=== PATIENT | female | born 1990 | race Caucasian/White ===

== ENCOUNTER 2021-09-28 08:10 | Outpatient (CLI) | payer BC, SELFPAY ==
[2021-09-28 09:44] LABS: Hematocrit 33.2 % (37.0-47.0); Hemoglobin 11.3 g/dL (12.0-15.0)
[2021-09-28 10:02] LABS: Glucose 1 Hour PP 50gm Dose 126 mg/dL
[2021-09-28 10:41] LABS: HIV 1/2 Ab P24 Ag Result Negative (Negative)
[2021-09-28] MEDS: RHO(D) IMMUNE GLOBULIN 300 MCG/2 ML SYRINGE IM (17:06)
[2021-09-29 09:53] LABS: Rapid Plasma Reagin Non-Reactive (NonReactive)
== END 2021-09-28 08:11 | disposition home or self-care (01) ==
LOC: ANHLAB 08:21
PROVIDERS: Visit Provider Obstetrics & Gynecology
DX: O36.0990 Maternal care for other rhesus isoimmunization, unspecified trimester, not applicable or unspecified (principal); Z3A.00 Weeks of gestation of pregnancy not specified
CPT/HCPCS: 36415; 82947; 85014; 85018; 85461; 86592; 86703; 90384; 96372; G0432; J2790

== ENCOUNTER 2021-10-11 10:14 | Observation (INO) | payer BC, SELFPAY ==
[2021-10-11 10:47] VITALS: BP 128/83; PULSE 100
[2021-10-11 11:00] VITALS: TEMP 36.8
[2021-10-11 11:01] VITALS: BP 106/65; PULSE 87
[2021-10-11] MEDS: LACTATED RINGERS 1,000 ML 999 ML IV CONT (11:34)
--- NOTE | 2021-10-11 17:26 | OBADM ---
This patient, Leanne Harris, admitted to the OB room OB Post 116 for observation. Patient/family oriented to hospital policies and general routines including ID bracelet, bed and alarms, visiting hours, pain management, procedures, bathroom and other care routines, personal items, smoking policy, room service/diet, and visiting hours. Patient/Family are encouraged to report perceived risks to care and to ask questions if they do not understand what they are told or what they should do.
--- NOTE | 2021-10-14 07:17 | PM.OBTRLD ---
OB - Triage/Final Diagnosis Visit Information Comments/Additional reasons for admission: I have assessed the risk for this patient, Leanne Harris, and determined that she would benefit from observation care. Final Diagnosis (1) Nausea: Code(s): R11.0 - Nausea Status: Acute (2) Spotting affecting : Code(s): O26.859 - Spotting complicating , unspecified trimester Status: Acute
== END 2021-10-11 15:00 | disposition home or self-care (01) ==
PROVIDERS: Admitting Provider Obstetrics & Gynecology; Visit Provider Obstetrics & Gynecology
DX: O26.853 Spotting complicating pregnancy, third trimester (principal); O21.0 Mild hyperemesis gravidarum; Z3A.29 29 weeks gestation of pregnancy
CPT/HCPCS: 96360; 96361; G0378; G0379; J7120

== ENCOUNTER 2021-10-22 10:27 | Observation (INO) | payer BC, SELFPAY ==
[2021-10-22 10:54] VITALS: BP 127/77; PULSE 90
--- NOTE | 2021-10-22 12:04 | OBADM ---
This patient, Leanne Harris, admitted to the OB room OB Post 115 for observation. Patient/family oriented to hospital policies and general routines including ID bracelet, bed and alarms, pain management, procedures, bathroom and other care routines, personal items, smoking policy, room service/diet, call light and visiting hours. Patient/Family are encouraged to report perceived risks to care and to ask questions if they do not understand what they are told or what they should do.
--- NOTE | 2021-11-12 10:30 | PM.OBTRLD ---
OB - Triage/Final Diagnosis Visit Information Comments/Additional reasons for admission: I have assessed the risk for this patient, Leanne Harris, and determined that she would benefit from observation care. Final Diagnosis (1) False labor: Code(s): O47.9 - False labor, unspecified Status: Acute
== END 2021-10-22 12:01 | disposition home or self-care (01) ==
PROVIDERS: Admitting Provider Obstetrics & Gynecology; Visit Provider Obstetrics & Gynecology
DX: O47.03 False labor before 37 completed weeks of gestation, third trimester (principal); Z3A.31 31 weeks gestation of pregnancy
CPT/HCPCS: G0378; G0379

== ENCOUNTER 2021-12-10 03:03 | Inpatient (IN) | payer BC, SELFPAY ==
[2021-12-10] VITALS (215 sets, daily range): BP systolic 76–157; BP diastolic 37–119; PULSE 59–240; RESP 18–20; TEMP 36.6–38.6; O2SAT 75–100; BMI 34.7
--- NOTE | 2021-12-10 03:57 | LDADM ---
This patient, Leanne Harris, was admitted to Labor/Delivery/Recovery 105 on 12/10/21 at 03:03. Plans for labor, pain management and were discussed with patient. Patient/family oriented to hospital policies and general routines including ID bracelet, bed and alarms, visiting hours, pain management, procedures, bathroom and other care routines, personal items, smoking policy, room service/diet and guest tray routines, infant security routines, and visiting hours. Patient/Family are encouraged to report perceived risks to care and to ask questions if they do not understand what they are told or what they should do. See OBIX for further documentation.
[2021-12-10 03:59] LABS: Basophils Percent Auto 0.4 % (0.2-1.2); Eosinophils Absolute Auto 0.1 K/mm3 (0-0.3); Eosinophils Percent Auto 0.9 % (0-4.4); Hematocrit 33.3 % (37.0-47.0); Immature Granulocyte Absolute 0.08 K/mm3 (0.00-0.031); Immature Granulocyte Percent A 0.9 % (0-0.5); Immature Platelet Fraction Pct 28.5 % (0.9-11.2); Lymphocytes Absolute Auto 1.89 K/mm3 (0.9-3.2); Lymphocytes Percent Auto 22.1 % (18.3-44.2); Mean Corpuscular Hemoglobin 30.2 pg (26-34); Mean Corpuscular Volume 91.5 fl (80-100); Mean Platelet Volume 13.5 fl (7.4-10.4); Monocytes Absolute Auto 0.7 K/mm3 (0.1-0.6); Monocytes Percent Auto 8.3 % (2.6-8.5); Neutrophils Absolute Auto 5.8 K/mm3 (1.3-6.7); Neutrophils Percent Auto 67.4 % (45.5-73.1); Platelet Count Result 97 k/mm3 (150-375); Red Blood Count 3.64 M/mm3 (4.2-5.4); Red Cell Distribution Width 13.1 % (11.5-14.5); White Blood Count 8.6 K/mm3 (4.5-10.0)
[2021-12-10] MEDS: LACTATED RINGERS 1,000 ML 125 ML IV CONT ×4 (04:07→14:07)
--- NOTE | 2021-12-10 07:01 | PC.NURSE ---
Lab called to request uric acid be added to cmp that was just sent down to be run.
[2021-12-10 07:02] LABS: Hematocrit 32.3 % (37.0-47.0); Hemoglobin 10.7 g/dL (12.0-15.0); Mean Corpuscular HGB Conc 33.1 g/dl (32-36); Mean Corpuscular Hemoglobin 30.3 pg (26-34); Mean Corpuscular Volume 91.5 fl (80-100); Mean Platelet Volume 13.7 fl (7.4-10.4); Platelet Count Result 95 k/mm3 (150-375); Red Blood Count 3.53 M/mm3 (4.2-5.4); Red Cell Distribution Width 13.2 % (11.5-14.5); White Blood Count 9.3 K/mm3 (4.5-10.0)
[2021-12-10 07:12] LABS: Alanine Aminotransferase 20 U/L (4-35); Albumin Level 3.6 g/dL (3.5-5.1); Alkaline Phosphatase 169 U/L (38-126); Anion Gap 6 mmol/L (8-16); Aspartate Amino Transferase 28 U/L (14-36); Bilirubin,Total 0.4 mg/dL (0.2-1.3); Blood Urea Nitrogen 6 mg/dL (7-17); Carbon Dioxide 20 mmol/L (22-30); Chloride 105 mmol/L (98-107); Estimated CRCL calculation 108 ml/min; Estimated Glomerular Filt Rate > 60; Glucose 93 mg/dL (65-110); Potassium 4.1 mmol/L (3.4-5.0); Sodium 131 mmol/L (137-145)
[2021-12-10] MEDS: ONDANSETRON INJ 4 MG/2 ML VIAL IV PUSH (07:12)
[2021-12-10 07:46] LABS: Uric Acid 3.8 mg/dL (2.5-7.5)
--- NOTE | 2021-12-10 08:03 | WPDANESEPPF ---
Anes - Initial Pre Proc Eval Procedure: labor epidural Date/Time: 12/10/21 08:03 Surgeon: Haylie Quintero MD Pre Op Diagnosis: labor pain Pre Op Diagnosis: Rupture of Membranes Patient Data Age: 31 Gender: F Height: 1.52 m Weight: 80.74 kg Last Vital Signs Temp 36.6 C 12/10/21 06:31 Pulse 76 12/10/21 08:00 Resp 20 12/10/21 06:31 BP 110/58 L 12/10/21 08:00 Pulse Ox 97 12/10/21 08:01 Allergies Allergy/AdvReac Type Severity Reaction Status Date / Time milk Allergy Unknown Verified 11/25/18 15:44 Home Medications Medication Instructions Recorded Confirmed Type PNV cmb#95-ferrous fumarate-FA 1 tablet PO DAILY 11/23/21 12/10/21 History [] cetirizine 10 mg PO DAILY 11/23/21 12/10/21 History Laboratory Tests 12/10/21 12/10/21 12/10/21 03:36 03:36 03:36 WBC 8.6 K/mm3 K/mm3 (4.5-10.0) RBC 3.64 M/mm3 L M/mm3 (4.2-5.4) Hgb 11.0 g/dL L g/dL (12.0-15.0) Hct 33.3 % L % (37.0-47.0) MCV 91.5 fl fl (80-100) MCH 30.2 pg pg (26-34) MCHC 33.0 g/dl g/dl (32-36) RDW 13.1 % % (11.5-14.5) Plt Count 97 k/mm3 L k/mm3 (150-375) MPV 13.5 fl H fl (7.4-10.4) Immature Gran % (Auto) 0.9 % H % (0-0.5) Neut % (Auto) 67.4 % % (45.5-73.1) Lymph % (Auto) 22.1 % % (18.3-44.2) [place] % (Auto) 8.3 % % (2.6-8.5) Eos % (Auto) 0.9 % % (0-4.4) Baso % (Auto) 0.4 % % (0.2-1.2) Lymph # (Auto) 1.89 K/mm3 K/mm3 (0.9-3.2) [place] # (Auto) 0.7 K/mm3 H K/mm3 (0.1-0.6) Eos # (Auto) 0.1 K/mm3 K/mm3 (0-0.3) Baso # (Auto) 0.0 K/mm3 K/mm3 (0.0-0.1) Abs Immat Gran (auto) 0.08 K/mm3 H K/mm3 (0.00-0.031) Absolute Neuts (auto) 5.8 K/mm3 K/mm3 (1.3-6.7) Absolute Nucleated RBC 0.0 K/mm3 K/mm3 (0.0-0.012) Nucleated RBC % 0.0 % % (0.0-0.2) % Immature Plt Fraction 28.5 % H % (0.9-11.2) Sodium Potassium Chloride Carbon Dioxide Anion Gap BUN Creatinine Estim Creat Clear Calc Estimated GFR Glucose Uric Acid Calcium Total Bilirubin AST ALT Alkaline Phosphatase Total Protein Albumin RPR Pending Blood Type B Negative Antibody Screen Positive Antibody Identification Passive Due to RH Imm Glob Antigen Identification Cancelled LULY, IgG Interpret Not Performed LULY, Poly Interpret Negative LULY, Complement Interp Not Performed 12/10/21 12/10/21 12/10/21 06:36 06:36 06:36 WBC 9.3 K/mm3 K/mm3 (4.5-10.0) RBC 3.53 M/mm3 L M/mm3 (4.2-5.4) Hgb 10.7 g/dL L g/dL (12.0-15.0) Hct 32.3 % L % (37.0-47.0) MCV 91.5 fl fl (80-100) MCH 30.3 pg pg (26-34) MCHC 33.1 g/dl g/dl (32-36) RDW 13.2 % % (11.5-14.5) Plt Count 95 k/mm3 L k/mm3 (150-375) MPV 13.7 fl H fl (7.4-10.4) Immature Gran % (Auto) Neut % (Auto) Lymph % (Auto) [place] % (Auto) Eos % (Auto) Baso % (Auto) Lymph # (Auto) [place] # (Auto) Eos # (Auto) Baso # (Auto) Abs Immat Gran (auto) Absolute Neuts (auto) Absolute Nucleated RBC Nucleated RBC % % Immature Plt Fraction 29.0 % H % (0.9-11.2) Sodium 131 mmol/L L mmol/L (137-145) Potassium 4.1 mmol/L mmol/L (3.4-5.0) Chloride 105 mmol/L mmol/L (98-107) Carbon Dioxide 20 mmol/L L mmol/L (22-30) Anion Gap 6
[2021-12-10] MEDS: OXYTOCIN 30 UNITS/NS 500 ML 30 UNITS/500 ML BAG IV CONT (09:38)
--- NOTE | 2021-12-10 10:16 | WPDOBADMIT ---
Obstetrics - Admit Note Admission Note: record reviewed. No pertinent additions to the history and/or any subsequent changes in the physical findings that are not consistent with the expected course of the were found. Additions to the history and/or subsequent changes in the physical findings follow. None.
--- NOTE | 2021-12-10 10:20 | WPDOBADMIT ---
Obstetrics - Admit Note Admission Note: 31 y/o G1 here with spontaneous rupture of membranes. VSS Irregular contractions FHR category 1 Comfortable with epidural Anticipate record reviewed. No pertinent additions to the history and/or any subsequent changes in the physical findings that are not consistent with the expected course of the were found. Additions to the history and/or subsequent changes in the physical findings follow. None.
[2021-12-10] MEDS: PHENYLEPHRINE 1,000 MCG/10 ML SYRINGE 100 MCG IV PUSH ×2 (11:03→12:03)
[2021-12-10] MEDS: AMPICILLIN 2 GM/NS 100 ML 2 GM/100 ML BAG IVPB (18:00)
[2021-12-10] MEDS: SODIUM CHLORIDE 0.9% IV 300 ML 600 ML I-UTERINE (19:24)
--- NOTE | 2021-12-10 21:42 | P.PCNOB_ITS ---
OB - Delivery Note Procedure Delivery date: 12/10/21 Procedure: vaginal delivery events: Prolonged Rupture of Membrane Intrapartal events: None Induction method: none Delivery augmentation: pitocin Delivery monitor: external FHT, external uterine and internal uterine Route of delivery: Episiotomy description: None Laceration Description: Perineal - 2nd Degree Delivery repair: vicryl Specimen: Yes Quantitative Blood Loss (ml): 80 Anesthesia type: Epidural Disposition: floor [place] Baby Date of : 12/10/21 Time of : 21:19 Weeks of gestation at delivery: 38 gender: Male Weight (pounds): 6 Weight (ounces): 13 presentation: vertex position: Left Occiput Anterior Placenta delivery description: Spontaneous cord vessel description: 3 Vessels, Clamped/Cut and Delayed Cord Clamping score one minute: 8 score five minutes: 9 Narrative: mother and baby skin to skin in stable condition
[2021-12-10] MEDS: OXYTOCIN 30 UNITS/NS 500 ML 30 UNITS/500 ML BAG 125 UNITS IV CONT (22:03)
[2021-12-10] MEDS: BENZOCAINE 20% AER SPR (*SP) 56 GM CAN 1 SPRAY TOPICAL (23:39)
[2021-12-10] MEDS: WITCH HAZEL 40 PADS 1 PAD TOPICAL (23:39)
[2021-12-11] VITALS: BP 136/79; PULSE 101; RESP 16; TEMP 37.2; O2SAT 99
--- NOTE | 2021-12-11 00:51 | OBPPTRN ---
Patient transferred to post room #288 via wheelchair. Support person present. Oriented to unit, room, information board, rooming in, admission packet and security measures. Patient verbalizes understanding.
[2021-12-11] MEDS: IBUPROFEN 600 MG TABLET PO ×4 (02:19→20:28)
[2021-12-11 04:00] VITALS: BP 127/77; PULSE 79; RESP 16; TEMP 36.6
[2021-12-11 05:49] LABS: Basophils Absolute Auto 0.1 K/mm3 (0.0-0.1); Basophils Percent Auto 0.3 % (0.2-1.2); Eosinophils Absolute Auto 0.1 K/mm3 (0-0.3); Eosinophils Percent Auto 0.3 % (0-4.4); Hematocrit 27.5 % (37.0-47.0); Hemoglobin 8.9 g/dL (12.0-15.0); Immature Granulocyte Absolute 0.13 K/mm3 (0.00-0.031); Immature Granulocyte Percent A 0.9 % (0-0.5); Immature Platelet Fraction Pct 27.7 % (0.9-11.2); Lymphocytes Absolute Auto 1.24 K/mm3 (0.9-3.2); Lymphocytes Percent Auto 8.3 % (18.3-44.2); Mean Corpuscular HGB Conc 32.4 g/dl (32-36); Mean Corpuscular Hemoglobin 29.5 pg (26-34); Mean Corpuscular Volume 91.1 fl (80-100); Monocytes Percent Auto 6.9 % (2.6-8.5); Neutrophils Absolute Auto 12.5 K/mm3 (1.3-6.7); Neutrophils Percent Auto 83.3 % (45.5-73.1); Platelet Count Result 86 k/mm3 (150-375); Red Blood Count 3.02 M/mm3 (4.2-5.4); Red Cell Distribution Width 13.1 % (11.5-14.5)
[2021-12-11 08:00] VITALS: BP 135/80; PULSE 67; RESP 18; TEMP 36.8; O2SAT 98
[2021-12-11] MEDS: DOCUSATE SODIUM 100 MG CAPSULE PO (08:11)
[2021-12-11] MEDS: SIMETHICONE 80 MG TAB.CHEW PO (08:11)
[2021-12-11] MEDS: POLYSACCHARIDE IRON COMPLEX 150 MG CAPSULE PO (08:11)
--- NOTE | 2021-12-11 09:38 | PM.OBPNVD ---
OB - PN: Subj Subjective Date/time seen: 12/11/21 09:38 Patient comments: no complaints baby status: doing well Narrative: Baby doing well but will be getting antibiotics. The nurses have asked us to wait on circumcision. OB - PN: Obj Data Labs CBC & Chem 7: 12/11/21 05:23 12/10/21 06:36 Labs: Laboratory Results - last 24 hr 12/11/21 12/11/21 05:23 05:23 WBC 15.0 H RBC 3.02 L Hgb 8.9 L Hct 27.5 L MCV 91.1 MCH 29.5 MCHC 32.4 RDW 13.1 Plt Count 86 L MPV TNP Immature Gran % (Auto) 0.9 H Neut % (Auto) 83.3 H Lymph % (Auto) 8.3 L [place] % (Auto) 6.9 Eos % (Auto) 0.3 Baso % (Auto) 0.3 Lymph # (Auto) 1.24 [place] # (Auto) 1.0 H Eos # (Auto) 0.1 Baso # (Auto) 0.1 Abs Immat Gran (auto) 0.13 H Absolute Neuts (auto) 12.5 H Absolute Nucleated RBC 0.0 Nucleated RBC % 0.0 % Immature Plt Fraction 27.7 H Blood Type B Negative Antibody Screen TNP Screen Negative Baby's Blood Type O pos Baby's LULY Positive Doses of RhIg Required 1 OB - PN A/P Plan day: 1 Plan: routine care Comments: Low platelets. BP normal. No abnormal bleeding. Pt doing well. Will recheck labs. Time Spent With Patient Time: Total time spent is greater than 50% in coordination of care (as documented) at patient's floor/unit and/or counseling patient: Time with patient: less than 15 minutes Review of Systems Review of Systems: All systems reviewed & are unremarkable except as noted in HPI and below Exam Narrative: Fundus firm and vaginal flow controlled. No lower ext redness, warmth, or edema. Negative homans. Const: General: comfortable Chest: Breast/axilla inspection: normal inspection of the breasts Resp: Effort & Inspection: normal respiratory effort Cardio: Rate: regular rate GI: GI Palp: Yes Soft to palpation Psych: Appearance: grossly normal Affect: normal affect Attitude: cooperative Thought content: Yes Normal thought content present Judgement: Good judgement present (Psych)
[2021-12-11 10:30] LABS: Hematocrit 27.7 % (37.0-47.0); Immature Platelet Fraction Pct 26.3 % (0.9-11.2); Mean Corpuscular HGB Conc 32.5 g/dl (32-36); Mean Corpuscular Hemoglobin 30.2 pg (26-34); Mean Platelet Volume 13.8 fl (7.4-10.4); Platelet Count Result 90 k/mm3 (150-375); Red Blood Count 2.98 M/mm3 (4.2-5.4); Red Cell Distribution Width 13.3 % (11.5-14.5); White Blood Count 12.9 K/mm3 (4.5-10.0)
[2021-12-11 10:37] LABS: Alanine Aminotransferase 17 U/L (4-35); Albumin Level 2.5 g/dL (3.5-5.1); Alkaline Phosphatase 110 U/L (38-126); Anion Gap 4 mmol/L (8-16); Aspartate Amino Transferase 30 U/L (14-36); Bilirubin,Total 0.5 mg/dL (0.2-1.3); Blood Urea Nitrogen 6 mg/dL (7-17); Calcium 8.4 mg/dL (8.4-10.2); Carbon Dioxide 21 mmol/L (22-30); Chloride 108 mmol/L (98-107); Estimated CRCL calculation 83 ml/min; Estimated Glomerular Filt Rate > 60; Glucose 134 mg/dL (65-110); Potassium 3.1 mmol/L (3.4-5.0); Sodium 133 mmol/L (137-145); Uric Acid 4.4 mg/dL (2.5-7.5)
[2021-12-11 12:30] VITALS: BP 94/55; PULSE 92; TEMP 36.7; O2SAT 98
[2021-12-11 13:00] VITALS: BP 107/66; PULSE 88
[2021-12-11] MEDS: RHO(D) IMMUNE GLOBULIN 300 MCG/2 ML SYRINGE IM (14:45)
[2021-12-11] MEDS: POTASSIUM CHLORIDE 20 MEQ TABLET 40 MEQ PO (14:57)
--- NOTE | 2021-12-11 15:16 | PC.NURSE ---
Epidural cath d/c'd with tip intact. No bleeding noted. Bandaid placed over insertion site. Pt tolerated.
--- NOTE | 2021-12-11 16:57 | WPDANLDPN2 ---
Anes-Prog Note L&D Date/Time: 12/11/21 16:57 Comfortable throughout: labor and delivery Neuraxial method: epidural Epidural/Spinal procedure site: clean & non-tender Neuro status: Neuro function grossly intact. Cardiovascular status: normal Respiratory status: normal Airway patency: baseline Mental status: baseline Post-Op hydration status: normal Vital Signs: Last Vital Signs Temp 98.0 F 12/11/21 12:30 Pulse 88 12/11/21 13:00 Resp 18 12/11/21 08:00 BP 107/66 12/11/21 13:00 Pulse Ox 98 12/11/21 12:30 Pain score (VAS): 11/21 I/O: 12/22 Post-procedural complaints: none Patient feedback: Patient satisfied with anesthetic care.
[2021-12-11 20:15] VITALS: BP 100/64; PULSE 83; O2SAT 98
[2021-12-12] MEDS: IBUPROFEN 600 MG TABLET PO ×2 (05:07→17:30)
[2021-12-12 06:08] LABS: Rapid Plasma Reagin Non-Reactive (NonReactive)
[2021-12-12 07:54] LABS: Alanine Aminotransferase 16 U/L (4-35); Albumin Level 2.7 g/dL (3.5-5.1); Alkaline Phosphatase 112 U/L (38-126); Anion Gap 1 mmol/L (8-16); Aspartate Amino Transferase 27 U/L (14-36); Bilirubin,Total 0.2 mg/dL (0.2-1.3); Blood Urea Nitrogen 7 mg/dL (7-17); Calcium 8.4 mg/dL (8.4-10.2); Carbon Dioxide 24 mmol/L (22-30); Chloride 109 mmol/L (98-107); Estimated CRCL calculation 94 ml/min; Estimated Glomerular Filt Rate > 60; Glucose 86 mg/dL (65-110); Potassium 4.1 mmol/L (3.4-5.0); Sodium 134 mmol/L (137-145); Uric Acid 3.5 mg/dL (2.5-7.5)
[2021-12-12 08:20] VITALS: BP 133/86; PULSE 87; RESP 16; TEMP 36.6; O2SAT 100
--- NOTE | 2021-12-12 08:31 | P.PNOB_ITS ---
OB - PN: Subj Subjective Date/time seen: 12/12/21 08:31 Patient comments: no complaints baby status: doing well OB - PN: Obj Data Labs CBC & Chem 7: 12/11/21 10:15 12/12/21 05:00 Labs: Laboratory Results - last 24 hr 12/10/21 12/11/21 12/11/21 03:36 05:23 10:15 WBC 12.9 H RBC 2.98 L Hgb 9.0 L Hct 27.7 L MCV 93.0 MCH 30.2 MCHC 32.5 RDW 13.3 Plt Count 90 L MPV 13.8 H % Immature Plt Fraction 26.3 H Sodium Potassium Chloride Carbon Dioxide Anion Gap BUN Creatinine Estim Creat Clear Calc Estimated GFR Glucose Uric Acid Calcium Total Bilirubin AST ALT Alkaline Phosphatase Total Protein Albumin RPR Non-reactive Blood Type B Negative Antibody Screen TNP Screen Negative Baby's Blood Type O pos Baby's LULY Positive Doses of RhIg Required 1 12/11/21 12/12/21 10:15 05:00 WBC RBC Hgb Hct MCV MCH MCHC RDW Plt Count MPV % Immature Plt Fraction Sodium 133 L 134 L Potassium 3.1 L 4.1 Chloride 108 H 109 H Carbon Dioxide 21 L 24 Anion Gap 4 L 1 L BUN 6 L 7 Creatinine 0.80 0.70 Estim Creat Clear Calc 83 94 Estimated GFR > 60 > 60 Glucose 134 H 86 Uric Acid 4.4 3.5 Calcium 8.4 8.4 Total Bilirubin 0.5 0.2 AST 30 27 ALT 17 16 Alkaline Phosphatase 110 112 Total Protein 5.0 L 5.0 L Albumin 2.5 L 2.7 L RPR Blood Type Antibody Screen Screen Baby's Blood Type Baby's LULY Doses of RhIg Required OB - PN A/P Plan day: 2 Plan: routine care Comments: Would like to keep the recommended stay of 72 hours for 2 elevated bp's (ghtn) and low platelets. Still awaiting most recent results. Time Spent With Patient Time: Total time spent is greater than 50% in coordination of care (as documented) at patient's floor/unit and/or counseling patient: Time with patient: less than 15 minutes Review of Systems Review of Systems: All systems reviewed & are unremarkable except as noted in HPI and below Exam Narrative: Fundus firm and vaginal flow controlled. No lower ext redness, war mth, or edema. Negative homans. Denies h/a, v/d or e/p. Reflexes normal. Const: General: comfortable Chest: Breast/axilla inspection: normal inspection of the breasts Resp: Effort & Inspection: normal respiratory effort Cardio: Rate: regular rate GI: GI Palp: Yes Soft to palpation Psych: Appearance: grossly normal Affect: normal affect Attitude: cooperative Thought content: Yes Normal thought content present Judgement: Good judgement present (Psych)
[2021-12-12] MEDS: DOCUSATE SODIUM 100 MG CAPSULE PO ×2 (09:20→17:31)
[2021-12-12] MEDS: ACETAMINOPHEN 325 MG TABLET 650 MG PO (09:20)
[2021-12-12] MEDS: POLYSACCHARIDE IRON COMPLEX 150 MG CAPSULE PO ×2 (09:21→17:31)
[2021-12-12 11:23] LABS: Hematocrit 27.1 % (37.0-47.0); Hemoglobin 8.7 g/dL (12.0-15.0); Immature Platelet Fraction Pct 26.8 % (0.9-11.2); Mean Corpuscular HGB Conc 32.1 g/dl (32-36); Mean Corpuscular Hemoglobin 30.4 pg (26-34); Mean Corpuscular Volume 94.8 fl (80-100); Mean Platelet Volume 14.5 fl (7.4-10.4); Platelet Count Result 94 k/mm3 (150-375); Red Blood Count 2.86 M/mm3 (4.2-5.4); Red Cell Distribution Width 13.7 % (11.5-14.5); White Blood Count 11.3 K/mm3 (4.5-10.0)
[2021-12-12 19:00] VITALS: BP 127/76; PULSE 108; RESP 18; TEMP 36.8
[2021-12-13] MEDS: ACETAMINOPHEN 325 MG TABLET 650 MG PO (02:25)
[2021-12-13] MEDS: IBUPROFEN 600 MG TABLET PO (02:25)
--- NOTE | 2021-12-13 07:46 | PM.OBPNVD ---
OB - PN: Subj Subjective Date/time seen: 12/13/21 07:46 Patient comments: no complaints baby status: doing well [place] feeding status: exclusively bottle feeding OB - PN: Obj Data Labs CBC & Chem 7: 12/12/21 05:00 12/12/21 05:00 Labs: Laboratory Results - last 24 hr 12/12/21 12/12/21 05:00 05:00 WBC 11.3 H RBC 2.86 L Hgb 8.7 L Hct 27.1 L MCV 94.8 MCH 30.4 MCHC 32.1 RDW 13.7 Plt Count 94 L MPV 14.5 H % Immature Plt Fraction 26.8 H Sodium 134 L Potassium 4.1 Chloride 109 H Carbon Dioxide 24 Anion Gap 1 L BUN 7 Creatinine 0.70 Estim Creat Clear Calc 94 Estimated GFR > 60 Glucose 86 Uric Acid 3.5 Calcium 8.4 Total Bilirubin 0.2 AST 27 ALT 16 Alkaline Phosphatase 112 Total Protein 5.0 L Albumin 2.7 L OB - PN A/P Assessment and Plan (1) , delivered: Code(s): O80 - Encounter for full-term uncomplicated delivery Status: Acute (2) Thrombocytopenia: Code(s): D69.6 - Thrombocytopenia, unspecified Status: Acute Plan day: 2 Plan: routine care and discharge home Comments: platelets improving BPs great DC home today Time Spent With Patient Time: Total time spent is greater than 50% in coordination of care (as documented) at patient's floor/unit and/or counseling patient: Time with patient: less than 15 minutes Exam Narrative: NAD abdomen soft, nontender, fundus firm below the umbilicus Extremities nontender, 1+ edema
--- NOTE | 2021-12-13 07:52 | P.DS_ITS ---
DS: Admitting Diagnosis Discharge Date 12/13/21 Admitting Diagnosis SROM at term DS: Discharge Diagnosis Discharge Diagnosis (1) , delivered: Code(s): O80 - Encounter for full-term uncomplicated delivery Status: Acute (2) Thrombocytopenia: Code(s): D69.6 - Thrombocytopenia, unspecified Status: Acute DS: Summary Hospital Course Hospital Course: Pt had an uncomplicated vaginal delivery and course. Platelets improved, BPs were stable. She was DCed home on post day 3. Status at Discharge Functional status at discharge: independent ambulation Time Spent with Patient Time attestation: Total time spent providing and/or coordinating discharge services: Exam Narrative: NAD abdomen soft, appropriately tender Ext non tender, 1+ edema DS: Data Data Completed and Pending Pending studies at discharge: Pending at discharge 12/10/21 22:14 Surgical [PTH] Routine Labs on day of discharge: Labs from last 24 hours 12/12/21 12/12/21 05:00 05:00 WBC 11.3 H RBC 2.86 L Hgb 8.7 L Hct 27.1 L MCV 94.8 MCH 30.4 MCHC 32.1 RDW 13.7 Plt Count 94 L MPV 14.5 H % Immature Plt Fraction 26.8 H Sodium 134 L Potassium 4.1 Chloride 109 H Carbon Dioxide 24 Anion Gap 1 L BUN 7 Creatinine 0.70 Estim Creat Clear Calc 94 Estimated GFR > 60 Glucose 86 Uric Acid 3.5 Calcium 8.4 Total Bilirubin 0.2 AST 27 ALT 16 Alkaline Phosphatase 112 Total Protein 5.0 L Albumin 2.7 L Discharge Plan Discharge Attending physician on discharge: Haylie Quintero Discharging Clinician: Haylie Quintero Anticipated Discharge Date/Time: 12/13/21 07:49 Patient Disposition: Home, Self-Care Activity: pelvic rest Diet: regular Patient Instructions: Antibiotic Form Stand Alone Forms: General Discharge Information Follow-up/Referrals: Haylie Quintero MD [Physician] - Discharge Medications: Continued PNV cmb#95-ferrous fumarate-FA [] 28 mg iron- 800 mcg Tablet 1 tablet PO DAILY RF: 0 Discontinued cetirizine 10 mg Tablet 10 mg PO DAILY RF: 0 Date of admission: 12/10/21 03:03 Primary Care Provider: PHYSICIAN,SENIOR VICE PRESIDENT Admitting Provider: Haylie Quintero Attending physician on admission: Haylie Quitnero Condition: Stable
[2021-12-13 08:15] VITALS: BP 122/81; PULSE 72; RESP 16; TEMP 37.4; O2SAT 98
[2021-12-13] MEDS: DOCUSATE SODIUM 100 MG CAPSULE PO (09:46)
[2021-12-13] MEDS: POLYSACCHARIDE IRON COMPLEX 150 MG CAPSULE PO (09:46)
[2021-12-14 09:52] VITALS: BP 135/77; PULSE 82; RESP 16; TEMP 37.1; O2SAT 100
== END 2021-12-13 12:45 | disposition home or self-care (01) | DRG 806 ==
LOC: ANHLDR 03:39 → ANHOB2 12-11 00:07
PROVIDERS: Advanced Practice Midwife; Admitting Provider Obstetrics & Gynecology; Visit Provider Obstetrics & Gynecology
DX: O41.1230 Chorioamnionitis, third trimester, not applicable or unspecified (principal); O99.12 Other diseases of the blood and blood-forming organs and certain disorders involving the immune mechanism complicating childbirth; Z37.0 Single live birth; O42.92 Full-term premature rupture of membranes, unspecified as to length of time between rupture and onset of labor; O70.1 Second degree perineal laceration during delivery; O77.0 Labor and delivery complicated by meconium in amniotic fluid; D69.6 Thrombocytopenia, unspecified; O76 Abnormality in fetal heart rate and rhythm complicating labor and delivery; Z3A.38 38 weeks gestation of pregnancy
CPT/HCPCS: 36415; 80053; 84550; 85025; 85027; 85055; 85461; 86592; 86850; 86880; 86900; 86901; 88307; 90384; A9270; J0131; J0290; J2370; J2405; J2590; J2790; J7030; J7120

== ENCOUNTER 2024-03-29 09:06 | Outpatient (CLI) | payer BC, SELFPAY ==
[2024-03-29 11:28] LABS: Hematocrit 33.5 % (37.0-47.0)
[2024-03-29 11:43] LABS: Glucose 1 Hour PP 50gm Dose 157 mg/dL
[2024-03-29 12:06] LABS: HIV 1/2 Ab P24 Ag Result Negative (Negative)
[2024-03-29] MEDS: RHO(D) IMMUNE GLOBULIN 300 MCG/2 ML SYRINGE IM (15:39)
== END 2024-03-29 09:07 | disposition home or self-care (01) ==
LOC: ANHLAB 09:06
PROVIDERS: Visit Provider Advanced Practice Midwife
DX: Z36.89 Encounter for other specified antenatal screening (principal); O36.0130 Maternal care for anti-D [Rh] antibodies, third trimester, not applicable or unspecified; Z3A.00 Weeks of gestation of pregnancy not specified
CPT/HCPCS: 36415; 82947; 85014; 85018; 85461; 86703; 86850; 86900; 86901; 90384; 96372; G0432; J2790

== ENCOUNTER 2024-04-28 18:43 | Emergency (ER) | payer BC, SELFPAY ==
[2024-04-28 18:51] VITALS: BP 134/85; PULSE 111; RESP 16; TEMP 36.8; O2SAT 99
[2024-04-28 19:12] VITALS: BP 141/89; PULSE 112; RESP 18; TEMP 36.8; O2SAT 100
--- NOTE | 2024-04-28 19:40 | ED.EXTPRO ---
HPI - Extremity Problem General Chief complaint: Extremity Problem,Nontraumatic Stated complaint: swollen left foot. r/o DVT Time Seen by Provider: 04/28/24 19:13 Source: patient Mode of arrival: ambulatory Limitations: no limitations History of Present Illness HPI Narrative: This is a 33 year old female that presents to the ER for left foot pain and swelling. Reports her OB wanted her to come in to have a DVT study. She does report travel about a week ago. No recent injuries. Her OB is [facility]. Denies chest pain, shortness of breath or erythema. Related Data Home Medications Medication Instructions Recorded Confirmed vit no.95-ferrous 1 tablet PO DAILY 11/23/21 12/10/21 fumarate 28 mg-folic acid 800 mcg tablet () Allergies Allergy/AdvReac Type Severity Reaction Status Date / Time milk AdvReac Unknown Nausea Verified 12/11/21 07:27 Review of Systems Review of Systems: CONSTITUTIONAL: Denies fever SKIN: Denies rash MUSCULOSKELETAL: Reports joint pain, and myalgia. NEUROLOGIC: Denies numbness All systems reviewed & are unremarkable except as noted in HPI and below PMFSH Past Medical History Medical History (Updated 04/28/24 @ 21:50 by Amelie Ferrer PA-C) No active medical problems Family History Family History Mother Hypertension Father Cerebrovascular accident, Onset Age: 50 Malignant neoplasm of prostate Social History Social History Smoking status: Never smoker Second hand tobacco smoke exposure: No Substance use: never Spiritual care concerns: No Exam Narrative: GENERAL: Well-appearing, well-nourished, and in no acute distress. HEAD: Normocephalic, atraumatic. EYES: EOMI. EXTREMITIES: Normal range of motion. Mild edema about the left foot and lower leg. Normal DP pulse. Normal sensation SKIN: Warm, dry, no rash. NEURO: No focal deficits. Alert and oriented x3. PSYCH: Normal mood and affect Course Course Emergency Course: patient updated on workup and agrees with plan of care Consultations Consultation #1: Spoke with Dr. Arciniega about patient and workup. Agrees with dose of Lovenox in the ED and US in the morning Date: 04/28/24 Vital Signs Vital signs: Vital Signs Temperature 98.2 F 04/28/24 18:51 Pulse Rate 111 H 04/28/24 18:51 Respiratory Rate 16 04/28/24 18:51 Blood Pressure 134/85 04/28/24 18:51 Pulse Oximetry 99 04/28/24 18:51 Oxygen Delivery Room Air 04/28/24 18:51 Temperature 98.3 F 04/28/24 19:12 Pulse Rate 112 H 04/28/24 19:12 Respiratory Rate 18 04/28/24 19:12 Blood Pressure 141/89 H 04/28/24 19:12 Pulse Oximetry 100 04/28/24 19:12 Oxygen Delivery Room Air 04/28/24 18:51 MDM - Extremity (Nontraumatic) MDM Narrative Medical decision making narrative: Patient presents to the emergency department for left lower extremity pain and swelling. Sent by her OB to rule out DVT. Currently 32 weeks . She is seen at [facility]'s [place]. Mild edema is noted about the left lower extremity. Normal peripheral pulses. US is not here at this time. D dimer was elevated. She is scheduled for an US of her leg in the morning. She does not have any chest pain or shortness of breath. Spoke with Dr. Arciniega about patient and workup. Agrees with dose of Lovenox in the ED and US in the morning. Patient was given warnings to return to the ER Differential Diagnosis Differential diagnosis: Likely deep vein thrombosis of lower extremity and other ( venous insufficiency) Lab Data Attestation: I reviewed the patient's lab results. 04/28/24 20:39 04/28/24 20:39 Labs: Lab Results 04/28/24 Range/Units 20:39 WBC 7.0 (4.5-10.0) K/mm3 RBC 3.53 L (4.2-5.4) M/mm3 Hgb 10.8 L (12.0-15.0) g/dL Hct 32.6 L (37.0-47.0) % MCV 92.4 (80-100) fl MCH 30.6 (26-34) pg MCHC 33.1 (32-36) g/d
--- NOTE | 2024-04-28 20:05 | PC.NURSE ---
Call was placed to radiology to ask about ultrasound for leg swelling. radiology stated that they can't call the ultrasound team in for a leg issue.
[2024-04-28 20:46] LABS: Basophils Percent Auto 0.3 % (0.2-1.2); Eosinophils Percent Auto 0.6 % (0-4.4); Hematocrit 32.6 % (37.0-47.0); Hemoglobin 10.8 g/dL (12.0-15.0); Immature Granulocyte Absolute 0.03 K/mm3 (0.00-0.031); Immature Granulocyte Percent A 0.4 % (0-0.5); Immature Platelet Fraction Pct 22.7 % (0.9-11.2); Lymphocytes Absolute Auto 1.34 K/mm3 (0.9-3.2); Lymphocytes Percent Auto 19.3 % (18.3-44.2); Mean Corpuscular HGB Conc 33.1 g/dl (32-36); Mean Corpuscular Hemoglobin 30.6 pg (26-34); Mean Corpuscular Volume 92.4 fl (80-100); Mean Platelet Volume 13.3 fl (7.4-10.4); Monocytes Absolute Auto 0.5 K/mm3 (0.1-0.6); Monocytes Percent Auto 7.6 % (2.6-8.5); Neutrophils Percent Auto 71.8 % (45.5-73.1); Platelet Count Result 101 k/mm3 (150-375); Red Blood Count 3.53 M/mm3 (4.2-5.4); Red Cell Distribution Width 12.9 % (11.5-14.5)
[2024-04-28 20:57] LABS: Anion Gap 6 mmol/L (4-12); Blood Urea Nitrogen 7 mg/dL (7-17); Calcium 9.7 mg/dL (8.4-10.2); Carbon Dioxide 23 mmol/L (22-30); Chloride 107 mmol/L (98-107); Estimated CRCL calculation 102 ml/min; Estimated Glomerular Filt Rate > 60; Glucose 94 mg/dL (65-110); Potassium 3.8 mmol/L (3.4-5.0); Sodium 136 mmol/L (137-145)
[2024-04-28 21:00] LABS: Partial Thromboplastin Time 27.5 Seconds (22.3-36.8); Prothrombin Time 13.2 Seconds (11.1-14.7)
[2024-04-28 21:06] LABS: D Dimer 0.68 ug/mL (<0.48)
[2024-04-28] MEDS: ENOXAPARIN 80 MG/0.8 ML SYRINGE 75 MG SUB-Q (22:02)
[2024-04-28 22:20] VITALS: BP 118/80; PULSE 86; RESP 19; O2SAT 100
== END 2024-04-28 22:51 | disposition home or self-care (01) ==
PROVIDERS: Emergency Provider Physician Assistant
DX: R60.0 Localized edema (principal)
CPT/HCPCS: 36415; 80048; 85025; 85055; 85380; 85610; 85730; 96372; 99283; J1650

== ENCOUNTER 2024-04-29 08:06 | Outpatient (CLI) | payer BC, SELFPAY ==
--- NOTE | ~2024-04-29 | US_ITS ---
LEFT LOWER EXTREMITY VENOUS ULTRASOUND Ordering provider: Tammie Craven CNM History: . PAIN IN LLE . Comparison: None. FINDINGS: --COMMON FEMORAL: Patent and free of thrombus. Normal compressibility, phasic flow and augmentation. --PROXIMAL SUPERFICIAL FEMORAL: Patent and free of thrombus. Normal compressibility, phasic flow and augmentation. --DISTAL SUPERFICIAL FEMORAL: Patent and free of thrombus. Normal compressibility, phasic flow and au gmentation. --POPLITEAL: Patent and free of thrombus. Normal compressibility, phasic flow and augmentation. --POSTERIOR TIBIAL: Patent and free of thrombus. Normal compressibility, phasic flow and augmentation . IMPRESSION: Negative left lower extremity venous US. No deep vein thrombosis. Reviewed, dictated and finalized at location A.
== END 2024-04-29 08:07 | disposition home or self-care (01) ==
LOC: ANHIMG 08:09
PROVIDERS: Visit Provider Advanced Practice Midwife
DX: M79.605 Pain in left leg (principal)
CPT/HCPCS: 93971

== ENCOUNTER 2024-05-20 03:34 | Inpatient (IN) | payer BC, SELFPAY ==
[2024-05-20] VITALS (88 sets, daily range): BP systolic 85–224; BP diastolic 40–181; PULSE 66–170; RESP 18–20; TEMP 36.4–36.9; O2SAT 82–100; BMI 34.0
[2024-05-20] MEDS: LACTATED RINGERS 1,000 ML 125 ML IV CONT ×2 (04:58→09:05)
[2024-05-20] MEDS: AMPICILLIN 2 GM/NS 100 ML 2 GM/100 ML BAG IVPB (04:59)
[2024-05-20 05:04] LABS: Hematocrit 32.8 % (37.0-47.0); Hemoglobin 10.6 g/dL (12.0-15.0); Mean Corpuscular HGB Conc 32.3 g/dl (32-36); Mean Corpuscular Hemoglobin 30.1 pg (26-34); Mean Corpuscular Volume 93.2 fl (80-100); Mean Platelet Volume 14.5 fl (7.4-10.4); Platelet Count Result 71 k/mm3 (150-375); Red Blood Count 3.52 M/mm3 (4.2-5.4); Red Cell Distribution Width 13.7 % (11.5-14.5); White Blood Count 6.6 K/mm3 (4.5-10.0)
[2024-05-20 05:29] LABS: Band Neutrophils Percent 4 % (0-6); Lymphocytes Absolute Manual 1.12 K/mm3 (1.1-4.5); Monocytes Absolute Manual 0.13 K/mm3 (0.1-0.90); Monocytes Percent Manual 2 % (3-9); Neutrophils Absolute Manual 5.34 K/mm3 (1.7-7.2); Neutrophils Percent Manual 77 % (46-73); Total Cells Counted 100
[2024-05-20 05:30] LABS: Anisocytosis 1+; Platelet Estimate Decreased (Adequate); Schistocytes None Seen
[2024-05-20 06:00] LABS: HIV 1/2 Ab P24 Ag Result Negative (Negative)
[2024-05-20] MEDS: OXYTOCIN 30 UNITS/NS 500 ML 30 UNITS/500 ML BAG IV CONT (06:53)
--- NOTE | 2024-05-20 07:50 | P.HPUP_ITS ---
History and Physical Update Update Date/Time: 05/20/24 07:50 33-year-old multiparous female, with history of th rombocytopenia, presents at term for labor and ruptured [place]. [place] [address]. We are going to administer unit of platelets and 125 mg of Solu-Medrol. We will recheck her platelets shortly after. Patient wanted a epidural. Reassuring heart tones. Appears to be in active labor. History and Physical has been reviewed, including an updated exam of the patient. There are NO changes in the patient's condition. Risks, benefits, and alternatives have been discussed and questions answered. Patient agrees to proceed with procedure.
[2024-05-20] MEDS: methylPREDNISolone SOD SUCC 125 MG VIAL IV PUSH (08:10)
[2024-05-20 08:13] LABS: Immature Platelet Fraction Pct 30.7 % (0.9-11.2); Mean Platelet Volume 14.2 fl (7.4-10.4); Platelet Count Result 94 k/mm3 (150-375)
[2024-05-20] MEDS: AMPICILLIN 1 GM/NS 50 ML 1 GM/50 ML BAG IVPB (09:45)
[2024-05-20] MEDS: OXYTOCIN 30 UNITS/NS 500 ML 30 UNITS/500 ML BAG 999 UNITS IV CONT (10:10)
--- NOTE | 2024-05-20 10:15 | PM.OBPRVD ---
OB - Vaginal Delivery Note Procedure Delivery date: 05/20/24 Events: Other (ITP) Induction method: None Delivery augmentation: Pitocin Delivery monitor: External FHT and External Uterine Route of delivery: Episiotomy description: None Laceration Description: None Specimen: No Quantitative Blood Loss (ml): 35 Anesthesia type: Epidural Disposition: Floor Complications: No immediate complications [place] Baby Date of : 05/20/24 Time of : 10:04 Weeks of gestation at delivery: 35 Infant gender: Male presentation: vertex position: Left Occiput Anterior Placenta delivery description: Spontaneous Cord Vessel Description: 3 Vessels, Nuchal Cord and Around Extremity score one minute: 8 score five minutes: 9 Narrative: mother and baby in stable condition
[2024-05-20] MEDS: OXYTOCIN 30 UNITS/NS 500 ML 30 UNITS/500 ML BAG 125 UNITS IV CONT (10:42)
[2024-05-20] MEDS: IBUPROFEN 600 MG TABLET PO ×2 (13:05→22:48)
[2024-05-20] MEDS: WITCH HAZEL 40 PADS 1 PAD TOPICAL (13:06)
--- NOTE | 2024-05-20 13:09 | WPDANESEPPF ---
Anes - Initial Pre Proc Eval Procedure: labor epidural Date/Time: 05/20/24 13:09 Surgeon: Suze Pre Op Diagnosis: labor pain Pre Op Diagnosis: Leaking Patient Data Age: 33 Gender: F Height: 1.52 m Weight: 79 kg Last Vital Signs Temp 36.6 C 05/20/24 09:40 Pulse 92 05/20/24 13:00 Resp 20 05/20/24 07:30 BP 115/78 05/20/24 13:00 Pulse Ox 98 05/20/24 13:04 O2 Del Method Room Air 05/20/24 05:00 Allergies Allergy/AdvReac Type Severity Reaction Status Date / Time milk AdvReac Unknown Nausea Verified 05/20/24 06:54 Home Medications Medication Instructions Recorded Confirmed Type vit no.95-ferrous 1 tablet PO DAILY 11/23/21 12/10/21 History fumarate 28 mg-folic acid 800 mcg tablet () Laboratory Tests 05/20/24 05/20/24 04:17 08:02 WBC 6.6 K/mm3 (4.5-10.0) RBC 3.52 L M/mm3 (4.2-5.4) Hgb 10.6 L g/dL (12.0-15.0) Hct 32.8 L % (37.0-47.0) MCV 93.2 fl (80-100) MCH 30.1 pg (26-34) MCHC 32.3 g/dl (32-36) RDW 13.7 % (11.5-14.5) Plt Count 71 L k/mm3 94 L k/mm3 (150-375) (150-375) MPV 14.5 H fl 14.2 H fl (7.4-10.4) (7.4-10.4) Immature Gran % (Auto) Not Reportable Neut % (Auto) Not Reportable Lymph % (Auto) Not Reportable [place] % (Auto) Not Reportable Eos % (Auto) Not Reportable Baso % (Auto) Not Reportable Lymph # (Auto) Not Reportable [place] # (Auto) Not Reportable Eos # (Auto) Not Reportable Baso # (Auto) Not Reportable Abs Immat Gran (auto) Not Reportable Absolute Neuts (auto) Not Reportable Absolute Nucleated RBC Not Reportable Total Counted 100 Neutrophils % (Manual) 77 H % (46-73) Band Neutrophils % 4 % (0-6) Lymphocytes % (Manual) 17.0 L % (18-44) Monocytes % (Manual) 2 L % (3-9) Nucleated RBC % Not Reportable Abs Neuts (Manual) 5.34 K/mm3 (1.7-7.2) Abs Lymphs (Manual) 1.12 K/mm3 (1.1-4.5) Abs Monocytes (Manual) 0.13 K/mm3 (0.1-0.90) Platelet Estimate Decreased (Adequate) % Immature Plt Fraction 30.7 H % (0.9-11.2) Anisocytosis 1+ Schistocytes None seen RPR Pending HIV 1&2 Ab/P24 Ag 4thGn Negative (Negative) Blood Type B Negative Antibody Screen Positive Antibody Identification Passive Due to RH Imm Glob Antigen Identification Cancelled LULY, IgG Interpret Neg LULY, Poly Interpret Not Performed LULY, Complement Interp Negative Patient hx anesthesia problems: none Family hx anesthesia problems: none Results Review: All pre-operative results and documents have been reviewed as part of the pre-operative evaluation. [facility] Past Medical History Medical History (Updated 04/29/24 @ 00:01 by Babatunde Kiran) No active medical problems Family History Family History Mother Hypertension Father Cerebrovascular accident, Onset Age: 50 Malignant neoplasm of prostate Social History Social History Smoking status: Never smoker Second hand tobacco smoke exposure: No Substance use: never Do You Feel Safe in your Home?: Yes Lack of Transportation: No Lack of Food: Never True Current Housing: I Have Housing Concerned About Future Housing: No Difficulty Paying Gas/Electric Bills: No Difficulty Paying for Meds: No Currently Unemployed: No Education: Master's Degree or Higher Difficulty w/ Childcare or Family Care: No Spiritual care concerns: No Anes - Eval Final PreProcedure Day of Procedure 05/20/24 13:09 Patient weight: obese ASA classification: III Anesthetic plan: proceed Anesthesia type and monitoring: regional epidural and standard monitoring Results Review:
[2024-05-20 14:31] LABS: Rapid Plasma Reagin Non-Reactive (NonReactive)
--- NOTE | 2024-05-20 18:58 | PC.NURSE ---
Patient transferred to post room #292 via [id number]. Support person present. Oriented to unit, room, information board, rooming in, admission packet and security measures. Patient verbalizes understanding.
[2024-05-21 04:20] VITALS: BP 119/80; PULSE 86; RESP 18; TEMP 36.6
[2024-05-21] MEDS: IBUPROFEN 600 MG TABLET PO ×2 (04:20→11:27)
[2024-05-21 07:02] LABS: Basophils Percent Auto 0.3 % (0.2-1.2); Eosinophils Percent Auto 0.3 % (0-4.4); Hematocrit 30.4 % (37.0-47.0); Hemoglobin 9.6 g/dL (12.0-15.0); Immature Granulocyte Absolute 0.13 K/mm3 (0.00-0.031); Immature Granulocyte Percent A 1.3 % (0-0.5); Lymphocytes Absolute Auto 2.36 K/mm3 (0.9-3.2); Mean Corpuscular HGB Conc 31.6 g/dl (32-36); Mean Corpuscular Hemoglobin 30.3 pg (26-34); Mean Corpuscular Volume 95.9 fl (80-100); Monocytes Absolute Auto 0.7 K/mm3 (0.1-0.6); Monocytes Percent Auto 7.1 % (2.6-8.5); Neutrophils Absolute Auto 6.6 K/mm3 (1.3-6.7); Platelet Count Result 82 k/mm3 (150-375); Red Blood Count 3.17 M/mm3 (4.2-5.4); White Blood Count 9.9 K/mm3 (4.5-10.0)
[2024-05-21 07:20] VITALS: BP 122/77; PULSE 75; RESP 16; TEMP 36.6; O2SAT 100
--- NOTE | 2024-05-21 07:41 | PM.OBPNVD ---
OB - PN: Subj Subjective Date/time seen: 05/21/24 07:41 Interval history: pp day 1 doing well PLT 82 no unexpected bleeding baby transferred OB - PN: Obj Data Labs 05/21/24 06:55 Labs: Laboratory Results - last 24 hr 05/20/24 05/20/24 05/21/24 04:17 08:02 04:17 WBC RBC Hgb Hct MCV MCH MCHC RDW Plt Count 94 L MPV 14.2 H Immature Gran % (Auto) Neut % (Auto) Lymph % (Auto) [place] % (Auto) Eos % (Auto) Baso % (Auto) Lymph # (Auto) [place] # (Auto) Eos # (Auto) Baso # (Auto) Abs Immat Gran (auto) Absolute Neuts (auto) Absolute Nucleated RBC Nucleated RBC % % Immature Plt Fraction 30.7 H RPR Non-reactive Blood Type B Negative Antibody Identification Passive Due to RH Imm Glob Antigen Identification Cancelled LULY, Poly Interpret Not Performed LULY, Complement Interp Negative 05/21/24 06:55 WBC 9.9 RBC 3.17 L Hgb 9.6 L Hct 30.4 L MCV 95.9 MCH 30.3 MCHC 31.6 L RDW 14.0 Plt Count 82 L MPV Not Reportable Immature Gran % (Auto) 1.3 H Neut % (Auto) 67.0 Lymph % (Auto) 24.0 [place] % (Auto) 7.1 Eos % (Auto) 0.3 Baso % (Auto) 0.3 Lymph # (Auto) 2.36 [place] # (Auto) 0.7 H Eos # (Auto) 0.0 Baso # (Auto) 0.0 Abs Immat Gran (auto) 0.13 H Absolute Neuts (auto) 6.6 Absolute Nucleated RBC 0.000 Nucleated RBC % 0.0 % Immature Plt Fraction 29.0 H RPR Blood Type Antibody Identification Antigen Identification LULY, Poly Interpret LULY, Complement Interp OB - PN A/P Plan day: 1 Plan: routine care and discharge home Time Spent With Patient Time: Total time spent is greater than 50% in coordination of care (as documented) at patient's floor/unit and/or counseling patient: Review of Systems Review of Systems: All systems reviewed & are unremarkable except as noted in HPI and below Exam Const: General: cooperative Chest: Chest palpation & inspection: normal inspection of the chest Resp: Effort & Inspection: normal respiratory effort Skin: General skin exam: normal color and no rashes or lesions noted Extrem: General: normal to inspection Psych: Appearance: grossly normal
--- NOTE | 2024-05-21 07:43 | PM.OBDSVD ---
DS: Admitting Diagnosis Discharge Date 05/21/24 Admitting Diagnosis PPROM DS: Discharge Diagnosis Discharge Diagnosis (1) , delivered: Code(s): O80 - Encounter for full-term uncomplicated delivery Status: Acute (2) Thrombocytopenia: Code(s): D69.6 - Thrombocytopenia, unspecified Status: Acute OB - DS: Summary OB Procedures : None OB Procedures Intrapartum: Spontaneous Vag Delivery OB Procedures: : None Peripartum Data Laceration Description: None Episiotomy description: None Time Spent with Patient Time attestation: Total time spent providing and/or coordinating discharge services: DS: Data Data Completed and Pending Pending studies at discharge: Pending at discharge 05/20/24 10:05 Surgical [PTH] Routine Labs on day of discharge: Labs from last 24 hours 05/21/24 05/21/24 05/20/24 06:55 04:17 08:02 WBC 9.9 RBC 3.17 L Hgb 9.6 L Hct 30.4 L MCV 95.9 MCH 30.3 MCHC 31.6 L RDW 14.0 Plt Count 82 L 94 L MPV Not Reportable 14.2 H Immature Gran % (Auto) 1.3 H Neut % (Auto) 67.0 Lymph % (Auto) 24.0 [place] % (Auto) 7.1 Eos % (Auto) 0.3 Baso % (Auto) 0.3 Lymph # (Auto) 2.36 [place] # (Auto) 0.7 H Eos # (Auto) 0.0 Baso # (Auto) 0.0 Abs Immat Gran (auto) 0.13 H Absolute Neuts (auto) 6.6 Absolute Nucleated RBC 0.000 Nucleated RBC % 0.0 % Immature Plt Fraction 29.0 H 30.7 H RPR Blood Type B Negative Antibody Screen Pending Antibody Identification Antigen Identification LULY, Poly Interpret LULY, Complement Interp Screen Pending Baby's Blood Type Pending Baby's LULY Pending Doses of RhIg Required Pending 05/20/24 04:17 WBC RBC Hgb Hct MCV MCH MCHC RDW Plt Count MPV Immature Gran % (Auto) Neut % (Auto) Lymph % (Auto) [place] % (Auto) Eos % (Auto) Baso % (Auto) Lymph # (Auto) [place] # (Auto) Eos # (Auto) Baso # (Auto) Abs Immat Gran (auto) Absolute Neuts (auto) Absolute Nucleated RBC Nucleated RBC % % Immature Plt Fraction RPR Non-reactive Blood Type Antibody Screen Antibody Identification Passive Due to RH Imm Glob Antigen Identification Cancelled LULY, Poly Interpret Not Performed LULY, Complement Interp Negative Screen Baby's Blood Type Baby's LULY Doses of RhIg Required Discharge Plan Discharge Attending physician on discharge: Juliocesar Arciniega Discharging Clinician: Tammie Craven Patient Disposition: Home, Self-Care Activity: pelvic rest Diet: regular Patient Instructions: Antibiotic Form Stand Alone Forms: General Discharge Information Follow-up/Referrals: Tammie Craven, CNM [Certified Nurse [employer]] - 1 Week Discharge Medications: New ibuprofen 600 mg Tablet 600 mg PO Q6H PRN (Reason: Cramping) Qty: 30 0RF Continued PNV cmb#95-ferrous fumarate-FA [] 28 mg iron- 800 mcg Tablet 1 tablet PO DAILY Date of admission: 05/20/24 03:34 Primary Care Provider: UNKNOWN,DOCTOR Admitting Provider: Juliocesar Arciniega Attending physician on admission: Tammie Craven Condition: Stable
[2024-05-21] MEDS: RHO(D) IMMUNE GLOBULIN 300 MCG/2 ML SYRINGE IM (09:24)
[2024-05-21] MEDS: POLYSACCHARIDE IRON COMPLEX 150 MG CAPSULE PO (09:25)
[2024-05-21] MEDS: DOCUSATE SODIUM 100 MG CAPSULE PO (09:25)
[2024-05-21] MEDS: ACETAMINOPHEN 325 MG TABLET 650 MG PO (09:25)
[2024-05-21] MEDS: WITCH HAZEL 40 PADS 1 PAD TOPICAL (11:28)
== END 2024-05-21 11:35 | disposition home or self-care (01) | DRG 806 ==
LOC: ANHLDR 07:29 → ANHOB2 05-21 07:43 → ANHLDR 05-22 08:55
PROVIDERS: Advanced Practice Midwife; Admitting Provider Obstetrics & Gynecology; Visit Provider Obstetrics & Gynecology
DX: O62.3 Precipitate labor (principal); O99.12 Other diseases of the blood and blood-forming organs and certain disorders involving the immune mechanism complicating childbirth; Z37.0 Single live birth; Z3A.35 35 weeks gestation of pregnancy; O69.81X0 Labor and delivery complicated by cord around neck, without compression, not applicable or unspecified; D69.6 Thrombocytopenia, unspecified
CPT/HCPCS: 36415; 84112; 85025; 85049; 85055; 85461; 86592; 86703; 86850; 86880; 86900; 86901; 88307; 90384; A9270; G0432; J0290; J2590; J2790; J2795; J2919; J7120

== ENCOUNTER 2025-02-17 16:06 | Outpatient (CLI) | payer BC, SELFPAY ==
[2025-02-17 16:41] LABS: Add Urine Microscopic? YES; Appearance Urine Clear (Clear); Bacteria Urine None Seen /hpf; Bilirubin Urine Negative (Negative); Blood Urine Negative (Negative); Color Urine Yellow (Yellow); Glucose Urine UA Negative (Negative); Ketones Urine 2+ mg/dL (Negative); Leukocyte Esterase Ur Negative LEU/UL (Negative); Nitrate Urine Negative (Negative); Non Pathogenic Casts 0-2; Protein Urine Trace mg/dL (Negative); RBC Urine 0-2 /hpf (0-2); Specific Grav Ur 1.026 (1.001-1.035); Squamous Epithelial Cell Urine Few /hpf (Few); WBC Urine 0-5 /hpf (0-3); pH Urine 6.5 (5.0-9.0)
[2025-02-17 16:49] LABS: OBXCEM ROM Plus Negative (Negative)
--- NOTE | 2025-02-17 16:52 | PC.NURSE ---
Concha Craven notified of ROM plus negative and urine results report. CNM okay with pt going home.
--- OUTSIDE RECORDS SUMMARY | 2025-02-17 17:02 | XMS_ITS | Encounter Summary ---
Author Organization [facility] Address [address] [place] [address] Care Team Providers Care Provisioning Specialist Name Role Phone Unavailable Primary Care Provider Unavailabl e Reason for Visit * Reason Comments Consult * Eval and Treat (2-4 Days) - Closed Specialty Diagnoses / Procedures Referred By Sona angeles Referred To Contact Perinatology Diagnoses History of thrombocytopenia Tammie Craven, REPAIRER ENGINE PRODUCTION [address] [place] [address] Phone: tel: fax: [facility] Maternal and Medicine - [facility] [address] [facility] [address], [place] [address] Phone: tel: fax: Referral ID Status Reason Start Date Expiration Date Visits Requested Visits Authorized [id number] Closed Performing Department to Schedule 01/13/2025 02/13/2026 1 1 Encounter Details Date Type Department Care Team (Latest Contact Info) Description 02/16/2025 2:00 PM CDT Video Visit [facility] Maternal and [facility] [address] [address], [place] [address] Gale Le MD [address] [facility] [address], [place] [address] 18 weeks gestation of (Primary Dx); Benign gestational thrombocytopenia in second trimester; History of delivery, currently in second trimester; Multigravida of advanced maternal age in second trimester Social History Tobacco Use Types Packs/Day Years Used Date Smoking Tobacco: Never Smokeless Tobacco: Never Tobacco Cessation:Counseling Given: Yes Alcohol Use Standard Drinks/Week Comments Not Currently 0 (1 standard drink = 0.6 oz pur e alcohol) Estimated Date of Delivery Comme nts Yes 07/18/2025 Sex and Gender Information Value Date Recorded Sex Assigned at Not on file Legal Sex Female 10:25 AM CDT Gender Identity Not on file Sexual Orientation Not on file documented as of this encounter Last Filed Vital Signs Vital Sign Reading Time Taken Comments Blood Pressure - - Pulse - - Temperature - - Respiratory Rate - - Oxygen Saturation - - Inhaled Oxygen Concentration - - Weight 71.2 kg (157 lb) 02/16/2025 2:24 PM CDT Height 149.9 cm (4' 11 ) 02/16/2025 2:24 PM CDT Body Mass Index 31.71 02/16/2025 2:24 PM CDT documented in this encounter Progress Notes * Gale Le MD - 02/16/2025 2:26 PM CDT [facility] Maternal Medicine Consultation Leanne Harris [id number] 34 y.o. Patient's identity confirmed yes Patient gave verbal consent to have these services billed to their insurance and expressed understanding that co-insurance and deductible may apply: yes Patient was located at home. This encounter was completed via two-way synchronous audio and video communication. Chief Complaint: complicated by: History of gestational thrombocytopenia History of PTD Advanced maternal age Consult requested by: Tammie Craven NP HPI: Leanne Harris is a 34 y.o. at 18w2d seen today in consultation due to the above concerns. Her was on the video visit as well. History of gestational thrombocytopenia -In G1 and G2 -PLT 70 at time of delivery with G2 -Baseline PLT 169 on 12/22/24 -No history of platelet problems in bleeding issues in family -Her babies did not have any bleeding or bruising concerns at History of PTB -Secondary to PPROM at 35 weeks in G2. She was augmented with pitocin. The baby went to the NICU for 19 days. -G1 delivered at 38 weeks. She had SROM at 38 weeks. AMA - 34 yo at time of visit - LR NIPT - BMI less than 30, no family history of preeclampsia, no prior history of preeclampsia : She denies vaginal bleeding, contractions and leakage of fluid. She had no other concerns today. Physical Exam There were no vitals taken for this visit. General: appearance: alert, in no distress Psychiatric: Appropriate mood and affect Exam limited by video visit. Obstetric History OB History Para Term AB Living 3 2 1 1 0 2 SAB IAB Ectopic Multiple Live Births 0 0 0 0 2 # Outcome Date GA Lbr Efe/2nd Weight Sex Type Anes PTL Lv 3 Current 2 05/20/24 35w1d 2381 g (5 lb 4 oz) Vag-Spont BRANDYN Complications: Thrombocytopenia 1 Term 12/10/21 38w3d 3090 g (6 lb 13 oz) Vag-Spont EPI BRANDYN Past Medical History Past Medical History: Diagnosis Date Patient denies relevant medical history Transfusion history at 1 yrs of age Past Surgical History Past Surgical History: Procedure Laterality Date HX HIP SURGERY dysplasia HX TONSIL AND ADENOIDECTOMY HX TYMPANOSTOMY WI HYSTEROSCOPY BX ENDOMETRIUM&/POLYPC W/WO D&C N/A 01/14/2021 HYSTEROSCOPY WITH TISSUE REMOVAL AND ENDOMETRIAL BIOPSY performed by Gonzalo Ennis MD at [facility] OR [facility] WI LAPS FULG/EXC OVARY VISCERA/PERITONEAL SURFACE N/A 01/14/2021 ENDOMETRIOSIS EXCISION LASER LAPAROSCOPIC performed by Gonzalo Ennis MD at [facility] OR [facility] WI TRANSCERV FALLOPIAN TUBE CATH W/WO HYSTOSALPING N/A 01/14/2021 SELECTIVE SALPINGOGRAM performed by Gonzalo Ennis MD at [facility] OR [facility] Family History Denies family history of chromosome problems or defects. No family history of bleeding disorders or history of blood clots Family History Problem Relation Name Age of Onset Cancer Father prostate cancer Hypertension Mother Heart Disease Paternal Grandfather Hypertension Paternal Grandmother Heart Disease Maternal Grandfather Diabetes Maternal Aunt Other Maternal Aunt endometriosis Medications Current Outpatient Medications: 123/iron/folic/omeg3s (ONE-A-DAY WOMEN'S 1 ORAL), One-A-Day Women's 1, Disp: , Rfl: pantoprazole (PROTONIX) 20 mg Tablet, Delayed Release (E.C.), Take 20 mg by mouth daily., Disp: , Rfl: cetirizine (ZyrTEC) 10 mg tablet, Take 10 mg by mouth daily., Disp: , Rfl: calcium carbonate/vitamin D3 (CALCIUM 600 + D,3, ORAL), Take 1 Tablet by mouth daily., Disp: , Rfl: Allergies Allergies Allergen Reactions Sulfa (Sulfonamide Antibiotics) Rash Milk Other (See Comments) Stomachache Social History Social History Socioeconomic History Marital status: Spouse name: Not on file Number of children: Not on file Years of education: Not on file Highest education level: Not on file Occupational History Not on file Tobacco Use Smoking status: Never Smokeless tobacco: Never Vaping Use Vaping status: Never Used Substance and Sexual Activity Alcohol use: Not Currently Drug use: Never Sexual activity: Yes Partners: Male control/protection: None Comment: 11/26/2020 Other Topics Concern Not on file Social History Narrative Not on file Social Drivers of Health Financial Resource Strain: Low Risk (05/14/2024) Received from [facility] Overall Financial Resource Strain (CARDIA) Difficulty of Paying Living Expenses: Not hard at all Food Insecurity: No Food Insecurity (05/14/2024) Received from [facility] Hunger Vital Sign Worried About Running Out of Food in the Last Year: Never true Ran Out of Food in the Last Year: Never true Transportation Needs: No Transportation Needs (05/14/2024) Received from [facility] PRAPARE - Transportation Lack of Transportation (Medical): No Lack of Transportation (Non-Medical): No Social Connections: Not on file Feeling Safe: Not on file Housing Stability: Low Risk (05/14/2024) Received from [facility] Housing Stability Vital Sign Unable to Pay for Housing in the Last Year: No Number of Places Lived in the Last Year: 1 Unstable Housing in the Last Year: No Summary of Counseling: Gestational Thrombocytopenia Gestational thrombocytopenia, or incidental thrombocytopenia of , accounts for approximately 80% of cases of maternal thrombocytopenia at delivery. It affects approximately 5-11% of patients. The etiology is unknown and may be related to hemodilution and enhanced platelet clearance in . In regards to gestational thrombocytopenia, there are 5 guerrero characteristics: 1-onset can occur at any point in although it is most common in the mid 2nd-3rd trimesterin most cases have a platelet count of greater than 75 2-patients are asymptomatic with no history of bleeding 3-no history of thrombocytopenia outside of 4-platelet counts returned to normal within 1 to 2 months 5-the incidence of or thrombocytopenia is low Gestational thrombocytopenia has no pathologic significance for the mother or fetus. No treatment is necessary for gestational thrombocytopenia. Because the fetus is not at risk for hemorrhage, the mode of delivery is determined by obstetric considerations, and invasive blood sampling to determine the platelet count is not indicated. Serial CBC with platelet counts should be performedleading up to term and a peripheral smear to evaluate for the presence of immature or enlarged platelets (more suggestive of immune thrombocytopenia purpura/ITP). While a low platelet count can be occasionally observed with gestational thrombocytopenia, if platelet counts continue to fall to levelsbelow 50,000/mm3, other diagnoses should be entertained such as ITP and mentioned above a peripheral smear ordered and referral to hematology considered. , platelet count should be reassessed 1 to 3 months after delivery to assess for resolution of thrombocytopenia. If thrombocytopenia persists, then referral to a marketing automation analyst is recommended to assess for other etiologies. Regarding epidural anesthesia, it is generally considered to be acceptable in women with gestational thrombocytopenia who have platelet counts above 70,000- 100,000. Because practice patterns among anesthesiologists vary, it would seem reasonable to consult your obstetrical anesthesia provider priorto delivery to determine an acceptable limit for regional anesthesia. Consideration for a brief treatment course of glucocorticoid therapy in order to increase the patient's platelet count into an acceptable range for regional anesthesia is reasonable at approximately 37 weeks gestation. As there is little evidence to support this practice, most practitioners decide this on an individual basis based on platelet count and consultation with anesthesiology. History of We discussed that given her prior (PTB), she is at increased risk for recurrence in subsequent pregnancies. PTB is associated with increased risks of CP, RDS, IVH, NEC and demise, which vary greatly based on the gestational age the baby is born. One of the biggest risk factors for is prior , which confers a 1.5 to 2 fold increased risk with subsequent pregnancies. However, a followed by a term confers a lower risk than the opposite sequence. In general, the following surveillance and preventive strategies have been used for patients with history of prior : 1. Progesterone: We discussed the clinical evidence supporting the role of 17 alpha- hydroxyprogesterone caproate therapy has led to a shift i and management. The FDA no longer recommends injection progesterone (17 alpha- hydroxyprogesterone caproate or [place]) for prevention of . Vaginal progesterone may be considered in some situations but is not a substitute for IM Progesterone. Vaginal progesterone is typically used in when a short cervix is identified. There is uncertainty of the beneficial effect of vaginal progesterone in all patients with a prior history of versus only in some subgroups such as those with a short cervix. 2. Serial cervical length assessments: These should be started at 16 weeks and repeated Q2 wks until 23+6 wks of gestation. TVCL <2.5cmin a woman with a history of PTB is an indication for a (ultrasound-indicated) cerclage. We discussed this in detail today. TVCL serial screening is generally not undertaken after 24 wks as cerclage can no longer be performed at that time. 3. History-indicated cerclage: History-indicated cerclage can be considered in a patient with a history of unexplained second-trimester delivery in the absence of labor or abruptio placentae or history of prior cerclage due to painless cervical dilation in the second trimester. These are typically placed at approximately 13-14 weeks gestation. At this time, we would not recommend cerclage, though may reconsider depending on ultrasound findings. We discussed the procedure at length today, including risks, alternatives, benefits and limitations. We discussed anesthesia-regional versus general, basic technique and after care and restrictions. Other approaches: Conservative, nonsurgical approaches, including activity restriction, bed rest, and pelvic rest have not been proved to be effective for the treatment of cervical insufficiency and their use is discouraged. Another nonsurgical treatment which has been used in patients at risk of cervical insufficiency is the vaginal/cervical pessary. Evidence is limited for potential benefit of pessary placement in select populations of high-risk patients. At this time, the Society for Maternal- Medicine recommends that placement of cervical pessary in to decrease PTB be used only in the context of a clinical trial or research protocol. Such diligence will avoid implementation of an intervention prior to adequate testing that may later be found to be ineffective or even harmful (SM 2017). Advanced maternal age The risks of aneuploidy due to maternal age and the limitations of detecting aneuploidybased on ultrasound examination were reviewed in detail. Aneuploidy screening and diagnostic options were also discussed. Genetic counseling is available to discuss age specific risks of aneuploidy and the various options for aneuploidy screening and or diagnostic testing. General maternal risks associated to at older ages were reviewed. In general, the maternal risks are largely related to the underlying medical complications that coexist at the time of conception, mainly obesity, hypertension, diabetes and cardiac disease. We discussed the increased risk of miscarriage, section, preeclampsia and gestational hypertension, gestational diabetes, late onset uteroplacental insufficiency and stillbirth faced by older gravidas, particularly after the age of 40. In patients with preexisting co-morbidities, the risk of adverse maternal and complications is higher. Between the ages of 20 and 29, the risk of stillbirth is 4 per 1000 live births. Over the age of 40, the risk is increased by 2.5 to 3 times that rate. TOBACCO COUNSELING She is not a tobacco/nicotine user. Assessment and Plan: 34 y.o. at 18w2d with complicated by: Disposition - Continue care and delivery with primary obstetrical practice - Follow up with MFM at 34 to 35 weeks or sooner if needed 1. Concerns -Ultrasounds pending Recommended follow up sonograms: - detailed anatomic survey at 20 weeks -Growth sonograms at 4 week intervals in the 3rd trimester Recommended testing: -Weekly testing starting at 32 weeks Delivery planning - To be determined as progresses 2. History of gestational thrombocytopenia - Discussed risk of recurrence - Recommend repeat CBC with platelet count at 28 weeks. If normal, recommend repeat at 32 to 34 weeks. - Discussed lack of data to recommend prophylactic steroids for gestational thrombocytopenia. 3. History of PTB - Monitor for signs and symptoms of labor - Discussed the option of serial cervical length screening. At this time, the patient desires a cervical length at time of anatomic survey and then a repeat may be considered 2 weeks after that. She did not desire cervical length prior to anatomic survey. - Any urogenital infection should be promptly treated 4. AMA -Low risk NIPT - Not on low-dose aspirin. Patient only has 1 moderate criteria and prefers not to start low-dose aspirin due to history of thrombocytopenia at term. The problem list was reviewed with the patient and her family if present. The indications,risks, options and alternatives for recommended therapies were reviewed at length. The patient and her family, if present, seem to understand the plans and agree with them as stated. All questions were answered. We appreciate the opportunity to evaluate your patient and assist with her care. If you have any questions regarding her evaluation here today, please do not hesitate to call. Thank you for the opportunity to participate in the care of this patient. A copy of this note was sent to the referring physician. Complexity of medical decision making: Moderate due to with the additional complications mentioned above. On the day of the visit, I spent 60 (1 hr) minutes providing care to this patient including Preparing to see the patient, Obtaining and/or reviewing separately obtained history, Performing a medically appropriate examination and/or evaluation, Counseling and educating the patient/family/caregiver, O rdering medications, tests or procedures, Documenting clinical information in the medical record, Referring and communication with other health special needs child caregiver (not separately reported), and Care coordination (not separately reported). aGle Le MD [facility] Maternal Medicine This office note has been dictated using [employer] speech recognition. All attempts were made to be precise and correct. The document has also been reviewed for dictation errors. Minor errors in dishwashing machine operator may be present. Please call with any questions or concerns. documented in this encounter Plan of Treatment Upcoming Encounters Date Type Department Care Team (Late st Contact Info) Description 03/02/2025 1:30 PM CDT Appointment [facility] [address] [place] [address] Tammie Craven, REPAIRER ENGINE PRODUCTION [address] [place] [address] documented as of this encounter Visit Diagnoses Diagnosis 18 weeks gestation of - Primary state, incidental Benign gestational thrombocytopenia in second trimester History of delivery, currently in second trimester Multigravida of advanced maternal age in second trimester documented in this encounter
--- OUTSIDE RECORDS SUMMARY | 2025-02-17 17:02 | XMS_ITS | Clinical Summary ---
Author Organization [facility] Address [address] [place] [address] Care Team Providers Care Business Office Manager Name Role Phone Unknown, Notinfile Primary Care Provider Unavail able Allergies Active Allergy Reactions Criticality Noted Date Comments Lactose Stomach upset Low 08/26/2018 Milk Stomach upset,Other (See comments) Low 11/25/2018 Stomachache Sulfa (Sulfonamide Antibiotics) Rash High 08/16/2020 Medications cetirizine (ZyrTEC) 10 mg tablet Take 1 tablet (10 mg total) by mouth daily Active calcium carbonate-vitam in D3 1,250 mg (500 mg elemental)-125 unit per tablet Calcium 500 mg + D (D3) 3.125 mcg (125 unit) tablet 11/25/2018 Active benzonatate (TESSALON) 100 mg capsuleIndicati ons:Cough Take 1 capsule (100 mg total) by mouth 3 (three) times a day as needed for cough 42 capsule 09/20/2024 Active Active Problems No known active problems Family History Medical History Relation Name Comments Blood Clot Father Heart defect Father Prostate cancer Father Heart disease Maternal Grandfather Hypertension Mother Diabetes Other Endometriosis Other Infertile Other Heart disease Paternal Grandfather Relation Name Status Comments Father Maternal Grandfather Mother Other Paternal Grandfather Social History Tobacco Use Types Packs/Day Years Used Date Smoking Tobacco: Never Tobacco Cessation:Counseling Given: Not Answered Alcohol Use Standard Drinks/Week Comments No 0 (1 standard drink = 0.6 oz pur e alcohol) Comments Unknown Sex and Gender Information Value Date Recorded Sex Assigned at Not on file Legal Sex Female 12:03 PM CDT Gender Identity Not on file Sexual Orientation Not on file Obstetrics History Para Term AB IAB SAB Ectopic Multiple Livin g Live Births 0 0 0 0 0 0 0 0 0 0 0 Last Filed Vital Signs Vital Sign Reading Time Taken Comments Blood Pressure 138/80 09/20/2024 2:41 PM GAME AGENT Pulse 88 09/20/2024 2:41 PM GAME AGENT Temperature 36.7 C (98 F) 09/20/2024 2:41 PM GAME AGENT Respiratory Rate 20 09/20/2024 2:41 PM GAME AGENT Oxygen Saturation 97% 09/20/2024 2:41 PM GAME AGENT Inhaled Oxygen Concentration - - Weight 70.3 kg (155 lb) 09/20/2024 2:41 PM GAME AGENT Height 149.9 cm (4' 11 ) 09/20/2024 2:41 PM GAME AGENT Body Mass Index 31.31 09/20/2024 2:41 PM GAME AGENT Plan of Treatment Health Maintenance Due Date Last Done Comments Cervical Cancer Screening 1989 Depression Screening 1989 Hepatitis C Screening 1989 Varicella Vaccines (1 of 2 - 13+ 2-dose series) 2002 Hepatitis B Screening 2007 Regular Well Visit/Exam 18-64 2007 Covid-19 Vaccine (2023-2 5 season) 2024 03/11/2022, 08/06/2021, 07/16/2021 Influenza Vaccine (#1) 2024 09/08/2021 DTaP/Tdap/Td Vaccine (2 - Td or Tdap) 11/02/2031 11/02/2021 HPV Vaccines Aged Out No longer eligi ble based on patient's age to complete this topic Pneumococcal vaccine <65 Aged Out No longer eligible based on patient's age to complete this topic Insurance [facility] [employer] [place] Care Teams Business Office Manager Relationship Specialty Start Date End Date Unknown, Notinfile PCP - General 01/15/24
--- OUTSIDE RECORDS SUMMARY | 2025-02-17 17:02 | XMS_ITS | Referral Summary ---
Author Organization [facility] Address [address] [place] [address] Care Team Providers Care Gold Leaf Laborer Name Role Phone Unknown, Notinfile Primary Care [...] Active Active Problems No known active problems Social History Tobacco Use Types Packs/Day Years [...] on file Sexual Orientation Not on file Last Filed Vital Signs Vital Sign Reading Time Taken Comments Blood Pressure 138/80 09/20/2024 2:41 PM LUMP MAKER Pulse 88 09/20/2024 2:41 PM LUMP MAKER Temperature 36.7 C (98 F) 09/20/2024 2:41 PM LUMP MAKER Respiratory Rate 20 09/20/2024 2:41 PM LUMP MAKER Oxygen Saturation 97% 09/20/2024 2:41 PM LUMP MAKER Inhaled Oxygen Concentration - - Weight 70.3 kg (155 lb) 09/20/2024 2:41 PM LUMP MAKER Height 149.9 cm (4' 11 ) 09/20/2024 2:41 PM LUMP MAKER Body Mass Index 31.31 09/20/2024 2:41 PM LUMP MAKER Plan of Treatment Not on file Insurance [facility] [employer] [place] [employer] [place] Care Teams Gold Leaf Laborer Relationship Specialty Start Date End Date Unknown, Notinfile PCP - General 01/15/24
--- OUTSIDE RECORDS SUMMARY | 2025-02-17 17:02 | XMS_ITS | Encounter Summary ---
Author Organization [facility] Address [address] [place] [address] Care Team Providers Care Hospice Music Therapist Name Role Phone Unavailable Primary Care Provider Unavailabl e Reason for Visit * Reason Onset Date Comments Follow Up 02/16/2025 Encounter Details Date Type Department Care Team (Late st Contact Info) Description 02/16/[address] [facility] Maternal and Medicine - [facility] [address] [facility] [address] [place] [address] Yaima Meredith Follow Up Social History Tobacco Use Types Packs/Day Years Used Date Smoking Tobacco: Never Smokeless Tobacco: Never Alcohol Use Standard Drinks/Week Comments Not Currently 0 (1 standard drink = 0.6 oz pur e alcohol) Estimated Date of Delivery Comme nts Yes 07/18/2025 Sex and Gender Information Value Date Recorded Sex Assigned at Not on file Legal Sex Female 10:25 AM CDT Gender Identity Not on file Sexual Orientation Not on file documented as of this encounter Miscellaneous Notes * Telephone Encounter - Yaima Meredith - 02/16/2025 3:24 PM CDT 02/16- Patient had a Virtual appointment 02/16 per provider pt to follow up in our clinic around 34-35 wks with a Provider. Called left pt message to call us back documented in this encounter Plan of Treatment Upcoming Encounters Date Type Department Care Team (Late st Contact Info) Description 03/02/2025 1:30 PM CDT Appointment [facility] Maternal and Health [facility] [address] [place] [id number] Tammie Craven NP [address] [place] [address] documented as of this encounter Visit Diagnoses Not on filedocumented in this encounter
--- OUTSIDE RECORDS SUMMARY | 2025-02-17 17:02 | XMS_ITS | Clinical Summary ---
Author Organization [facility] Address [address] [place] [address] Care Team Providers Care Cop Winder Name Role Phone Mumtaz Choi MD Primary Care Provider [phone] Source Comments [facility],non-owned Affiliates and Associated Physician Practices is amultiple site organization consisting of ambulatory clinics and hospital sitesin [place], [place], [place] and [place]. This disclosure is being madepursuant to the Care Everywhere program and may not contain all information available regarding this patient. Last updated 18.[facility] Allergies Active Allergy Reactions Criticality Noted Date Comments [place] GI Discomfort 11/25/2018 Lactose GI Discomfort Low 08/26/2018 Medications * Be aware that medications may not be up to date on this document. Alwaysverify current medications with the patient. Medication Sig Dispensed Refills Start Date End Date Status Vit-Fe Fumarate-FA ( VITAMIN) 27-0.8 MG tablet Take 1 (one) tablet by mouth once daily Active cetirizine (ZYRTEC ALLERGY) 10 MG gel capsule Take 1 (one) capsule by mouth every 24 hours 11/25/2018 Active Calcium Carb-Cholecalcifero l ([facility] SHELL CALCIUM+VIT D) 500-125 MG-UNIT take daily 11/25/2018 Active Multiple Vitamins-Minerals (MULTIVITAMIN WOMEN) TABS take one daily 11/25/2018 Active Nutritional Supplements (VITAMIN D BOOSTER PO) Active nitrofurantoin monohyd macro crystals (Macrobid) 100 MG capsule nitrofurantoin monohydrate/macrocrys tals 100 mg capsule TAKE 1 CAPSULE BY MOUTH TWICE DAILY FOR 7 DAYS Active cephalexin (Keflex) 500 MG capsule TAKE 1 CAPSULE BY MOUTH EVERY 6 HOURS FOR 7 DAYS 11/20/2023 Active ferrous sulfate 325 (65 FE) MG tablet Take 1 (one) tablet by mouth once daily Active Active Problems Problem Noted Date Diagnosed Date 35 weeks gestation of 11/15/2021 complicated by fet al cerebral ventriculomegaly, single gestation 09/05/2021 Rh negative, antepartum 08/19/2021 Supervision of normal first 08/18/2021 Abnormal ultrasound 08/18/2021 Encounter for ultrasound 08/18/2021 Resolved Problems Problem Noted Date Diagnosed Date Resolved Date Depression screen 09/05/2021 12/20/2021 Overview (09/05/2021): 09/05/2021 Leanne Harris was screened for depression using the [place] Depression Scale (EPDS) at her [facility] initial evaluation on 09/05/2021. Her initial score at baseline was 4. Based off of her score of 4, Leanne does not warrant follow up. Patient will continue to be screened throughout , at intervals no closer than two weeks, for continued surveillance and early identification of depression until delivery. Patient denies mental health history. abnormality in pregnan cy - mild R ventriculomegaly 08/24/2021 12/20/2021 Overview (2021): Images from the original note were not included. PRISON PATIENT--PLEASE CALL [phone] (ex 2) IF TRIAGED OR ADMITTED Care Provider: Dr. Quintero [facility] consultants involved: RN- Lucas; MFM- Dr. Thakkar Diagnosis: Mild right ventriculomegaly (slightly increased in diameter at 10.5mm at 09/05/21 PRISON US). Planned surveillance: Initial PRISON 09/05/21. Growth in 2 weeks at [place], and follow up ultrasound for growth and assessment of ventricles between 32-36 weeks. Continue routine care with primary OB. 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 See Images or Cardiac under Chart Review for US/ ECHO/ MRI reports. Family History Medical History Relation Name Comments Cancer - Prostate Father CAD (Coronary Artery Disease) Maternal Grandfather Depression Mother Hypertension Mother CAD (Coronary Artery Disease) Paternal Grandfather Hypertension Paternal Grandfather Relation Name Status Comments Father Maternal Grandfather Mother Paternal Grandfather Social History Tobacco Use Types Packs/Day Years Used Date Smoking Tobacco: Never Smokeless Tobacco: Never Tobacco Cessation:Counseling Given: No Alcohol Use Standard Drinks/Week Comments Never 0 (1 standard drink = 0.6 oz pur e alcohol) AUDIT-C Answer Date Recorded Q1: How often do you have a drink containing alc ohol? Never 05/19/2020 Average Number of Drinks Not on file 020 Frequency of Binge Drinking Not on file 06/2020 Overall Financial Resource Strain (CARDIA) Answe r Date Recorded How hard is it for you to pa y for the very basics like food, housing, medical care, and heating? Not hard at all 05/14/2024 [facility] - Occupational Stress Questionnaire Answer Date Recorded Do you feel stress - tense, restless, nervous, or anxious, or unable to sleep at night because your mind is troubled all the time - these days? Only a little 05/14/2024 Hunger Vital Sign Answer Date Recorded Within the past 12 months, y ou worried that your food would run out before you got the money to buy more. Never true 05/14/20 24 Within the past 12 months, t he food you bought just didn't last and you didn't have money to get more. Never true 05/14/2024 PRAPARE - Transportation Answer Date Re corded In the past 12 months, has l ack of transportation kept you from medical appointments or from getting medications? No 01/2024 In the past 12 months, has l ack of transportation kept you from meetings, work, or from getting things needed for daily living? No 05/14/2024 Housing Stability Vital Sign Answer Stewart e Recorded In the last 12 months, was t here a time when you were not able to pay the mortgage or rent on time? No 05/14/2024 In the last 12 months, how many places have you lived? 1 05/14/2024 In the last 12 months, was t here a time when you did not have a steady place to sleep or slept in a group home (including now)? No 05/14/2024 [place] Depression Scale Answer Date Recorded [place] Depression Scale Total 7 05/14/2024 The thought of harming myself has occurred to me . Never 05/14/2024 Sex and Gender Information Value Date Recorded Sex Assigned at Not on file Gender Identity Not on file Sexual Orientation Not on file Last Filed Vital Signs Vital Sign Reading Time Taken Comments Blood Pressure 126/76 05/14/2024 2:42 PM CDT Pulse 90 05/14/2024 2:42 PM CDT Temperature 36.8 C (98.2 F) 06/02/2021 4:17 PM CDT Respiratory Rate 16 06/02/2021 4:17 PM CDT Oxygen Saturation 99% 06/02/2021 4:17 PM CDT Inhaled Oxygen Concentration - - Weight 78 kg (172 lb) 05/14/2024 2:42 PM CDT Height 157.5 cm (5' 2 ) 05/14/2024 2:42 PM CDT Body Mass Index 31.46 05/14/2024 2:42 PM CDT Plan of Treatment Health Maintenance Due Date Last Done Comments PAP SMEAR 1989 HEPATITIS C SCREENING 09/02/2007 DTAP/TDAP/TD VACCINES (1 - Tdap) 2008 HEPATITIS B VACCINE (1 of 3 - 19+ 3-dose series) 2008 COVID-19 VACCINE (3 - 2023-2 5 season) 2024 08/06/2021, 07/16/2021 DEPRESSION SCREENING 11/12/2024 05/14/2024 INFLUENZA VACCINE (Season Ended) 2025 ZOSTER VACCINE (1 of 2) 2039 HIV SCREENING Completed 06/08/2021 HIB VACCINE Aged Out No longer eligi ble based on patient's age to complete this topic HPV VACCINE Aged Out No longer eligi ble based on patient's age to complete this topic MENINGOCOCCAL (Group B) VACCINE SHARED DECISION-MAKING Aged Out No longer eligible based on patient's age to complete this topic MENINGOCOCCAL GROUPS A/C/Y/W VACCINE Aged Out No longer eligible b ased on patient's age to complete this topic PNEUMOCOCCAL VACCINE Aged Out No long er eligible based on patient's age to complete this topic Care Teams Cop Winder Relationship Specialty Start Date End Date Mumtaz Choi MD [address] [place] [address] PCP - General Family Medicine 04/15/19
--- OUTSIDE RECORDS SUMMARY | 2025-02-17 17:02 | XMS_ITS | Data Portability ---
Author Organization [facility] [place] Address [address] [place] [address] [place] [address] Assessment Encounter Date Assessment Date Assessment LastModified by Organization Details LastModified Time 02/06/2025 02/06/2025 Patient is __16_weeks . Discussed plan. Not available 02/06/2025 09:58:40 Plan of Treatment Reminders Order Date Submit Date Provider Last Modified By Organization Details Last Modified Time Details Appointments OB ROUTINE 2024 11:30A M Tammie Craven CNM Not available Not available Not available Lab drug screen, urine 2024 025 [email or web address] [place], [place], [address], 01/09/2025 16:40:30 culture, urine 2024 025 [facility] (Lab), [address], [place], [address], 01/11/2025 06:09:35 Referral None recorded. Procedures None recorded. Surgeries None recorded. Imaging US, obstetric , nuchal transluce ncy 2024 025 [email or web address] [place], [address], [address], [place], [address], 01/05/2025 21:14:59 US, obstetric , 1st trimester 2024 025 [email or web address] [place], [address], [address], [place], [address], 01/05/2025 21:14:59 Medication Orders None recorded. Patient TargetsNo targets recorded. Patient InstructionsNo instructions recorded. Reason for Referral None Reported. Results Created Date Observation Date Name Description Value Unit Range Abnormal Flag Note LastModifiedBy Organization Detail LastModifiedTime 12/26/19 25 12/26/2024 [UNIT Y] ANEUP LOIDY NIPT fraction 6.2% normal Not Available [facility] [address] [facility], [place], [address], 12/26/2024 17:42:33 12/26/19 25 12/26/2024 [UNIT Y] ANEUP LOIDY NIPT 22Q11.2 microdeletio n LOW RISK <1 in 10,000 normal Not Available [facility] [address] [facility], [place], [address], 12/26/2024 17:42:33 12/26/19 25 12/26/2024 [UNIT Y] ANEUP LOIDY NIPT sex chromosome aneuploidy NOT DETECT ED normal Not Available [facility] [address] [facility], [place], [address], 12/26/2024 17:42:33 12/26/19 25 12/26/2024 [UNIT Y] ANEUP LOIDY NIPT monosomy X LOW RISK <1 in 10,000 normal Not Available [facility] [address] [place], [address], 12/26/2024 17:42:33 12/26/19 25 12/26/2024 [UNIT Y] ANEUP LOIDY NIPT trisomy 13 LOW RISK <1 in 10,000 normal Not Available [facility] [address] [place], [address], 12/26/2024 17:42:33 12/26/19 25 12/26/2024 [UNIT Y] ANEUP LOIDY NIPT trisomy 18 LOW RISK <1 in 10,000 normal Not Available [facility] [address] [place], [address], 12/26/2024 17:42:33 12/26/19 25 12/26/2024 [UNIT Y] ANEUP LOIDY NIPT trisomy 21 LOW RISK <1 in 10,000 normal Not Available [facility] [address] [facility] , [place], [address], 12/26/2024 17:42:33 12/26/19 25 12/26/2024 [UNIT Y] ANEUP LOIDY NIPT sex FEMALE normal Not Available [facility] [address], [place], [address], 12/26/2024 17:42:33 12/26/19 25 12/26/2024 [UNIT Y] ANEUP LOIDY NIPT gestation SINGLE TON normal Not Available [facility] [address] [facility], [place], [address], 12/26/2024 17:42:33 12/26/19 25 12/26/2024 [UNIT Y] ANEUP LOIDY NIPT for detailed report, see pdf See PDF normal Not Available [facility] [address] [facility], [place], [address], 12/26/2024 17:42:33 12/22/19 25 12/22/2024 CBC W/DIF F WBC 6.2 10'3/ uL 3.5-[address] [facility] (Lab) [address] [facility], [place], [address], 12/23/2024 14:31:59 12/22/19 25 12/22/2024 CBC W/DIF F RBC 4.20 10'6/ uL (based on docume nted legal sex) 3.80-[address] [facility] (Lab) [address] [facility], [place], [address], 12/23/2024 14:31:59 12/22/19 25 12/22/2024 CBC W/DIF F HGB 12.6 g/dL (based on docume nted legal sex) 11.6-[address] [facility] (Lab) [address], [place], [address], 12/23/2024 14:31:59 12/22/19 25 12/22/2024 CBC W/DIF F HCT 38.2 % (based on docume nted legal sex) 34.0-[address] [facility] (Lab) [address], [place], [address], 12/23/2024 14:31:59 12/22/19 25 12/22/2024 CBC W/DIF F MCV 91.0 fL 80.0-[address] [facility] (Lab) [address], [place], [address], 12/23/2024 14:31:59 12/22/19 25 12/22/2024 CBC W/DIF F MCH 30.0 pg 27.0-[address] [facility] (Lab) [address], [place], [address], 12/23/2024 14:31:59 12/22/19 25 12/22/2024 CBC W/DIF F MCHC 33.0 g/dL 32.0-[address] [facility] (Lab) [address], [place], [address], 12/23/2024 14:31:59 12/22/19 25 12/22/2024 CBC W/DIF F RDW 13.9 % 11.0-[address] [facility] (Lab) [address], [place], [address], 12/23/2024 14:31:59 12/22/19 25 12/22/2024 CBC W/DIF F plt 169 10'3/ uL 150-[address] [facility] (Lab) [address], [place], [address], 12/23/2024 14:31:59 12/22/19 25 12/22/2024 CBC W/DIF F MPV 12.7 fL 8.8-12 .[address] [facility] (Lab) [address] [facility], [place], [address], 12/23/2024 14:31:59 12/22/19 25 12/22/2024 CBC W/DIF F neutrophils 70.0 % 34.0-[address] [facility] (Lab) [address] [facility], [place], [address], 12/23/2024 14:31:59 12/22/19 25 12/22/2024 CBC W/DIF F lymphocytes 23.0 % 15.0-[address] [facility] (Lab) [address], [place], [address], 12/23/2024 14:31:59 12/22/19 25 12/22/2024 CBC W/DIF F monocytes 5.3 % 1.0-[address] [facility] (Lab) [address] [address] [facility], [place], [address], 12/23/2024 14:31:59 12/22/19 25 12/22/2024 CBC W/DIF F eosinophils 0.8 % 0.0-8. [address] [facility] (Lab) [address] [address] [facility], [place], [address], 12/23/2024 14:31:59 12/22/19 25 12/22/2024 CBC W/DIF F basophils 0.6 % 0.0-2. [address] [facility] (Lab) [address] [facility], [place], [address], 12/23/2024 14:31:59 12/22/19 25 12/22/2024 CBC W/DIF F immature granulocytes 0.3 % no define d refere nce range Immat ure Granu locyt es (IG) repre sents autom ated enume ratio n of Metam yeloc ytes, Myelo cytes and Promy elocy leni when IG is < 5%. Blast s are not inclu ded in IG and repor torrey separ ately if prese nt. Not Available [facility] (Lab) [address], [place], [address], 12/23/2024 14:31:59 12/22/19 25 12/22/2024 CBC W/DIF F absolute neutrophils 4.3 10'3/ uL 1.5-8. [address] [facility] (Lab) [address] [facility], [place], [address], 12/23/2024 14:31:59 12/22/19 25 12/22/2024 CBC W/DIF F absolute lymphocytes 1.4 10'3/ uL 1.0-4. [address] [facility] (Lab) [address] [facility], [place], [address], 12/23/2024 14:31:59 12/22/19 25 12/22/2024 CBC W/DIF F absolute monocytes 0.3 10'3/ uL 0.2-1. [address] [facility] (Lab) [address] [address] [facility], [place], [address], 12/23/2024 14:31:59 12/22/19 25 12/22/2024 CBC W/DIF F absolute eosinophils 0.1 10'3/ uL 0.0-0. [address] [facility] (Lab) [address] [address] [facility], [place], [address], 12/23/2024 14:31:59 12/22/19 25 12/22/2024 CBC W/DIF F absolute basophils 0.0 10'3/ uL 0.0-0. [address] [facility] (Lab) [address], [place], [address], 12/23/2024 14:31:59 12/22/19 25 12/22/2024 CBC W/DIF F absolute immature granulocytes 0.0 10'3/ uL 0.00-0 .10 Refer ence range s for nonbi nary/ inter sex or unspe cifie d gende r patie nts have not been estab lishe d. Sujatha padron refer to the nakulo wing table for range s estab lishe d for cisge nder patie nts and evalu ate in the clini khadra devaughn xt of the indiv idual patie nt: https ://la and book. nm.or g/Gen derX Not Available [facility] (Lab) [address], [place], [address], 12/23/2024 14:31:59 12/22/19 25 12/22/2024 TYPE/ RH/SC REEN ABO/Rh type B NEG Not Available [facility] (Lab) [address], [place], [address], 12/23/2024 14:31:59 12/22/19 25 12/22/2024 TYPE/ RH/SC REEN antibody screen NEG Not Available [facility] (Lab) [address], [place], [address], 12/23/2024 14:31:59 12/22/19 25 12/22/2024 TYPE/ RH/SC REEN exp date 2024 23:[address] [facility] (Lab) [address], [place], [address], 12/23/2024 14:31:59 12/22/19 25 12/22/2024 HEPAT ITIS B SURFA CE ANTIG EN hepatitis B surface antigen Non-re active non-re active This assay was perfo rmed using [employer] ratio n reage nts and test kits. Value s obtai ajit with other assay metho ds or kits canno t be used inter antunez eably . Not Available [facility] (Lab) [address], [place], [address], 12/23/2024 14:32:00 12/22/19 25 12/22/2024 HEPAT ITIS C ANTIB TOMEKA SCREE N, REFLE X TO CONFI RMATI ON hepatitis C antibody Non-re active non-re active Antib odies to HCV Not Detec torrey, does not exclu de the possi bilit y of expos ure to HCV. Not Available [facility] (Lab) [address], [place], [address], 12/23/2024 14:32:00 12/22/19 25 12/22/2024 HIV 1/2 ANTIG EN/AN TIBOD Y, REFLE X CONFI RMATI ON HIV antigen/anti body Nonrea ctive nonrea ctive HIV-1 antig en and HIV-1 /HIV- 2 antib odies were not detec torrey. No labor atory evide nce of HIV infec tion. Not Available [facility] (Lab) [address], [place], [address], 12/23/2024 14:32:01 12/22/19 25 12/22/2024 RUBEL LA IGG ANTIB TOMEKA, QUANT rubella antibodies, IgG Reacti ve reacti ve Not Available [facility] (Lab) [address] [place], [address], 12/23/2024 14:32:02 12/22/19 25 12/22/2024 RUBEL LA IGG ANTIB TOMEKA, QUANT rubella antibodies, IgG quant 38.0 IU/mL >=10 Non-r eacti ve (Non- Immun e) <10 IU/mL React aditya (Immu ne) > or = 10 IU/mL Not Available [facility] (Lab) [address] [place], [address], 12/23/2024 14:32:02 12/22/19 25 12/22/2024 HEMOG LOBIN A1C hemoglobin A1C 5.1 % 4.0-5. 6 The Ameri can Diabe leni Assoc iatio n recom mends that a prima ry goal of thera py cas d be a HBA1C of < 7% and that physi cians shoul d reeva luate the treat ment regim en in patie nts with HBA1C value s consi stent ly > 8%. <5.7% Joanne l 5.7 - 6.4% Incre ased risk for diabe leni >=6.5 % Diagn ostic of diabe leni <7.0% Goal of thera py >8.0% Actio n sugge sted Not Available [facility] (Lab) [address], [place], [address], 12/23/2024 14:32:02 12/22/19 25 12/22/2024 RPR SCREE N, REFLE X TITER /CONF IRMAT ION RPR screen Nonrea ctive nonrea ctive Not Available [facility] (Lab) [address], [place], [address], 12/23/2024 14:32:03 12/22/19 25 12/22/2024 CT/GC AND TRICH OMONA S VAGIN JESSICA (RRNA ), URINE chlamydia trachomatis, PCR Negati ve negati ve Not Available [facility] (Lab) [address], [place], [address], 12/23/2024 15:02:43 12/22/19 25 12/22/2024 CT/GC AND TRICH OMONA S VAGIN JESSICA (RRNA ), URINE neisseria gonorrhoeae, PCR Negati ve negati ve Not Available [facility] (Lab) [address], [place], [address], 12/23/2024 15:02:43 12/22/19 25 12/22/2024 CT/GC AND TRICH OMONA S VAGIN JESSICA (RRNA ), URINE trichomonas vaginalis ribosomal RNA (rrna) Negati ve negati ve Not Available [facility] (Lab) [address], [place], [address], 12/23/2024 15:02:43 01/09/20 25 01/09/2025 CULTU RE: URINE result report SEE RESULT S BELOW Test: Cultu re: Urine Speci men Sourc e: Urine - Clean Catch Speci men Type: Urine Speci men Date: 2024 1542 Resul t Date: 025 0505 Resul t Statu s: Final resul t Abnor mal: No Resul ting Lab: [facility] [address] [facility] [address] Tel: CULTU RE ----- ----- ----- --- No growt h in 1 day (dete ction level of 10,00 0 colon ies / ml.) Not Available [facility] (Lab) [address], [place], [address], 01/11/2025 06:09:35 01/09/2001/09/2025 drug scree n, urine Amphetamines : negati ve Not Available [facility] [address], [place], [address], 01/09/2025 16:39:46 01/09/20 25 01/09/2025 drug scree n, urine Cannabinoids : negati ve Not Available [place] [address], [place], [address], 01/09/2025 16:39:46 01/09/20 25 01/09/2025 drug scree n, urine Cocaine: negati ve Not Available [place] [address], [place], [address], 01/09/2025 16:39:46 01/09/20 25 01/09/2025 drug scree n, urine Opiates: negati ve Not Available [facility] [address], [place], [address], 01/09/2025 16:39:46 01/09/20 25 01/09/2025 drug scree n, urine Phenocyclidi ne: negati ve Not Available [facility] [address], [place], [address], 01/09/2025 16:39:46 01/09/20 25 01/09/2025 drug scree n, urine Barbiturates : negati ve Not Available [facility] [address], [place], [address], 01/09/2025 16:39:46 01/09/20 25 01/09/2025 drug scree n, urine Benzodiazepi clara: negati ve Not Available [facility] [address], [place], [address], 01/09/2025 16:39:46 01/09/20 25 01/09/2025 drug scree n, urine Ethanol: negati ve Not Available [facility] [address], [place], [address], 01/09/2025 16:39:46 01/09/20 25 01/09/2025 drug scree n, urine Hallucinogen s: negati ve Not Available [facility] [address], [place], [address], 01/09/2025 16:39:46 01/09/20 25 01/09/2025 drug scree n, urine Inhalants: negati ve Not Available [facility] [address], [place], [address], 01/09/2025 16:39:46 01/09/20 25 01/09/2025 drug scree n, urine Anabolic Steroids: negati ve Not Available [facility] [address], [place], [address], 01/09/2025 16:39:46 01/09/20 25 01/09/2025 drug scree n, urine Other: negati ve Not Available [facility] [address], [place], [address], 01/09/2025 16:39:46 12/22/19 25 12/22/2024 US, obste tric, 1st trime ster No observ ation record ed. [address] [address], [place], [address], 12/22/2024 15:19:56 01/05/20 25 01/05/2025 US, obste tric, nucha l trans lucen cy No observ ation record ed. [email or web address] [place] [address], [place], [address], 01/05/2025 18:30:06 01/05/20 25 01/05/2025 US, obste tric, 1st trime ster No observ ation record ed. [email or web address] [place] [address], [place], [address], 01/05/2025 18:30:15 01/05/20 25 01/05/2025 US, obste tric, nucha l trans lucen cy No observ ation record ed. [email or web address] [address], [place], [address], 01/05/2025 20:55:08 Result Notes None recorded. Problems Name Problem SNOMED Code Status Onset Date Resolution Date Notes Provider Name and Address Organization Details Recorded Time Educatio n Completed 201805/10/2021 Encounte r for family planning advice;R ecorded Elsewher e: No Locat ion: [facility] S ource: EHR [employer] Worker estella: N John ce ID: [id number] Kvng lable Time: 01:30:00 PM Mago tirado [facility] 11:28:[address] Concept Completed 201805/10/2021 Encntr for general adult medical exam w/o abnormal findings ;Recorde d Elsewher e: No Locat ion: [facility] S ource: [employer] Worker estella: N John ce ID: [id number] Kvng lable Time: 09:45:00 AM Mago tirado [facility] 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 1 11:29:04 Finding of fertilit y Completed 201805/10/2021 Female infertil ity, unspecif ied;Prac amari ID: 0001 Mago tirado, [facility] 1 11:29:00 Pregnanc y [id number] Completed 202012/23/2021 Mago tirado, [facility] 5 16:40:45 ultrasou nd scan abnormal [id number] Completed Enlarged lateral ventricl e - 08/23 Level II U/S - No VSD. RESOLVED !! Final US @ 36 wks w/ MFM 11/24 315PM Pending CMV/parv o b/w Rossy tirado [facility] 2 15:15:00 Antenata l care: history of infertil ity [id number] Completed spon preg, TTC 5 years Rossy tirado [facility] 2 15:15:00 Prophyla ctic immunoth erapy Completed received 03/29/24 Mago tirado [facility] 4 11:57:56 Thromboc ytopenic disorder [id number] Completed low plt - 99 - [facility] mfm 05/14/24 U/S & Consult - Rpt CBC and MFM visit in 1 wk. Delivery recommen dations at that time. Anesth esia consult Mago tirado [facility] 4 11:57:56 Pregnanc y 09915011 Active 2024 Mago tirado, [facility] 5 16:40:45 History of thromboc ytopenia [id number] 9108 Active [facility] consult- referral faxed to [facility] 01/12/2025 Level II US schedule d [facility] 03/02 Bre John celestino, [facility] 5 11:07:35 History of infertil ity - female [id number] Active prior to first delivery TTC x 5 years Tammie Craven, [place] [address], [place], [address], [facility] 5 16:46:21 Past pregnanc y history of prematur e delivery 279928548 Active 2nd pregnanc y, 35 weeks, with NICU stay Tammie Craven CNM [address], [place], [address], [facility] 5 16:46:46 Problem Notes None recorded. Procedures Surgical History Date Name Laterality Status Provider Name and Address Organization Details Recorded Time 06/13/20 23 Date of Last Pap Smear completed Mago Phillips [facility] 11/09/2023 16:36:37 01/15/20 21 Laparoscopy completed Mago Phillips [facility] 05/10/2021 12:32:04 11/12/18 94 operation on hip joint completed Mago Phillips [facility] 05/10/2021 12:34:56 11/12/18 94 procedure on ear completed Mago Phillips [facility] 11/09/2023 16:38:25 11/12/18 93 tonsilectomy/ad enoids completed Mago Phillips [facility] 11/09/2023 16:37:40 11/12/18 93 operation on ossicular chain of middle ear completed Mago Phillips [facility] 05/10/2021 12:34:18 11/12/18 92 procedure on ear completed Mago Phillips [facility] 11/09/2023 16:38:20 11/12/18 90 procedure on ear completed Mago Phillips [facility] 11/09/2023 16:38:15 11/12/18 89 operation on hip joint completed Mago Phillips [facility] 05/10/2021 12:33:26 Imaging Results Imaging Date Name Status LastModified by Organization Details LastModified Time 12/22/2024 US, obstetric, 1st trimester completed [email or web address] [address], [place], [address], 12/22/2024 15:19:56 01/05/2025 US, obstetric, nuchal translucency completed [email or web address] [facility] [address], [place], [address], 01/05/2025 18:30:06 01/05/2025 US, obstetric, 1st trimester completed [email or web address] [place] [address], [place], [address], 01/05/2025 18:30:15 01/05/2025 US, obstetric, nuchal translucency completed [email or web address] [address], [place], [address], 01/05/2025 20:55:08 Procedure Notes None recorded. Medical Equipment None Reported. Allergies Allergen ID Allergen Name Allergen Category Reaction Reaction Severity Criticality Documentation Date Start Date Code Code System Note Provider Name and Address Organization Details Recorded Time 393 lactose food,medi cation Not available Not available Not available 03/09/2020 6211 RxNorm Mago tirado, [facility] 17:28:25 Medications Name Sig Start Date Stop Date Status Note LastModified by Organization Details LastModified Time binaxnow cov kit home leni 06/13 completed Not Available Not Available Not Available antacid/l dania/wal-d ryl susp 111 SWISH AND SWALLOW 15ML BY MOUTH EVERY 4 HOURS NEEDED 11/09 completed Not Available Not Available Not Available fluconazo le 150 mg tablet Take one tablet by oral route once 11/23 completed Not Available Not Available Not Available benzonata te 200 mg capsule TAKE 1 CAPSULE BY MOUTH THREE TIMES DAILY NEEDED FOR COUGH 05/10 completed Not Available Not Available Not Available clomiphen e citrate 50 mg tablet take 2 tablet by oral route every day 05/10 completed Prescrib ed Elsewher e: No Locat ion: Jasbir padron [facility] odify By: alea wagoner DateTime : 07/09/20 03:59:26 PM Not Available Not Available Not Available hydrocodo ne 5 mg-acetam inophen 325 mg tablet TAKE 1 TABLET BY MOUTH EVERY 4 HOURS NEEDED FOR MODERATE PAIN . DO NOT EXCEED 6 PER 24 HOURS 05/10 completed Not Available Not Available Not Available Zyrtec 10 mg tablet take 1 tablet by oral route every day active Prescrib ed Elsewher e: Yes Loca tion: Jasbir padron [facility] odify By: yayo lewis DateTime : 01/22/20 09:45:00 AM Not Available Not Available Not Available pantopraz ole 20 mg tablet,de layed release TAKE 1 TABLET BY MOUTH TWICE DAILY DIRECTED 02/06 completed Not Available Not Available Not Available amoxicill in 875 mg tablet 03/09 completed Not Available Not Available Not Available benzonata te 100 mg capsule 01/09 completed Not Available Not Available Not Available cephalexi n 500 mg capsule TAKE 1 CAPSULE BY MOUTH EVERY 6 HOURS FOR 7 DAYS 12/14 completed Not Available Not Available Not Available oseltamiv ir 75 mg capsule 03/09 completed Not Available Not Available Not Available progester one micronize d 200 mg capsule TAKE 2 CAPSULES BY MOUTH DAILY AT BEDTIME active Not Available Not Available No t Available ibuprofen 600 mg tablet TAKE 1 TABLET BY MOUTH EVERY 6 HOURS NEEDED FOR MILD PAIN 08/29 completed Not Available Not Available Not Available letrozole 2.5 mg tablet TAKE 2 TABLETS BY MOUTH ON DAYS 3-7 OF CYCLE 11/09 completed Not Available Not Available Not Available diazepam 5 mg tablet TAKE ONE TABLET BY MOUTH A ONE TIME DOSE 05/10 completed Not Available Not Available Not Available metoclopr amide 10 mg tablet TAKE 1 TABLET BY MOUTH FOUR TIMES DAILY 12/14 completed Not Available Not Available Not Available amoxicill in 875 mg-potass ium clavulana te 125 mg tablet TAKE 1 TABLET BY MOUTH TWICE DAILY FOR 10 DAYS 12/22 completed Not Available Not Available Not Available nitrofura ntoin monohydra te/macroc rystals 100 mg capsule TAKE 1 CAPSULE BY MOUTH TWICE DAILY FOR 7 DAYS 12/14 completed Not Available Not Available Not Available progester one 400 mg vaginal supposito ry Insert by vaginal route. 02/06 completed Not Available Not Available Not Available Calcium 500 mg + D (D3) 3.125 mcg (125 unit) tablet 11/09 completed Prescrib ed Elsewher e: Yes Loca tion: [facility] odify By: yayo Loomis ter DateTime : 01/22/20 09:45:00 AM Not Available Not Available Not Available Caltrate 600 plus D active Not Available Not Available Not Available Women's One Daily 18 mg iron-400 mcg-500 mg Ca tablet 11/09 completed Prescrib ed Elsewher e: Yes Loca tion: [facility] odify By: yayo Loomis ter DateTime : 01/22/20 09:45:00 AM Not Available Not Available Not Available One-A-Day Women's 1 11/09 completed Not Available Not Available Not Available BinaxNOW COVID-19 Ag Self Test kit TEST DIRECTED TODAY 06/13 completed Not Available Not Available Not Available Vitals Date Recorded Body height Body mass index (BMI) Body weight Systolic blood pressure Diastolic blood pressure Provider Name and Address Organization Details Last Updated DateTime 12/22/2024 152.4 cm 30.9 kg/m2 83880.59 g 126 mm[Hg] 80 mm[Hg] Lisa Potter [facility] 11:38:33 Date Recorded Body height Body mass index (BMI) Body weight Systolic blood pressure Diastolic blood pressure Provider Name and Address Organization Details Last Updated DateTime 01/09/2025 152.4 cm 31.4 kg/m2 85158.37 g 118 mm[Hg] 76 mm[Hg] Mago Phillips [facility] 16:38:04 Date Recorded Body weight Body mass index (BMI) Body height Systolic blood pressure Diastolic blood pressure Provider Name and Address Organization Details Last Updated DateTime 02/06/2025 53468.37 157 g 31.4 kg/m2 152.4 cm 121 mm[Hg] 76 mm[Hg] Mago Phillips [facility] 09:55:53 Social History Question Answer Notes LastModified by Organizat ion Details LastModified Time Tobacco Smoking Status Never Smoker Mago Phillips [facility] 11/09/2023 16:35:52 Do You Have An Advance Directive? No [email or web address] Information not available 05/10/2021 What Is Your Level Of Alcohol Consumption? None [email or web address] Information not available 03/09/2020 If You Are , What Was Your Level Of Alcohol Consumption Prior To ? None [email or web address] Information not available 11/09/2023 Are You Blind Or Do You Have Difficulty Seeing? No [email or web address] Information not available 05/10/2021 What Is Your Level Of Caffeine Consumption? Moderate [email or web address] Information not available 05/10/2021 How Much Tobacco Do You Chew? None [email or web address] Information not available 05/10/2021 In The 14 Days Before Symptom Onset, Have You Had Close Contact With A Laboratory-confir med COVID-19 While That Case Was Ill? No [email or web address] Information not available 05/10/2021 In The 14 Days Before Symptom Onset, Have You Had Close Contact With A Person Who Is Under Investigation For COVID-19 While That Person Was Ill? No [email or web address] Information not available 05/10/2021 Have You Been To An Area Known To Be High Risk For COVID-19? No [email or web address] Information not available 05/10/2021 Are You Deaf Or Do You Have Serious Difficulty Hearing? No [email or web address] Information not available 05/10/2021 What Type Of Diet Are You Following? REGULAR [email or web address] Information not available 05/10/2021 What Is The Highest Grade Or Level Of School You Have Completed Or The Highest Degree You Have Received? 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 No [email or web address] Information not available 05/10/2021 What Was The Date Of Your Most Recent Tobacco Screening? 02/06/2025 [email or web address] Information not available 02/06/2025 Do You Use Protection During Sex? No [email or web address] Information not available 05/10/2021 Do You Use Your Seat Belt Or Car Seat Routinely? Yes [email or web address] Information not available 05/10/2021 Do You Have Smoke And Carbon Monoxide Detectors In Your Home? Yes [email or web address] Information not available 05/10/2021 How Much Tobacco Do You Smoke? No [email or web address] Information not available 05/10/2021 Do You Feel Stressed (tense, Restless, Nervous, Or Anxious, Or Unable To Sleep At Night)? [id number] [email or web address] Information not available 11/09/2023 Do You Use Any Illicit Or Recreational Drugs? No [email or web address] Information not available 05/10/2021 Do You Use Sunscreen Routinely? No [email or web address] Information not available 05/10/2021 Has Tobacco Cessation Counseling Been Provided? No [email or web address] Information not available 11/09/2023 Have You Used IV Drugs? No [email or web address] Information not available 05/10/2021 Do You Or Have You Ever Used Any Other Forms Of Tobacco Or Nicotine? No [email or web address] Information not available 11/09/2023 Sex: Unknown Functional Status Question Answer Note LastModified by Organizat ion Details LastModified Time Do you have difficulty walking or climbing stairs? No [email or web address] Information not available 11/09/2023 Are you able to walk? YESWOREST [email or web address] Information not available 05/10/2021 Are you able to care for yourself? Yes [email or web address] Information not available 11/09/2023 Do you have difficulty dressing or bathing? No [email or web address] Information not available 11/09/2023 What is your exercise level? Occasional [email or web address] Information not available 03/09/2020 Mental Status None recorded. Family History Relationship Description Onset Age of this Age Resolved Age Notes LastModified by Organization Details LastModified Time Mother Hypertensive disorder [email or web address] Not available 03/09 17:30:21 Father Hypertensive disorder [email or web address] Not available 03/09 17:30:29 Father Malignant tumor of prostate [email or web address] Not available 2021 15:59:30 Maternal Grandfather Heart disease [email or web address] Not available 03/09 17:30:54 Paternal Grandfather Heart disease [email or web address] Not available 03/09 17:30:54 Medical History Condition Response Allergies (Food, seasonal, environmental ) Y Other N Breast Cancer N Blood Transfusion N Drug/Latex Allergies/Reactions N Dermatologic Disorders N Lung Disease N Defects or Inherited Disease N Breast Problem N Gestational Diabetes N Hematologic disorders N Anesthesia Complications N History of STI N Deep Vein Thrombosis N Polycystic ovary syndrome N Anxiety Disorder N Autoimmune disease N Arthritis N Polyps N Infertility Y Acid Reflux (GERD) Y History of abnormal pap N Cancer N Varicosities N Stroke N Neurologic/Epilepsy N Endometriosis N High Cholesterol N Fibromyalgia N Headaches N Kidney Disease N Heart Problems N Thyroid Problems N Kidney or Bladder Problems N GI Problems N Eating Disorder N Anemia N Art (IVF or FET) N Psychiatric Illness N Ovarian Cancer N Diabetes N Pulmonary (TB, Asthma) N Hepatitis/Liver Disease N No Past Medical History N Eczema N Urinary Tract Infection N Abuse/Domestic Violence N Asthma N Trauma/Violence N Depression/ depression N Heart Disease N Pre-Eclampsia N Hypertension N Osteoporosis N Thrombophilias N Gynecological History Statement/Question Response Date of Last Mammogram Date of LMP 10/11/2024 On BCP's at Conception? N N Was last menstrual period normal Y STIs/STDs N HPV Vaccine N Duration of Flow (days) 5 Current Control Method Are cycles usually normal Y Frequency of Cycle (Q days) 27 Sexually Active? Y Menses Monthly Y Date of DEXA bone scan Date of Last Pap Smear 06/13/2023 Sexual Problems? N Desired Control Method LMP Definite N Obstetrics History GPAL:G 3 P 1 0 0 1 Type Value Full Term 1 Living 1 Total 3 Past Encounters Encounter ID Performer Location Encounter Start Date Encounter Closed Date Diagnosis/Indication Diagnosis SNOMED-CT Code Diagnosis ICD10 Code Diagnosis Note [id number] Tammie Craven [facility] [address],[place] [address] 03/09/2020 12:37:34 03/09/2020 12:38:16 Female infertility associated with anovulation 467962881 N97.0 History of infertility - female 390197208 Z87.42 [place]ovulatio n [id number] [facility] [address],[place] [address] 05/10/2021 11:50:59 05/10/2021 13:16:01 [id number] Tammie Craven [facility] [address],[place] [address] 05/10/2021 11:52:08 05/10/2021 22:27:09 Amenorrhea 03300772 N91.2 [id number] [facility] [address],[place] [address] 06/08/2021 14:54:20 06/08/2021 15:37:50 screening 431085607 Z36.82 [id number] Juliocesar Arciniega MD [facility] [address],[place] [address] 06/08/2021 14:56:45 06/08/2021 17:39:48 Routine care 934656501 Z34.90 [id number] Haylie Quintero MD [facility] [address],[place] [address] 07/05/2021 17:00:55 07/05/2021 23:34:26 Routine care 431197409 Z34.02 [id number] [facility] [address],[place] [address] 07/05/2021 17:06:58 07/06/2021 09:01:06 [id number] [facility] [address],[place] [address] 08/09/2021 16:32:28 08/09/2021 17:35:43 screening for malformation 666028998 Z36.3 [id number] MD Jermain Watson [address],[place] [address] 08/09/2021 16:33:19 08/10/2021 15:52:45 ultrasound scan abnormal 8159868530 9109 R93.89 Routine an tenatal care 373295699 Z34.02 [id number] MD Jermain Watson [address],[place] [address] 08/30/2021 15:49:12 08/30/2021 16:32:53 ultrasound scan abnormal 5115587291 9109 R93.89 Routine an tenatal care 369747826 Z34.02 [id number] Haylie Quintero MD [facility] [address],[place] [address] 09/28/2021 10:46:06 09/28/2021 11:48:55 ultrasound scan abnormal 9559736761 9109 R93.89 Routine an tenatal care 097973666 Z34.02 [id number] Haylie Quintero MD [facility] [address],[place] [address] 10/03/2021 16:59:59 10/03/2021 17:46:40 Vaginitis 90865963 N76.0 Candidal vulvovaginitis 43201477 B37.3 Increased frequency of urination 906310249 R35.0 [id number] MD Jermain Watson [address],[place] [address] 10/14/2021 16:28:02 10/15/2021 09:51:30 Routine care 947595050 Z34.02 Irregular uterine contractions 24692691 O62.2 [id number] MD Jermain Watson [address],[place] [address] 10/26/2021 16:48:46 10/28/2021 16:45:33 Routine care 503841456 Z34.02 [id number] Haylie Quintero MD [facility] [address],[place] [address] 11/09/2021 16:43:06 11/09/2021 17:30:27 Routine care 399784818 Z34.02 [id number] Haylie Quintero MD [facility] [address],[place] [address] 11/23/2021 16:23:13 11/24/2021 17:09:40 Routine care 095348760 Z34.02 [id number] Estephanie Blas [facility] [address],[place] [address] 11/25/2021 16:37:05 12/22/2021 14:09:22 [id number] Haylie Quintero MD [facility] [address],[place] [address] 11/30/2021 16:35:51 12/02/2021 16:00:50 Routine care 097496729 Z34.02 [id number] [facility] [address],[place] [address] 12/07/2021 15:58:38 12/07/2021 16:30:18 Central nervous system malformation in fetus affecting obstetrical care 2593144 O35.0XX0 Z3A.38 [id number] Haylie Quintero MD [facility] [address],[place] [address] 12/07/2021 15:59:22 12/09/2021 09:45:23 Routine care 483308926 Z34.02 [id number] MD Jermain Watson [address],[place] [address] 12/19/2021 12:35:26 12/19/2021 13:32:49 care 830058779 Z39.0 [id number] Haylie Quintero MD [facility] [address],[place] [address] 01/09/2022 14:43:23 01/09/2022 19:56:46 care 228205000 Z39.0 [id number] Joyce Iraheta [facility] [address],[place] [address] 06/13/2023 18:03:46 06/14/2023 16:21:39 Gynecologic examination 23105919 Z01.419 Take Calcium with Vitamin D 1200mg daily if not receiving in daily diet. It is strongly advised to have an annual flu shot and up can obtain at most pharmacies . If you have not had a TDap shot in the last 10 years you should obtain one as well. Discussed with patient & provided with informatio n regarding Gardisil vaccine to prevent the 4 strains for HPV that cause cervical cancer if under age 26. Encourage safe sexual practices, to use condoms and limit partners if not already in a monogamous relationsh ip. Do monthly self breast exams. Have mammogram yearly or every other year depending on family history. BRCA testing is now available for patients with strong genetic history of female cancer. If interested contact the office. Engage in daily exercise of low impact aerobic exercise 45-60 minutes 4-5 times weekly. Avoid tobacco and illicit drugs as well as using moderation with alcohol intake less than 1-2 8 oz beverages daily. This lifestyle behavior pattern will lead to less health conditions and longer life span. If BMI greater than 25 weight watchers or dietary consult advised. Patient received above instructio ns, and questions have been answered. If you have any questions please call or respond to this email. Patient was made aware of the patient portal and may obtain a paper copy of today's plan if desired. Pap/hpv q3-5yrs per asccp unless otherwise indicatedS TD Screen declinedGe netic Screen discussedC olon Screen naDexa Screen naRoutine Labs PCP Dyspareunia 68716021 N94 .10 Chronic PFDRef PTInformat ion given for additional home review.Vag valium if not trying to for - -can consider https://ww w.[email or web address] in.org/maribell ges/pdf/Stephan tient%20In fo%20Hando uts%20191215 /PELVIC%20 FLOOR%20DY SFUNCTION% 20PFD%2019.pdf [id number] Soni Basiliokarin [facility] [address],[place] [address] 10/26/2023 13:30:57 10/26/2023 14:10:57 Threatened miscarriage 00455366 O20.0 Z3A.01 [id number] [facility] [address],[place] [address] 11/09/2023 15:19:34 11/09/2023 16:17:12 Uterine size for dates discrepancy 935182956 O26.841 Z3A.01 [id number] Tammie Craven [facility] [address],[place] [address] 11/09/2023 15:20:54 11/09/2023 16:50:48 Amenorrhea 38451496 N91.2 reviewed office, precaution svaccine recf/u 12 week new ob and first lookreglan unisom/b6 for nausea Routine an tenatal care 477740009 Z34.91 Nausea and vomiting 1693 1999 R11.2 [id number] Sheri [facility] [address],[place] [address] 11/29/2023 17:27:10 12/11/2023 17:15:39 [id number] [facility] [address] [place] [address] 12/14/2023 11:01:23 12/14/2023 11:40:32 screening 456339677 Z36.82 Z3A.11 [id number] Tammie Craven [facility] [address],[place] [address] 12/14/2023 11:01:43 12/14/2023 12:13:09 Gestation period, 12 weeks 12948578 Z3A.12 [id number] Tammie Craven [facility] [address] [place] [address] 01/11/2024 11:39:59 01/11/2024 12:08:41 Routine care 295399814 Z34.91 [id number] [facility] [address] [place] [address] 01/18/2024 12:03:06 01/18/2024 12:39:12 [id number] [facility] [address],[place] [address] 02/08/2024 11:26:39 02/08/2024 14:06:08 screening for malformation 166005631 Z36.3 [id number] Tammie Craven [facility] [address],[place] [address] 02/08/2024 11:28:26 02/08/2024 14:07:04 Routine care 307399635 Z34.91 [id number] Tammie Craven [facility] [address],[place] [address] 03/07/2024 11:16:27 03/07/2024 11:57:19 Routine care 335857777 Z34.91 [id number] [facility] [address],[place] [address] 04/04/2024 09:03:38 04/04/2024 10:36:01 Routine care 876038960 Z34.91 [id number] [facility] [address],[place] [address] 04/23/2024 10:02:14 04/23/2024 10:52:56 Routine care 059415511 Z34.91 [id number] [facility] [address] [place] [address] 05/09/2024 15:23:03 05/09/2024 16:07:50 Uterine size for dates discrepancy 657483272 O26.843 Z3A.33 [id number] Tammie Craven [facility] [address],[place] [address] 05/09/2024 15:23:28 05/09/2024 16:43:03 Routine care 844005179 Z34.91 [id number] [facility] [address],[place] [address] 05/30/2024 11:43:51 05/30/2024 12:34:22 care 451335895 Z39.2 Benign ges tational thrombocytopenia 681511143 D69.59 rpt cbc and cmp todaysleep when ablemonito r for headaches, visual changes, epigastric painf/u pending labscall if desires control method [id number] Mago Phillips [facility] [address],[place] [address] 08/29/2024 09:34:47 08/29/2024 10:45:03 care 963032405 Z39.2 normal pp exam f/u wwe [id number] [facility] [address],[place] [address] 12/22/2024 10:58:26 12/22/2024 11:40:13 [id number] MUSA GARCIA MD [facility] [address],[place] [address] 12/22/2024 10:59:24 12/22/2024 17:16:53 test positive 034641379 Z32.01 1. Exam today within normal limits.2. Ultrasound today confirms GA and viability. EDC . GC/Clamydi a testing done: will f/u as indicated. 4. ACOG guidelines and plan of care for reviewed with patient. All questions answered.5 . Return to office at 12 weeks for new OB visit6. OB labs ordered today.7. Genetic screening: desires, drawn today. Benign ges tational thrombocytopenia 358166003 O99.119 - hx of gestationa l thrombocyt openia x2- Plt 70 on admission at 35 weeks for PPROM- discussed close monitoring of plt count this - due to slightly increased risk of PTL/PPROM in this , consider MFM consult if thrombocyt openia occurs for discussion of steroid burst around 35 weeks in case of PPROM again [id number] [facility] [address],[place] [address] 01/05/2025 15:57:59 01/05/2025 16:42:25 screening 157510106 Z36.82 Z3A.12 [id number] LICO CarlinM [facility] [address] [address] 01/09/2025 10:48:09 01/12/2025 02:33:48 Gestation period, 12 weeks 87266220 Z3A.12 Routine an tenatal care 818896717 Z34.91 [id number] Tammie Craven, [facility] [address],[facility] [place] [address] 02/06/2025 09:48:00 02/06/2025 10:09:24 Gestation period, 16 weeks 47113036 Z3A.16 Health Concerns Section Related Observation LastModified by Organization Detai ls LastModified Time None Recorded Concern Status LastModified by Organization Details LastModified Time None Recorded Advance Directives Directive N: Payers Encounter Date Sequence Insurance Name Policy Number Policy Calabrese Covered Member ID Calabrese Member ID Guarantor Name 12/22/2024 1 [place] [id number] Leanne N Steven [id number] 28 Leanne Steven 12/22/2024 1 [place] [id number] Leanne N Steven [id number] 28 Leanne Steven 01/05/2025 1 [place] [id number] Leanne N Steven [id number] 28 Leanne Steven 01/09/2025 1 [place] [id number] Leanne N Steven [id number] 28 Leanne Steven 02/06/2025 1 [place] [id number] Leanne N Steven [id number] 28 Leanne Steven Notes Date Note Type Note Provider Name and Address Organization Details Recorded Time 12/22/2024 text/html Presents to the office today to confirm . Patient denies any problems up to this point with her . Patient denies cramping or vaginal bleeding. Does report worsening heartburn, has tried pepcid with minimal improvement. Will start protonix. Currently taking progesterone 400mg nightly prescribed by infertility doctor. Discussed cessation at 14 weeks. G1: , gestational thrombocytopenicG2 : 35 week PPROM, in NICU for 19 days due to RDS; complicated by gestational thrombocytopenia, Plt 70 at time of admission for PPROm Patient is . Lives with partner and two boys. Denies tobacco/EtOH/illic its. MUSA GARCIA MD [address], [place], [address], [place] [facility] 12/22/2024 16:39:32 OBGyn Episode Ob Episode Information Episode Created Date Number of Fetuses Patient Bloodtype Patient rh Status Prepregnancy Weight lbs Domestic Partner Domestic Partner Phone Father Name Regulatory Affairs Associate Status 06/08/20 21 1 B Negative 152 CLOSED Fetus Data First Name Last Name Admitted to NICU Weight (g) Sex Living Outcome Pediatric Complications Fetus ID Race Codes Race Delivery Type Bon 3090.09 55 M true Full Term [id number] Vaginal Delivery Problems Problem Notes declines cf/sma and NIPT - N IPT drawn 08/23/21 due to abnormal Level II U/SDunbar pt!! Problem Name Start Date End Date Resolution Snomed Code Not e ultrasound scan abnormal SELFRESOLVED [id number] Enlarged lat eral ventricle - 08/23 Level II U/S - No VSD. RESOLVED!! Final US @ 36 wks w/ MFM 11/24 315PM Pending CMV/parvo b/w care: history of infertility 784479197 spon preg, TTC 5 years Bo Calculation Initial Bo Date Initial Exam Date Initial Exam Provider Initial Ultrasound Date Last Menstrual Period Date Ultra Sound Weeks Gestation 12/21/2021 06/08/2021 05/10/2021 03/16/2021 8 Eighteen To Twenty Week Bo Update Ultra Sound Date Fundal Height At Umbil Quickening Date Ultra Sound Latest Weeks Gestation Final Bo Confirmed By Final Bo Confirmed Date Final Bo Date Ultra Sound Latest Days Gestation 0 [email or web address] 06/08/2021 12/21/19 22 0 Pre-ashley Flowsheet Flowsheet Date 06/08/2021 Olivo Score Blood Edema Fundus Height Fundus Units Glucose Ketones Leukocytes Nitrite Labor Signs Protein Cervic Dilation Cervic Effacement Cervic Station 12 Type Weight in lbs Pre/Post Dialysis Refused Weight 150.099716500630 BP Diastolic BP Location Tested BP Systolic BP Type 75 R arm 123 sitting Fetus Heart Rate Present A 171 Fetus Movement Comments This patient is a 30-year-ol d 1 at 12 weeks gestation who presents for initial care. She had tried to get for 5 years. This occurred spontaneously. Is not an IVF . We discussed care in detail. She is Rh negative. We will begin routine care. Flowsheet Date 07/05/2021 Olivo Score Blood Edema Fundus Height Fundus Units Glucose Ketones Leukocytes Nitrite Labor Signs Protein Cervic Dilation Cervic Effacement Cervic Station Type Weight in lbs Pre/Post Dialysis Refused BP Diastolic BP Location Tested BP Systolic BP Type Fetus Heart Rate Present Fetus Movement Comments Flowsheet Date 07/05/2021 Olivo Score Blood Edema Fundus Height Fundus Units Glucose Ketones Leukocytes Nitrite Labor Signs Protein Cervic Dilation Cervic Effacement Cervic Station neg none trace Type Weight in lbs Pre/Post Dialysis Refused Weight 153.832526878773 BP Diastolic BP Location Tested BP Systolic BP Type 72 115 Fetus Heart Rate Present A 155 Fetus Movement A No Comments Doing well. No concerns. Goi ng to stop progesterone per Dr. Ennis. Declines NIPT. Discussed and encouraged COVID vaccine. Anatomy US next. Flowsheet Date 08/09/2021 Olivo Score Blood Edema Fundus Height Fundus Units Glucose Ketones Leukocytes Nitrite Labor Signs Protein Cervic Dilation Cervic Effacement Cervic Station Type Weight in lbs Pre/Post Dialysis Refused BP Diastolic BP Location Tested BP Systolic BP Type Fetus Heart Rate Present Fetus Movement Comments Flowsheet Date 08/09/2021 Olivo Score Blood Edema Fundus Height Fundus Units Glucose Ketones Leukocytes Nitrite Labor Signs Protein Cervic Dilation Cervic Effacement Cervic Station neg trace trace Type Weight in lbs Pre/Post Dialysis Refused Weight 159.852838068729 BP Diastolic BP Location Tested BP Systolic BP Type 79 117 Fetus Heart Rate Present A 150 Fetus Movement A No Comments Feeling well. Maybe some flu tters. COVID vaccines done, will do flu shot. US today anatomy complete and wnl except possible apical VSD. Uncertain, discussed with Leanne and Will do MFM US, possible echo discussed. Flowsheet Date 08/30/2021 Olivo Score Blood Edema Fundus Height Fundus Units Glucose Ketones Leukocytes Nitrite Labor Signs Protein Cervic Dilation Cervic Effacement Cervic Station neg trace 24 trace Type Weight in lbs Pre/Post Dialysis Refused Weight 161.665179446188 BP Diastolic BP Location Tested BP Systolic BP Type 86 124 Fetus Heart Rate Present A 150 Fetus Movement A Yes Comments Feeling well. Getting flu sh ot this week. Will discuss Tdap next visit. Saw MFM, no concern for VSD but slightly enlarged lateral ventricle. Did NIPT- low risk. Has appt at [facility] on Wednesday 09/05. Questions answered, support given. Orders given for Rhogam and 28w labs. Flowsheet Date 09/28/2021 Olivo Score Blood Edema Fundus Height Fundus Units Glucose Ketones Leukocytes Nitrite Labor Signs Protein Cervic Dilation Cervic Effacement Cervic Station trace 26 Type Weight in lbs Pre/Post Dialysis Refused Weight 167.604120355243 BP Diastolic BP Location Tested BP Systolic BP Type 75 114 Fetus Heart Rate Present A 145 Fetus Movement A Yes Comments Doing very well, just tired. Last MFM US lat vent now wnl. One FU there at 36w. GCT and Rhogam at today. Flu done, discussed and encouraged Tdap. Flowsheet Date 10/03/2021 Olivo Score Blood Edema Fundus Height Fundus Units Glucose Ketones Leukocytes Nitrite Labor Signs Protein Cervic Dilation Cervic Effacement Cervic Station Type Weight in lbs Pre/Post Dialysis Refused Weight 162.416265663400 BP Diastolic BP Location Tested BP Systolic BP Type 80 126 Fetus Heart Rate Present Fetus Movement Comments Here with c/o greenish disch arge, thick, last night. Denies itching, irritation, odor. Declines std testing. Some urinary frequency, but not sure if that is just . Urine culture. on SSE, chunky white discharge with erythema and edema at introitus, tender. diflucan sent. Vulvar care guidelines discussed. Great FM. Fu as scheduled. Flowsheet Date 10/14/2021 Olivo Score Blood Edema Fundus Height Fundus Units Glucose Ketones Leukocytes Nitrite Labor Signs Protein Cervic Dilation Cervic Effacement Cervic Station neg trace 28 trace Type Weight in lbs Pre/Post Dialysis Refused Weight 172.190217893120 BP Diastolic BP Location Tested BP Systolic BP Type 86 131 Fetus Heart Rate Present A 140 Fetus Movement Comments Had a rough week. Had some s potting, went to triage, had some contractions, diagnosed with UTI. Worried about the contractions, then got diarrhea on macrobid. Both spotting and diarrhea have resolved. Occasional mild cramping. PTL precautions given, but reassured. Yeast resolved. GCT wnl, got Rhogam. Will do Tdap. Not time for COVID booster yet. Needs dental letter. Flowsheet Date 10/26/2021 Olivo Score Blood Edema Fundus Height Fundus Units Glucose Ketones Leukocytes Nitrite Labor Signs Protein Cervic Dilation Cervic Effacement Cervic Station neg none 30 none trace Type Weight in lbs Pre/Post Dialysis Refused Weight 172.289320148696 BP Diastolic BP Location Tested BP Systolic BP Type 85 134 Fetus Heart Rate Present A 130 Fetus Movement A Yes Comments Doing well except for one ep isode of BRB with hard stool last week. Discussed OTCs for constipation. Doing Tdap next week. Precautions given. Flowsheet Date 11/09/2021 Olivo Score Blood Edema Fundus Height Fundus Units Glucose Ketones Leukocytes Nitrite Labor Signs Protein Cervic Dilation Cervic Effacement Cervic Station neg trace 33 none trace Type Weight in lbs Pre/Post Dialysis Refused Weight 175.994371925851 BP Diastolic BP Location Tested BP Systolic BP Type 80 131 Fetus Heart Rate Present A 120 Fetus Movement A Yes Comments Doing well. Still some const ipation, will increase colace, may add miralax. Tdap done. GBS next visit. Back to [facility] once more. Has preadmit scheduled. Discussed pediatricians, hospital bag, carseat installation. Flowsheet Date 11/23/2021 Olivo Score Blood Edema Fundus Height Fundus Units Glucose Ketones Leukocytes Nitrite Labor Signs Protein Cervic Dilation Cervic Effacement Cervic Station neg trace 34 none trace 0cm 20% -2 Type Weight in lbs Pre/Post Dialysis Refused Weight 176.802151549082 BP Diastolic BP Location Tested BP Systolic BP Type 86 136 Fetus Heart Rate Present A 140 Fetus Movement A Yes Comments Doing well. COnstipation imp roved. Diflucan yesterday but has urinary sx also. UA and culture. macrobid. Trouble sleeping. [facility] last week- normal growth but drop in %. Has growth scheduled here in 2 weeks. GBS done and discussed. Labor precautions. Flowsheet Date 11/25/2021 Olivo Score Blood Edema Fundus Height Fundus Units Glucose Ketones Leukocytes Nitrite Labor Signs Protein Cervic Dilation Cervic Effacement Cervic Station Type Weight in lbs Pre/Post Dialysis Refused BP Diastolic BP Location Tested BP Systolic BP Type Fetus Heart Rate Present Fetus Movement Comments Flowsheet Date 11/30/2021 Olivo Score Blood Edema Fundus Height Fundus Units Glucose Ketones Leukocytes Nitrite Labor Signs Protein Cervic Dilation Cervic Effacement Cervic Station neg trace 36 none trace Type Weight in lbs Pre/Post Dialysis Refused Weight 179.643041904895 BP Diastolic BP Location Tested BP Systolic BP Type 89 131 Fetus Heart Rate Present A 140 Fetus Movement A Yes Comments Doing well. GBS neg. Growth US next week for % drop previously. Urinary sx and vulvar sx gone. Good FM. FU weekly. Flowsheet Date 12/07/2021 Olivo Score Blood Edema Fundus Height Fundus Units Glucose Ketones Leukocytes Nitrite Labor Signs Protein Cervic Dilation Cervic Effacement Cervic Station Type Weight in lbs Pre/Post Dialysis Refused BP Diastolic BP Location Tested BP Systolic BP Type Fetus Heart Rate Present Fetus Movement Comments Flowsheet Date 12/07/2021 Olivo Score Blood Edema Fundus Height Fundus Units Glucose Ketones Leukocytes Nitrite Labor Signs Protein Cervic Dilation Cervic Effacement Cervic Station neg trace none trace -2 Type Weight in lbs Pre/Post Dialysis Refused Weight 178.678307133971 BP Diastolic BP Location Tested BP Systolic BP Type 85 141 82 138 Fetus Heart Rate Present A 140 Fetus Movement A Yes Comments Doing ok. Occasional ctx. Gr woth 60%. Does not tolerate cervical exam, but head -2 to -1. Precautions given. Flowsheet Date 12/19/2021 Olivo Score Blood Edema Fundus Height Fundus Units Glucose Ketones Leukocytes Nitrite Labor Signs Protein Cervic Dilation Cervic Effacement Cervic Station Type Weight in lbs Pre/Post Dialysis Refused Weight 166.911731220799 BP Diastolic BP Location Tested BP Systolic BP Type 86 143 80 140 Fetus Heart Rate Present Fetus Movement Comments Menstrual History Last Menstrual Date Menses Monthly On Bcp Conception Prior Menses Frequency Hcg Plus Date Menarche Onset Age 0503/16/2021 Genetic Screening And Infection History Question Response Note Mental Retardation/Autism false Patient's Age Will Be 35 Years Or Older At Estim ated Date of Delivery false Thalassemia (Japanese, Ivorian, Mediterranean, Or Background): MCV < 80 false Neural Tube Defect (Meningomyelocele, Spina Bifi da, Or Anencephaly) false Congenital Heart Defect false Down Syndrome false Scott-Sachs (eg, Yarsanism, Cajun, Brazilian-Glen Jean) f alse Megan Disease false Sickle Cell Disease Or Trait () false Hemophilia Or Other Blood Disorders false Muscular Dystrophy false Cystic Fibrosis false Anson's Chorea false Intellectual Disability/Autism false If Yes, Was Person Tested For Fragile X? false Other Inherited Genetic Or Chromosomal Disorder false Maternal Metabolic Disorder (eg, Type 1 Diabetes , PKU) false Patient Or Baby's Father Had A Child With Defects Not Listed Above false Recurrent Loss, Or A Stillbirth false Medications (including Suppl ements, Vitamins, Herbs, OTC Drugs), Illicit/Recreational Drugs, Alcohol false If Yes, Agent(s) And Strength/Dosage false Any Other Genetic History false Live With Someone With TB Or Exposed To TB false Patient Or Partner Has History Of Genital Herpes false Rash Or Viral Illness Since Last Menstrual Perio d false History Of STD, Gonorrhea, Chlamydia, HPV, Syphi lis false Other Infection History false History of HIV false History of Hepatitis false Prior GBS-infected child false Hemoglobinopathy Or Carrier false Other Structural Defect false Recent Travel History Outside of Country false Delivery Information Delivery Date Delivery Type Labor Anesthesia Weeks Gestation Incision Type Labor Labor Length Hrs Delivered By Post Complications Tubal Sterilization Discharge Date Comments 2 [facility] idural 38.3 false Tammie Craven [facility] Febrile Discharge Information Feeding Method Contraceptive Method Maternal HG B and HCT Levels Ob Episode Information Episode Created Date Number of Fetuses Patient Bloodtype Patient rh Status Prepregnancy Weight lbs Domestic Partner Domestic Partner Phone Father Name Regulatory Affairs Associate Status 01/09/20 25 1 B Negative 158 Alfonso Steven OPEN Fetus Data First Name Last Name Admitted to NICU Weight (g) Sex Living Outcome Pediatric Complications Fetus ID Race Codes Race Delivery Type [id number] Problems Problem Notes Problem Name Start Date End Date Resolution Snomed Code Not e History of infertility - female 899320961 prior to first delivery TTC x 5 years History of thrombocytopenia [id number] [facility] consult-referral faxed to luis enrique goetz 01/12/2025Level II US scheduled Luis Enrique 03/02 Past history of premature delivery [id number] 2nd pr egnancy, 35 weeks, with NICU stay Bo Calculation Initial Bo Date Initial Exam Date Initial Exam Provider Initial Ultrasound Date Last Menstrual Period Date Ultra Sound Weeks Gestation 07/18/2025 12/22/2024 Tammie Craven 12/22/2024 10/11/2024 10 Eighteen To Twenty Week Bo Update Ultra Sound Date Fundal Height At Umbil Quickening Date Ultra Sound Latest Weeks Gestation Final Bo Confirmed By Final Bo Confirmed Date Final Bo Date Ultra Sound Latest Days Gestation 0 07/18/20 25 0 Pre-ashley Flowsheet Flowsheet Date 01/09/2025 Olivo Score Blood Edema Fundus Height Fundus Units Glucose Ketones Leukocytes Nitrite Labor Signs Protein Cervic Dilation Cervic Effacement Cervic Station neg none none trace Type Weight in lbs Pre/Post Dialysis Refused Weight 161.441144722708 BP Diastolic BP Location Tested BP Systolic BP Type 76 118 Fetus Heart Rate Present Fetus Movement A Yes Comments Patient is having discharge, nausea and vomiting. reviewed history, updated, check PLT every month, [employer] consult. hx delivery ar 35 weeks last , begin routine care Flowsheet Date 02/06/2025 Olivo Score Blood Edema Fundus Height Fundus Units Glucose Ketones Leukocytes Nitrite Labor Signs Protein Cervic Dilation Cervic Effacement Cervic Station neg trace Type Weight in lbs Pre/Post Dialysis Refused 161.486561448227 BP Diastolic BP Location Tested BP Systolic BP Type 76 121 Fetus Heart Rate Present Fetus Movement A Yes Comments Patient is having cramping, discharge, and swelling. has appt at [facility] for anatomy, doing well, +FM, precautions and education f/u 4 weeks Menstrual History Last Menstrual Date Menses Monthly On Bcp Conception Prior Menses Frequency Hcg Plus Date Menarche Onset Age 1110/11/2024 Delivery Information Delivery Date Delivery Type Labor Anesthesia Weeks Gestation Incision Type Labor Labor Length Hrs Delivered By Post Complications Tubal Sterilization Discharge Date Comments Discharge Information Feeding Method Contraceptive Method Maternal HG B and HCT Levels Ob Episode Information Episode Created Date Number of Fetuses Patient Bloodtype Patient rh Status Prepregnancy Weight lbs Domestic Partner Domestic Partner Phone Father Name Regulatory Affairs Associate Status 12/14/19 24 1 B Negative 157 Alfonso Harris CLOSED Fetus Data First Name Last Name Admitted to NICU Weight (g) Sex Living Outcome Pediatric Complications Fetus ID Race Codes Race Delivery Type 2381.35 8 M [id number] Vaginal Delivery Problems Problem Notes hx previous infertility x 5 years prior to first pregnancyduplicated left renal arteryNext [facility] Appt: 06/04/24 1pm u/s and ovRecs: 1wk rpt visit for rpt CBC and delivery recommendations. Anesthesia consult. Problem Name Start Date End Date Resolution Snomed Code Not e Prophylactic immunotherapy [id number] received Thrombocytopenic disorder [id number] low plt - 99 - [place]'s mfm 05/14/24 U/S & Consult - Rpt CBC and MFM visit in 1 wk. Delivery recommendations at that time. Anesthesia consult Bo Calculation Initial Bo Date Initial Exam Date Initial Exam Provider Initial Ultrasound Date Last Menstrual Period Date Ultra Sound Weeks Gestation 06/23/2024 11/09/2023 11/09/2023 09/17/2023 6 Eighteen To Twenty Week Bo Update Ultra Sound Date Fundal Height At Umbil Quickening Date Ultra Sound Latest Weeks Gestation Final Bo Confirmed By Final Bo Confirmed Date Final Bo Date Ultra Sound Latest Days Gestation 0 06/23/20 0 Pre-ashley Flowsheet Flowsheet Date 12/14/2023 Olivo Score Blood Edema Fundus Height Fundus Units Glucose Ketones Leukocytes Nitrite Labor Signs Protein Cervic Dilation Cervic Effacement Cervic Station neg none none trace Type Weight in lbs Pre/Post Dialysis Refused Weight 156.300671682335 BP Diastolic BP Location Tested BP Systolic BP Type 83 138 Fetus Heart Rate Present Fetus Movement A No Comments patient states that having s ome pain and nausea. reviewed precautions and education, US reviewed, plan NIPT and labs today, declines CF plan 4 week f/u, anatomy at 20 weeks Flowsheet Date 01/11/2024 Olivo Score Blood Edema Fundus Height Fundus Units Glucose Ketones Leukocytes Nitrite Labor Signs Protein Cervic Dilation Cervic Effacement Cervic Station neg none none trace Type Weight in lbs Pre/Post Dialysis Refused Weight 157.713456100646 BP Diastolic BP Location Tested BP Systolic BP Type 80 125 Fetus Heart Rate Present A 146 Present Fetus Movement A Yes Comments patient states that having s ome clear discharge. reviewed precautions, doing well, ok for tums and pepcid f/u weeks with anatomy Flowsheet Date 01/18/2024 Olivo Score Blood Edema Fundus Height Fundus Units Glucose Ketones Leukocytes Nitrite Labor Signs Protein Cervic Dilation Cervic Effacement Cervic Station Type Weight in lbs Pre/Post Dialysis Refused BP Diastolic BP Location Tested BP Systolic BP Type Fetus Heart Rate Present Fetus Movement Comments Flowsheet Date 02/08/2024 Olivo Score Blood Edema Fundus Height Fundus Units Glucose Ketones Leukocytes Nitrite Labor Signs Protein Cervic Dilation Cervic Effacement Cervic Station Type Weight in lbs Pre/Post Dialysis Refused BP Diastolic BP Location Tested BP Systolic BP Type Fetus Heart Rate Present Fetus Movement Comments Flowsheet Date 02/08/2024 Olivo Score Blood Edema Fundus Height Fundus Units Glucose Ketones Leukocytes Nitrite Labor Signs Protein Cervic Dilation Cervic Effacement Cervic Station neg none none trace Type Weight in lbs Pre/Post Dialysis Refused Weight 158.391294499960 BP Diastolic BP Location Tested BP Systolic BP Type 62 116 Fetus Heart Rate Present Fetus Movement A Yes Comments patient is having some clear discharge. anatomy complete, discussed precautions and education, +FM, follow up 4 weeks Flowsheet Date 03/07/2024 Olivo Score Blood Edema Fundus Height Fundus Units Glucose Ketones Leukocytes Nitrite Labor Signs Protein Cervic Dilation Cervic Effacement Cervic Station neg none none trace Type Weight in lbs Pre/Post Dialysis Refused Weight 162.208328823156 BP Diastolic BP Location Tested BP Systolic BP Type 84 143 72 108 Fetus Heart Rate Present A 141 Present Fetus Movement A Yes Comments Patient states that having s ome back pain, cramping, discharge and swelling. travel precautions reviewed, ok for intercourse, education and precautions order given for gct and rhogam at 28 weeks f/u here in 4 weeks Flowsheet Date 04/04/2024 Olivo Score Blood Edema Fundus Height Fundus Units Glucose Ketones Leukocytes Nitrite Labor Signs Protein Cervic Dilation Cervic Effacement Cervic Station none 27 Type Weight in lbs Pre/Post Dialysis Refused Weight 164.63263685908 BP Diastolic BP Location Tested BP Systolic BP Type 75 112 Fetus Heart Rate Present A 145 Present Fetus Movement A Yes Comments Patient is having some dizzi ness and lightheaded. 3 hour today, +fm, rhogam doneprecautions and education, increase hydration, increase protein snacks f/u 2 weeks Flowsheet Date 04/23/2024 Olivo Score Blood Edema Fundus Height Fundus Units Glucose Ketones Leukocytes Nitrite Labor Signs Protein Cervic Dilation Cervic Effacement Cervic Station none 33 Type Weight in lbs Pre/Post Dialysis Refused Weight 168.164736139416 BP Diastolic BP Location Tested BP Systolic BP Type 85 134 Fetus Heart Rate Present A 144 Present Fetus Movement A Yes Comments Patient states that having s ome headaches, cramping and swelling. plan tylenol/caffeine, if does not resolve call for labs, bp normotensive, swelling better in am, precautions and education f/u 2 weeks with growth Flowsheet Date 05/09/2024 Olivo Score Blood Edema Fundus Height Fundus Units Glucose Ketones Leukocytes Nitrite Labor Signs Protein Cervic Dilation Cervic Effacement Cervic Station Type Weight in lbs Pre/Post Dialysis Refused BP Diastolic BP Location Tested BP Systolic BP Type Fetus Heart Rate Present Fetus Movement Comments Flowsheet Date 05/09/2024 Olivo Score Blood Edema Fundus Height Fundus Units Glucose Ketones Leukocytes Nitrite Labor Signs Protein Cervic Dilation Cervic Effacement Cervic Station trace Type Weight in lbs Pre/Post Dialysis Refused Weight 172.487095864328 BP Diastolic BP Location Tested BP Systolic BP Type 84 132 Fetus Heart Rate Present Fetus Movement A Yes Comments Patient is having swelling. discussed PLT, had lovenox in ED, dopplers negative, today efw 55%, vertex, planning Tdap, covid, booster tomorrow, will await cbc, if plt lower plan MFM, precautions and education Flowsheet Date 05/30/2024 Olivo Score Blood Edema Fundus Height Fundus Units Glucose Ketones Leukocytes Nitrite Labor Signs Protein Cervic Dilation Cervic Effacement Cervic Station Type Weight in lbs Pre/Post Dialysis Refused Weight 162.124494772192 BP Diastolic BP Location Tested BP Systolic BP Type 96 156 Fetus Heart Rate Present Fetus Movement Comments Menstrual History Last Menstrual Date Menses Monthly On Bcp Conception Prior Menses Frequency Hcg Plus Date Menarche Onset Age 1109/17/2023 Genetic Screening And Infection History Question Response Note Mental Retardation/Autism false Patient's Age Will Be 35 Yea rs Or Older At Estimated Date of Delivery false Thalassemia (Japanese, Ivorian, Mediterranean, Or Background): MCV < 80 false Neural Tube Defect (Meningom yelocele, Spina Bifida, Or Anencephaly) false Congenital Heart Defect false Down Syndrome false Scott-Sachs (eg, Yarsanism, Cajun, Brazilian-Glen Jean) f alse Megan Disease false Sickle Cell Disease Or Trait () false Hemophilia Or Other Blood Disorders false Muscular Dystrophy false Cystic Fibrosis false Anson's Chorea false Intellectual Disability/Autism false If Yes, Was Person Tested For Fragile X? false Other Inherited Genetic Or C hromosomal Disorder false Maternal Metabolic Disorder (eg, Type 1 Diabetes, PKU) false Patient Or Baby's Father Had A Child With Defects Not Listed Above false Recurrent Loss, Or A Stillbirth false Medications (including Suppl ements, Vitamins, Herbs, OTC Drugs), Illicit/Recreational Drugs, Alcohol true pnv, progesterone, zyrtec, d 3 If Yes, Agent(s) And Strength/Dosage false Any Other Genetic History false Live With Someone With TB Or Exposed To TB false Patient Or Partner Has Histo ry Of Genital Herpes false Rash Or Viral Illness Since Last Menstrual Period false History Of STD, Gonorrhea, C hlamydia, HPV, Syphilis false Other Infection History false History of HIV false History of Hepatitis false Prior GBS-infected child false Hemoglobinopathy Or Carrier false Other Structural Defect false Recent Travel History Outside of Country false Delivery Information Delivery Date Delivery Type Labor Anesthesia Weeks Gestation Incision Type Labor Labor Length Hrs Delivered By Post Complications Tubal Sterilization Discharge Date Comments 4 35.1 true Tammie Craven CN Discharge Information Feeding Method Contraceptive Method Maternal HG B and HCT Levels
--- OUTSIDE RECORDS SUMMARY | 2025-02-17 17:02 | XMS_ITS | Clinical Summary ---
Author Organization [facility] Address [address] [place] [address] Phone Care Team Providers Care City Planning Teacher Name Role Phone Unavailable Primary Care Provider Unavailabl e Allergies Active Allergy Reactions Criticality Noted Date Comments Milk Other (See Comments) 08/16/2020 Stomachache Sulfa (Sulfonamide Antibiotics) Rash High 08/16/2020 Medications cetirizine (ZyrTEC) 10 mg tablet Take 10 mg by mouth daily. Active calcium carbonate/vitam in D3 (CALCIUM 600 + D,3, ORAL) Take 1 Tablet by mouth daily. Active 123/iron/folic/ omeg3s (ONE-A-DAY WOMEN'S 1 ORAL) One-A-Day Women's 1 Active pantoprazole (PROTONIX) 20 mg Tablet, Delayed Release (E.C.) Take 20 mg by mouth daily. 12/29/2024 Active Active Problems Problem Noted Date Diagnosed Date Multigravida of advanced maternal age in second trimester 02/16/2025 History of delivery, currently in second trimester 02/16/2025 Benign gestational thrombocytopenia in second tr imester 02/16/2025 Severe dysmenorrhea 08/16/2020 Estimated Date of Delivery Comme nts Yes 07/18/2025 Encounters Date Type Department Care Team Description 02/16/2025 2:00 PM CDT Video Visit [facility] Maternal and Medicine - [facility] [address] [place] [address] Gale Le MD 18 weeks gestation of (Primary Dx); Benign gestational thrombocytopenia in second trimester; History of delivery, currently in second trimester; Multigravida of advanced maternal age in second trimester 02/16/2025 Telephone [facility] Maternal and Medicine - [facility] B [address] [place] [address] Yaima Meredith Follow Up 01/13/2025 Abstract [facility] Maternal and Medicine - [facility] B [address], [place] [address] Blank Rodriguez RN 01/13/2025 Abstract [facility] Maternal and Medicine - [facility] B [address] [place] [address] Yaima Meredith 12/10/2024 External Device Data STL ABSTRACTION Provider, Abstract from Last 3 Months Family History Medical History Relation Name Comments Cancer Father prostate cancer Diabetes Maternal Aunt Other Maternal Aunt endometriosis Heart Disease Maternal Grandfather Hypertension Mother Heart Disease Paternal Grandfather Hypertension Paternal Grandmother Relation Name Status Comments Father Maternal Aunt Maternal Grandfather Mother Paternal Grandfather Paternal Grandmother Social History Tobacco Use Types Packs/Day Years [...] Sign Reading Time Taken Comments Blood Pressure 112/71 01/14/2021 3:00 PM TOWN ADMINISTRATOR Pulse 92 01/14/2021 3:00 PM TOWN ADMINISTRATOR Temperature 36.2 C (97.1 F) 01/14/2021 11:30 AM TOWN ADMINISTRATOR Respiratory Rate 15 01/14/2021 3:00 PM TOWN ADMINISTRATOR Oxygen Saturation 95% 01/14/2021 3:00 PM TOWN ADMINISTRATOR Inhaled Oxygen Concentration - - Weight 71.2 kg (157 lb) 02/16/2025 2:24 PM CDT Height 149.9 cm (4' 11 ) 02/16/2025 2:24 PM CDT Body Mass Index 31.71 02/16/2025 2:24 PM CDT Plan of Treatment Upcoming Encounters Date Type Department Care Team (Late st Contact Info) Description 03/02/2025 1:30 PM CDT Appointment [facility] [address] [place] [address] Tammie Craven, KULWINDER [address] [place] [address] Health Maintenance Due Date Last Done Comments DTAP/TDAP/TD VACCINES (1 - Tdap) 2008 HEPATITIS B VACCINES (1 of 3 - 19+ 3-dose series) 2008 HPV/Cotest (21-29) 2010 CERVICAL CANCER SCREENING 2019 HPV/Cotest (30-65) 2019 PAP SMEAR 2019 INFLUENZA VACCINE (#1) 2024 Preventative Visit- Commercial 11/12/2024 06/13/2023 HPV VACCINES Aged Out No longer eligi ble based on patient's age to complete this topic RSV VACCINE (60+ or ) (No Doses Required) Completed Insurance [employer] BLUE ACCESS/TRUE BLUE PPO
== END 2025-02-17 16:58 | disposition home or self-care (01) ==
LOC: ANHOBOP 16:10 → ANHOBPP 16:12
PROVIDERS: Visit Provider Advanced Practice Midwife
DX: O42.90 Premature rupture of membranes, unspecified as to length of time between rupture and onset of labor, unspecified weeks of gestation (principal); Z3A.00 Weeks of gestation of pregnancy not specified
CPT/HCPCS: 81001; 84112; 99199

== ENCOUNTER 2025-04-03 12:07 | Outpatient (CLI) | payer BC, SELFPAY ==
--- OUTSIDE RECORDS SUMMARY | 2025-04-03 12:11 | XMS_ITS | Clinical Summary ---
Author Organization [facility] Address [address] [place] [address] Phone Care Team Providers Care Hall Monitor Name Role Phone Unavailable Primary Care Provider [...] Encounters Date Type Department Care Team Description 03/31/2025 External Device Data STL ABSTRACTION Provider, Abstract 03/02/2025 1:30 PM CDT - 03/02/2025 11:59 PM CDT Hospital Encounter [facility] Maternal and Health [facility] [address] [place] [address] Tammie Craven NP Discharge Disposition: Home or Self Care 02/16/2025 2:00 PM CDT Video Visit [facility] - [facility] [address], [place] [address] Gale Le MD 18 weeks gestation of (Primary Dx); Benign gestational thrombocytopenia in second trimester; History of delivery, currently in second trimester; Multigravida of advanced maternal age in second trimester 02/16/2025 Telephone [facility] Medical [facility] [address], [place] [address] Yaima Meredith Follow Up 01/13/2025 Abstract [facility] [address], [place] [address] Blank Rodriguez RN 01/13/2025 Abstract [facility] [address] [place] [address] Yaima Meredith from Last 3 Months Family History Medical [...] Comments Blood Pressure 112/71 01/14/2021 3:00 PM BILLING CONTROL CLERK Pulse 92 01/14/2021 3:00 PM BILLING CONTROL CLERK Temperature 36.2 C (97.1 F) 01/14/2021 11:30 AM BILLING CONTROL CLERK Respiratory Rate 15 01/14/2021 3:00 PM BILLING CONTROL CLERK Oxygen Saturation 95% 01/14/2021 3:00 PM BILLING CONTROL CLERK Inhaled Oxygen Concentration - - Weight 71.2 kg (157 lb) 02/16/2025 2:24 PM CDT Height 149.9 cm (4' 11 ) 02/16/2025 2:24 PM CDT Body Mass Index 31.71 02/16/2025 2:24 PM CDT Plan of Treatment Health Maintenance Due Date Last Done Comments DTAP/TDAP/TD VACCINES (1 - Tdap) 2008 HEPATITIS B VACCINES (1 of 3 - 19+ 3-dose series) 2008 HPV/Cotest (21-29) 2010 CERVICAL CANCER SCREENING 2019 HPV/Cotest (30-65) 2019 PAP SMEAR 2019 INFLUENZA VACCINE (#1) 2024 HPV VACCINES Aged Out No longer eligi ble based on patient's age to complete this topic RSV VACCINE (60+ or ) (No Doses Required) Completed Procedures Procedure Name Priority Date/Time Associated Diagnosis Comments US OB DETAIL SINGLE GEST Routine 03/02/2025 2:32 PM CDT History of transient thrombocytopenia screening for malformation using ultrasonics from Last 3 Months Results * US OB DETAIL SINGLE GEST (03/02/2025 2:32 PM CDT) Anatomical Region Laterality Modality Pelvis Ultrasound 03/02/2025 1:45 PM CDT Narrative 03/02/2025 2:32 PM CDT STL COMP ----- Pat. Name: AMIRA HARRIS Study Date: 03/02/2025 1:45pm Pat. NO: [id number] Referring MD: TAMMIE CRAVEN CNM [facility] Yvette May[facility] RDMS : 1990 Age: 34 ----- INDICATION ----- Anatomy Survey with History of Labor (PTL) 35 weeks Advanced Maternal Age (AMA), Multigravida CODING ----- Diagnoses Z3A.20: Weeks of gestation O09.522: Supervision of elderly multigravida O09.212: Supervision of with history of pre-term labor Z36.3: Encounter for screening for malformations Procedures [id number]: Ultrasound, uterus, real time with image documentation, and maternal evaluation plus detailed anatomic examination, transabdominal approach MATERNAL ASSESSMENT ----- Physical Exam Weight 71 kg. BMI 30.66 kg/m METHOD ----- Transabdominal ultrasound examination ----- Davidson . Number of fetuses: 1 DATING ----- Method of dating: based on stated TONY GA by prior assessment 20 w + 2 d TONY by prior assessment: 07/18/2025 Ultrasound examination on: 03/02/2025 GA by U/S based upon: AC, BPD, EFW, Femur, HC GA by U/S 20 w + 3 d TONY by U/S: 07/17/2025 Assigned: based on stated TONY, selected on 03/02/2025 Assigned GA 20 w + 2 d Assigned TONY: 07/18/2025 BIOMETRY ----- BPD 46.8 mm 20w 1d 44% Hadlock OFD 64.1 mm 21w 5d 92% Noy HC 178.2 mm 20w 2d 41% Hadlock Cerebellum tr 21.4 mm 21w 0d 70% Fallon Nuchal fold 4.5 mm AC 163.6 mm 21w 3d 80% Hadlock Femur 31.9 mm 19w 6d 29% Hadlock Humerus 30.4 mm 20w 0d 43% Noy HC / AC 1.09 10% Nicolaides Weight Calculation: EFW 370 g 20w 4d 66% Hadlock EFW (lb,oz) 0 lb 13 oz EFW by Hadlock ([id number]) Head / Face / Neck Biometry: Wild Life Photographer 5.1 mm CM 3.6 mm 10% Nicolaides Outer IOD 31.6 mm 20w 2d 26% Noy Extremities / Bony Struc Biometry: FL / BPD 0.68 27% Hadlock FL / HC 0.18 21% Hadlock FL / AC 0.20 3% Hadlock GENERAL EVALUATION ----- Cardiac activity present. FHR 141 bpm. movements: present. Presentation: transverse Placenta: Placental site: posterior Umbilical cord: Cord vessels: 3 vessel cord. Insertion site: placental insertion: normal Amniotic fluid: Amount of AF: normal amount. MVP 6.0 cm ANATOMY ----- The following structures appear normal: Head / Neck Cranium. Lateral ventricles. Choroid plexus. Midline falx. Cavum septi pellucidi. Cerebellum. Cisterna magna. Nuchal fold. Face Lips. Profile. Nose. Palate. Orbits. Heart / Thorax 4-chamber view. RVOT view. LVOT view. 3-vessel view. 8-pwtcmk-talxezr view. Situs. Aortic arch view. Ductal arch view. Superior vena cava. Inferior vena cava. High short axis view. Cardiac rhythm. Diaphragm. Abdomen Abdominal wall. Stomach. Kidneys. Bladder. Spine Cervical spine. Thoracic spine. Lumbar spine. Sacral spine. Extremities / Arms. Right hand. Left hand. Legs. Right foot. Left foot. Skeleton MATERNAL STRUCTURES ----- Cervix Visualized Approach - Transabdominal: Cervical length 36.3 mm Right Ovary Not visualized Left Ovary Not visualized GROWTH OVERVIEW ----- Exam date GA BPD (mm) HC (mm) AC (mm) FL (mm) HL (mm) EFW (g) 03/02/2025 20w 2d 46.8 44% 178.2 41% 163.6 80% 31.9 29% 30.4 43% 370 66% COMMENT ----- Patient's name and date of were verified by the senior naval parachutist before the exam IMPRESSION ----- 1. Single living fetus with a gestational age of 20w 2d based on the reported clinical dates. 2. Current growth parameters are consistent with the stated EDC. The fetus is appropriate for gestational age in size at the 66% (370 g). 3. Detailed anatomic survey is unremarkable. No gross structural abnormalities noted. No sonographic markers for aneuploidy noted. 4. Amniotic fluid volume is normal for gestational age. 5. The cervical length is within normal range for gestational age by abdominal approach. (TVU declined). 6. The right and left ovary are not visualized. 7. Placenta is posterior . No previa/not low-lying. The placenta cord insertion is normal. Recommendations: - Suggest serial TVU-CL at 2 week intervals given history of reported sPTB. Thank you for allowing us to participate in the care of this patient. Procedure Note Jennifer Shahid MD - 03/02/2025 STL COMP ----- Pat. Name:Adolph HARRIS Date:03/02/2025 1:45pm Pat. NO: [id number] MD:LICO STRICKLAND [facility]Yvette Mayes RDMS :1990Age:34 ----- INDICATION ----- Anatomy Survey with History of Labor (PTL) 35 weeks Advanced Maternal Age (AMA), Multigravida CODING ----- Diagnoses Z3A.20: Weeks of gestation O09.522: Supervision of elderly multigravida O09.212: Supervision of with history ofpre-term labor Z36.3: Encounter for screening formalformations Procedures [id number]: Ultrasound, uterus, real time withimage documentation, and maternal evaluation plus detailed anatomic examination,transabdominal approach MATERNAL ASSESSMENT ----- Physical Exam Weight 71 kg. BMI 30.66 kg/m METHOD ----- Transabdominal ultrasound examination ----- Davidson . Number of fetuses: 1 DATING ----- Method of dating:based on stated TONY GA by prior [id number] w + 2 d TONY by prior assessment:07/18/2025 Ultrasound examination on:03/02/2025 GA by U/S based upon:AC, BPD, EFW, Femur, HC GA by U/S20 w + 3 d TONY by U/S:07/17/2025 Assigned:based on stated TONY, selected on 03/02/2025 Assigned GA20 w + 2 d Assigned TONY:07/18/2025 BIOMETRY ----- BPD 46.8 mm 20w 1d44% Hadlock OFD 64.1 mm 21w 5d92% Noy HC 178.2 mm 20w 2d41% Hadlock Cerebellum tr 21.4 mm 21w 0d70% Fallon Nuchal fold 4.5 mm AC 163.6 mm 21w 3d80% Hadlock Femur 31.9 mm 19w 6d29% Hadlock Humerus 30.4 mm 20w 0d43% Noy HC / AC 1.09 10%Nicolaides Weight Calculation: EFW 370 g 20w 4d 66%Hadlock EFW (lb,oz) 0 lb 13 oz EFW by Hadlock ([id number]) Head / Face / Neck Biometry: Wild Life Photographer 5.1 mm CM 3.6 mm 10%Nicolaides Outer IOD 31.6 mm 20w 2d 26%Noy Extremities / Bony Struc Biometry: FL / BPD 0.68 27%Hadlock FL / HC 0.18 21%Hadlock FL / AC 0.20 3%Hadlock GENERAL EVALUATION ----- Cardiac activity present. FHR 141 bpm. movements: present.Presentation: transverse Placenta: Placental site: posterior Umbilical cord: Cord vessels: 3 vessel cord. Insertion site: placentalinsertion: normal Amniotic fluid: Amount of AF: normal amount. MVP 6.0 cm ANATOMY ----- The following structures appear normal: Head / Neck Cranium. Lateral ventricles. Choroid plexus.Midline falx. Cavum septi pellucidi. Cerebellum. Cisterna magna. Nuchal fold. Face Lips. Profile. Nose. Palate. Orbits. Heart / Thorax 4-chamber view. RVOT view. LVOT view. 3-vesselview. 7-crwnhe-girlusl view. Situs. Aortic arch view. Ductal arch view. Superior vena cava. Inferiorvena cava. High short axis view. Cardiac rhythm. Diaphragm. Abdomen Abdominal wall. Stomach. Kidneys. Bladder. Spine Cervical spine. Thoracic spine. Lumbar spine.Sacral spine. Extremities / Arms. Right hand. Left hand. Legs. Right foot.Left foot. Skeleton MATERNAL STRUCTURES ----- Cervix Visualized Approach - Transabdominal: Cervical length 36.3mm Right Ovary Not visualized Left Ovary Not visualized GROWTH OVERVIEW ----- Exam date GA BPD (mm) HC (mm) AC (mm) FL(mm) HL (mm) EFW (g) 03/02/2025 20w 2d 46.8 44% 178.2 41% 163.6 80%31.9 29% 30.4 43% 370 66% COMMENT ----- Patient's name and date of were verified by the senior naval parachutist beforethe exam IMPRESSION ----- 1. Single living fetus with a gestational age of 20w 2d based on thereported clinical dates. 2. Current growth parameters are consistent with the stated EDC. The fetusis appropriate for gestational age in size at the 66% (370 g). 3. Detailed anatomic survey is unremarkable. No gross structuralabnormalities noted. No sonographic markers for aneuploidy noted. 4. Amniotic fluid volume is normal for gestational age. 5. The cervical length is within normal range for gestational age byabdominal approach. (TVU declined). 6. The right and left ovary are not visualized. 7. Placenta is posterior . No previa/not low-lying. The placenta cordinsertion is normal. Recommendations: - Suggest serial TVU-CL at 2 week intervals given history of reportedsPTB. Thank you for allowing us to participate in the care of this patient. us Tammie Craven NP US ORDERABLES Final Result from Last 3 Months Insurance [facility] BLUE ACCESS/TRUE BLUE PPO
--- OUTSIDE RECORDS SUMMARY | 2025-04-03 12:11 | XMS_ITS | Clinical Summary ---
Author Organization [facility] Address [address] [place] [address] Care Team Providers Care Beef Skinner Name Role Phone Unknown, Notinfile Primary Care [...] Comments Blood Pressure 138/80 09/20/2024 2:41 PM NURSE PRACTITIONER PER DIEM Pulse 88 09/20/2024 2:41 PM NURSE PRACTITIONER PER DIEM Temperature 36.7 C (98 F) 09/20/2024 2:41 PM NURSE PRACTITIONER PER DIEM Respiratory Rate 20 09/20/2024 2:41 PM NURSE PRACTITIONER PER DIEM Oxygen Saturation 97% 09/20/2024 2:41 PM NURSE PRACTITIONER PER DIEM Inhaled Oxygen Concentration - - Weight 70.3 kg (155 lb) 09/20/2024 2:41 PM NURSE PRACTITIONER PER DIEM Height 149.9 cm (4' 11 ) 09/20/2024 2:41 PM NURSE PRACTITIONER PER DIEM Body Mass Index 31.31 09/20/2024 2:41 PM NURSE PRACTITIONER PER DIEM Plan of Treatment Health Maintenance Due Date Last Done Comments Cervical Cancer Screening 1989 Depression Screening 1989 Hepatitis C Screening 1989 Varicella Vaccines (1 of 2 - 13+ 2-dose series) 2002 Hepatitis B Screening 2007 Regular Well Visit/Exam 18-64 2007 Covid-19 Vaccine (2023-2 5 season) 2024 03/11/2022, 08/06/2021, 07/16/2021 Influenza Vaccine (Season Ended) 2025 09/08/2021 DTaP/Tdap/Td Vaccine (2 - Td or Tdap) 11/02/2031 11/02/2021 HPV Vaccines Aged Out No longer eligi ble based on patient's age to complete this topic Pneumococcal vaccine <65 Aged Out No longer eligible based on patient's age to complete this topic Insurance [facility] [employer] [place] Care Teams Beef Skinner Relationship Specialty Start Date End Date Unknown, Notinfile PCP - General 01/15/24
--- OUTSIDE RECORDS SUMMARY | 2025-04-03 12:11 | XMS_ITS | Encounter Summary ---
Author Organization [facility] Address [address] [place] [address] Care Team Providers Care Central Office Frame Wirer Name Role Phone Unavailable Primary Care Provider Unavailabl e Encounter Details Date Type Department Care Team (Late st Contact Info) Description 03/31/2025 External Device Data STL ABSTRACTION Provider, Abstract NO ADDRESS ON FILE Social History Tobacco Use Types Packs/Day Years [...] on file documented as of this encounter Plan of Treatment Not on file documented as of this encounter Visit Diagnoses Not on filedocumented in this encounter
--- OUTSIDE RECORDS SUMMARY | 2025-04-03 12:11 | XMS_ITS | Referral Summary ---
Author Organization [facility] Address [address] [place] [address] Care Team Providers Care Instructional Systems Design Consultant Name Role Phone Unknown, Notinfile Primary Care [...] Comments Blood Pressure 138/80 09/20/2024 2:41 PM BIAZZI NITRATOR OPERATOR Pulse 88 09/20/2024 2:41 PM BIAZZI NITRATOR OPERATOR Temperature 36.7 C (98 F) 09/20/2024 2:41 PM BIAZZI NITRATOR OPERATOR Respiratory Rate 20 09/20/2024 2:41 PM BIAZZI NITRATOR OPERATOR Oxygen Saturation 97% 09/20/2024 2:41 PM BIAZZI NITRATOR OPERATOR Inhaled Oxygen Concentration - - Weight 70.3 kg (155 lb) 09/20/2024 2:41 PM BIAZZI NITRATOR OPERATOR Height 149.9 cm (4' 11 ) 09/20/2024 2:41 PM BIAZZI NITRATOR OPERATOR Body Mass Index 31.31 09/20/2024 2:41 PM BIAZZI NITRATOR OPERATOR Plan of Treatment Not on file Insurance [facility] [employer] [place] [employer] [place] Care Teams Instructional Systems Design Consultant Relationship Specialty Start Date End Date Unknown, Notinfile PCP - General 01/15/24
--- OUTSIDE RECORDS SUMMARY | 2025-04-03 12:12 | XMS_ITS | Clinical Summary ---
Author Organization [facility] Address [address] [place] [address] Care Team Providers Care Behavioral Health Director Name Role Phone Mumtaz Choi MD Primary Care Provider [phone] Source Comments [facility] Affiliates and Associated Physician Practices is amultiple site organization consisting of ambulatory clinics and hospital sitesin [place], [place], [place] and [place]. This disclosure is being madepursuant to the Care Everywhere program and may not contain all information available regarding this patient. Last updated 18.[facility] Allergies Active Allergy Reactions Criticality Noted Date Comments Lac Bovis GI Discomfort 11/25/2018 Lactose GI Discomfort Low 08/26/2018 Medications * Be aware that medications may not be up to date on this document. Alwaysverify current medications with the patient. Vit-Fe Fumarate-FA ( VITAMIN) 27-0.8 MG tablet Take 1 (one) tablet by mouth once daily Active cetirizine (ZYRTEC ALLERGY) 10 MG gel capsule Take 1 (one) capsule by mouth every 24 hours 11/25/19 19 Active Calcium Carb-Cholecalci ferol ([facility] SHELL CALCIUM+VIT D) 500-125 MG-UNIT take daily 11/25/19 19 Active Multiple Vitamins-Minera ls (MULTIVITAMIN WOMEN) TABS take one daily 11/25/19 19 Active Nutritional Supplements (VITAMIN D BOOSTER PO) Active nitrofurantoin monohyd macro crystals (Macrobid) 100 MG capsule nitrofurantoin monohydrate/macroc rystals 100 mg capsule TAKE 1 CAPSULE BY MOUTH TWICE DAILY FOR 7 DAYS Active cephalexin (Keflex) 500 MG capsule TAKE 1 CAPSULE BY MOUTH EVERY 6 HOURS FOR 7 DAYS 11/20/19 24 Active ferrous sulfate 325 (65 FE) MG [...] Harris was screened for depression using the [place] Depression Scale (EPDS) at her [facility] initial evaluation on 09/05/2021. Her initial score [...] from the original note were not included. USP PATIENT--PLEASE CALL [phone] (ex 2) IF TRIAGED OR ADMITTED Care Provider: Dr. Quintero [facility] consultants involved: RN- Lucas; MFM- Dr. Thakkar Diagnosis: Mild right ventriculomegaly (slightly increased in diameter at 10.5mm at 09/05/21 USP US). Planned surveillance: Initial USP 09/05/21. Growth in 2 weeks at [place], and follow up ultrasound for growth and assessment of ventricles between 32-36 weeks. Continue routine care with primary OB. Delivery location: with primary OB at hospital of choice ([facility]) Delivery mode: per usual OB indications Desired Delivery GA: No indication for delivery before 39 weeks at this time follow up: head imaging with pediatrican Alcoholic Counselor: Undecided Autopsy indicated: Genetics note: LR NIPT-Male Liquefier Concerns: 09/05/2021- There are no social service [...] and heating? Not hard at all 05/14/2024 [facility] [place] of Occupat ional Health - Occupational Stress [...] place to sleep or slept in a intermediate (including now)? No 05/14/2024 [place] Depression Scale Answer Date Recorded [place] Depression Scale Total 7 05/14/2024 The thought of harming myself has occurred to me . 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
[2025-04-03 13:02] LABS: Basophils Percent Auto 0.4 % (0.2-1.2); Eosinophils Percent Auto 0.4 % (0-4.4); Hematocrit 34.5 % (37.0-47.0); Hemoglobin 10.9 g/dL (12.0-15.0); Immature Granulocyte Absolute 0.06 K/mm3 (0.00-0.031); Immature Granulocyte Percent A 0.8 % (0-0.5); Lymphocytes Absolute Auto 1.48 K/mm3 (0.9-3.2); Lymphocytes Percent Auto 19.1 % (18.3-44.2); Mean Corpuscular HGB Conc 31.6 g/dl (32-36); Mean Corpuscular Hemoglobin 30.2 pg (26-34); Mean Corpuscular Volume 95.6 fl (80-100); Mean Platelet Volume 12.5 fl (7.4-10.4); Monocytes Absolute Auto 0.5 K/mm3 (0.1-0.6); Monocytes Percent Auto 6.1 % (2.6-8.5); Neutrophils Absolute Auto 5.7 K/mm3 (1.3-6.7); Neutrophils Percent Auto 73.2 % (45.5-73.1); Platelet Count Result 128 k/mm3 (150-375); Red Blood Count 3.61 M/mm3 (4.2-5.4); Red Cell Distribution Width 13.5 % (11.5-14.5); White Blood Count 7.8 K/mm3 (4.5-10.0)
== END 2025-04-03 12:08 | disposition home or self-care (01) ==
LOC: ANHLAB 12:09
PROVIDERS: Visit Provider Advanced Practice Midwife
DX: Z34.90 Encounter for supervision of normal pregnancy, unspecified, unspecified trimester (principal)
CPT/HCPCS: 36415; 85025

== ENCOUNTER 2025-04-30 08:49 | Outpatient (RCR) | payer BC, SELFPAY ==
--- OUTSIDE RECORDS SUMMARY | 2025-04-30 09:03 | XMS_ITS | Clinical Summary ---
Author Organization [facility] Address [address] [place] [address] Phone Care Team Providers Care Electrical Controls Technician Name Role Phone Unavailable Primary Care Provider [...] Encounters Date Type Department Care Team Description 04/28/2025 External Device Data STL ABSTRACTION Provider, Abstract 04/07/2025 External Device Data STL ABSTRACTION Provider, Abstract 04/01/2025 External Device Data STL ABSTRACTION Provider, Abstract 03/31/2025 External Device Data STL ABSTRACTION Provider, Abstract 03/02/2025 1:30 PM CDT - 03/02/2025 11:59 PM CDT Hospital Encounter [facility] Maternal and Health [facility] [address] [place] [address] Tammie Craven NP Discharge Disposition: Home or Self Care 02/16/2025 2:00 PM CDT Video Visit [facility] Maternal and Medicine - Medical [facility] [address] [place] [address] Gale Le MD 18 weeks gestation of (Primary Dx); Benign gestational thrombocytopenia in second trimester; History of delivery, currently in second trimester; Multigravida of advanced maternal age in second trimester 02/16/2025 Telephone [facility] Maternal and Medicine - [facility] [address] [place] [address] Yaima Meredith A Follow Up from Last 3 Months Family History Medical [...] Comments Blood Pressure 112/71 01/14/2021 3:00 PM PRESSING DEPARTMENT SUPERVISOR Pulse 92 01/14/2021 3:00 PM PRESSING DEPARTMENT SUPERVISOR Temperature 36.2 C (97.1 F) 01/14/2021 11:30 AM PRESSING DEPARTMENT SUPERVISOR Respiratory Rate 15 01/14/2021 3:00 PM PRESSING DEPARTMENT SUPERVISOR Oxygen Saturation 95% 01/14/2021 3:00 PM PRESSING DEPARTMENT SUPERVISOR Inhaled Oxygen Concentration - - Weight 71.2 kg (157 lb) 02/16/2025 2:24 PM CDT Height 149.9 cm (4' 11) 02/16/2025 2:24 PM CDT Body Mass Index [...] HARRIS Study Date: 03/02/2025 1:45pm Pat. NO: [id number] Referring MD: TAMMIE CRAVEN CNM Site: [place] [employer] Operator: Yvette Mayes RDMS : 1990 Age: 34 ----- INDICATION ----- Anatomy Survey with History of Labor (PTL) 35 weeks Advanced Maternal Age (AMA), Multigravida CODING ----- Diagnoses Z3A.20: Weeks of gestation O09.522: Supervision of elderly multigravida O09.212: Supervision of with history of pre-term labor Z36.3: Encounter for screening for malformations Procedures [id number]: Ultrasound, uterus, real time with image documentation, [...] 0 lb 13 oz EFW by Hadlock ([id number]) Head / Face / Neck Biometry: Physicians Assistant 5.1 mm CM 3.6 mm 10% Nicolaides [...] view. RVOT view. LVOT view. 3-vessel view. 7-lesspc-ghxsmjl view. Situs. Aortic arch view. Ductal arch [...] and date of were verified by the proprietary trader before the exam IMPRESSION ----- 1. Single [...] Pat. Name:Adolph HARRIS Date:03/02/2025 1:45pm Pat. NO: [id number] MD:TAMMIE CRAVEN CNM [facility]Yvette May[facility] RDMS :1990Age:34 ----- INDICATION ----- Anatomy Survey with History of Labor (PTL) 35 weeks Advanced Maternal Age (AMA), Multigravida CODING ----- Diagnoses Z3A.20: Weeks of gestation O09.522: Supervision of elderly multigravida O09.212: Supervision of with history ofpre-term labor Z36.3: Encounter for screening formalformations Procedures [id number]: Ultrasound, uterus, real time withimage documentation, and maternal evaluation plus detailed anatomic examination,transabdominal approach MATERNAL ASSESSMENT ----- Physical Exam Weight 71 kg. BMI 30.66 kg/m METHOD ----- Transabdominal ultrasound examination ----- Davidson . Number of fetuses: 1 DATING ----- Method of dating:based on stated TONY GA by prior [id number] w + 2 d TONY by prior [...] 0 lb 13 oz EFW by Hadlock ([id number]) Head / Face / Neck Biometry: Physicians Assistant 5.1 mm CM 3.6 mm 10%Nicolaides Outer [...] 4-chamber view. RVOT view. LVOT view. 3-vesselview. 4-eyngsq-ouugioo view. Situs. Aortic arch view. Ductal arch [...] and date of were verified by the proprietary trader beforethe exam IMPRESSION ----- 1. Single living [...] Final Result from Last 3 Months Insurance [facility] BLUE ACCESS/TRUE BLUE PPO
--- OUTSIDE RECORDS SUMMARY | 2025-04-30 09:03 | XMS_ITS | Referral Summary ---
Author Organization [facility] Address [address] [place] [address] Care Team Providers Care Painter Sign Maintenance Name Role Phone Unknown, Notinfile Primary Care [...] Comments Blood Pressure 138/80 09/20/2024 2:41 PM EYE CLINIC MANAGER Pulse 88 09/20/2024 2:41 PM EYE CLINIC MANAGER Temperature 36.7 C (98 F) 09/20/2024 2:41 PM EYE CLINIC MANAGER Respiratory Rate 20 09/20/2024 2:41 PM EYE CLINIC MANAGER Oxygen Saturation 97% 09/20/2024 2:41 PM EYE CLINIC MANAGER Inhaled Oxygen Concentration - - Weight 70.3 kg (155 lb) 09/20/2024 2:41 PM EYE CLINIC MANAGER Height 149.9 cm (4' 11) 09/20/2024 2:41 PM EYE CLINIC MANAGER Body Mass Index 31.31 09/20/2024 2:41 PM EYE CLINIC MANAGER Plan of Treatment Not on file Insurance [facility] [employer] [place] [employer] [place] Care Teams Painter Sign Maintenance Relationship Specialty Start Date End Date Unknown, Notinfile PCP - General 01/15/24
--- OUTSIDE RECORDS SUMMARY | 2025-04-30 09:03 | XMS_ITS | Clinical Summary ---
Author Organization [facility] Address [address] [place] [id number] Care Team Providers Care Human Resource Intern Name Role Phone Unknown, Notinfile Primary Care [...] Comments Blood Pressure 138/80 09/20/2024 2:41 PM VICE PRINCIPAL Pulse 88 09/20/2024 2:41 PM VICE PRINCIPAL Temperature 36.7 C (98 F) 09/20/2024 2:41 PM VICE PRINCIPAL Respiratory Rate 20 09/20/2024 2:41 PM VICE PRINCIPAL Oxygen Saturation 97% 09/20/2024 2:41 PM VICE PRINCIPAL Inhaled Oxygen Concentration - - Weight 70.3 kg (155 lb) 09/20/2024 2:41 PM VICE PRINCIPAL Height 149.9 cm (4' 11) 09/20/2024 2:41 PM VICE PRINCIPAL Body Mass Index 31.31 09/20/2024 2:41 PM VICE PRINCIPAL Plan of Treatment Health Maintenance Due Date [...] patient's age to complete this topic Insurance [facility] [place] Care Teams Human Resource Intern Relationship Specialty Start Date End Date Unknown, Notinfile PCP - General 01/15/24
--- OUTSIDE RECORDS SUMMARY | 2025-04-30 09:03 | XMS_ITS | Clinical Summary ---
Author Organization [facility] Address [address] [place] [address] Care Team Providers Care Magazine Grinder Loader Name Role Phone Mumtaz Choi MD Primary Care Provider [phone] Source Comments [facility],non-owned Affiliates and Associated Physician Practices is amultiple site organization consisting of ambulatory clinics and hospital sitesin [place], [place], [place] and [place]. This disclosure is being madepursuant to the Care Everywhere program and may not contain all information available regarding this patient. Last updated 18.[facility] Allergies Active Allergy Reactions Criticality Noted Date [...] Harris was screened for depression using the [place] Depression Scale (EPDS) at her [facility] initial evaluation on 09/05/2021. Her initial score [...] from the original note were not included. LONG-TERM PATIENT--PLEASE CALL [phone] (ex 2) IF TRIAGED OR ADMITTED Care Provider: Dr. Quintero [facility] consultants involved: RN- Lucas; MFM- Dr. Thakkar Diagnosis: Mild right ventriculomegaly (slightly increased in diameter at 10.5mm at 09/05/21 LONG-TERM US). Planned surveillance: Initial LONG-TERM 09/05/21. Growth in 2 weeks at [place], and follow up ultrasound for growth and assessment of ventricles between 32-36 weeks. Continue routine care with primary OB. Delivery location: with primary OB at hospital of choice ([facility]) Delivery mode: per usual OB indications Desired Delivery GA: No indication for delivery before 39 weeks at this time follow up: head imaging with pediatrican Players Club Representative: Undecided Autopsy indicated: Genetics note: LR NIPT-Male Wine Steward/Stewardess Concerns: 09/05/2021- There are no social service [...] and heating? Not hard at all 05/14/2024 [facility] [place] of Occupat ional Health - Occupational Stress [...] place to sleep or slept in a alf (including now)? No 05/14/2024 [place] Depression Scale Answer Date Recorded [place] Depression Scale Total 7 05/14/2024 The thought [...] 2:42 PM CDT Height 157.5 cm (5' 2) 05/14/2024 2:42 PM CDT Body Mass Index 31.46 05/14/2024 2:42 PM CDT Plan of Treatment Health Maintenance Due Date Last Done Comments HEPATITIS C SCREENING 09/02/2007 DTAP/TDAP/TD VACCINES (1 - Tdap) 2008 HEPATITIS B VACCINE (1 of 3 - 19+ 3-dose series) 2008 PAP SMEAR 2010 COVID-19 VACCINE (3 - 2023-2 5 season) [...] complete this topic Insurance ANTHEM Care Teams Magazine Grinder Loader Relationship Specialty Start Date End Date Mumtaz Choi MD [address] [place] [address] PCP - General Family Medicine 04/15/19
--- OUTSIDE RECORDS SUMMARY | 2025-04-30 09:04 | XMS_ITS | Encounter Summary ---
Author Organization [facility] Address [address] [place] [address] Care Team Providers Care Labor Union Business Representative Name Role Phone Unavailable Primary Care Provider Unavailabl e Encounter Details Date Type Department Care Team (Late st Contact Info) Description 04/28/2025 External Device Data [facility] ABSTRACTION [...]
[2025-04-30 10:30] LABS: Hematocrit 33.2 % (37.0-47.0); Hemoglobin 10.7 g/dL (12.0-15.0); Immature Granulocyte Percent A 0.7 % (0-0.5); Lymphocytes Absolute Auto 1.36 K/mm3 (0.9-3.2); Mean Corpuscular HGB Conc 32.2 g/dl (32-36); Mean Corpuscular Hemoglobin 30.0 pg (26-34); Mean Corpuscular Volume 93.0 fl (80-100); Nucleated Red Blood Cells Absolute Auto 0.000 K/mm3 (0.0-0.012); Nucleated Red Blood Cells Perc 0.0 % (0.0-0.2); Platelet Count Result 120 k/mm3 (150-375); Red Blood Count 3.57 M/mm3 (4.2-5.4); White Blood Count 7.4 K/mm3 (4.5-10.0)
[2025-04-30 10:37] LABS: Glucose 1 Hour PP 50gm Dose 149 mg/dL
[2025-04-30 11:38] LABS: HIV 1/2 Ab P24 Ag Result Negative (Negative)
[2025-05-01] MEDS: RHO(D) IMMUNE GLOBULIN 300 MCG/2 ML SYRINGE IM (14:32)
== END 2025-07-29 23:59 | disposition home or self-care (01) ==
LOC: ANHLAB 08:49
PROVIDERS: Visit Provider Advanced Practice Midwife
DX: Z11.3 Encounter for screening for infections with a predominantly sexual mode of transmission (principal); Z11.4 Encounter for screening for human immunodeficiency virus [HIV]; Z29.13 Encounter for prophylactic Rho(D) immune globulin; O36.0130 Maternal care for anti-D [Rh] antibodies, third trimester, not applicable or unspecified; Z3A.00 Weeks of gestation of pregnancy not specified
CPT/HCPCS: 36415; 82947; 85025; 85461; 86703; 86850; 86900; 86901; 90384; 96372; G0432; J2790

== ENCOUNTER 2025-05-08 10:10 | Outpatient (CLI) | payer BC, SELFPAY ==
[2025-05-08 10:37] LABS: Hematocrit 32.4 % (37.0-47.0); Hemoglobin 10.3 g/dL (12.0-15.0); Mean Corpuscular HGB Conc 31.8 g/dl (32-36); Mean Corpuscular Hemoglobin 29.7 pg (26-34); Mean Corpuscular Volume 93.4 fl (80-100); Mean Platelet Volume 11.9 fl (7.4-10.4); Platelet Count Result 116 k/mm3 (150-375); Red Blood Count 3.47 M/mm3 (4.2-5.4); Red Cell Distribution Width 13.2 % (11.5-14.5); White Blood Count 7.7 K/mm3 (4.5-10.0)
== END 2025-05-08 10:11 | disposition home or self-care (01) ==
LOC: ANHLAB 10:11
PROVIDERS: Visit Provider Advanced Practice Midwife
DX: D69.6 Thrombocytopenia, unspecified (principal)
CPT/HCPCS: 36415; 85027

== ENCOUNTER 2025-05-15 23:37 | Observation (INO) | payer BC, SELFPAY ==
--- OUTSIDE RECORDS SUMMARY | 2025-05-15 23:54 | XMS_ITS | Clinical Summary ---
Author Organization [facility] Address [address] [place] [id number] Care Team Providers Care Tellers Supervisor Name Role Phone Unknown, Notinfile Primary Care [...] Comments Blood Pressure 138/80 09/20/2024 2:41 PM CHEMISTRY INTERN Pulse 88 09/20/2024 2:41 PM CHEMISTRY INTERN Temperature 36.7 C (98 F) 09/20/2024 2:41 PM CHEMISTRY INTERN Respiratory Rate 20 09/20/2024 2:41 PM CHEMISTRY INTERN Oxygen Saturation 97% 09/20/2024 2:41 PM CHEMISTRY INTERN Inhaled Oxygen Concentration - - Weight 70.3 kg (155 lb) 09/20/2024 2:41 PM CHEMISTRY INTERN Height 149.9 cm (4' 11) 09/20/2024 2:41 PM CHEMISTRY INTERN Body Mass Index 31.31 09/20/2024 2:41 PM CHEMISTRY INTERN Plan of Treatment Health Maintenance Due Date [...] patient's age to complete this topic Insurance [facility] [employer] [place] [employer] [place] Care Teams Tellers Supervisor Relationship Specialty Start Date End Date Unknown, Notinfile PCP - General 01/15/24
--- OUTSIDE RECORDS SUMMARY | 2025-05-15 23:54 | XMS_ITS | Clinical Summary ---
Author Organization [facility] Address [address] [place] [address] Phone Care Team Providers Care Research Recruiter Name Role Phone Unavailable Primary Care Provider [...] Encounters Date Type Department Care Team Description 05/05/2025 External Device Data ST[facility] ABSTRACTION Provider, Abstract 04/28/2025 External Device Data [facility] ABSTRACTION Provider, Abstract 04/07/2025 External Device Data [facility] ABSTRACTION Provider, Abstract 04/01/2025 External Device Data [facility] ABSTRACTION Provider, Abstract 03/31/2025 External Device Data [facility] ABSTRACTION Provider, Abstract 03/02/2025 1:30 PM CDT - 03/02/2025 11:59 PM CDT Hospital Encounter [facility] Maternal and Health [facility] [address] [place] [address] Tammie Craven NP Discharge Disposition: Home or Self Care 02/16/2025 2:00 PM CDT Video Visit [facility] Maternal and Medicine - [facility] [address] [place] [address] Gale Le MD 18 weeks gestation of (Primary Dx); Benign gestational thrombocytopenia in second trimester; History of delivery, currently in second trimester; Multigravida of advanced maternal age in second trimester 02/16/2025 Telephone [facility] - [facility] [address] [place] [address] Yaima Meredith A Follow Up [...] Comments Blood Pressure 112/71 01/14/2021 3:00 PM SUPERINTENDENT OPERATIONS DIVISION Pulse 92 01/14/2021 3:00 PM [employer] Temperature 36.2 C (97.1 F) 01/14/2021 11:30 AM [employer] Respiratory Rate 15 01/14/2021 3:00 PM [employer] Oxygen Saturation 95% 01/14/2021 3:00 PM [employer] Inhaled Oxygen Concentration - - Weight 71.2 [...] 2019 PAP SMEAR 2019 INFLUENZA VACCINE (#1) 2025 HPV VACCINES Aged Out No longer eligi [...] HARRIS Study Date: 03/02/2025 1:45pm Pat. NO: [id number] Referring MD: TAMMIE CRAVEN CNM Site: [facility] [facility] Person: Yvette Mayes RDMS : 1990 Age: 34 ----- INDICATION ----- Anatomy Survey with History of Labor (PTL) 35 weeks Advanced Maternal Age (AMA), Multigravida CODING ----- Diagnoses Z3A.20: Weeks of gestation O09.522: Supervision of elderly multigravida O09.212: Supervision of with history of pre-term labor Z36.3: Encounter for screening for malformations Procedures [id number]: Ultrasound, uterus, real time with image documentation, [...] 0 lb 13 oz EFW by Hadlock ([id number]) Head / Face / Neck Biometry: Scheduler Conveyor 5.1 mm CM 3.6 mm 10% Nicolaides [...] view. RVOT view. LVOT view. 3-vessel view. 3-prgmrs-kmxtltw view. Situs. Aortic arch view. Ductal arch [...] and date of were verified by the handy worker before the exam IMPRESSION ----- 1. Single [...] Pat. Name:Adolph HARRIS Date:03/02/2025 1:45pm Pat. NO: [id number] MD:LICO STRICKLAND [facility]Yvette Mayes RDMS :1990Age:34 ----- INDICATION ----- Anatomy Survey with History of Labor (PTL) 35 weeks Advanced Maternal Age (AMA), Multigravida CODING ----- Diagnoses Z3A.20: Weeks of gestation O09.522: Supervision of elderly magnogravida O09.212: Supervision of with history ofpre-term labor Z36.3: Encounter for screening formalformations Procedures [id number]: Ultrasound, uterus, real time withimage documentation, and maternal evaluation plus detailed anatomic examination,transabdominal approach MATERNAL ASSESSMENT ----- Physical Exam Weight 71 kg. BMI 30.66 kg/m METHOD ----- Transabdominal ultrasound examination ----- Davidson . Number of fetuses: 1 DATING ----- Method of dating:based on stated TONY GA by prior [id number] w + 2 d TONY by prior [...] 0 lb 13 oz EFW by Hadlock ([id number]) Head / Face / Neck Biometry: Scheduler Conveyor 5.1 mm CM 3.6 mm 10%Nicolaides Outer [...] 4-chamber view. RVOT view. LVOT view. 3-vesselview. 2-yfafsu-qshtogm view. Situs. Aortic arch view. Ductal arch [...] and date of were verified by the handy worker beforethe exam IMPRESSION ----- 1. Single living [...] Final Result from Last 3 Months Insurance [facility] BLUE ACCESS/TRUE BLUE PPO
--- OUTSIDE RECORDS SUMMARY | 2025-05-15 23:54 | XMS_ITS | Clinical Summary ---
Author Organization [facility] Address [address] [place] [address] Care Team Providers Care Projector Booth Operator Name Role Phone Mumtaz Choi MD Primary Care Provider [phone]- [phone] Source Comments [facility],non-owned Affiliates and Associated Physician Practices is amultiple site organization consisting of ambulatory clinics and hospital sitesin [place], [place], [place] and [place]. This disclosure is being madepursuant to the Care Everywhere program and may not contain all information available regarding this patient. Last updated 18.[facility] Allergies Active Allergy Reactions Criticality Noted Date [...] Harris was screened for depression using the [place] Depression Scale (EPDS) at her [facility] initial evaluation on 09/05/2021. Her initial [...] from the original note were not included. [facility] PATIENT--PLEASE CALL [phone] (ex 2) IF TRIAGED OR ADMITTED Care Provider: Dr. Quintero [facility] consultants involved: RN- Lucas; MFM- Dr. Thakkar Diagnosis: Mild right ventriculomegaly (slightly increased in diameter at 10.5mm at 09/05/21 [facility] US). Planned surveillance: Initial [facility] 09/05/21. Growth in 2 weeks at [place], and follow up ultrasound for growth and assessment of ventricles between 32-36 weeks. Continue routine care with primary OB. Delivery location: with primary OB at hospital of choice ([facility]) Delivery mode: per usual OB indications Desired Delivery GA: No indication for delivery before 39 weeks at this time follow up: head imaging with pediatrican Production Manufacturing Worker: Undecided Autopsy indicated: Genetics note: LR NIPT-Male Tank Pumper Panelboard Concerns: 09/05/2021- There are no social service [...] and heating? Not hard at all 05/14/2024 [facility] [place] of Occupat ional Health - Occupational Stress [...] place to sleep or slept in a long-term (including now)? No 05/14/2024 Garfield Depression Scale Answer Date Recorded Garfield Depression Scale Total 7 05/14/2024 The thought [...] 07/16/2021 DEPRESSION SCREENING 11/12/2024 05/14/2024 INFLUENZA VACCINE (#1) 2025 ZOSTER VACCINE (1 of 2) 2039 [...] complete this topic Insurance ANTHEM Care Teams Projector Booth Operator Relationship Specialty Start Date End Date Mumtaz Choi MD [address] [place] [address] PCP - General Family Medicine 04/15/19
--- OUTSIDE RECORDS SUMMARY | 2025-05-15 23:54 | XMS_ITS | Referral Summary ---
Author Organization [facility] Address [address] [place] [address] Care Team Providers Care Tracer Clerk Name Role Phone Unknown, Notinfile Primary Care [...] Comments Blood Pressure 138/80 09/20/2024 2:41 PM FOREST RESOURCES PROFESSOR Pulse 88 09/20/2024 2:41 PM FOREST RESOURCES PROFESSOR Temperature 36.7 C (98 F) 09/20/2024 2:41 PM FOREST RESOURCES PROFESSOR Respiratory Rate 20 09/20/2024 2:41 PM FOREST RESOURCES PROFESSOR Oxygen Saturation 97% 09/20/2024 2:41 PM FOREST RESOURCES PROFESSOR Inhaled Oxygen Concentration - - Weight 70.3 kg (155 lb) 09/20/2024 2:41 PM FOREST RESOURCES PROFESSOR Height 149.9 cm (4' 11) 09/20/2024 2:41 PM FOREST RESOURCES PROFESSOR Body Mass Index 31.31 09/20/2024 2:41 PM FOREST RESOURCES PROFESSOR Plan of Treatment Not on file Insurance [facility] [place] Care Teams Tracer Clerk Relationship Specialty Start Date End Date Unknown, Notinfile PCP - General 01/15/24
--- OUTSIDE RECORDS SUMMARY | 2025-05-15 23:54 | XMS_ITS | Data Portability ---
Author Organization [facility] Address [address] [place] [address] Assessment Encounter Date Assessment Date Assessment LastModified by Organization Details LastModified Time 04/03/2025 04/03/2025 Patient is _24__weeks . Discussed plan. [email or web address] Not available 04/03/2025 14:08:34 04/24/2025 04/24/2025 Patient is __27_weeks . Discussed plan. [email or web address] Not available 04/24/2025 10:48:21 05/08/2025 05/08/2025 Patient is __29_weeks . Discussed plan. [email or web address] Not available 05/08/2025 10:37:28 Plan of Treatment Reminders Order Date Submit Date Provider Last Modified By Organization Details Last Modified Time Details Appointments U/S OB GROWTH 2024 08:30A M ULTRASOUND Not available Not available Not available OB ROUTINE 2024 09:00A M Tammie Craven CNM Not available Not available Not available NST 2024 09:30A M NST SCHEDULE Not available Not available Not available NST 2024 09:00A M NST SCHEDULE Not available Not available Not available OB ROUTINE 2024 09:30A M Tammie Craven CNM Not available Not available Not available NST 2024 08:30A M NST SCHEDULE Not available Not available Not available OB ROUTINE 2024 09:15A M Tammie Craven CNM Not available Not available Not available NST 2024 08:30A M NST SCHEDULE Not available Not available Not available OB ROUTINE 2024 09:00A M Tammie Cravne, CNM Not available Not available Not available NST 2024 08:30A M NST SCHEDULE Not available Not available Not available xANY 2024 09:00A M Tammie Craven, CNM Not available Not available Not available NST 2024 08:30A M NST SCHEDULE Not available Not available Not available OB ROUTINE 2024 09:00A M Tammie Craven, CNM Not available Not available Not available NST 2024 08:30A M NST SCHEDULE Not available Not available Not available OB ROUTINE 2024 09:00A M Tammie Craven, CNM Not available Not available Not available NST 2024 08:30A M NST SCHEDULE Not available Not available Not available OB ROUTINE 2024 09:00A M Tammie Craven, CNM Not available Not available Not available Lab None recorde d. Referral None recorde d. Procedures None recorde d. Surgeries None recorde d. Imaging US, obstetr ic, follow- up 2024 025 [email or web address] [address], [address], [place], [address], 03/30/2025 21:14:53 US, [facility] ic, limited 2024 025 [email or web address] [address], [address], [place], [address], 03/19/2025 22:49:41 Medication Orders None recorde d. Patient TargetsNo targets recorded. Patient InstructionsNo instructions recorded. Reason for Referral None Reported. Results Created Date Observation Date Name Description Value Unit Range Abnormal Flag Note LastModifiedBy Organization Detail LastModifiedTime 05/05/20 25 05/05/2025 GTT - GESTA MIR L, 3 HOUR, ACOG glucose, fasting acog 76 mg/dL 70-94 Not Available [facility] (Lab) [address], [place], [address], 05/06/2025 03:33:15 05/05/20 25 05/05/2025 GTT - GESTA MIR L, 3 HOUR, ACOG glucose, 1 hour acog 164 mg/dL 70-[address] [facility] (Lab) [address] [facility] [address], [place], [address], 05/06/2025 03:33:15 05/05/20 25 05/05/2025 GTT - GESTA MIR L, 3 HOUR, ACOG glucose, 2 hour acog 126 mg/dL 70-[address] [facility] (Lab) [address] [facility] [address], [place], [address], 05/06/2025 03:33:15 05/05/20 25 05/05/2025 GTT - GESTA MIR L, 3 HOUR, ACOG glucose, 3 hour acog 117 mg/dL 70-[address] [facility] (Lab) [address] [facility] [address], [place], [address], 05/06/2025 03:33:15 03/02/20 25 03/02/2025 US, obste tric, follo w-up No observ ation record ed. [email or web address] [facility] [address] , [place], [address], 04/07/2025 22:29:38 03/02/20 25 03/02/2025 US, obste tric, follo w-up No observ ation record ed. [email or web address] [facility] [address], [place], [address], 03/04/2025 22:52:53 03/19/20 25 03/19/2025 US, obste tric, limit ed No observ ation record ed. [email or web address] [address], [place], [address], 03/25/2025 06:22:37 03/19/20 03/19/2025 US, obste tric, limit ed No observ ation record ed. [email or web address] [facility] [address], [place], [address], 03/19/2025 18:12:38 03/30/20 25 03/30/2025 US, obste tric, follo w-up No observ ation record ed. [email or web address] [facility] [address], [place], [address], 03/30/2025 18:15:00 03/30/20 25 03/30/2025 US, obste tric, follo w-up No observ ation record ed. [email or web address] [address], [place], [address], 04/30/2025 15:13:51 Result Notes None recorded. 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 1 11:28:[address] Concept Completed 201805/10/2021 Encntr for general adult medical exam w/o abnormal findings ;Recorde d Elsewher e: No Locat ion: [facility] S ource: EHR Machine Builder estella: N John ce ID: [id number] Kvng lable Time: 09:45:00 AM Mago tirado [facility] 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 1 11:29:04 Finding of fertilit y Completed 201805/10/2021 Female infertil ity, unspecif ied;Prac amari ID: 0001 Mago tirado, [facility] 1 11:29:00 Pregnanc y 38943403 Completed 202012/23/2021 Mago Phillips [facility], [facility] 5 16:40:45 ultrasou nd scan abnormal [id number] Completed Enlarged lateral ventricl e - 08/23 Level II U/S - No VSD. RESOLVED !! Final US @ 36 wks w/ MFM 11/24 315PM Pending CMV/parv o b/w Rossy aleman [facility], [facility] 2 15:15:00 Antenata l care: history of infertil ity 190530238 Completed spon preg, TTC 5 years Rossy aleman [facility] 2 15:15:00 Prophyla ctic immunoth erapy Completed received 03/29/24 Mago Phillips [facility] 4 11:57:56 Thromboc ytopenic disorder 436341691 Completed low plt - 99 - [place] mf 05/14/24 U/S & Consult - Rpt CBC and MFM visit in 1 wk. Delivery recommen dations at that time. Anesth esia consult Mago Phillips [facility] 4 11:57:56 Pregnanc y 05211302 Active 2024 Mago Phillips [facility] 5 16:40:45 History of thromboc ytopenia 4101436518 9108 Active [facility] consult- referral faxed to [facility] 01/12/2025 Level II US schedule d [facility] 03/02 anesthes ia consult serial CBCs recommen ded by [facility] 28, 32 and 34wks antenata l testing weekly to start at 32wks Bre tirado [facility] 5 15:47:05 History of infertil ity - female 346030463 Active prior to first delivery TTC x 5 years Tammie Craven, CNM [address], [place], [address], [place] [facility] 5 16:46:21 Past pregnanc y history of prematur e delivery 946734539 Active 2nd pregnanc y, 35 weeks, with NICU stay cervical us until 24wks Bre Alvaro tirado [facility] 5 15:43:30 Problem Notes None recorded. Procedures Surgical History Date Name Laterality Status Provider Name and Address Organization Details Recorded Time 06/13/20 23 Date of Last Pap Smear completed Mago Phillips [facility] 11/09/2023 16:36:37 01/15/20 21 Laparoscopy completed Mago Phillips [facility] 05/10/2021 12:32:04 11/12/18 94 operation on hip joint completed Mago Phillips [facility] 05/10/2021 12:34:56 11/12/18 94 procedure on ear completed Mago Phillips [facility] 11/09/2023 16:38:25 11/12/18 93 tonsilectomy/ad enoids completed Mago Phillips [facility] 11/09/2023 16:37:40 11/12/18 93 operation on ossicular chain of middle ear completed Mago Phillips [facility] 05/10/2021 12:34:18 11/12/18 92 procedure on ear completed Mago Phillips [facility] 11/09/2023 16:38:20 11/12/18 90 procedure on ear completed Mago Amortz [facility] 11/09/2023 16:38:15 11/12/18 89 operation on hip joint completed Mago Amortz [facility] 05/10/2021 12:33:26 Imaging Results None recorded. Procedure Notes None recorded. Medical Equipment None Reported. Allergies Allergen ID Allergen Name Allergen Category Reaction Reaction Severity Criticality Documentation Date Start Date Code Code System Note Provider Name and Address Organization Details Recorded Time 393 lactose food,medi cation Not available Not available Not available 03/09/2020 6211 RxNorm Mago Phillips [facility] 0 17:28:25 Medications Name Sig Start Date Stop Date Status Note LastModified by Organization Details LastModified Time antacid/l dania/wal-d ryl susp 111 SWISH AND SWALLOW 15ML BY MOUTH EVERY 4 HOURS NEEDED 11/09 completed Not Available Not Available Not Available binaxnow cov kit home leni 06/13 completed [...] Prescrib ed Elsewher e: No Locat ion: [facility] M odify By: alea wagoner DateTime : 07/09/20 19 03:59:26 PM Not Available Not Available Not Available hydrocodo ne 5 mg-acetam inophen 325 mg tablet TAKE 1 TABLET BY MOUTH EVERY 4 HOURS NEEDED FOR MODERATE PAIN . DO NOT EXCEED 6 PER 24 HOURS 05/10 completed Not Available Not Available Not Available Protonix 20 mg tablet,de layed release Take 1 tablet every day by oral route as directed . 04/03 completed Not Available Not Available Not Available Zyrtec 10 mg tablet take 1 tablet by oral route every day active Prescrib ed Elsewher e: Yes Loca tion: Jasbir padron [facility] odify By: Udemymarques z Encoun ter DateTime : 01/22/20 09:45:00 AM Not Available Not Available Not Available amoxicill [...] 2 CAPSULES BY MOUTH DAILY AT BEDTIME 03/06 completed Not Available Not Available Not Available ibuprofen 600 mg tablet TAKE 1 [...] completed Not Available Not Available Not Available iron active Not Available Not Availa ble Not Available active Not Available Not Avai lable Not Available progester one 400 mg vaginal supposito ry Insert by vaginal route. 02/06 completed Not Available Not Available Not Available Calcium 500 mg + D (D3) 3.125 mcg (125 unit) tablet 11/09 completed Prescrib ed Elsewher e: Yes Loca tion: Jasbir [facility] odify By: Udemymarques z Encoun ter DateTime : 01/22/20 09:45:00 AM Not Available Not Available Not Available Caltrate 600 plus D active Not Available Not Available Not Available Women's One Daily 18 mg iron-400 mcg-500 mg Ca tablet 11/09 completed Prescrib dary Boss e: Yes Loca tion: Jasbir [facility] M odify By: [email or web address] z Encoun ter DateTime : 01/22/20 09:45:00 AM Not Available Not Available Not Available One-A-Day Women's 1 11/09 completed Not Available Not Available Not Available BinaxNOW COVID-19 Ag Self Test kit TEST DIRECTED TODAY 06/13 completed Not Available Not Available Not Available Vitals Date Recorded Body weight Body mass index (BMI) Body height Systolic And Diastolic Provider Name and Address Organization Details Last Updated DateTime 04/03/2025 47057.925 79 g 32.6 kg/m2 152.4 cm 117/75 mm[Hg] Mago Phillips [facility] 04/03/2025 12:30:55 Date Recorded Body height Body mass index (BMI) Body weight Systolic And Diastolic Provider Name and Address Organization Details Last Updated DateTime 04/24/2025 152.4 cm 33.2 kg/m2 13628.7 g 116/78 mm[Hg] Mago Phillips [facility] 04/24/2025 10:29:37 Date Recorded Body height Body mass index (BMI) Body weight Systolic And Diastolic Provider Name and Address Organization Details Last Updated DateTime 05/08/2025 152.4 cm 33.8 kg/m2 87851.48 g 126/81 mm[Hg] Akosua Carr [facility] 05/08/2025 10:30:09 Social History Question Answer Notes LastModified by Organizat ion Details LastModified Time Tobacco Smoking Status Never Smoker Mago Phillips [facility] 11/09/2023 16:35:52 Do You Have An Advance Directive? No [email or web address] Information n ot available 05/10/2021 If You Are , What Was Your Level Of Alcohol Consumption Prior To ? None [email or web address] Information not available 11/09/2023 Are You Blind Or Do You Have Difficulty Seeing? No [email or web address] Information n ot available 05/10/2021 What Is Your Level Of Caffeine Consumption? Moderate [email or web address] Information not available 05/10/2021 How Much Tobacco Do You Chew? None [email or web address] Information not available 05/10/2021 In The 14 Days Before Symptom Onset, Have You Had Close Contact With A Laboratory-confirm ed COVID-19 While That Case Was Ill? No [email or web address] Information n ot available 05/10/2021 In The 14 Days Before Symptom Onset, Have You Had Close Contact With A Person Who Is Under Investigation For COVID-19 While That Person Was Ill? No [email or web address] Information not available 05/10/2021 Have You Been To An Area Known To Be High Risk For COVID-19? No [email or web address] Information not available 05/10/2021 Are You Deaf Or Do You Have Serious Difficulty Hearing? No [email or web address] Information not available 05/10/2021 What Type Of Diet Are You Following? REGULAR [email or web address] Information n ot available 05/10/2021 What Is The Highest Grade Or Level Of School You Have Completed Or The Highest Degree You Have Received? LT87989-6 [email or web address] Information not available 05/10/2021 Are There Any Guns Present In Your Home? No [email or web address] Information not available 05/10/2021 What Was The Date Of Your Most Recent Tobacco Screening? 02/06/2025 [email or web address] Information not available 02/06/2025 Do You Use Protection During Sex? No [email or web address] Information not available 05/10/2021 Do You Use Your Seat Belt Or Car Seat Routinely? Yes [email or web address] Information not available 05/10/2021 Do You Have Smoke And Carbon Monoxide Detectors In Your Home? Yes [email or web address] Information not available 05/10/2021 How Much Tobacco Do You Smoke? No [email or web address] Information not available 05/10/2021 Do You Use Sunscreen Routinely? No [email or web address] Information not available 05/10/2021 Has Tobacco Cessation Counseling Been Provided? No [email or web address] Information not available 11/09/2023 Have You Used IV Drugs? No [email or web address] Information not available 05/10/2021 Do You Have Difficulty Walking Or Climbing Stairs? No [email or web address] Information not available 11/09/2023 Sex: Unknown Functional Status Question Answer Note LastModified by Organizat ion Details LastModified Time Do you use any illicit or recreational drugs? No [email or web address] Information not available 05/10/2021 Do you or have you ever used any other forms of tobacco or nicotine? No [email or web address] Information not available 11/09/2023 What is your level of alcohol consumption? None [email or web address] Information not available 03/09/2020 Are you able to walk? YESWOREST [email or web address] Information not available 05/10/2021 Are you able to care for yourself? 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 No [email or web address] Information not available 11/09/2023 What is your exercise level? Occasional [email or web address] Information not available 03/09/2020 Mental Status Question Answer Note LastModified by Organization D etails LastModified Time Do you feel stressed (tense, restless, nervous, or anxious, or unable to sleep at night)? [id number] [email or web address] Information not available 11/09/2023 Family History Relationship Description Onset Age of this Age Resolved Age Notes LastModified by Organization Details LastModified Time Mother Hypertensive disorder [email or web address] Not available 03/09 17:30:21 Father Hypertensive disorder [email or web address] Not available 03/09 17:30:29 Father Malignant neoplasm of prostate [email or web address] Not available 2021 15:59:30 Maternal Grandfather Heart disease [email or web address] Not available 03/09 17:30:54 Paternal Grandfather Heart disease [email or web address] Not available 03/09 17:30:54 Medical History Condition Response Allergies (Food, seasonal, environmental ) Y Other N Blood Transfusion N Breast Cancer N Drug/Latex Allergies/Reactions N Lung Disease N Dermatologic Disorders N Defects or Inherited Disease N Breast [...] ICD10 Code Diagnosis Note [id number] Tammie Craven CNM [address] [place] [address] 03/09/2020 12:37:34 03/09/2020 12:38:16 Female infertility associated with anovulation 877686040 N97.0 History of infertility - female 625101765 Z87.42 suspect anovulatio n [id number] Juliocesar Arciniega MD [address],[facility] [place] [address] 05/10/2021 11:50:59 05/10/2021 13:16:01 [id number] Tammie Craven CNM [address],[facility] [place] [address] 05/10/2021 11:52:08 05/10/2021 22:27:09 Amenorrhea 54131764 N91.2 [id number] Juliocesar Arciniega MD [address] [address] [address] 06/08/2021 14:54:20 06/08/2021 15:37:50 screening 258464859 Z36.82 [id number] Juliocesar Arciniega MD [facility] [address] [address] 06/08/2021 14:56:45 06/08/2021 17:39:48 Routine care 431498927 Z34.90 [id number] Haylie Quintero MD [facility] [address] [address] 07/05/2021 17:00:55 07/05/2021 23:34:26 Routine care 130442259 Z34.02 [id number] Haylie Quintero MD [facility] [address] [address] 07/05/2021 17:06:58 07/06/2021 09:01:06 [id number] Haylie Quintero MD [facility] [address] [address] 08/09/2021 16:32:28 08/09/2021 17:35:43 screening for malformation 848309299 Z36.3 [id number] Haylie Quintero MD [facility] [address] [address] 08/09/2021 16:33:19 08/10/2021 15:52:45 ultrasound scan abnormal 3836366292 9109 R93.89 Routine an tenatal care 478644987 Z34.02 [id number] Haylie Quintero MD [facility] [address] [address] 08/30/2021 15:49:12 08/30/2021 16:32:53 ultrasound scan abnormal 7870994379 9109 R93.89 Routine an tenatal care 215587207 Z34.02 [id number] Hayile Quintero MD [facility] [address] [address] 09/28/2021 10:46:06 09/28/2021 11:48:55 ultrasound scan abnormal 4906812647 9109 R93.89 Routine an tenatal care 610183617 Z34.02 [id number] Haylie Quintero MD [facility] [address] [address] 10/03/2021 16:59:59 10/03/2021 17:46:40 Vaginitis 96279640 N76.0 Candidal vulvovaginitis 93680150 B37.3 Increased frequency of urination 336335496 R35.0 [id number] MD Jermain Watson [address] [address] 10/14/2021 16:28:02 10/15/2021 09:51:30 Routine care 052364514 Z34.02 Irregular uterine contractions 41501739 O62.2 [id number] Haylie Quintero MD [facility] [address] [address] 10/26/2021 16:48:46 10/28/2021 16:45:33 Routine care 475226540 Z34.02 [id number] Haylie Quintero MD [facility] [address] [address] 11/09/2021 16:43:06 11/09/2021 17:30:27 Routine care 899557084 Z34.02 [id number] Haylie Quintero MD [facility] [address] [address] 11/23/2021 16:23:13 11/24/2021 17:09:40 Routine care 509506640 Z34.02 [id number] Juliocesar Arciniega MD [facility] [address] [address] 11/25/2021 16:37:05 12/22/2021 14:09:22 [id number] Haylie Quintero MD [facility] [address] [address] 11/30/2021 16:35:51 12/02/2021 16:00:50 Routine care 245355649 Z34.02 [id number] Haylie Quintero MD [facility] [address] [address] 12/07/2021 15:58:38 12/07/2021 16:30:18 Central nervous system malformation in fetus affecting obstetrical care 6641341 O35.0XX0 Z3A.38 [id number] Haylie Quintero MD [facility] [address] [address] 12/07/2021 15:59:22 12/09/2021 09:45:23 Routine care 939406834 Z34.02 [id number] Haylie Quintero MD [facility] [address] [address] 12/19/2021 12:35:26 12/19/2021 13:32:49 care 788062805 Z39.0 [id number] Haylie Quintero MD [facility] [address] [address] 01/09/2022 14:43:23 01/09/2022 19:56:46 care 611751523 Z39.0 [id number] Joyce Iraheta [facility] [address] [address] 06/13/2023 18:03:46 06/14/2023 16:21:39 Gynecologic examination 42234994 Z01.419 Take Calcium with Vitamin D 1200mg [...] Screen naDexa Screen naRoutine Labs PCP Dyspareunia 68747110 N94 .10 Chronic PFDRef PTInformat ion given for additional home review.Vag valium if not trying to for - -can consider https://ww w.pelvicpa in.org/maribell ges/pdf/Pa tient%20In fo%20Hando uts%080151 /PELVIC%20 FLOOR%20DY SFUNCTION% 20PFD%2019.pdf [id number] Juliocesar Arciniega MD [facility] [address] [address] 10/26/2023 13:30:57 10/26/2023 14:10:57 Threatened miscarriage 25888236 O20.0 Z3A.01 [id number] Juliocesar Arciniega MD [facility] [address] [address] 11/09/2023 15:19:34 11/09/2023 16:17:12 Uterine size for dates discrepancy 034068851 O26.841 Z3A.01 [id number] Tammie Craven, [facility] [address] [address] 11/09/2023 15:20:54 11/09/2023 16:50:48 Amenorrhea 18266333 N91.2 reviewed office, precaution svaccine recf/u 12 week new ob and first lookreglan unisom/b6 for nausea Routine an tenatal care 577949350 Z34.91 Nausea and vomiting 1693 2000 R11.2 [id number] Juliocesar Arciniega MD [facility] [address] [address] 11/29/2023 17:27:10 12/11/2023 17:15:39 [id number] Juliocesar Arciniega MD [facility] [address] [address] 12/14/2023 11:01:23 12/14/2023 11:40:32 screening 517987361 Z36.82 Z3A.11 [id number] Tammie Craven [facility] [address] [address] 12/14/2023 11:01:43 12/14/2023 12:13:09 Gestation period, 12 weeks 44679970 Z3A.12 [id number] [facility] [address] [address] 01/11/2024 11:39:59 01/11/2024 12:08:41 Routine care 169913409 Z34.91 [id number] Juliocesar Arciniega MD [facility] [address] [address] 01/18/2024 12:03:06 01/18/2024 12:39:12 [id number] Juliocesar Arciniega MD [facility] [address] [address] 02/08/2024 11:26:39 02/08/2024 14:06:08 screening for malformation 687364774 Z36.3 [id number] [facility] [address] [address] 02/08/2024 11:28:26 02/08/2024 14:07:04 Routine care 605620156 Z34.91 [id number] Tammie Craven CNM [facility] [address] [address] 03/07/2024 11:16:27 03/07/2024 11:57:19 Routine care 453012457 Z34.91 [id number] [facility] [address] [address] 04/04/2024 09:03:38 04/04/2024 10:36:01 Routine care 486340111 Z34.91 [id number] Tammie Craven [facility] [address] [address] 04/23/2024 10:02:14 04/23/2024 10:52:56 Routine care 869218736 Z34.91 1989 Juliocesar Arciniega MD [facility] [address] [address] 05/09/2024 15:23:03 05/09/2024 16:07:50 Uterine size for dates discrepancy 760808696 O26.843 Z3A.33 1989 Tammie Craven [facility] [address] [address] 05/09/2024 15:23:28 05/09/2024 16:43:03 Routine care 715870270 Z34.91 [id number] Tammie Craven [facility] [address] [address] 05/30/2024 11:43:51 05/30/2024 12:34:22 care 514590491 Z39.2 Benign ges tational thrombocytopenia [id number] D69.59 rpt cbc and cmp todaysleep when ablemonito r for headaches, visual changes, epigastric painf/u pending labscall if desires control method [id number] [facility] [address],[place] [address] 08/29/2024 09:34:47 08/29/2024 10:45:03 care [id number] Z39.2 normal pp exam f/u wwe [id number] MD Jermain SWANN [address],[place] [address] 12/22/2024 10:58:26 12/22/2024 11:40:13 [id number] MD Jermain SWANN [address],[place] [address] 12/22/2024 10:59:24 12/22/2024 17:16:53 test positive [id number] Z32.01 1. Exam today within normal limits.2. Ultrasound today confirms GA and viability. EDC . GC/Clamydi a testing done: will f/u as indicated. 4. ACOG guidelines and plan of care for reviewed with patient. All questions answered.5 . Return to office at 12 weeks for new OB visit6. OB labs ordered today.7. Genetic screening: desires, drawn today. Benign ges tational thrombocytopenia [id number] O99.119 - hx of gestationa l thrombocyt openia x2- Plt 70 on admission at 35 weeks for PPROM- discussed close monitoring of plt count this - due to slightly increased risk of PTL/PPROM in this , consider MFM consult if thrombocyt openia occurs for discussion of steroid burst around 35 weeks in case of PPROM again [id number] Juliocesar Arciniega MD [facility] [address],[place] [address] 01/05/2025 15:57:59 01/05/2025 16:42:25 screening 590687025 Z36.82 Z3A.12 [id number] [facility] [address],[place] [address] 01/09/2025 10:48:09 01/12/2025 02:33:48 Gestation period, 12 weeks 61541260 Z3A.12 Routine an tenatal care 665577793 Z34.91 [id number] [facility] [address],[place] [address] 02/06/2025 09:48:00 02/06/2025 10:09:24 Gestation period, 16 weeks 89728645 Z3A.16 [id number] [facility] [address],[place] [address] 03/06/2025 12:33:58 03/08/2025 23:10:20 Platelet count below reference range [id number] D69.6 Gestation period, 21 weeks 62656506 Z3A.21 [id number] Juliocesar Arciniega MD [facility] [address],[place] [address] 03/19/2025 17:29:55 03/19/2025 18:00:28 Suspected clinical finding 994868458 Z03.75 Z87.51 Z3A.22 [id number] Juliocesar Arciniega MD [facility] [address],[place] [address] 03/30/2025 09:35:22 03/30/2025 10:42:02 care: obstetric risk 190764549 O09.292 Z3A.24 [id number] [facility]ie [facility] [address],[place] [address] 04/03/2025 12:20:07 04/03/2025 14:20:37 Gestation period, 24 weeks 356378430 Z3A.24 [id number] T[facility]ie [facility] [address],[place] [address] 04/24/2025 10:23:17 04/24/2025 10:59:43 Gestation period, 27 weeks 73394367 Z3A.27 [id number] T[facility]ie [facility] [address],[place] [address] 05/08/2025 10:16:47 05/08/2025 11:18:17 Gestation period, 29 weeks 51576772 Z3A.29 Health Concerns Section Related Observation LastModified by Organization Detai ls LastModified Time None Recorded Concern Status LastModified by Organization Details LastModified Time None Recorded Advance Directives Directive N: Payers Insurance Date Sequence Insurance Name Policy Number Policy Calabrese Covered Member ID Calabrese Member ID Guarantor Name 05/08/2025 1 [place] [id number] Leanne Harris [id number] Leanne Harris OBGyn Episode Ob Episode Information Episode Created Date Number of Fetuses Patient Bloodtype Patient rh Status Prepregnancy Weight lbs Domestic Partner Domestic Partner Phone Father Name Sludge Filtration Attendant Status 06/08/20 21 1 B Negative 152 CLOSED Fetus Data First Name Last Name Admitted to NICU Weight (g) Sex Living Outcome Pediatric Complications Fetus ID Race Codes Race Delivery Type Bon 3090.09 55 M true Full Term [id number] Vaginal Delivery Problems Problem Notes declines cf/sma and NIPT - N IPT drawn 08/23/21 due to abnormal Level II U/SDunbar pt!! Problem Name Start Date End Date Resolution Snomed Code Not e ultrasound scan abnormal SELFRESOLVED [id number] Enlarged lat eral ventricle - 08/23 Level II U/S - No VSD. RESOLVED!! Final US @ 36 wks w/ MFM 11/24 315PM Pending CMV/parvo b/w care: history of infertility [id number] spon preg, TTC 5 years Bo Calculation Initial Bo Date Initial Exam Date Initial Exam Provider Initial Ultrasound Date Last Menstrual Period Date Ultra Sound Weeks Gestation 12/21/2021 06/08/2021 05/10/2021 03/16/2021 8 Eighteen To Twenty Week Ob Update Ultra Sound Date Fundal Height At [...] Weight in lbs Pre/Post Dialysis Refused Weight 150.356497343363 BP Diastolic BP Location Tested BP Systolic [...] Weight in lbs Pre/Post Dialysis Refused Weight 153.425334221016 BP Diastolic BP Location Tested BP Systolic [...] Weight in lbs Pre/Post Dialysis Refused Weight 159.438646038699 BP Diastolic BP Location Tested BP Systolic [...] Weight in lbs Pre/Post Dialysis Refused Weight 161.469136549567 BP Diastolic BP Location Tested BP Systolic BP Type 86 124 Fetus Heart Rate Present A 150 Fetus Movement A Yes Comments Feeling well. Getting flu sh ot this week. Will discuss Tdap next visit. Saw MFM, no concern for VSD but slightly enlarged lateral ventricle. Did NIPT- low risk. Has appt at [facility] on Wednesday 09/05. Questions answered, support given. Orders given for Rhogam and 28w labs. Flowsheet Date 09/28/2021 Olivo Score Blood Edema Fundus Height Fundus Units Glucose Ketones Leukocytes Nitrite Labor Signs Protein Cervic Dilation Cervic Effacement Cervic Station trace 26 Type Weight in lbs Pre/Post Dialysis Refused Weight 167.568156536651 BP Diastolic BP Location Tested BP Systolic [...] Weight in lbs Pre/Post Dialysis Refused Weight 162.742162743656 BP Diastolic BP Location Tested BP Systolic [...] Weight in lbs Pre/Post Dialysis Refused Weight 172.519855202211 BP Diastolic BP Location Tested BP Systolic [...] Weight in lbs Pre/Post Dialysis Refused Weight 172.896757690361 BP Diastolic BP Location Tested BP Systolic [...] Weight in lbs Pre/Post Dialysis Refused Weight 175.501676051597 BP Diastolic BP Location Tested BP Systolic BP Type 80 131 Fetus Heart Rate Present A 120 Fetus Movement A Yes Comments Doing well. Still some const ipation, will increase colace, may add miralax. Tdap done. GBS next visit. Back to [facility] once more. Has preadmit scheduled. Discussed pediatricians, hospital bag, carseat installation. Flowsheet Date 11/23/2021 Olivo Score Blood Edema Fundus Height Fundus Units Glucose Ketones Leukocytes Nitrite Labor Signs Protein Cervic Dilation Cervic Effacement Cervic Station neg trace 34 none trace 0cm 20% -2 Type Weight in lbs Pre/Post Dialysis Refused Weight 176.430187675839 BP Diastolic BP Location Tested BP Systolic BP Type 86 136 Fetus Heart Rate Present A 140 Fetus Movement A Yes Comments Doing well. COnstipation imp roved. Diflucan yesterday but has urinary sx also. UA and culture. macrobid. Trouble sleeping. [facility] last week- normal growth but drop in [...] Weight in lbs Pre/Post Dialysis Refused Weight 179.377141143653 BP Diastolic BP Location Tested BP Systolic [...] Weight in lbs Pre/Post Dialysis Refused Weight 178.090690943099 BP Diastolic BP Location Tested BP Systolic [...] Weight in lbs Pre/Post Dialysis Refused Weight 166.552164403847 BP Diastolic BP Location Tested BP Systolic [...] Estim ated Date of Delivery false Thalassemia (Chinese, Malian, Mediterranean, Or Background): MCV < 80 false Neural Tube Defect (Meningomyelocele, Spina Bifi da, Or Anencephaly) false Congenital Heart Defect false Down Syndrome false Scott-Sachs (eg, Jainism, Cajun, Thai-Hernando) f alse Megan Disease false Sickle Cell Disease Or Trait () false Hemophilia Or Other Blood Disorders false Muscular Dystrophy false Cystic Fibrosis false [place]'s Chorea false Intellectual Disability/Autism false If Yes, [...] Complications Tubal Sterilization Discharge Date Comments 2 [facility] idural 38.3 false Merissa Tammie CN Febrile Discharge Information Feeding Method Contraceptive Method Maternal HG B and HCT Levels Ob Episode Information Episode Created Date Number of Fetuses Patient Bloodtype Patient rh Status Prepregnancy Weight lbs Domestic Partner Domestic Partner Phone Father Name Sludge Filtration Attendant Status 01/09/20 25 1 B Negative 158 Alfonsobonita Arenason OPEN Fetus Data First Name Last Name Admitted to NICU Weight (g) Sex Living Outcome Pediatric Complications Fetus ID Race Codes Race Delivery Type [id number] Problems Problem Notes RPT PLT 05/13/25 Problem Name Start Date End Date Resolution Snomed Code Not e History of infertility - female [id number] prior to first delivery TTC x 5 years History of thrombocytopenia [id number] [facility] consult-referral faxed to [facility] 01/12/2025Level II US scheduled [facility] 03/02anesthesia consult serial CBCs recommended by [facility] 28, 32 and 34wksantenatal testing weekly to start at 32wks Past history of premature delivery [id number] 2nd pr egnancy, 35 weeks, with NICU staycervical us until 24wks Bo Calculation Initial Bo Date Initial Exam Date Initial Exam Provider Initial Ultrasound Date Last Menstrual Period Date Ultra Sound Weeks Gestation 07/18/2025 12/22/2024 Tammie Merissa 12/22/2024 10/11/2024 10 Eighteen To Twenty Week Bo Update Ultra Sound Date Fundal Height At Umbil Quickening Date Ultra Sound Latest Weeks Gestation Final Bo Confirmed By Final Bo Confirmed Date Final Bo Date Ultra Sound Latest Days Gestation 0 07/18/20 25 0 Pre- Flowsheet Flowsheet Date 01/09/2025 Olivo Score Blood Edema Fundus Height Fundus Units Glucose Ketones Leukocytes Nitrite Labor Signs Protein Cervic Dilation Cervic Effacement Cervic Station neg none none trace Type Weight in lbs Pre/Post Dialysis Refused Weight 161.497196395940 BP Diastolic BP Location Tested BP Systolic BP Type 76 118 Fetus Heart Rate Present Fetus Movement A Yes Comments Patient is having discharge, nausea and vomiting. reviewed history, updated, check PLT every month, mfm consult. hx delivery ar 35 weeks last , begin routine care Flowsheet Date 02/06/2025 Olivo Score Blood Edema Fundus Height Fundus Units Glucose Ketones Leukocytes Nitrite Labor Signs Protein Cervic Dilation Cervic Effacement Cervic Station neg trace Type Weight in lbs Pre/Post Dialysis Refused 161.348263911275 BP Diastolic BP Location Tested BP Systolic BP Type 76 121 Fetus Heart Rate Present Fetus Movement A Yes Comments Patient is having cramping, discharge, and swelling. has appt at [facility] for anatomy, doing well, +FM, precautions and education f/u 4 weeks Flowsheet Date 03/06/2025 Olivo Score Blood Edema Fundus Height Fundus Units Glucose Ketones Leukocytes Nitrite Labor Signs Protein Cervic Dilation Cervic Effacement Cervic Station neg trace Type Weight in lbs Pre/Post Dialysis Refused Weight 165.713795590226 BP Diastolic BP Location Tested BP Systolic BP Type 77 122 Fetus Heart Rate Present A 127 Present Fetus Movement A Yes Comments Patient is having some swell ing . [facility] rec TV us for CL, pt unsure about TV US, will plan US here abd, will discuss with US techs, plan plt at next visit, education and precautions Flowsheet Date 03/19/2025 Olivo Score Blood Edema Fundus Height Fundus Units Glucose Ketones Leukocytes Nitrite Labor Signs Protein Cervic Dilation Cervic Effacement Cervic Station Type Weight in lbs Pre/Post Dialysis Refused BP Diastolic BP Location Tested BP Systolic BP Type Fetus Heart Rate Present Fetus Movement Comments Flowsheet Date 03/30/2025 Olivo Score Blood Edema Fundus Height Fundus Units Glucose Ketones Leukocytes Nitrite Labor Signs Protein Cervic Dilation Cervic Effacement Cervic Station Type Weight in lbs Pre/Post Dialysis Refused BP Diastolic BP Location Tested BP Systolic BP Type Fetus Heart Rate Present Fetus Movement Comments Flowsheet Date 04/03/2025 Olivo Score Blood Edema Fundus Height Fundus Units Glucose Ketones Leukocytes Nitrite Labor Signs Protein Cervic Dilation Cervic Effacement Cervic Station neg trace Type Weight in lbs Pre/Post Dialysis Refused 167.283701867699 BP Diastolic BP Location Tested BP Systolic BP Type 75 117 Fetus Heart Rate Present A 139 Present Fetus Movement A Yes Comments Patient is having some swell ing. check PLT today. f/u 3 weeks will give order for rhogam and GCT to do at [facility] precautions and education reviewed Flowsheet Date 04/24/2025 Olivo Score Blood Edema Fundus Height Fundus Units Glucose Ketones Leukocytes Nitrite Labor Signs Protein Cervic Dilation Cervic Effacement Cervic Station neg trace Type Weight in lbs Pre/Post Dialysis Refused Weight 170.669783271177 BP Diastolic BP Location Tested BP Systolic BP Type 78 116 Fetus Heart Rate Present Fetus Movement A Yes Comments Patient states that is havin g some swelling. order for cbc gct and rhogam given. doing well +FM, start 2 week visits hx premature delivery plan growth at 32 weeks education and precautions Flowsheet Date 05/08/2025 Olivo Score Blood Edema Fundus Height Fundus Units Glucose Ketones Leukocytes Nitrite Labor Signs Protein Cervic Dilation Cervic Effacement Cervic Station Type Weight in lbs Pre/Post Dialysis Refused Weight 173.618131990029 BP Diastolic BP Location Tested BP Systolic BP Type 81 L arm 126 sitting Fetus Heart Rate Present A 141 Present Fetus Movement A Yes Comments +FM some increased pressure, PTL precautions, NST at 32 weeks for hx ptl, check PLT education and precautions Menstrual History Last Menstrual Date Menses Monthly [...] Domestic Partner Domestic Partner Phone Father Name Sludge Filtration Attendant Status 12/14/19 24 1 B Negative 157 Alfonso Steven CLOSED Fetus Data First Name Last Name Admitted to NICU Weight (g) Sex Living Outcome Pediatric Complications Fetus ID Race Codes Race Delivery Type 2381.35 8 M [id number] Vaginal Delivery Problems Problem Notes hx previous infertility x 5 years prior to first pregnancyduplicated left renal arteryNext MFM Appt: 06/04/24 1pm u/s and ovRecs: 1wk rpt visit for rpt CBC and delivery recommendations. Anesthesia consult. Problem Name Start Date End Date Resolution Snomed Code Not e Prophylactic immunotherapy [id number] received Thrombocytopenic disorder [id number] low plt - 99 - [facility] mfm 05/14/24 U/S & Consult - Rpt [...] Ultra Sound Latest Days Gestation 0 06/23/20 24 0 Pre- Flowsheet Flowsheet Date 12/14/2023 Olivo Score Blood Edema Fundus Height Fundus Units Glucose Ketones Leukocytes Nitrite Labor Signs Protein Cervic Dilation Cervic Effacement Cervic Station neg none none trace Type Weight in lbs Pre/Post Dialysis Refused Weight 156.429880087716 BP Diastolic BP Location Tested BP Systolic [...] Weight in lbs Pre/Post Dialysis Refused Weight 157.630087834949 BP Diastolic BP Location Tested BP Systolic [...] Weight in lbs Pre/Post Dialysis Refused Weight 158.824770296665 BP Diastolic BP Location Tested BP Systolic [...] Weight in lbs Pre/Post Dialysis Refused Weight 162.911237470882 BP Diastolic BP Location Tested BP Systolic [...] Weight in lbs Pre/Post Dialysis Refused Weight 164.62297731123 BP Diastolic BP Location Tested BP Systolic [...] Weight in lbs Pre/Post Dialysis Refused Weight 168.003787112841 BP Diastolic BP Location Tested BP Systolic [...] Weight in lbs Pre/Post Dialysis Refused Weight 172.951788363362 BP Diastolic BP Location Tested BP Systolic [...] Weight in lbs Pre/Post Dialysis Refused Weight 162.133932418221 BP Diastolic BP Location Tested BP Systolic [...] At Estimated Date of Delivery false Thalassemia (Chinese, Malian, Mediterranean, Or Background): MCV < 80 false Neural Tube Defect (Meningom yelocele, Spina Bifida, Or Anencephaly) false Congenital Heart Defect false Down Syndrome false Scott-Sachs (eg, Jainism, Cajun, Thai-Hernando) f alse Megan Disease false Sickle Cell Disease Or Trait () false Hemophilia Or Other Blood Disorders false Muscular Dystrophy false Cystic Fibrosis false [place]'s Chorea false Intellectual Disability/Autism false If Yes, [...]
[2025-05-15 23:58] VITALS: PULSE 109; O2SAT 98
[2025-05-16] VITALS (36 sets, daily range): BP systolic 98–137; BP diastolic 56–79; PULSE 87–154; TEMP 36.2–36.4; O2SAT 86–100; BMI 34.7
[2025-05-16] MEDS: TERBUTALINE SULFATE 1 MG/ML VIAL 0.25 MG SUB-Q (00:08)
[2025-05-16] MEDS: LACTATED RINGERS 1,000 ML 999 ML IV CONT (00:10)
[2025-05-16 00:13] LABS: Add Urine Microscopic? YES; Appearance Urine Clear (Clear); Glucose Urine UA Negative (Negative); Leukocyte Esterase Ur Trace LEU/UL (Negative); Nitrate Urine Negative (Negative); Non Pathogenic Casts 0-2; Specific Grav Ur 1.002 (1.001-1.035)
--- NOTE | 2025-05-16 00:28 | LDADM ---
This patient, Leanne Harris, was admitted to OB Post [facility] on 05/15/25 at 23:37. Plans for labor, pain management and were discussed with patient. Patient/family oriented to hospital policies and general routines including ID bracelet, bed and alarms, visiting hours, pain management, procedures, bathroom and other care routines, personal items, smoking policy, room service/diet and guest tray routines, security routines, and visiting hours. Patient/Family are encouraged to report perceived risks to care and to ask questions if they do not understand what they are told or what they should do. See OBIX for further documentation.
--- NOTE | 2025-05-16 00:40 | PC.NURSE ---
2337- Patient arrives to OB unit with complaints of abdominal tightening and vaginal pressure. Patient denies any leaking of fluid or vaginal bleeding. Patient has positive movement. Patient denies any complications this . Patient is a with an EDC of 07/18/25. Patient states the abdominal tightening and vaginal pressure started a few hours ago and that the tightening comes and goes frequently and does not last for very long. Patient states the vaginal pressure is constant, but is worse when she is using the restroom. 0000- RN phoned Dr. Sheldon regarding patient arrival and patient complaints. RN notified MD of FHT tracing with moderate variability as well as accelertions. RN also notified MD of the frequency of contractions that patient states are not painful, but just tightening as well as the vaginal pressure. RN also notified MD of cervical exam. MD gave orders for a 1L fluid bolus, one dose of terb, and to repeat cervical exam in one hour. MD gave orders to d/c patient to home if the cervical exam has not changed and the contractions stopped.
[2025-05-16] MEDS: LACTATED RINGERS 1,000 ML 125 ML IV CONT (03:19)
--- NOTE | 2025-05-18 17:37 | PM.OBTRLD ---
OB - Triage/Final Diagnosis Visit Information Comments/Additional reasons for admission: I have assessed the risk for this patient, Leanne Harris, and determined that she would benefit from observation care. Evaluation Laboratory results: Laboratory Tests 05/15/25 23:56 Urine Color Yellow Urine Appearance Clear Urine pH 7.0 Ur Specific [place] 1.002 Urine Protein Negative Urine Glucose (UA) Negative Urine Ketones Negative Ur Blood (Man) Negative Urine Nitrate Negative Urine Bilirubin Negative Urine Urobilinogen 0.2 Leukocyte Esterase Rfl Trace H Urine RBC 0-2 Urine WBC 0-5 Ur Squamous Epith Cells Few Urine Bacteria None seen Urine Casts 0-2 Final Diagnosis (1) Irregular contractions: Code(s): O47.9 - False labor, unspecified Status: Acute
== END 2025-05-16 08:22 | disposition home or self-care (01) ==
PROVIDERS: Admitting Provider Obstetrics & Gynecology; Visit Provider Obstetrics & Gynecology
DX: O47.03 False labor before 37 completed weeks of gestation, third trimester (principal); Z3A.31 31 weeks gestation of pregnancy
CPT/HCPCS: 81001; 96360; 96361; 96372; G0378; G0379; J3105; J7120

== ENCOUNTER 2025-05-18 01:50 | Observation (INO) | payer BC, SELFPAY ==
[2025-05-18] VITALS (11 sets, daily range): BP systolic 117–137; BP diastolic 55–77; PULSE 89–119; TEMP 36.7–37.1; BMI 34.2; BMI 34.4
--- OUTSIDE RECORDS SUMMARY | 2025-05-18 01:56 | XMS_ITS | Data Portability ---
Author Organization [facility] Address [address] [place] [address] Assessment Encounter Date Assessment Date Assessment LastModified by Organization Details LastModified Time 04/03/2025 04/03/2025 Patient is _24__weeks . Discussed plan. [email or web address] Not available 04/03/2025 14:08:34 04/24/2025 04/24/2025 Patient is __27_weeks . Discussed plan. [email or web address] Not available 04/24/2025 10:48:21 05/08/2025 05/08/2025 Patient is __29_weeks . Discussed plan. [email or web address] Not available 05/08/2025 10:37:28 Plan of Treatment [...] obstetr ic, follow- up 2024 [id number] [email or web address] [address], [place], [address], 03/30/2025 21:14:53 [place], [facility] 2024 [id number] [email or web address] [address], [address], [place], [address], 03/19/2025 22:49:41 Medication Orders None recorde d. Patient TargetsNo targets recorded. Patient InstructionsNo instructions recorded. Reason for Referral None Reported. Results Created Date Observation Date Name Description Value Unit Range Abnormal Flag Note LastModifiedBy Organization Detail LastModifiedTime 05/05/20 25 05/05/2025 GTT - GESTA MIR L, 3 HOUR, ACOG glucose, fasting acog 76 mg/dL 70-94 Not Available [facility] (Lab) [address], [place], [address], 05/06/2025 03:33:15 05/05/20 25 05/05/2025 GTT - GESTA MIR L, 3 HOUR, ACOG glucose, 1 hour acog 164 mg/dL 70-179 Not Available [facility] (Lab) [address] [facility], [place], [address], 05/06/2025 03:33:15 05/05/20 25 05/05/2025 GTT - GESTA MIR L, 3 HOUR, ACOG glucose, 2 hour acog 126 mg/dL 70-154 Not Available [facility] (Lab) [address] [facility], [place], [address], 05/06/2025 03:33:15 05/05/20 25 05/05/2025 GTT - GESTA MIR L, 3 HOUR, ACOG glucose, 3 hour acog 117 mg/dL 70-139 Not Available [facility] (Lab) [address] [facility], [place], [address], 05/06/2025 03:33:15 03/02/20 25 03/02/2025 US, obste tric, follo w-up No observ ation record ed. [email or web address] [facility] [address] , [place], [address], 04/07/2025 22:29:38 03/02/20 25 03/02/2025 US, obste tric, follo w-up No observ ation record ed. [email or web address] [facility] [address], [place], [address], 03/04/2025 22:52:53 03/19/20 25 03/19/2025 US, obste tric, limit ed No observ ation record ed. [email or web address] [address], [place], [address], 03/25/2025 06:22:37 03/19/20 03/19/2025 US, obste tric, limit ed No observ ation record ed. [email or web address] [address], [place], [address], 03/19/2025 18:12:38 03/30/20 25 03/30/2025 US, obste tric, follo w-up No observ ation record ed. [email or web address] [address], [place], [address], 03/30/2025 18:15:00 03/30/20 25 03/30/2025 US, obste tric, follo w-up No observ ation record ed. [email or web address] [address], [place], [address], 04/30/2025 15:13:51 Result Notes None recorded. Problems Name Problem SNOMED Code Status Onset Date Resolution Date Notes Provider Name and Address Organization Details Recorded Time Educatio n Completed 201805/10/2021 Encounte r for family planning advice;R ecorded Elsewher e: No Locat ion: [facility] S ource: EHR Nephrology Social Worker estella: N John ce ID: [id number] Kvng lable Time: 01:30:00 PM Mago tirado [facility] 1 11:28:[address] Concept Completed 201805/10/2021 Encntr for general adult medical exam w/o abnormal findings ;Recorde d Elsewher e: No Locat ion: [facility] S ource: EHR Nephrology Social Worker estella: N John ce ID: [id number] Kvng lable Time: 09:45:00 AM Mago tirado [facility] 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 1 11:29:04 Finding of fertilit y Completed 201805/10/2021 Female infertil ity, unspecif ied;Prac amari ID: 0001 Mago tirado, [facility] 1 11:29:00 Pregnanc y 68089564 Completed 202012/23/2021 Mago Phillips [facility], [facility] 5 16:40:45 ultrasou nd scan abnormal 4276286251 9109 Completed Enlarged lateral ventricl e - 08/23 Level II U/S - No VSD. RESOLVED !! Final US @ 36 wks w/ MFM 11/24 315PM Pending CMV/parv o b/w Rossy aleman [facility], [facility] 2 15:15:00 Antenata l care: history of infertil ity 751896200 Completed spon preg, TTC 5 years Rossy aleman [facility] 2 15:15:00 Prophyla ctic immunoth erapy Completed received 03/29/24 Mago Phillips [facility] 4 11:57:56 Thromboc ytopenic disorder 954235503 Completed low plt - 99 - [facility] 05/14/24 U/S & Consult - Rpt CBC and MFM visit in 1 wk. Delivery recommen dations at that time. Anesth esia consult Mago Phillips [facility] 4 11:57:56 Pregnanc y 22926535 Active 2024 Mago Phillips [facility] 5 16:40:45 History of thromboc ytopenia 1801825776 9108 Active [facility] consult- referral faxed to [facility] 01/12/2025 Level II US schedule d [facility] 03/02 anesthes ia consult serial CBCs recommen ded by [facility] 28, 32 and 34wks antenata l testing weekly to start at 32wks Bre tirado [facility] 5 15:47:05 History of infertil ity - female 703934474 Active prior to first delivery TTC x 5 years Tammie Craven, CNM [address], [place], [address], [place] [facility] 5 16:46:21 Past pregnanc y history of prematur e delivery 211393458 Active 2nd pregnanc y, 35 weeks, with NICU stay cervical us until 24wks Bre Alvaro tirado [facility] 5 15:43:30 Problem Notes None recorded. Procedures Surgical History Date Name Laterality Status Provider Name and Address Organization Details Recorded Time 06/13/20 23 Date of Last Pap Smear completed Mago Phillips [facility] 11/09/2023 16:36:37 01/15/20 21 Laparoscopy completed Mago Phillips [facility] 05/10/2021 12:32:04 11/12/18 94 operation on hip joint completed Mago Phillips [facility] 05/10/2021 12:34:56 11/12/18 94 procedure on ear completed Mago Phillips [facility] 11/09/2023 16:38:25 11/12/18 93 tonsilectomy/ad enoids completed Mago Phillips [facility] 11/09/2023 16:37:40 11/12/18 93 operation on ossicular chain of middle ear completed Mago Phillips [facility] 05/10/2021 12:34:18 11/12/18 92 procedure on ear completed Mago Phillips [facility] 11/09/2023 16:38:20 11/12/18 90 procedure on ear completed Mago Amortz [facility] 11/09/2023 16:38:15 11/12/18 89 operation on hip joint completed Mago Amortz [facility] 05/10/2021 12:33:26 Imaging Results None recorded. Procedure Notes None recorded. Medical Equipment None Reported. Allergies Allergen ID Allergen Name Allergen Category Reaction Reaction Severity Criticality Documentation Date Start Date Code Code System Note Provider Name and Address Organization Details Recorded Time 393 lactose food,medi cation Not available Not available Not available 03/09/2020 6211 RxNorm Mago Phillips [facility] 0 17:28:25 Medications Name Sig Start [...] Prescrib ed Elsewher e: No Locat ion: [facility] M odify By: alea wagoner DateTime : [...] Elsewher e: Yes Loca tion: Jasbir padron [facility] odify By: [place] z Encoun ter DateTime : 01/22/20 09:45:00 [...] ed Elsewher e: Yes Loca tion: Jasbir [facility] odify By: [place] z Encoun ter DateTime : 01/22/20 09:45:00 AM Not Available Not Available Not Available Caltrate 600 plus D active Not Available Not Available Not Available Women's One Daily 18 mg iron-400 mcg-500 mg Ca tablet 11/09 completed Prescrib dary Boss e: Yes Loca tion: Jasbir [facility] M odify By: [email or web address] z [...] Address Organization Details Last Updated DateTime 04/03/2025 36441.925 79 g 32.6 kg/m2 152.4 cm 117/75 mm[Hg] Mago Phillips [facility] 04/03/2025 12:30:55 Date Recorded Body height Body mass index (BMI) Body weight Systolic And Diastolic Provider Name and Address Organization Details Last Updated DateTime 04/24/2025 152.4 cm 33.2 kg/m2 64410.7 g 116/78 mm[Hg] Mago Phillips [facility] 04/24/2025 10:29:37 Date Recorded Body height Body mass index (BMI) Body weight Systolic And Diastolic Provider Name and Address Organization Details Last Updated DateTime 05/08/2025 152.4 cm 33.8 kg/m2 84448.48 g 126/81 mm[Hg] Akosua Carr [facility] 05/08/2025 10:30:09 Social History Question Answer Notes LastModified by Organizat ion Details LastModified Time Tobacco Smoking Status Never Smoker Mago Phillips [facility] 11/09/2023 16:35:52 Do You Have An Advance Directive? No [email or web address] Information n ot available 05/10/2021 If You Are , What Was Your Level Of Alcohol Consumption Prior To ? None [email or web address] Information not available 11/09/2023 Are You Blind Or Do You Have Difficulty Seeing? No [email or web address] Information n ot available 05/10/2021 What Is Your Level Of Caffeine Consumption? Moderate [email or web address] Information not available 05/10/2021 How Much Tobacco Do You Chew? None [email or web address] Information not available 05/10/2021 In The 14 Days Before Symptom Onset, Have You Had Close Contact With A Laboratory-confirm ed COVID-19 While That Case Was Ill? No [email or web address] Information n ot available 05/10/2021 In The 14 Days Before Symptom Onset, Have You Had Close Contact With A Person Who Is Under Investigation For COVID-19 While That Person Was Ill? No [email or web address] Information not available 05/10/2021 Have You Been To An Area Known To Be High Risk For COVID-19? No [email or web address] Information not available 05/10/2021 Are You Deaf Or Do You Have Serious Difficulty Hearing? No [email or web address] Information not available 05/10/2021 What Type Of Diet Are You Following? REGULAR [email or web address] Information n ot available 05/10/2021 What Is The Highest Grade Or Level Of School You Have Completed Or The Highest Degree You Have Received? MO12499-3 [email or web address] Information not available 05/10/2021 Are There Any Guns Present In Your Home? No Information not available 05/10/2021 What Was The Date Of Your Most Recent Tobacco Screening? 02/06/2025 [email or web address] Information not available 02/06/2025 Do You Use Protection During Sex? No Information not available 05/10/2021 Do You Use Your Seat Belt Or Car Seat Routinely? Yes [email or web address] Information not available 05/10/2021 Do You Have Smoke And Carbon Monoxide Detectors In Your Home? Yes [email or web address] Information not available 05/10/2021 How Much Tobacco Do You Smoke? No [email or web address] Information not available 05/10/2021 Do You Use Sunscreen Routinely? No [email or web address] Information not available 05/10/2021 Has Tobacco Cessation Counseling Been Provided? No [email or web address] Information not available 11/09/2023 Have You Used IV Drugs? No [email or web address] Information not available 05/10/2021 Do You Have Difficulty Walking Or Climbing Stairs? No [email or web address] Information not available 11/09/2023 Sex: Unknown Functional Status Question Answer Note LastModified by Organizat ion Details LastModified Time Do you use any illicit or recreational drugs? No Information not available 05/10/2021 Do you or have you ever used any other forms of tobacco or nicotine? No [email or web address] Information not available 11/09/2023 What is your level of alcohol consumption? None [email or web address] Information not available 03/09/2020 Are you able to walk? YESWOREST [email or web address] Information not available 05/10/2021 Are you able to care for yourself? 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 No [email or web address] Information not available 11/09/2023 What is your exercise level? Occasional [email or web address] Information not available 03/09/2020 Mental Status Question Answer Note LastModified by Organization D etails LastModified Time Do you feel stressed (tense, restless, nervous, or anxious, or unable to sleep at night)? [id number] [email or web address] Information not available 11/09/2023 Family History Relationship Description Onset Age of this Age Resolved Age Notes LastModified by Organization Details LastModified Time Mother Hypertensive disorder [email or web address] Not available 03/09 17:30:21 Father Hypertensive disorder Not available 03/09 17:30:29 Father Malignant neoplasm of prostate [email or web address] Not available 2021 15:59:30 Maternal Grandfather Heart disease [email or web address] Not available 03/09 17:30:54 Paternal Grandfather Heart disease [email or web address] Not available 03/09 17:30:54 Medical History Condition Response Other N Blood Transfusion N Dermatologic Disorders N Gestational Diabetes N Anxiety Disorder N Autoimmune disease N Arthritis N Polyps N Infertility Y Acid Reflux (GERD) Y Cancer N Varicosities N Stroke N Neurologic/Epilepsy N Fibromyalgia N Headaches N Kidney Disease N Heart Problems N Kidney or Bladder Problems N Eating Disorder N Art (IVF or FET) N Hepatitis/Liver Disease N No Past Medical History N Urinary Tract Infection N Asthma N Trauma/Violence N Thrombophilias N Allergies (Food, seasonal, environmental ) Y Breast Cancer N Drug/Latex Allergies/Reactions N Lung Disease N Defects or Inherited Disease N Breast Problem N Hematologic disorders N Anesthesia Complications N History of STI N Deep Vein Thrombosis N Polycystic ovary syndrome N History of abnormal pap N Endometriosis N High Cholesterol N Thyroid Problems N GI Problems N Anemia N Psychiatric Illness N Ovarian Cancer N Diabetes N Pulmonary (TB, Asthma) N Eczema N Abuse/Domestic Violence N Depression/ depression N Heart Disease N Pre-Eclampsia N Hypertension N Osteoporosis N Gynecological History Statement/Question Response Date of [...] Definite N Obstetrics History GPAL:G 3 P 2 0 0 2 Type Value Full Term 2 Living 2 Total 3 Past Encounters Encounter ID Performer Location Encounter Start Date Encounter Closed Date Diagnosis/Indication Diagnosis SNOMED-CT Code Diagnosis ICD10 Code Diagnosis Note [id number] Tammie Craven CNM [address] [place] [address] 03/09/2020 12:37:34 03/09/2020 12:38:16 Female infertility associated with anovulation 588447053 N97.0 History of infertility - female 023518807 Z87.42 suspect anovulatio n [id number] Juliocesar Arciniega MD [facility] [address],[place] [address] 05/10/2021 11:50:59 05/10/2021 13:16:01 [id number] Tammie Craven CNM [facility] [address],[place] [address] 05/10/2021 11:52:08 05/10/2021 22:27:09 Amenorrhea 30882505 N91.2 [id number] Juliocesar Arciniega MD [facility] [address],[place] [address] 06/08/2021 14:54:20 06/08/2021 15:37:50 screening 458758893 Z36.82 [id number] Juliocesar Arciniega MD [facility] [address],[place] [address] 06/08/2021 14:56:45 06/08/2021 17:39:48 Routine care 140205802 Z34.90 [id number] Haylie Quintero MD [facility] [address],[place] [address] 07/05/2021 17:00:55 07/05/2021 23:34:26 Routine care 605488426 Z34.02 [id number] Haylie Quintero MD [facility] [address],[place] [address] 07/05/2021 17:06:58 07/06/2021 09:01:06 [id number] Haylie Quintero MD [facility] [address],[place] [address] 08/09/2021 16:32:28 08/09/2021 17:35:43 screening for malformation 594654334 Z36.3 [id number] Haylie Quintero MD [facility] [address],[place] [address] 08/09/2021 16:33:19 08/10/2021 15:52:45 ultrasound scan abnormal 2158654556 9109 R93.89 Routine an tenatal care 079647944 Z34.02 [id number] Haylie Quintero MD [facility] [address],[place] [address] 08/30/2021 15:49:12 08/30/2021 16:32:53 ultrasound scan abnormal 8910943110 9109 R93.89 Routine an tenatal care 243809122 Z34.02 [id number] Haylie Quintero MD [facility] [address] [address] 09/28/2021 10:46:06 09/28/2021 11:48:55 ultrasound scan abnormal 6709420030 9109 R93.89 Routine an tenatal care 369591770 Z34.02 [id number] Haylie Quintero MD [facility] [address] [address] 10/03/2021 16:59:59 10/03/2021 17:46:40 Vaginitis 66428508 N76.0 Candidal vulvovaginitis 04254022 B37.3 Increased frequency of urination 612344601 R35.0 [id number] MD Jermain Watson [address],[place] [address] 10/14/2021 16:28:02 10/15/2021 09:51:30 Routine care 879411535 Z34.02 Irregular uterine contractions 64414182 O62.2 [id number] Haylie Quintero MD [facility] [address] [address] 10/26/2021 16:48:46 10/28/2021 16:45:33 Routine care 284355482 Z34.02 [id number] Haylie Quintero MD [facility] [address] [address] 11/09/2021 16:43:06 11/09/2021 17:30:27 Routine care 708066616 Z34.02 [id number] Haylie Quintero MD [facility] [address],[place] [address] 11/23/2021 16:23:13 11/24/2021 17:09:40 Routine care 484062946 Z34.02 [id number] Juliocesar Arciniega MD [facility] [address] [address] 11/25/2021 16:37:05 12/22/2021 14:09:22 [id number] Haylie Quintero MD [facility] [address],[place] [address] 11/30/2021 16:35:51 12/02/2021 16:00:50 Routine care 838733542 Z34.02 [id number] Haylie Quintero MD [facility] [address],[place] [address] 12/07/2021 15:58:38 12/07/2021 16:30:18 Central nervous system malformation in fetus affecting obstetrical care 4490074 O35.0XX0 Z3A.38 [id number] Haylie Quintero MD [facility] [address],[place] [address] 12/07/2021 15:59:22 12/09/2021 09:45:23 Routine care 407900921 Z34.02 [id number] Haylie Quintero MD [facility] [address],[place] [address] 12/19/2021 12:35:26 12/19/2021 13:32:49 care 934764879 Z39.0 [id number] Haylie Quintero MD [facility] [address],[place] [address] 01/09/2022 14:43:23 01/09/2022 19:56:46 care 900224308 Z39.0 [id number] Joyce Iraheta [facility] [address],[place] [address] 06/13/2023 18:03:46 06/14/2023 16:21:39 Gynecologic examination 52721773 Z01.419 Take Calcium with Vitamin D 1200mg [...] Screen naDexa Screen naRoutine Labs PCP Dyspareunia 15577398 N94 .10 Chronic PFDRef PTInformat ion given for additional home review.Vag valium if not trying to for - -can consider https://ww w.pelvicpa in.org/maribell ges/pdf/Pa tient%20In fo%20Hando uts%732800 /PELVIC%20 FLOOR%20DY SFUNCTION% 20PFD%2019.pdf [id number] Juliocesar Arciniega MD [facility] [address],[place] [address] 10/26/2023 13:30:57 10/26/2023 14:10:57 Threatened miscarriage 68752392 O20.0 Z3A.01 [id number] Juliocesar Arciniega MD [facility] [address] [address] 11/09/2023 15:19:34 11/09/2023 16:17:12 Uterine size for dates discrepancy 443823362 O26.841 Z3A.01 [id number] Tammie Craven, [facility] [address],[place] [address] 11/09/2023 15:20:54 11/09/2023 16:50:48 Amenorrhea 89861374 N91.2 reviewed office, precaution svaccine recf/u 12 week new ob and first lookreglan unisom/b6 for nausea Routine an tenatal care 719646780 Z34.91 Nausea and vomiting 1693 2000 R11.2 [id number] Juliocesar Aricniega MD [facility] [address],[place] [address] 11/29/2023 17:27:10 12/11/2023 17:15:39 [id number] Juliocesar Arciniega MD [facility] [address],[place] [address] 12/14/2023 11:01:23 12/14/2023 11:40:32 screening 524230522 Z36.82 Z3A.11 [id number] Tammie Craven [facility] [address],[place] [address] 12/14/2023 11:01:43 12/14/2023 12:13:09 Gestation period, 12 weeks 42389086 Z3A.12 [id number] [facility] [address],[place] [address] 01/11/2024 11:39:59 01/11/2024 12:08:41 Routine care 845490299 Z34.91 [id number] Juliocesar Arciniega MD [facility] [address] [address] 01/18/2024 12:03:06 01/18/2024 12:39:12 [id number] Juliocesar Arciniega MD [facility] [address] [address] 02/08/2024 11:26:39 02/08/2024 14:06:08 screening for malformation 889267923 Z36.3 [id number] [facility] [address],[place] [address] 02/08/2024 11:28:26 02/08/2024 14:07:04 Routine care 335722307 Z34.91 [id number] Tammie Craven CNM [facility] [address],[place] [address] 03/07/2024 11:16:27 03/07/2024 11:57:19 Routine care 169922764 Z34.91 [id number] [facility] [address],[place] [address] 04/04/2024 09:03:38 04/04/2024 10:36:01 Routine care 050357210 Z34.91 [id number] Tammie Craven [facility] [address],[place] [address] 04/23/2024 10:02:14 04/23/2024 10:52:56 Routine care 877423989 Z34.91 [id number] Juliocesar Arciniega MD [facility] [address] [address] 05/09/2024 15:23:03 05/09/2024 16:07:50 Uterine size for dates discrepancy 611386697 O26.843 Z3A.33 1989 Tammie Craven [facility] [address],[place] [address] 05/09/2024 15:23:28 05/09/2024 16:43:03 Routine care 307244631 Z34.91 [id number] Tammie Craven [facility] [address],[place] [address] 05/30/2024 11:43:51 05/30/2024 12:34:22 care 235371910 Z39.2 Benign ges tational thrombocytopenia 174011531 D69.59 rpt cbc and cmp todaysleep when ablemonito r for headaches, visual changes, epigastric painf/u pending labscall if desires control method [id number] Tammie Craven [facility] [address],[place] [address] 08/29/2024 09:34:47 08/29/2024 10:45:03 care 465284778 Z39.2 normal pp exam f/u wwe [id number] MD Jermain SWANN [address],[place] [address] 12/22/2024 10:58:26 12/22/2024 11:40:13 [id number] MD Jermain SWANN [address] [address] 12/22/2024 10:59:24 12/22/2024 17:16:53 test positive 234892097 Z32.01 1. Exam today within normal limits.2. Ultrasound today confirms GA and viability. EDC . GC/Clamydi a testing done: will f/u as indicated. 4. ACOG guidelines and plan of care for reviewed with patient. All questions answered.5 . Return to office at 12 weeks for new OB visit6. OB labs ordered today.7. Genetic screening: desires, drawn today. Benign ges tational thrombocytopenia 920142019 O99.119 - hx of gestationa l thrombocyt openia x2- Plt 70 on admission at 35 weeks for PPROM- discussed close monitoring of plt count this - due to slightly increased risk of PTL/PPROM in this , consider MFM consult if thrombocyt openia occurs for discussion of steroid burst around 35 weeks in case of PPROM again [id number] Juliocesar Arciniega MD [facility] [address] [address] 01/05/2025 15:57:59 01/05/2025 16:42:25 screening 027138343 Z36.82 Z3A.12 [id number] Tammie Craven [facility] [address] [address] 01/09/2025 10:48:09 01/12/2025 02:33:48 Gestation period, 12 weeks 89074870 Z3A.12 Routine an tenatal care [id number] Z34.91 [id number] [facility] [address],[place] [address] 02/06/2025 09:48:00 02/06/2025 10:09:24 Gestation period, 16 weeks [id number] Z3A.16 [id number] [facility] [place] [address],[place] [address] 03/06/2025 12:33:58 03/08/2025 23:10:20 Platelet count below reference range [id number] D69.6 Gestation period, 21 weeks [id number] Z3A.21 [id number] Juliocesar Arciniega MD [facility] [address],[place] [address] 03/19/2025 17:29:55 03/19/2025 18:00:28 Suspected clinical finding [id number] Z03.75 Z87.51 Z3A.22 [id number] Juliocesar Arciniega MD [facility] [address],[place] [address] 03/30/2025 09:35:22 03/30/2025 10:42:02 care: obstetric risk [id number] O09.292 Z3A.24 [id number] Tammie Craven [facility] [address],[place] [address] 04/03/2025 12:20:07 04/03/2025 14:20:37 Gestation period, 24 weeks [id number] Z3A.24 [id number] Tammie Craven [facility] [address],[place] [address] 04/24/2025 10:23:17 04/24/2025 10:59:43 Gestation period, 27 weeks [id number] Z3A.27 [id number] Tammie Craven [facility] [address],[place] [address] 05/08/2025 10:16:47 05/08/2025 11:18:17 Gestation period, 29 weeks [id number] Z3A.29 Health Concerns Section Related Observation LastModified by Organization Detai ls LastModified Time None Recorded Concern Status LastModified by Organization Details LastModified Time None Recorded Advance Directives Directive N: Payers Insurance Date Sequence Insurance Name Policy Number Policy Calabrese Covered Member ID Calabrese Member ID Guarantor Name 05/08/2025 1 [place] [id number] Leanne Harris [id number] Leanne Harris OBGyn Episode Ob Episode Information Episode Created Date Number of Fetuses Patient Bloodtype Patient rh Status Prepregnancy Weight lbs Domestic Partner Domestic Partner Phone Father Name Drier Feeder Status 06/08/20 21 1 B Negative 152 CLOSED Fetus Data First Name Last Name Admitted to NICU Weight (g) Sex Living Outcome Pediatric Complications Fetus ID Race Codes Race Delivery Type Bon 3090.09 55 M true Full Term 10777 Vaginal Delivery Problems Problem Notes declines cf/sma and NIPT - N IPT drawn 08/23/21 due to abnormal Level II U/SDunbar pt!! Problem Name Start Date End Date Resolution Snomed Code Not e ultrasound scan abnormal SELFRESOLVED [id number] Enlarged lat eral ventricle - 08/23 Level II U/S - No VSD. RESOLVED!! Final US @ 36 wks w/ MFM 11/24 315PM Pending CMV/parvo b/w care: history of infertility [id number] spon preg, TTC 5 years Bo Calculation [...] Weight in lbs Pre/Post Dialysis Refused Weight 150.452405447293 BP Diastolic BP Location Tested BP Systolic [...] Weight in lbs Pre/Post Dialysis Refused Weight 153.318453760584 BP Diastolic BP Location Tested BP Systolic [...] Weight in lbs Pre/Post Dialysis Refused Weight 159.903128506422 BP Diastolic BP Location Tested BP Systolic [...] Weight in lbs Pre/Post Dialysis Refused Weight 161.664614089452 BP Diastolic BP Location Tested BP Systolic BP Type 86 124 Fetus Heart Rate Present A 150 Fetus Movement A Yes Comments Feeling well. Getting flu sh ot this week. Will discuss Tdap next visit. Saw MFM, no concern for VSD but slightly enlarged lateral ventricle. Did NIPT- low risk. Has appt at [facility] on Wednesday 09/05. Questions answered, support given. Orders given for Rhogam and 28w labs. Flowsheet Date 09/28/2021 Olivo Score Blood Edema Fundus Height Fundus Units Glucose Ketones Leukocytes Nitrite Labor Signs Protein Cervic Dilation Cervic Effacement Cervic Station trace 26 Type Weight in lbs Pre/Post Dialysis Refused Weight 167.265515259901 BP Diastolic BP Location Tested BP Systolic [...] Weight in lbs Pre/Post Dialysis Refused Weight 162.867022889162 BP Diastolic BP Location Tested BP Systolic [...] Weight in lbs Pre/Post Dialysis Refused Weight 172.577160704705 BP Diastolic BP Location Tested BP Systolic [...] yet. Needs dental letter. Flowsheet Date 10/26/2021 Oliov Score Blood Edema Fundus Height Fundus Units Glucose Ketones Leukocytes Nitrite Labor Signs Protein Cervic Dilation Cervic Effacement Cervic Station neg none 30 none trace Type Weight in lbs Pre/Post Dialysis Refused Weight 172.597194238366 BP Diastolic BP Location Tested BP Systolic [...] Weight in lbs Pre/Post Dialysis Refused Weight 175.266666773486 BP Diastolic BP Location Tested BP Systolic BP Type 80 131 Fetus Heart Rate Present A 120 Fetus Movement A Yes Comments Doing well. Still some const ipation, will increase colace, may add miralax. Tdap done. GBS next visit. Back to [facility] once more. Has preadmit scheduled. Discussed pediatricians, hospital bag, carseat installation. Flowsheet Date 11/23/2021 Olivo Score Blood Edema Fundus Height Fundus Units Glucose Ketones Leukocytes Nitrite Labor Signs Protein Cervic Dilation Cervic Effacement Cervic Station neg trace 34 none trace 0cm 20% -2 Type Weight in lbs Pre/Post Dialysis Refused Weight 176.940535629278 BP Diastolic BP Location Tested BP Systolic BP Type 86 136 Fetus Heart Rate Present A 140 Fetus Movement A Yes Comments Doing well. COnstipation imp roved. Diflucan yesterday but has urinary sx also. UA and culture. macrobid. Trouble sleeping. [facility] last week- normal growth but drop [...] Weight in lbs Pre/Post Dialysis Refused Weight 179.182500297844 BP Diastolic BP Location Tested BP Systolic [...] Weight in lbs Pre/Post Dialysis Refused Weight 178.169694671909 BP Diastolic BP Location Tested BP Systolic [...] Weight in lbs Pre/Post Dialysis Refused Weight 166.297681235843 BP Diastolic BP Location Tested BP Systolic [...] Estim ated Date of Delivery false Thalassemia (Slovenian, New Zealander, Mediterranean, Or Background): MCV < 80 false Neural Tube Defect (Meningomyelocele, Spina Bifi da, Or Anencephaly) false Congenital Heart Defect false Down Syndrome false Scott-Sachs (eg, Methodist, Cajun, Georgian-Page) f alse Megan Disease false Sickle Cell Disease Or Trait () false Hemophilia Or Other Blood Disorders false Muscular Dystrophy false Cystic Fibrosis false Lowber's Chorea false Intellectual Disability/Autism false If Yes, [...] Complications Tubal Sterilization Discharge Date Comments [facility] idural 38.3 false Merissa Tammie CN Febrile Discharge Information Feeding Method Contraceptive Method Maternal HG B and HCT Levels Ob Episode Information Episode Created Date Number of Fetuses Patient Bloodtype Patient rh Status Prepregnancy Weight lbs Domestic Partner Domestic Partner Phone Father Name Drier Feeder Status 01/09/20 25 1 B Negative 158 Alfonsobonita Arenason OPEN Fetus Data First Name Last Name Admitted to NICU Weight (g) Sex Living Outcome Pediatric Complications Fetus ID Race Codes Race Delivery Type [id number] Problems Problem Notes RPT PLT 05/13/25 Problem Name Start Date End Date Resolution Snomed Code Not e History of infertility - female [id number] prior to first delivery TTC x 5 years History of thrombocytopenia [id number] [facility] consult-referral [facility] 01/12/2025Level II US scheduled [facility] 03/02anesthesia consult serial CBCs recommended by [facility] 28, 32 and 34wksantenatal testing weekly to start at 32wks Past history of premature delivery 515513355 2nd pr egnancy, 35 weeks, with NICU [...] Weight in lbs Pre/Post Dialysis Refused Weight 161.789106692602 BP Diastolic BP Location Tested BP Systolic [...] Type Weight in lbs Pre/Post Dialysis Refused 161.880421135251 BP Diastolic BP Location Tested BP Systolic BP Type 76 121 Fetus Heart Rate Present Fetus Movement A Yes Comments Patient is having cramping, discharge, and swelling. has appt at [facility] for anatomy, doing well, +FM, precautions and education f/u 4 weeks Flowsheet Date 03/06/2025 Olivo Score Blood Edema Fundus Height Fundus Units Glucose Ketones Leukocytes Nitrite Labor Signs Protein Cervic Dilation Cervic Effacement Cervic Station neg trace Type Weight in lbs Pre/Post Dialysis Refused Weight 165.002334078455 BP Diastolic BP Location Tested BP Systolic BP Type 77 122 Fetus Heart Rate Present A 127 Present Fetus Movement A Yes Comments Patient is having some swell ing . [facility] rec TV us for CL, pt unsure [...] Type Weight in lbs Pre/Post Dialysis Refused 167.270580886065 BP Diastolic BP Location Tested BP Systolic BP Type 75 117 Fetus Heart Rate Present A 139 Present Fetus Movement A Yes Comments Patient is having some swell ing. check PLT today. f/u 3 weeks will give order for rhogam and GCT to do at [facility] precautions and education reviewed Flowsheet Date 04/24/2025 Olivo Score Blood Edema Fundus Height Fundus Units Glucose Ketones Leukocytes Nitrite Labor Signs Protein Cervic Dilation Cervic Effacement Cervic Station neg trace Type Weight in lbs Pre/Post Dialysis Refused Weight 170.103802780566 BP Diastolic BP Location Tested BP Systolic [...] Weight in lbs Pre/Post Dialysis Refused Weight 173.959914559811 BP Diastolic BP Location Tested BP Systolic [...] Domestic Partner Domestic Partner Phone Father Name Drier Feeder Status 12/14/19 24 1 B Negative 157 Alfonso Steven CLOSED Fetus Data First Name Last Name Admitted to NICU Weight (g) Sex Living Outcome Pediatric Complications Fetus ID Race Codes Race Delivery Type 2381.35 8 M [id number] Vaginal Delivery Problems Problem Notes hx previous infertility x 5 years prior to first pregnancyduplicated left renal arteryNext MFM Appt: 06/04/24 1pm u/s and ovRecs: 1wk rpt visit for rpt CBC and delivery recommendations. Anesthesia consult. Problem Name Start Date End Date Resolution Snomed Code Not e Prophylactic immunotherapy [id number] received Thrombocytopenic disorder [id number] low plt - 99 - [facility] [...] Weight in lbs Pre/Post Dialysis Refused Weight 156.451558319306 BP Diastolic BP Location Tested BP Systolic [...] Weight in lbs Pre/Post Dialysis Refused Weight 157.199722550613 BP Diastolic BP Location Tested BP Systolic [...] Weight in lbs Pre/Post Dialysis Refused Weight 158.558905151933 BP Diastolic BP Location Tested BP Systolic [...] Weight in lbs Pre/Post Dialysis Refused Weight 162.951237880864 BP Diastolic BP Location Tested BP Systolic [...] Weight in lbs Pre/Post Dialysis Refused Weight 164.80823526722 BP Diastolic BP Location Tested BP Systolic [...] Weight in lbs Pre/Post Dialysis Refused Weight 168.976429443544 BP Diastolic BP Location Tested BP Systolic [...] Weight in lbs Pre/Post Dialysis Refused Weight 172.264262604057 BP Diastolic BP Location Tested BP Systolic BP Type 84 132 Fetus Heart Rate Present Fetus Movement A Yes Comments Patient is having swelling. discussed PLT, had lovenox in ED, dopplers negative, today efw 55%, vertex, planning Tdap, covid, booster tomorrow, will await cbc, if plt lower plan MFM, precautions and education Flowsheet Date 05/30/2024 Oilvo Score Blood Edema Fundus Height Fundus Units Glucose Ketones Leukocytes Nitrite Labor Signs Protein Cervic Dilation Cervic Effacement Cervic Station Type Weight in lbs Pre/Post Dialysis Refused Weight 162.516498156414 BP Diastolic BP Location Tested BP Systolic [...] At Estimated Date of Delivery false Thalassemia (Slovenian, New Zealander, Mediterranean, Or Background): MCV < 80 false Neural Tube Defect (Meningom yelocele, Spina Bifida, Or Anencephaly) false Congenital Heart Defect false Down Syndrome false Scott-Sachs (eg, Methodist, Cajun, Georgian-Page) f alse Megan Disease false Sickle Cell Disease Or Trait () false Hemophilia Or Other Blood Disorders false Muscular Dystrophy false Cystic Fibrosis false Lowber's Chorea false Intellectual Disability/Autism false If Yes, [...]
--- OUTSIDE RECORDS SUMMARY | 2025-05-18 01:57 | XMS_ITS | Clinical Summary ---
Author Organization [facility] [place] Address [address] [place] [address] Care Team Providers Care Movie Producer Name Role Phone Mumtaz Choi MD Primary Care Provider [phone] Source Comments [facility],non-owned Affiliates and Associated Physician Practices is amultiple site organization consisting of ambulatory clinics and hospital sitesin [place], [place], [place] and [place]. This disclosure is being madepursuant to the Care Everywhere program and may not contain all information available regarding this patient. Last updated 18.[facility]: [place] Allergies Active Allergy Reactions Criticality Noted Date [...] Harris was screened for depression using the [place] Depression Scale (EPDS) at her [facility] initial evaluation on 09/05/2021. Her initial [...] from the original note were not included. ASSISTED PATIENT--PLEASE CALL [phone] (ex 2) IF TRIAGED OR ADMITTED Care Provider: Dr. Quintero [facility] consultants involved: RN- Lucas; MFM- Dr. Thakkar Diagnosis: Mild right ventriculomegaly (slightly increased in diameter at 10.5mm at 09/05/21 ASSISTED US). Planned surveillance: Initial ASSISTED 09/05/21. Growth in 2 weeks at [place], and follow up ultrasound for growth and assessment of ventricles between 32-36 weeks. Continue routine care with primary OB. Delivery location: with primary OB at hospital of choice ([facility]) Delivery mode: per usual OB indications Desired Delivery GA: No indication for delivery before 39 weeks at this time follow up: head imaging with pediatrican Editing Intern: Undecided Autopsy indicated: Genetics note: LR NIPT-Male Insecticide Maker Concerns: 09/05/2021- There are no social service [...] and heating? Not hard at all 05/14/2024 [facility] of Occupat ional Health - Occupational Stress [...] place to sleep or slept in a snf (including now)? No 05/14/2024 [place] Depression Scale Answer Date Recorded [place] Depression Scale Total 7 05/14/2024 The thought [...] age to complete this topic Insurance [facility] Address: [facility] [id number] [place] [address] Care Teams Movie Producer Relationship Specialty Start Date End Date Mumtaz Choi MD [address] [place] [address] PCP - General Family Medicine 04/15/19
--- OUTSIDE RECORDS SUMMARY | 2025-05-18 01:57 | XMS_ITS | Clinical Summary ---
Author Organization [facility] Address [address] [place] [address] Care Team Providers Care Design Draftsman Name Role Phone Unknown, Notinfile Primary Care [...] Comments Blood Pressure 138/80 09/20/2024 2:41 PM SUPPLY CHAIN DIRECTOR Pulse 88 09/20/2024 2:41 PM SUPPLY CHAIN DIRECTOR Temperature 36.7 C (98 F) 09/20/2024 2:41 PM SUPPLY CHAIN DIRECTOR Respiratory Rate 20 09/20/2024 2:41 PM SUPPLY CHAIN DIRECTOR Oxygen Saturation 97% 09/20/2024 2:41 PM SUPPLY CHAIN DIRECTOR Inhaled Oxygen Concentration - - Weight 70.3 kg (155 lb) 09/20/2024 2:41 PM SUPPLY CHAIN DIRECTOR Height 149.9 cm (4' 11) 09/20/2024 2:41 PM SUPPLY CHAIN DIRECTOR Body Mass Index 31.31 09/20/2024 2:41 PM SUPPLY CHAIN DIRECTOR Plan of Treatment Health Maintenance Due Date [...] patient's age to complete this topic Insurance [facility] [employer] [place] [employer] [place] Care Teams Design Draftsman Relationship Specialty Start Date End Date Unknown, Notinfile PCP - General 01/15/24
--- OUTSIDE RECORDS SUMMARY | 2025-05-18 01:57 | XMS_ITS | Clinical Summary ---
Author Organization [facility] Address [address] [place] [address] Phone Care Team Providers Care Pulp Making Plant Operator Name Role Phone Unavailable Primary Care Provider [...] - 03/02/2025 11:59 PM CDT Hospital Encounter [facility] [address] [place] [address] Tammie Craven NP Discharge Disposition: Home or Self Care 02/16/2025 2:00 PM CDT Video Visit [facility] - [facility] [address] [place] [address] Gale Le MD 18 weeks gestation of (Primary Dx); Benign gestational thrombocytopenia in second trimester; History of delivery, currently in second trimester; Multigravida of advanced maternal age in second trimester 02/16/2025 Telephone [facility] [address] [address] Yaima Meredith A Follow Up [...] Comments Blood Pressure 112/71 01/14/2021 3:00 PM TIME BUYER Pulse 92 01/14/2021 3:00 PM TIME BUYER Temperature 36.2 C (97.1 F) 01/14/2021 11:30 AM TIME BUYER Respiratory Rate 15 01/14/2021 3:00 PM TIME BUYER Oxygen Saturation 95% 01/14/2021 3:00 PM TIME BUYER Inhaled Oxygen Concentration - - Weight 71.2 [...] HARRIS Study Date: 03/02/2025 1:45pm Pat. NO: [id number] Referring MD: TAMMIE CRAVEN CNM Site: [place] [employer]: Yvette Mayes RDMS : 1990 Age: 34 ----- INDICATION ----- Anatomy Survey with History of Labor (PTL) 35 weeks Advanced Maternal Age (AMA), Multigravida CODING ----- Diagnoses Z3A.20: Weeks of gestation O09.522: Supervision of elderly multigravida O09.212: Supervision of with history of pre-term labor Z36.3: Encounter for screening for malformations Procedures 12045: Ultrasound, uterus, real time with image documentation, [...] 0 lb 13 oz EFW by Hadlock ([id number]) Head / Face / Neck Biometry: Superintendent Pier 5.1 mm CM 3.6 mm 10% Nicolaides [...] view. RVOT view. LVOT view. 3-vessel view. 6-iqmkyd-ygdcuwk view. Situs. Aortic arch view. Ductal arch [...] and date of were verified by the computer security coordinator before the exam IMPRESSION ----- 1. Single [...] Pat. Name:Adolph HARRIS Date:03/02/2025 1:45pm Pat. NO: [id number] MD:LICO STRICKLAND [facility]Yvette Mayes RDMS :1990Age:34 ----- INDICATION ----- Anatomy Survey with History of Labor (PTL) 35 weeks Advanced Maternal Age (AMA), Multigravida CODING ----- Diagnoses Z3A.20: Weeks of gestation O09.522: Supervision of elderly magnogravida O09.212: Supervision of with history ofpre-term labor Z36.3: Encounter for screening formalformations Procedures 37558: Ultrasound, uterus, real time withimage documentation, and maternal evaluation plus detailed anatomic examination,transabdominal approach MATERNAL ASSESSMENT ----- Physical Exam Weight 71 kg. BMI 30.66 kg/m METHOD ----- Transabdominal ultrasound examination ----- Davidson . Number of fetuses: 1 DATING ----- Method of dating:based on stated TONY GA by prior [id number] w + 2 d TONY by prior [...] 0 lb 13 oz EFW by Hadlock ([id number]) Head / Face / Neck Biometry: Superintendent Pier 5.1 mm CM 3.6 mm 10%Nicolaides Outer [...] 4-chamber view. RVOT view. LVOT view. 3-vesselview. 7-bwmhzq-efzrjyi view. Situs. Aortic arch view. Ductal arch [...] and date of were verified by the computer security coordinator beforethe exam IMPRESSION ----- 1. Single living [...] Final Result from Last 3 Months Insurance [facility] BLUE ACCESS/TRUE BLUE PPO
--- OUTSIDE RECORDS SUMMARY | 2025-05-18 01:57 | XMS_ITS | Referral Summary ---
Author Organization [facility] Address [address] [place] [address] Care Team Providers Care Chairman & Ceo Name Role Phone Unknown, Notinfile Primary Care [...] Comments Blood Pressure 138/80 09/20/2024 2:41 PM SHAKE SAWYER Pulse 88 09/20/2024 2:41 PM SHAKE SAWYER Temperature 36.7 C (98 F) 09/20/2024 2:41 PM SHAKE SAWYER Respiratory Rate 20 09/20/2024 2:41 PM SHAKE SAWYER Oxygen Saturation 97% 09/20/2024 2:41 PM SHAKE SAWYER Inhaled Oxygen Concentration - - Weight 70.3 kg (155 lb) 09/20/2024 2:41 PM SHAKE SAWYER Height 149.9 cm (4' 11) 09/20/2024 2:41 PM SHAKE SAWYER Body Mass Index 31.31 09/20/2024 2:41 PM SHAKE SAWYER Plan of Treatment Not on file Insurance [facility] [place] Care Teams Chairman & Ceo Relationship Specialty Start Date End Date Unknown, Notinfile PCP - General 01/15/24
[2025-05-18] MEDS: BETAMETHASONE SOD PHOS/ACETATE 30 MG/5 ML VIAL 12 MG IM (02:39)
--- NOTE | 2025-05-18 02:51 | OBADM ---
This patient, Leanne Harris, admitted to the OB room Labor/Delivery/Recovery 105 for observation. Patient/family oriented to hospital policies and general routines including ID bracelet, bed and alarms, visiting hours, pain management, procedures, bathroom and other care routines, personal items, smoking policy, room service/diet, and visiting hours. Patient/Family are encouraged to report perceived risks to care and to ask questions if they do not understand what they are told or what they should do.
[2025-05-18] MEDS: TERBUTALINE SULFATE 1 MG/ML VIAL 0.25 MG SUB-Q (03:01)
--- NOTE | 2025-05-18 06:09 | PC.NURSE ---
Pt discharged home undelivered in stable condition per order from Dr. Sheldon. Discharge instructions explained and given to pt, pt stated understanding. Pt to come back for second betamethasone shot 05/19/25 between 6-9 AM. All questions and concerns answered. Pt ambulated out of department with all belongings.
--- NOTE | 2025-05-19 09:40 | PM.OBTRLD ---
OB - Triage/Final Diagnosis Visit Information Comments/Additional reasons for admission: I have assessed the risk for this patient, Leanne Harris, and determined that she would benefit from observation care. Final Diagnosis (1) Irregular contractions: Code(s): O47.9 - False labor, unspecified Status: Acute
== END 2025-05-18 06:12 | disposition home or self-care (01) ==
PROVIDERS: Admitting Provider Obstetrics & Gynecology; Visit Provider Obstetrics & Gynecology
DX: O47.03 False labor before 37 completed weeks of gestation, third trimester (principal); Z3A.31 31 weeks gestation of pregnancy
CPT/HCPCS: 96372; A9270; G0378; G0379; J0702; J3105

== ENCOUNTER 2025-05-19 08:07 | Outpatient (CLI) | payer BC, SELFPAY ==
--- OUTSIDE RECORDS SUMMARY | 2025-05-19 08:15 | XMS_ITS | Clinical Summary ---
Author Organization [facility] Address [address] [place] [address] Care Team Providers Care Reading Tutor Name Role Phone Unknown, Notinfile Primary Care [...] Comments Blood Pressure 138/80 09/20/2024 2:41 PM CULINARY MANAGER Pulse 88 09/20/2024 2:41 PM CULINARY MANAGER Temperature 36.7 C (98 F) 09/20/2024 2:41 PM CULINARY MANAGER Respiratory Rate 20 09/20/2024 2:41 PM CULINARY MANAGER Oxygen Saturation 97% 09/20/2024 2:41 PM CULINARY MANAGER Inhaled Oxygen Concentration - - Weight 70.3 kg (155 lb) 09/20/2024 2:41 PM CULINARY MANAGER Height 149.9 cm (4' 11) 09/20/2024 2:41 PM CULINARY MANAGER Body Mass Index 31.31 09/20/2024 2:41 PM CULINARY MANAGER Plan of Treatment Health Maintenance Due Date [...] patient's age to complete this topic Insurance [facility] [employer] [place] [place] Care Teams Reading Tutor Relationship Specialty Start Date End Date Unknown, Notinfile PCP - General 01/15/24
--- OUTSIDE RECORDS SUMMARY | 2025-05-19 08:15 | XMS_ITS | Clinical Summary ---
Author Organization [facility] Address [address] [place] [address] Phone Care Team Providers Care Editor Farm Journal Name Role Phone Unavailable Primary Care Provider [...] - 03/02/2025 11:59 PM CDT Hospital Encounter [facility] [address] [place] [address] Tammie Craven NP Discharge Disposition: Home or Self Care from Last 3 Months Family History Medical [...] Comments Blood Pressure 112/71 01/14/2021 3:00 PM IT BUSINESS PROCESS ARCHITECT Pulse 92 01/14/2021 3:00 PM IT BUSINESS PROCESS ARCHITECT Temperature 36.2 C (97.1 F) 01/14/2021 11:30 AM IT BUSINESS PROCESS ARCHITECT Respiratory Rate 15 01/14/2021 3:00 PM IT BUSINESS PROCESS ARCHITECT Oxygen Saturation 95% 01/14/2021 3:00 PM IT BUSINESS PROCESS ARCHITECT Inhaled Oxygen Concentration - - Weight 71.2 [...] HPV VACCINES Aged Out No longer eligi mohan based on patient's age to complete this [...] HARRIS Study Date: 03/02/2025 1:45pm Pat. NO: [id number] Referring MD: TAMMIE CRAVEN CNM Site: [facility] Dosimetrist: Yvette Mayes RDMS : 1990 Age: 34 ----- INDICATION ----- Anatomy Survey with History of Labor (PTL) 35 weeks Advanced Maternal Age (AMA), Multigravida CODING ----- Diagnoses Z3A.20: Weeks of gestation O09.522: Supervision of elderly multigravida O09.212: Supervision of with history of pre-term labor Z36.3: Encounter for screening for malformations Procedures 31901: Ultrasound, uterus, real time with image documentation, [...] 0 lb 13 oz EFW by Hadlock ([id number]) Head / Face / Neck Biometry: Business Reporting Developer 5.1 mm CM 3.6 mm 10% Nicolaides [...] view. RVOT view. LVOT view. 3-vessel view. 9-irtvxd-esjwmfm view. Situs. Aortic arch view. Ductal arch [...] and date of were verified by the manager imaging before the exam IMPRESSION ----- 1. Single [...] Pat. Name:Adolph HARRIS Date:03/02/2025 1:45pm Pat. NO: [id number] MD:TAMMIE CRAVEN CNM [facility]Yvette Mayes RDMS :1990Age:34 ----- INDICATION ----- Anatomy Survey with History of Labor (PTL) 35 weeks Advanced Maternal Age (AMA), Multigravida CODING ----- Diagnoses Z3A.20: Weeks of gestation O09.522: Supervision of elderly multigravida O09.212: Supervision of with history ofpre-term labor Z36.3: Encounter for screening formalformations Procedures [id number]: Ultrasound, uterus, real time withimage documentation, and maternal evaluation plus detailed anatomic examination,transabdominal approach MATERNAL ASSESSMENT ----- Physical Exam Weight 71 kg. BMI 30.66 kg/m METHOD ----- Transabdominal ultrasound examination ----- Davidson . Number of fetuses: 1 DATING ----- Method of dating:based on stated TONY GA by prior [id number] w + 2 d TONY by prior [...] 0 lb 13 oz EFW by Hadlock ([id number]) Head / Face / Neck Biometry: Business Reporting Developer 5.1 mm CM 3.6 mm 10%Nicolaides Outer [...] 4-chamber view. RVOT view. LVOT view. 3-vesselview. 7-ndiedw-sjixzjo view. Situs. Aortic arch view. Ductal arch [...] and date of were verified by the manager imaging beforethe exam IMPRESSION ----- 1. Single living [...] of this patient. us Tammie Craven NP ORDERABLES Final Result from Last 3 Months Insurance [facility] BLUE ACCESS/TRUE BLUE PPO
--- OUTSIDE RECORDS SUMMARY | 2025-05-19 08:15 | XMS_ITS | Referral Summary ---
Author Organization [facility] Address [address] [place] [address] Care Team Providers Care Aquatic Habitat Biologist Name Role Phone Unknown, Notinfile Primary Care [...] Comments Blood Pressure 138/80 09/20/2024 2:41 PM ORDER EXPEDITER Pulse 88 09/20/2024 2:41 PM ORDER EXPEDITER Temperature 36.7 C (98 F) 09/20/2024 2:41 PM ORDER EXPEDITER Respiratory Rate 20 09/20/2024 2:41 PM ORDER EXPEDITER Oxygen Saturation 97% 09/20/2024 2:41 PM ORDER EXPEDITER Inhaled Oxygen Concentration - - Weight 70.3 kg (155 lb) 09/20/2024 2:41 PM ORDER EXPEDITER Height 149.9 cm (4' 11) 09/20/2024 2:41 PM ORDER EXPEDITER Body Mass Index 31.31 09/20/2024 2:41 PM ORDER EXPEDITER Plan of Treatment Not on file Insurance [facility] [place] Care Teams Aquatic Habitat Biologist Relationship Specialty Start Date End Date Unknown, Notinfile PCP - General 01/15/24
--- OUTSIDE RECORDS SUMMARY | 2025-05-19 08:15 | XMS_ITS | Data Portability ---
Author Organization [facility] Address [address] [place] [address] Assessment Encounter Date Assessment Date Assessment LastModified by Organization Details LastModified Time 04/03/2025 04/03/2025 Patient is _24__weeks . Discussed plan. Not available 04/03/2025 14:08:34 04/24/2025 04/24/2025 Patient is __27_weeks . Discussed plan. Not available 04/24/2025 10:48:21 05/08/2025 05/08/2025 Patient is __29_weeks . Discussed plan. [email or web address] Not available 05/08/2025 10:37:28 Plan of Treatment [...] obstetr ic, follow- up 2024 025 [email or web address] [address], [place], [address], 03/30/2025 21:14:53 [place] ic, limited 2024 025 [email or web address] [address], [address], [place], [address], 03/19/2025 22:49:41 Medication Orders None recorde d. Patient TargetsNo targets recorded. Patient InstructionsNo instructions recorded. Reason for Referral None Reported. Results Created Date Observation Date Name Description Value Unit Range Abnormal Flag Note LastModifiedBy Organization Detail LastModifiedTime 05/05/20 25 05/05/2025 GTT - GESTA MIR L, 3 HOUR, ACOG glucose, fasting acog 76 mg/dL 70-94 Not Available [facility] (Lab) [address], [place], [address], 05/06/2025 03:33:15 05/05/20 25 05/05/2025 GTT - GESTA MIR L, 3 HOUR, ACOG glucose, 1 hour acog 164 mg/dL 70-179 Not Available [facility] (Lab) [address], [place], [address], 05/06/2025 03:33:15 05/05/20 25 05/05/2025 GTT - GESTA MIR L, 3 HOUR, ACOG glucose, 2 hour acog 126 mg/dL 70-154 Not Available [facility] (Lab) [address], [place], [address], 05/06/2025 03:33:15 05/05/20 25 05/05/2025 GTT - GESTA MIR L, 3 HOUR, ACOG glucose, 3 hour acog 117 mg/dL 70-139 Not Available [facility] (Lab) [address], [place], [address], 05/06/2025 03:33:15 03/02/20 25 03/02/2025 US, obste tric, follo w-up No observ ation record ed. [email or web address] [facility] [address] , [place], [address], 04/07/2025 22:29:38 03/02/20 25 03/02/2025 US, obste tric, follo w-up No observ ation record ed. [email or web address] [facility] [address], [place], [address], 03/04/2025 22:52:53 03/19/20 25 03/19/2025 US, obste tric, limit ed No observ ation record ed. [email or web address] [address], [place], [address], 03/25/2025 06:22:37 03/19/20 03/19/2025 US, obste tric, limit ed No observ ation record ed. [email or web address] [facility] [address], [place], [address], 03/19/2025 18:12:38 03/30/20 25 03/30/2025 US, obste tric, follo w-up No observ ation record ed. [email or web address] [facility] [address], [place], [address], 03/30/2025 18:15:00 03/30/20 25 03/30/2025 US, obste tric, follo w-up No observ ation record ed. [email or web address] [address], [place], [id number], 04/30/2025 15:13:51 Result Notes None recorded. Problems Name Problem SNOMED Code Status Onset Date Resolution Date Notes Provider Name and Address Organization Details Recorded Time Educatio n Completed 201805/10/2021 Encounte r for family planning advice;R ecorded Elsewher e: No Locat ion: [facility] S ource: EHR Reservoir Engineer estella: N John ce ID: [id number] Kvng lable Time: 01:30:00 PM Mago tirado [facility] 1 11:28:[address] Concept Completed 201805/10/2021 Encntr for general adult medical exam w/o abnormal findings ;Recorde d Elsewher e: No Locat ion: [facility] S ource: EHR Reservoir Engineer estella: N John ce ID: [id number] Kvng lable Time: 09:45:00 AM Mago tirado [facility] 1 11:29:[address] Concept Completed 201805/10/2021 Encntr for busgirl exam (general ) (routine ) w/o abn findings ;Recorde d Elsewher e: No Locat ion: [facility] S ource: EHR Reservoir Engineer estella: N Practi ce ID: [id number] Kvng lable Time: 09:45:00 AM Mago tirado, [facility] 1 11:29:04 Finding of fertilit y Completed 201805/10/2021 Female infertil ity, unspecif ied;Prac amari ID: [id number] Mago tirado, [facility] 1 11:29:00 Pregnanc y 53670683 Completed 202012/23/2021 Mago Phillips [facility], [facility] 5 16:40:45 ultrasou nd scan abnormal [id number] 9109 Completed Enlarged lateral ventricl e - 08/23 Level II U/S - No VSD. RESOLVED !! Final US @ 36 wks w/ MFM 11/24 315PM Pending CMV/parv o b/w Rossy aleman [facility], [facility] 2 15:15:00 Antenata l care: history of infertil ity [id number] Completed spon preg, TTC 5 years Rossy aleman [facility] 2 15:15:00 Prophyla ctic immunoth erapy Completed received 03/29/24 Mago Phillips [facility] 4 11:57:56 Thromboc ytopenic disorder 247312356 Completed low plt - 99 - [place] mf 05/14/24 U/S & Consult - Rpt CBC and MFM visit in 1 wk. Delivery recommen dations at that time. Anesth esia consult Mago Phillips [facility] 4 11:57:56 Pregnanc y 42792458 Active 2024 Mago Phillips [facility] 5 16:40:45 History of thromboc ytopenia 6999054465 9108 Active [facility] consult- referral faxed to [facility] 01/12/2025 Level II US schedule d [facility] 03/02 anesthes ia consult serial CBCs recommen ded by [facility] 28, 32 and 34wks antenata l testing weekly to start at 32wks Bre tirado [facility] 5 15:47:05 History of infertil ity - female 231199561 Active prior to first delivery TTC x 5 years Tammie Craven, CNM [address], [place], [address], [place] [facility] 5 16:46:21 Past pregnanc y history of prematur e delivery 825583061 Active 2nd pregnanc y, 35 weeks, with NICU stay cervical us until 24wks Bre Alvaro tirado [facility] 5 15:43:30 Problem Notes None recorded. Procedures Surgical History Date Name Laterality Status Provider Name and Address Organization Details Recorded Time 06/13/20 23 Date of Last Pap Smear completed Mago Phillips [facility] 11/09/2023 16:36:37 01/15/20 21 Laparoscopy completed Mago Phillips [facility] 05/10/2021 12:32:04 11/12/18 94 operation on hip joint completed Mago Phillips [facility] 05/10/2021 12:34:56 11/12/18 94 procedure on ear completed Mago Phillips [facility] 11/09/2023 16:38:25 11/12/18 93 tonsilectomy/ad enoids completed Mago Phillips [facility] 11/09/2023 16:37:40 11/12/18 93 operation on ossicular chain of middle ear completed Mago Phillips [facility] 05/10/2021 12:34:18 11/12/18 92 procedure on ear completed Mago Phillips [facility] 11/09/2023 16:38:20 11/12/18 90 procedure on ear completed Mago Amortz [facility] 11/09/2023 16:38:15 11/12/18 89 operation on hip joint completed Mago Amortz [facility] 05/10/2021 12:33:26 Imaging Results None recorded. Procedure Notes None recorded. Medical Equipment None Reported. Allergies Allergen ID Allergen Name Allergen Category Reaction Reaction Severity Criticality Documentation Date Start Date Code Code System Note Provider Name and Address Organization Details Recorded Time 393 lactose food,medi cation Not available Not available Not available 03/09/2020 6211 RxNorm Mago Phillips [facility] 0 17:28:25 Medications Name Sig [...] Prescrib ed Elsewher e: No Locat ion: [facility] M odify By: alea wagoner DateTime : [...] Elsewher e: Yes Loca tion: Jasbir padron [facility] odify By: Skysheetmarques z Encoun ter DateTime : 01/22/20 09:45:00 [...] ed Elsewher e: Yes Loca tion: Jasbir [facility] odify By: Skysheetmarques z Encoun ter DateTime : 01/22/20 09:45:00 AM Not Available Not Available Not Available Caltrate 600 plus D active Not Available Not Available Not Available Women's One Daily 18 mg iron-400 mcg-500 mg Ca tablet 11/09 completed Prescrib dary Boss e: Yes Loca tion: Jasbir [facility] M odify By: [email or web address] z Encoun ter [...] Address Organization Details Last Updated DateTime 04/03/2025 45198.925 79 g 32.6 kg/m2 152.4 cm 117/75 mm[Hg] Mago Phillips [facility] 04/03/2025 12:30:55 Date Recorded Body height Body mass index (BMI) Body weight Systolic And Diastolic Provider Name and Address Organization Details Last Updated DateTime 04/24/2025 152.4 cm 33.2 kg/m2 79354.7 g 116/78 mm[Hg] Mago Phillips [facility] 04/24/2025 10:29:37 Date Recorded Body height Body mass index (BMI) Body weight Systolic And Diastolic Provider Name and Address Organization Details Last Updated DateTime 05/08/2025 152.4 cm 33.8 kg/m2 04278.48 g 126/81 mm[Hg] Akosua Carr [facility] 05/08/2025 10:30:09 Social History Question Answer Notes LastModified by Organizat ion Details LastModified Time Tobacco Smoking Status Never Smoker Mago Phillips [facility] 11/09/2023 16:35:52 Do You Have An Advance Directive? No [email or web address] Information n ot available 05/10/2021 If You Are , What Was Your Level Of Alcohol Consumption Prior To ? None [email or web address] Information not available 11/09/2023 Are You Blind Or Do You Have Difficulty Seeing? No [email or web address] Information n ot available 05/10/2021 What Is Your Level Of Caffeine Consumption? Moderate [email or web address] Information not available 05/10/2021 How Much Tobacco Do You Chew? None [email or web address] Information not available 05/10/2021 In The 14 Days Before Symptom Onset, Have You Had Close Contact With A Laboratory-confirm ed COVID-19 While That Case Was Ill? No [email or web address] Information n ot available 05/10/2021 In The 14 Days Before Symptom Onset, Have You Had Close Contact With A Person Who Is Under Investigation For COVID-19 While That Person Was Ill? No [email or web address] Information not available 05/10/2021 Have You Been To An Area Known To Be High Risk For COVID-19? No [email or web address] Information not available 05/10/2021 Are You Deaf Or Do You Have Serious Difficulty Hearing? No [email or web address] Information not available 05/10/2021 What Type Of Diet Are You Following? REGULAR [email or web address] Information n ot available 05/10/2021 What Is The Highest Grade Or Level Of School You Have Completed Or The Highest Degree You Have Received? [id number] [email or web address] Information not available 05/10/2021 Are There Any Guns Present In Your Home? No [email or web address] Information not available 05/10/2021 What Was The Date Of Your Most Recent Tobacco Screening? 02/06/2025 Information not available 02/06/2025 Do You Use Protection During Sex? No [email or web address] Information not available 05/10/2021 Do You Use Your Seat Belt Or Car Seat Routinely? Yes [email or web address] Information not available 05/10/2021 Do You Have Smoke And Carbon Monoxide Detectors In Your Home? Yes [email or web address] Information not available 05/10/2021 How Much Tobacco Do You Smoke? No [email or web address] Information not available 05/10/2021 Do You Use Sunscreen Routinely? No [email or web address] Information not available 05/10/2021 Has Tobacco Cessation Counseling Been Provided? No [email or web address] Information not available 11/09/2023 Have You Used IV Drugs? No [email or web address] Information not available 05/10/2021 Do You Have Difficulty Walking Or Climbing Stairs? No [email or web address] Information not available 11/09/2023 Sex: Unknown Functional Status Question Answer Note LastModified by Organizat ion Details LastModified Time Do you use any illicit or recreational drugs? No [email or web address] Information not available 05/10/2021 Do you or have you ever used any other forms of tobacco or nicotine? No Information not available 11/09/2023 What is your level of alcohol consumption? None Information not available 03/09/2020 Are you able to walk? YESWOREST [email or web address] Information not available 05/10/2021 Are you able to care for yourself? 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 No [email or web address] Information not available 11/09/2023 What is your exercise level? Occasional Information not available 03/09/2020 Mental Status Question Answer Note LastModified by Organization D etails LastModified Time Do you feel stressed (tense, restless, nervous, or anxious, or unable to sleep at night)? [id number] [email or web address] Information not available 11/09/2023 Family History Relationship Description Onset Age of this Age Resolved Age Notes LastModified by Organization Details LastModified Time Mother Hypertensive disorder [email or web address] Not available 03/09 17:30:21 Father Hypertensive disorder [email or web address] Not available 03/09 17:30:29 Father Malignant neoplasm of prostate [email or web address] Not available 2021 15:59:30 Maternal Grandfather Heart disease [email or web address] Not available 03/09 17:30:54 Paternal Grandfather Heart disease [email or web address] Not available 03/09 17:30:54 Medical History Condition Response Allergies (Food, seasonal, environmental ) Y Other N Breast Cancer N Drug/Latex Allergies/Reactions N Blood Transfusion N Dermatologic Disorders N Lung Disease N Defects or Inherited Disease N Breast Problem N Gestational Diabetes N Hematologic disorders N Anesthesia Complications N History of STI N Deep Vein Thrombosis N Polycystic ovary syndrome N Anxiety Disorder N Autoimmune disease N Arthritis N Infertility Y Polyps N Acid Reflux (GERD) Y History of abnormal pap N Cancer N Stroke N Varicosities N Neurologic/Epilepsy N Endometriosis N High Cholesterol N Headaches N Fibromyalgia N Kidney Disease N Heart Problems N Kidney or Bladder Problems N Thyroid Problems N GI Problems N Eating Disorder [...] Code Diagnosis Note [id number] Tammie Craven CNM [facility] [address] [place] [address] 03/09/2020 12:37:34 03/09/2020 12:38:16 Female infertility associated with anovulation 979228628 N97.0 History of infertility - female 813357536 Z87.42 suspect anovulatio n [id number] Juliocesar Arciniega MD [facility] [address],[facility] [address] 05/10/2021 11:50:59 05/10/2021 13:16:01 [id number] Tammie Craven CNM [facility] [address],[facility] [place] [address] 05/10/2021 11:52:08 05/10/2021 22:27:09 Amenorrhea 49646670 N91.2 [id number] Juliocesar Arciniega MD [facility] [address],[place] [address] 06/08/2021 14:54:20 06/08/2021 15:37:50 screening 350666030 Z36.82 [id number] Juliocesar Arciniega MD [facility] [address],[place] [address] 06/08/2021 14:56:45 06/08/2021 17:39:48 Routine care 156181734 Z34.90 [id number] Haylie Quintero MD [facility] [address],[place] [address] 07/05/2021 17:00:55 07/05/2021 23:34:26 Routine care 671215910 Z34.02 [id number] Haylie Quintero MD [facility] [address],[place] [address] 07/05/2021 17:06:58 07/06/2021 09:01:06 [id number] Haylie Quintero MD [facility] [address],[place] [address] 08/09/2021 16:32:28 08/09/2021 17:35:43 screening for malformation 202398022 Z36.3 [id number] Haylie Quintero MD [facility] [address],[place] [address] 08/09/2021 16:33:19 08/10/2021 15:52:45 ultrasound scan abnormal 1531116890 9109 R93.89 Routine an tenatal care 436317741 Z34.02 [id number] Haylie Quintero MD [facility] [address],[place] [address] 08/30/2021 15:49:12 08/30/2021 16:32:53 ultrasound scan abnormal 7022950854 9109 R93.89 Routine an tenatal care 113566388 Z34.02 [id number] Haylie Quintero MD [facility] [address],[place] [address] 09/28/2021 10:46:06 09/28/2021 11:48:55 ultrasound scan abnormal 1390596461 9109 R93.89 Routine an tenatal care 951977387 Z34.02 [id number] Haylie Quintero MD [facility] [address],[place] [address] 10/03/2021 16:59:59 10/03/2021 17:46:40 Vaginitis 27400434 N76.0 Candidal vulvovaginitis 80632870 B37.3 Increased frequency of urination 412692948 R35.0 [id number] MD Jermain Watson [address],[place] [address] 10/14/2021 16:28:02 10/15/2021 09:51:30 Routine care 770719013 Z34.02 Irregular uterine contractions 43134793 O62.2 [id number] Haylie Quintero MD [facility] [address],[place] [address] 10/26/2021 16:48:46 10/28/2021 16:45:33 Routine care 695343971 Z34.02 [id number] Haylie Quintero MD [facility] [address],[place] [address] 11/09/2021 16:43:06 11/09/2021 17:30:27 Routine care 585547615 Z34.02 [id number] Haylie Quintero MD [facility] [address],[place] [address] 11/23/2021 16:23:13 11/24/2021 17:09:40 Routine care 121993385 Z34.02 [id number] Juliocesar Arciniega MD [facility] [address],[place] [address] 11/25/2021 16:37:05 12/22/2021 14:09:22 [id number] Haylie Quintero MD [facility] [address],[place] [address] 11/30/2021 16:35:51 12/02/2021 16:00:50 Routine care 356058343 Z34.02 [id number] Haylie Quintero MD [facility] [address],[place] [address] 12/07/2021 15:58:38 12/07/2021 16:30:18 Central nervous system malformation in fetus affecting obstetrical care 1109979 O35.0XX0 Z3A.38 [id number] Haylie Quintero MD [facility] [address],[place] [address] 12/07/2021 15:59:22 12/09/2021 09:45:23 Routine care 728857542 Z34.02 [id number] Haylie Quintero MD [facility] [address],[place] [address] 12/19/2021 12:35:26 12/19/2021 13:32:49 care 981991558 Z39.0 [id number] Haylie Quintero MD [facility] [address],[place] [address] 01/09/2022 14:43:23 01/09/2022 19:56:46 care 709554572 Z39.0 [id number] Joyce Iraheta [facility] [address],[place] [address] 06/13/2023 18:03:46 06/14/2023 16:21:39 Gynecologic examination 81058408 Z01.419 Take Calcium with Vitamin D 1200mg [...] Screen naDexa Screen naRoutine Labs PCP Dyspareunia 57180685 N94 .10 Chronic PFDRef PTInformat ion given for additional home review.Vag valium if not trying to for - -can consider https://ww w.pelvicpa in.org/maribell ges/pdf/Pa tient%20In fo%20Hando uts%161727 /PELVIC%20 FLOOR%20DY SFUNCTION% 20PFD%2019.pdf [id number] Juliocesar Arciniega MD [facility] [address],[place] [address] 10/26/2023 13:30:57 10/26/2023 14:10:57 Threatened miscarriage 15345943 O20.0 Z3A.01 [id number] Juliocesar Arciniega MD [facility] [address] [address] 11/09/2023 15:19:34 11/09/2023 16:17:12 Uterine size for dates discrepancy 810344349 O26.841 Z3A.01 [id number] Tammie Craven, [facility] [address],[place] [address] 11/09/2023 15:20:54 11/09/2023 16:50:48 Amenorrhea 69665320 N91.2 reviewed office, precaution svaccine recf/u 12 week new ob and first lookreglan unisom/b6 for nausea Routine an tenatal care 160722158 Z34.91 Nausea and vomiting 1693 2000 R11.2 [id number] Juliocesar Arciniega MD [facility] [address],[place] [address] 11/29/2023 17:27:10 12/11/2023 17:15:39 [id number] Juliocesar Arciniega MD [facility] [address],[place] [address] 12/14/2023 11:01:23 12/14/2023 11:40:32 screening 741420275 Z36.82 Z3A.[id number] [facility] [address],[place] [address] 12/14/2023 11:01:43 12/14/2023 12:13:09 Gestation period, 12 weeks 84602445 Z3A.12 [id number] [facility] [address],[place] [address] 01/11/2024 11:39:59 01/11/2024 12:08:41 Routine care 621077024 Z34.91 [id number] Juliocesar Arciniega MD [facility] [address],[place] [address] 01/18/2024 12:03:06 01/18/2024 12:39:12 [id number] Juliocesar Arciniega MD [facility] [address],[place] [address] 02/08/2024 11:26:39 02/08/2024 14:06:08 screening for malformation 354637079 Z36.3 [id number] [facility] [address],[place] [address] 02/08/2024 11:28:26 02/08/2024 14:07:04 Routine care 665463049 Z34.91 [id number] Tammie Craven CNM [facility] [address],[place] [address] 03/07/2024 11:16:27 03/07/2024 11:57:19 Routine care 958277592 Z34.91 [id number] [facility] [address],[place] [address] 04/04/2024 09:03:38 04/04/2024 10:36:01 Routine care 506207696 Z34.[id number] [facility] [address],[place] [address] 04/23/2024 10:02:14 04/23/2024 10:52:56 Routine care 444311930 Z34.91 1989 Juliocesar Arciniega MD [facility] [address],[place] [address] 05/09/2024 15:23:03 05/09/2024 16:07:50 Uterine size for dates discrepancy 156839058 O26.843 Z3A.[address] [facility] [address],[place] [address] 05/09/2024 15:23:28 05/09/2024 16:43:03 Routine care 942594694 Z34.[id number] [facility] [address],[place] [address] 05/30/2024 11:43:51 05/30/2024 12:34:22 care 929549118 Z39.2 Benign ges tational thrombocytopenia 565713654 D69.59 rpt cbc and cmp todaysleep when ablemonito r for headaches, visual changes, epigastric painf/u pending labscall if desires control method [id number] Tammie Craven [facility] [address],[place] [address] 08/29/2024 09:34:47 08/29/2024 10:45:03 care 922724328 Z39.2 normal pp exam f/u wwe [id number] MD Jermain SWANN [address],[place] [address] 12/22/2024 10:58:26 12/22/2024 11:40:13 [id number] MD Jermain SWANN [address],[place] [address] 12/22/2024 10:59:24 12/22/2024 17:16:53 test positive 463161786 Z32.01 1. Exam today within normal limits.2. Ultrasound today confirms GA and viability. EDC . GC/Clamydi a testing done: will f/u as indicated. 4. ACOG guidelines and plan of care for reviewed with patient. All questions answered.5 . Return to office at 12 weeks for new OB visit6. OB labs ordered today.7. Genetic screening: desires, drawn today. Benign ges tational thrombocytopenia 151217148 O99.119 - hx of gestationa l thrombocyt openia x2- Plt 70 on admission at 35 weeks for PPROM- discussed close monitoring of plt count this - due to slightly increased risk of PTL/PPROM in this , consider MFM consult if thrombocyt openia occurs for discussion of steroid burst around 35 weeks in case of PPROM again [id number] Juliocesar Arciniega MD [facility] [address] [address] 01/05/2025 15:57:59 01/05/2025 16:42:25 screening 421607689 Z36.82 Z3A.[id number] [facility] [address],[place] [address] 01/09/2025 10:48:09 01/12/2025 02:33:48 Gestation period, 12 weeks 55189690 Z3A.12 Routine an tenatal care 025809637 Z34.91 [id number] [facility] [address],[place] [address] 02/06/2025 09:48:00 02/06/2025 10:09:24 Gestation period, 16 weeks 25064233 Z3A.16 [id number] [facility] [address],[place] [address] 03/06/2025 12:33:58 03/08/2025 23:10:20 Platelet count below reference range 132977959 D69.6 Gestation period, 21 weeks 75097711 Z3A.21 [id number] Juliocesar Arciniega MD [facility] [address],[place] [address] 03/19/2025 17:29:55 03/19/2025 18:00:28 Suspected clinical finding 354424068 Z03.75 Z87.51 Z3A.22 [id number] Juliocesar Arciniega MD [facility] [address],[place] [address] 03/30/2025 09:35:22 03/30/2025 10:42:02 care: obstetric risk 079924886 O09.292 Z3A.[id number] [facility] [address],[place] [address] 04/03/2025 12:20:07 04/03/2025 14:20:37 Gestation period, 24 weeks 734332236 Z3A.[id number] [facility] [address],[place] [address] 04/24/2025 10:23:17 04/24/2025 10:59:43 Gestation period, 27 weeks 55040197 [id number].[id number] [facility] [address],[place] [address] 05/08/2025 10:16:47 05/08/2025 11:18:17 Gestation period, 29 weeks [id number] Z3A.29 Health Concerns Section Related Observation LastModified by Organization Detai ls LastModified Time None Recorded Concern Status LastModified by Organization Details LastModified Time None Recorded Advance Directives Directive N: Payers Insurance Date Sequence Insurance Name Policy Number Policy Calabrese Covered Member ID Calabrese Member ID Guarantor Name 05/08/2025 1 [place] [id number] Leanne Harris [id number] Leanne Harris OBGyn Episode Ob Episode Information Episode Created Date Number of Fetuses Patient Bloodtype Patient rh Status Prepregnancy Weight lbs Domestic Partner Domestic Partner Phone Father Name Combined Rail Operator Status 06/08/20 21 1 B Negative 152 CLOSED Fetus Data First Name Last Name Admitted to NICU Weight (g) Sex Living Outcome Pediatric Complications Fetus ID Race Codes Race Delivery Type Bon 3090.09 55 M true Full Term [id number] Vaginal Delivery Problems Problem Notes declines cf/sma and NIPT - N IPT drawn 08/23/21 due to abnormal Level II U/SDunbar pt!! Problem Name Start Date End Date Resolution Snomed Code Not e ultrasound scan abnormal SELFRESOLVED [id number] Enlarged lat eral ventricle - 08/23 Level II U/S - No VSD. RESOLVED!! Final US @ 36 wks w/ MFM 11/24 315PM Pending CMV/parvo b/w care: history of infertility [id number] spon preg, TTC 5 years Bo Calculation [...] Weight in lbs Pre/Post Dialysis Refused Weight 150.801208458344 BP Diastolic BP Location Tested BP Systolic [...] Weight in lbs Pre/Post Dialysis Refused Weight 153.735774248815 BP Diastolic BP Location Tested BP Systolic [...] Weight in lbs Pre/Post Dialysis Refused Weight 159.385434776387 BP Diastolic BP Location Tested BP Systolic [...] Weight in lbs Pre/Post Dialysis Refused Weight 161.485348067541 BP Diastolic BP Location Tested BP Systolic BP Type 86 124 Fetus Heart Rate Present A 150 Fetus Movement A Yes Comments Feeling well. Getting flu sh ot this week. Will discuss Tdap next visit. Saw MFM, no concern for VSD but slightly enlarged lateral ventricle. Did NIPT- low risk. Has appt at [facility] on Wednesday 09/05. Questions answered, support given. Orders given for Rhogam and 28w labs. Flowsheet Date 09/28/2021 Olivo Score Blood Edema Fundus Height Fundus Units Glucose Ketones Leukocytes Nitrite Labor Signs Protein Cervic Dilation Cervic Effacement Cervic Station trace 26 Type Weight in lbs Pre/Post Dialysis Refused Weight 167.313870262213 BP Diastolic BP Location Tested BP Systolic [...] Weight in lbs Pre/Post Dialysis Refused Weight 162.392871253676 BP Diastolic BP Location Tested BP Systolic [...] Weight in lbs Pre/Post Dialysis Refused Weight 172.381454931019 BP Diastolic BP Location Tested BP Systolic [...] Weight in lbs Pre/Post Dialysis Refused Weight 172.368848132972 BP Diastolic BP Location Tested BP Systolic [...] Weight in lbs Pre/Post Dialysis Refused Weight 175.732942733971 BP Diastolic BP Location Tested BP Systolic BP Type 80 131 Fetus Heart Rate Present A 120 Fetus Movement A Yes Comments Doing well. Still some const ipation, will increase colace, may add miralax. Tdap done. GBS next visit. Back to [facility] once more. Has preadmit scheduled. Discussed pediatricians, hospital bag, carseat installation. Flowsheet Date 11/23/2021 Olivo Score Blood Edema Fundus Height Fundus Units Glucose Ketones Leukocytes Nitrite Labor Signs Protein Cervic Dilation Cervic Effacement Cervic Station neg trace 34 none trace 0cm 20% -2 Type Weight in lbs Pre/Post Dialysis Refused Weight 176.683981132388 BP Diastolic BP Location Tested BP Systolic BP Type 86 136 Fetus Heart Rate Present A 140 Fetus Movement A Yes Comments Doing well. COnstipation imp roved. Diflucan yesterday but has urinary sx also. UA and culture. macrobid. Trouble sleeping. [facility] last week- normal growth but drop [...] Weight in lbs Pre/Post Dialysis Refused Weight 179.195119160155 BP Diastolic BP Location Tested BP Systolic [...] Weight in lbs Pre/Post Dialysis Refused Weight 178.143992914523 BP Diastolic BP Location Tested BP Systolic [...] Weight in lbs Pre/Post Dialysis Refused Weight 166.186329813461 BP Diastolic BP Location Tested BP Systolic [...] Estim ated Date of Delivery false Thalassemia (Kinyarwanda, Bermudian, Mediterranean, Or Background): MCV < 80 false Neural Tube Defect (Meningomyelocele, Spina Bifi da, Or Anencephaly) false Congenital Heart Defect false Down Syndrome false Scott-Sachs (eg, Gnosticism, Cajun, New Zealander-Shoshone) f alse Megan Disease false Sickle Cell Disease Or Trait () false Hemophilia Or Other Blood Disorders false Muscular Dystrophy false Cystic Fibrosis false [place]'s Chorea false Intellectual Disability/Autism false If Yes, [...] Complications Tubal Sterilization Discharge Date Comments 2 [facility] idural 38.3 false Merissa Tammie CN Febrile Discharge Information Feeding Method Contraceptive Method Maternal HG B and HCT Levels Ob Episode Information Episode Created Date Number of Fetuses Patient Bloodtype Patient rh Status Prepregnancy Weight lbs Domestic Partner Domestic Partner Phone Father Name Combined Rail Operator Status 01/09/20 25 1 B Negative 158 Alfonsobonita Arenason OPEN Fetus Data First Name Last Name Admitted to NICU Weight (g) Sex Living Outcome Pediatric Complications Fetus ID Race Codes Race Delivery Type [id number] Problems Problem Notes RPT PLT 05/13/25 Problem Name Start Date End Date Resolution Snomed Code Not e History of infertility - female [id number] prior to first delivery TTC x 5 years History of thrombocytopenia [id number] [facility] consult-referral [facility] 01/12/2025Level II US scheduled [facility] 03/02anesthesia consult serial CBCs recommended by [facility] 28, 32 and 34wksantenatal testing weekly to start at 32wks Past history of premature delivery [id number] 2nd pr egnancy, 35 weeks, with NICU [...] Weight in lbs Pre/Post Dialysis Refused Weight 161.574070294375 BP Diastolic BP Location Tested BP Systolic [...] Type Weight in lbs Pre/Post Dialysis Refused 161.414175519433 BP Diastolic BP Location Tested BP Systolic BP Type 76 121 Fetus Heart Rate Present Fetus Movement A Yes Comments Patient is having cramping, discharge, and swelling. has appt at [facility] for anatomy, doing well, +FM, precautions and education f/u 4 weeks Flowsheet Date 03/06/2025 Olivo Score Blood Edema Fundus Height Fundus Units Glucose Ketones Leukocytes Nitrite Labor Signs Protein Cervic Dilation Cervic Effacement Cervic Station neg trace Type Weight in lbs Pre/Post Dialysis Refused Weight 165.603370865599 BP Diastolic BP Location Tested BP Systolic BP Type 77 122 Fetus Heart Rate Present A 127 Present Fetus Movement A Yes Comments Patient is having some swell ing . [facility] [place] rec TV us for CL, pt unsure [...] Type Weight in lbs Pre/Post Dialysis Refused 167.383917012134 BP Diastolic BP Location Tested BP Systolic BP Type 75 117 Fetus Heart Rate Present A 139 Present Fetus Movement A Yes Comments Patient is having some swell ing. check PLT today. f/u 3 weeks will give order for rhogam and GCT to do at [facility] precautions and education reviewed Flowsheet Date 04/24/2025 Olivo Score Blood Edema Fundus Height Fundus Units Glucose Ketones Leukocytes Nitrite Labor Signs Protein Cervic Dilation Cervic Effacement Cervic Station neg trace Type Weight in lbs Pre/Post Dialysis Refused Weight 170.996896656140 BP Diastolic BP Location Tested BP Systolic [...] Weight in lbs Pre/Post Dialysis Refused Weight 173.621579631698 BP Diastolic BP Location Tested BP Systolic [...] Domestic Partner Domestic Partner Phone Father Name Combined Rail Operator Status 12/14/19 24 1 B Negative 157 Alfonso Steven CLOSED Fetus Data First Name Last Name Admitted to NICU Weight (g) Sex Living Outcome Pediatric Complications Fetus ID Race Codes Race Delivery Type 2381.35 8 M [id number] Vaginal Delivery Problems Problem Notes hx previous infertility x 5 years prior to first pregnancyduplicated left renal arteryNext MFM Appt: 06/04/24 1pm u/s and ovRecs: 1wk rpt visit for rpt CBC and delivery recommendations. Anesthesia consult. Problem Name Start Date End Date Resolution Snomed Code Not e Prophylactic immunotherapy [id number] received Thrombocytopenic disorder [id number] low plt - 99 - [facility] [...] Weight in lbs Pre/Post Dialysis Refused Weight 156.983182149591 BP Diastolic BP Location Tested BP Systolic [...] Weight in lbs Pre/Post Dialysis Refused Weight 157.990464048800 BP Diastolic BP Location Tested BP Systolic [...] Weight in lbs Pre/Post Dialysis Refused Weight 158.951002350448 BP Diastolic BP Location Tested BP Systolic [...] Weight in lbs Pre/Post Dialysis Refused Weight 162.470065294061 BP Diastolic BP Location Tested BP Systolic [...] Weight in lbs Pre/Post Dialysis Refused Weight 164.61512677448 BP Diastolic BP Location Tested BP Systolic [...] Weight in lbs Pre/Post Dialysis Refused Weight 168.258092255647 BP Diastolic BP Location Tested BP Systolic [...] Weight in lbs Pre/Post Dialysis Refused Weight 172.653712044009 BP Diastolic BP Location Tested BP Systolic [...] Weight in lbs Pre/Post Dialysis Refused Weight 162.873669099826 BP Diastolic BP Location Tested BP Systolic [...] At Estimated Date of Delivery false Thalassemia (Kinyarwanda, Bermudian, Mediterranean, Or Background): MCV < 80 false Neural Tube Defect (Meningom yelocele, Spina Bifida, Or Anencephaly) false Congenital Heart Defect false Down Syndrome false Scott-Sachs (eg, Gnosticism, Cajun, New Zealander-Shoshone) f alse Megan Disease false Sickle Cell Disease Or Trait () false Hemophilia Or Other Blood Disorders false Muscular Dystrophy false Cystic Fibrosis false [place]'s Chorea false Intellectual Disability/Autism false If Yes, [...]
--- OUTSIDE RECORDS SUMMARY | 2025-05-19 08:15 | XMS_ITS | Clinical Summary ---
Author Organization [facility] [employer] Address [address] [address] Care Team Providers Care Director Financial Services Name Role Phone Mumtaz Choi MD Primary Care Provider [phone] Source Comments [facility],non-owned Affiliates and Associated Physician Practices is amultiple site organization consisting of ambulatory clinics and hospital sitesin [place], [place], [place] and [place]. This disclosure is being madepursuant to the Care Everywhere program and may not contain all information available regarding this patient. Last updated 18.[facility] [employer] Allergies Active Allergy Reactions Criticality Noted Date [...] Harris was screened for depression using the [place] Depression Scale (EPDS) at her [facility] initial evaluation on 09/05/2021. Her initial score [...] from the original note were not included. SENIOR LIVING PATIENT--PLEASE CALL [phone] (ex 2) IF TRIAGED OR ADMITTED Care Provider: Dr. Quintero [facility] consultants involved: RN- Lucas; MFM- Dr. Thakkar Diagnosis: Mild right ventriculomegaly (slightly increased in diameter at 10.5mm at 09/05/21 S[facility]ING US). Planned surveillance: Initial SENIOR LIVING 09/05/21. Growth in 2 weeks at [place], and follow up ultrasound for growth and assessment of ventricles between 32-36 weeks. Continue routine care with primary OB. Delivery location: with primary OB at hospital of choice ([facility]) Delivery mode: per usual OB indications Desired Delivery GA: No indication for delivery before 39 weeks at this time follow up: head imaging with pediatrican Auger Machine Offbearer: Undecided Autopsy indicated: Genetics note: LR NIPT-Male Grocery Manager Concerns: 09/05/2021- There are no social service [...] and heating? Not hard at all 05/14/2024 [facility] [place] of Occupat ional Health - Occupational Stress [...] place to sleep or slept in a senior living (including now)? No 05/14/2024 [place] Depression Scale Answer Date Recorded [place] Depression Scale Total 7 05/14/2024 The thought [...] complete this topic Insurance ANTHEM Care Teams Director Financial Services Relationship Specialty Start Date End Date Mumtaz Choi MD [address] [place] [address] PCP - General Family Medicine 04/15/19
[2025-05-19] MEDS: BETAMETHASONE SOD PHOS/ACETATE 30 MG/5 ML VIAL 12 MG IM (08:32)
[2025-05-19 08:44] LABS: Hematocrit 32.4 % (37.0-47.0); Hemoglobin 10.2 g/dL (12.0-15.0); Mean Corpuscular HGB Conc 31.5 g/dl (32-36); Mean Corpuscular Hemoglobin 30.0 pg (26-34); Mean Corpuscular Volume 95.3 fl (80-100); Platelet Count Result 114 k/mm3 (150-375); Red Blood Count 3.40 M/mm3 (4.2-5.4); White Blood Count 8.8 K/mm3 (4.5-10.0)
== END 2025-05-19 08:08 | disposition home or self-care (01) ==
LOC: ANHOBOP 08:12
PROVIDERS: Visit Provider Advanced Practice Midwife
DX: O47.03 False labor before 37 completed weeks of gestation, third trimester (principal); Z3A.00 Weeks of gestation of pregnancy not specified
CPT/HCPCS: 36415; 85027; 96372; J0702

== ENCOUNTER 2025-05-20 13:01 | Observation (INO) | payer BC, SELFPAY ==
--- NOTE | 2025-05-20 10:51 | PC.NURSE ---
1032- Pt here at 31 4/7 wks for monitoring after FHR deceleration on NST at office. monitor test completed. U/S and toco transducers applied. 1051- Possible uterine activity noted with slight inversion on monitor tracing. Possible late deceleration with this contraction. Pt tilted to right side. [place] repositioned. FHT's 140 with minimal variability and 15 beat acceleration noted.
--- NOTE | 2025-05-20 12:50 | OBADM ---
This patient, Leanne Harris, admitted to the OB room 118 for observation for extended monitoring. Patient/family oriented to hospital policies and general routines including ID bracelet, bed and alarms, visiting hours, pain management, procedures, bathroom and other care routines, personal items, smoking policy, room service/diet, and visiting hours. Patient/Family are encouraged to report perceived risks to care and to ask questions if they do not understand what they are told or what they should do.
--- OUTSIDE RECORDS SUMMARY | 2025-05-20 13:43 | XMS_ITS | Continuity of Care Document ---
Author Organization [facility] Address [address] [place] [address] Assessment Encounter Date Assessment Date Assessment LastModified by Organization Details LastModified Time 05/20/2025 05/20/2025 Patient is __31_weeks . Discussed plan. Not available 05/20/2025 10:33:50 Plan of Treatment Reminders Order Date Submit [...] Not available xANY 2024 09:00A M Tammie Craven CNM Not [...] recorde d. Surgeries None recorde d. Imaging None recorde d. Medication Orders None recorde d. Patient TargetsNo targets recorded. Patient InstructionsNo instructions recorded. Reason for Referral None Reported. Results Created Date Observation Date Name Description Value Unit Range Abnormal Flag Note LastModifiedBy Organization Detail LastModifiedTime 03/02/20 25 03/02/2025 US, obste tric, follo w-up No observ ation record ed. [email or web address] [facility] [address], [place], [address], 04/07/2025 22:29:38 03/02/20 25 03/02/2025 US, obste tric, follo w-up No observ ation record ed. [facility] [address], [place], [address], 03/04/2025 22:52:53 03/19/20 25 03/19/2025 US, obste tric, limit ed No observ ation record ed. [email or web address] [address], [place], [address], 03/25/2025 06:22:37 03/19/20 25 03/19/2025 US, obste tric, limit ed No observ ation record ed. [email or web address] [facility] [address], [place], [address], 03/19/2025 18:12:38 03/30/20 25 03/30/2025 US, obste tric, follo w-up No observ ation record ed. [email or web address] [facility] [address], [place], [address], 03/30/2025 18:15:00 03/30/20 25 03/30/2025 US, obste tric, follo w-up No observ ation record ed. [email or web address] [address], [place], [address], 04/30/2025 15:13:51 05/20/20 25 05/20/2025 US, obste tric, follo w-up No observ ation record ed. [email or web address] [facility] [address], [place], [address], 05/20/2025 13:20:23 05/20/20 25 05/20/2025 US, obste tric, follo w-up No observ ation record ed. [email or web address] [address], [place], [address], 05/20/2025 10:05:47 05/20/20 25 05/20/2025 non-s tress test No observ ation record ed. [email or web address] [facility] [address], [place], [address], 05/20/2025 14:42:31 Result Notes None recorded. 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 [address] 11:28:[address] Concept Completed 201805/10/2021 Encntr for general adult medical exam w/o abnormal findings ;Recorde brittney Boss e: No [facility] our[facility]: EHR Boat Dispatcher estella: N Practi ce ID: [id number] Kvng lable Time: 09:45:00 AM Mago tirado, [facility] 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 1 11:29:04 Finding of fertilit y Completed 201805/10/2021 Female infertil ity, unspecif ied;Prac amari ID: 0001 Mago tirado, [facility] 1 11:29:00 Pregnanc y 42999203 Completed 202012/23/2021 Mago tirado, [facility] 5 16:40:45 ultrasou nd scan abnormal [id number] 9109 Completed Enlarged lateral ventricl e - 08/23 Level II U/S - No VSD. RESOLVED !! Final US @ 36 wks w/ MFM 11/24 315PM Pending CMV/parv o b/w Rossy tirado, [facility] 2 15:15:00 Antenata l care: history of infertil ity [id number] Completed spon preg, TTC 5 years Rossy tirado, [facility] 2 15:15:00 Prophyla ctic immunoth erapy Completed received 03/29/[address] [facility] 4 11:57:56 Thromboc ytopenic disorder 630748749 Completed low plt - 99 - [facility] 05/14/24 U/S & Consult - Rpt CBC and MFM visit in 1 wk. Delivery recommen dations at that time. Anesth esia consult Mago tirado [facility] 4 11:57:56 Pregnanc y 55894029 Active [address] [facility] 5 16:40:45 History of thromboc ytopenia 2729981045 9108 Active [facility] consult- referral faxed to [facility] 01/12/2025 Level II US schedule d [facility] 03/02 anesthes ia consult serial CBCs recommen ded by [facility] 28, 32 and 34wks antenata l testing weekly to start at 32wks Bre John [facility], [facility] 5 15:47:05 History of infertil ity - female 718326957 Active prior to first delivery TTC x 5 years Tammie Craven, CNM [address], [place], [address], [place] [facility] 5 16:46:21 Past pregnanc y history of prematur e delivery 940464299 Active 2nd pregnanc y, 35 weeks, with NICU stay cervical us until 24wks Bre John [facility] 5 15:43:30 Problem Notes None recorded. Procedures Surgical History Date Name Laterality Status Provider Name and Address Organization Details Recorded Time 06/13/20 23 Date of Last Pap Smear completed Mago Phillips [facility] 11/09/2023 16:36:37 01/15/20 21 Laparoscopy completed Mago Phillips [facility] 05/10/2021 12:32:04 11/12/18 94 [facility] 05/10/2021 12:34:56 11/12/18 94 procedure on ear completed [facility] 11/09/2023 16:38:25 11/12/18 93 tonsilectomy/ad enoids completed [facility] 11/09/2023 16:37:40 11/12/18 93 operation on ossicular chain of middle ear completed [facility] 05/10/2021 12:34:18 11/12/18 92 procedure on ear completed [facility] 11/09/2023 16:38:20 11/12/18 90 procedure on ear completed [facility] 11/09/2023 16:38:15 11/12/18 89 operation on hip joint completed [facility] 05/10/2021 12:33:26 Imaging Results None recorded. Procedure Notes None recorded. Medical Equipment None Reported. Allergies Allergen ID Allergen Name Allergen Category Reaction Reaction Severity Criticality Documentation Date Start Date Code Code System Note Provider Name and Address Organization Details Recorded Time 393 lactose food,medi cation Not available Not available Not available 03/09/2020 6211 RxNorm Magoyahaira Phillips [facility] 0 17:28:25 Medications Name Sig Start [...] Prescrib ed Elsewher e: No Locat ion: [facility] odify By: alea wagoner DateTime : [...] Prescrib ed Elsewher e: Yes Loca tion: [facility]ify By: yayo z Encoun debbie DateTime : 01/22/20 09:45:00 AM Not Available [...] Prescrib ed Elsewher e: Yes Loca tion: [facility] odify By: yayo salazar Encoun ter DateTime : 01/22/20 09:45:00 AM Not Available Not Available Not Available Caltrate 600 plus D active Not Available Not Available Not Available Women's One Daily 18 mg iron-400 mcg-500 mg Ca tablet 11/09 completed Prescrib ed Elsewher e: Yes Loca tion: [facility] odify By: yayo z Encoun ter DateTime : 01/22/20 09:45:00 [...] and Address Organization Details Last Updated DateTime 05/20/2025 152.4 cm 33.8 kg/m2 20215.48 g 106/68 mm[Hg] Akosua Carr [facility] 05/20/2025 10:17:36 Social History Question Answer Notes LastModified by Organizat ion Details LastModified Time Tobacco Smoking Status Never Smoker Mago Phillips [facility] 11/09/2023 16:35:52 Do You Have An Advance Directive? No [email or web address] Information n ot available 05/10/2021 If You Are , What Was Your Level Of Alcohol Consumption Prior To ? None [email or web address] Information not available 11/09/2023 Are You Blind Or Do You Have Difficulty Seeing? No [email or web address] Information n ot available 05/10/2021 What Is Your Level Of Caffeine Consumption? Moderate [email or web address] Information not available 05/10/2021 How Much Tobacco Do You Chew? None [email or web address] Information not available 05/10/2021 In The 14 Days Before Symptom Onset, Have You Had Close Contact With A Laboratory-confirm ed COVID-19 While That Case Was Ill? No [email or web address] Information n ot available 05/10/2021 In The 14 Days Before Symptom Onset, Have You Had Close Contact With A Person Who Is Under Investigation For COVID-19 While That Person Was Ill? No [email or web address] Information not available 05/10/2021 Have You Been To An Area Known To Be High Risk For COVID-19? No [email or web address] Information not available 05/10/2021 Are You Deaf Or Do You Have Serious Difficulty Hearing? No [email or web address] Information not available 05/10/2021 What Type Of Diet Are You Following? REGULAR [email or web address] Information n ot available 05/10/2021 What Is The Highest Grade Or Level Of School You Have Completed Or The Highest Degree You Have Received? HN10934-7 [email or web address] Information not available 05/10/2021 Are There Any Guns Present In Your Home? No [email or web address] Information not available 05/10/2021 What Was The Date Of Your Most Recent Tobacco Screening? 02/06/2025 [email or web address] Information not available 02/06/2025 Do You Use Protection During Sex? No [email or web address] Information not available 05/10/2021 Do You Use Your Seat Belt Or Car Seat Routinely? Yes [email or web address] Information not available 05/10/2021 Do You Have Smoke And Carbon Monoxide Detectors In Your Home? Yes Information not available 05/10/2021 How Much Tobacco Do You Smoke? No [email or web address] Information not available 05/10/2021 Do You Use Sunscreen Routinely? No [email or web address] Information not available 05/10/2021 Has Tobacco Cessation Counseling Been Provided? No Information not available 11/09/2023 Have You Used IV Drugs? No [email or web address] Information not available 05/10/2021 Do You Have Difficulty Walking Or Climbing Stairs? No [email or web address] Information not available 11/09/2023 Sex: Unknown Functional Status Question Answer Note LastModified by Organizat ion Details LastModified Time Do you use any illicit or recreational drugs? No [email or web address] Information not available 05/10/2021 Do you or have you ever used any other forms of tobacco or nicotine? No [email or web address] Information not available 11/09/2023 What is your level of alcohol consumption? None [email or web address] Information not available 03/09/2020 Are you able to walk? YESWOREST [email or web address] Information not available 05/10/2021 Are you able to care for yourself? 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 No Information not available 11/09/2023 What is your exercise level? Occasional Information not available 03/09/2020 Mental Status Question Answer Note LastModified by Organization D etails LastModified Time Do you feel stressed (tense, restless, nervous, or anxious, or unable to sleep at night)? GP14113-0 [email or web address] Information not available 11/09/2023 Family History Relationship Description Onset Age of this Age Resolved Age Notes LastModified by Organization Details LastModified Time Mother Hypertensive disorder [email or web address] Not available 03/09 17:30:21 Father Hypertensive disorder [email or web address] Not available 03/09 17:30:29 Father Malignant neoplasm of prostate [email or web address] Not available 2021 15:59:30 Maternal Grandfather Heart disease [email or web address] Not available 03/09 17:30:54 Paternal Grandfather Heart disease [email or web address] Not available 03/09 17:30:54 Medical History Condition [...] SNOMED-CT Code Diagnosis ICD10 Code Diagnosis Note [id number] Tammie Craven CNM [facility] [address] [address] 04/24/2025 10:23:17 04/24/2025 10:59:43 Gestation period, 27 weeks 83981329 Z3A.27 [id number] Tammie Craven CNM [facility] [address] [address] 05/08/2025 10:16:47 05/08/2025 11:18:17 Gestation period, 29 weeks 42908540 Z3A.29 [id number] Juliocesar Arciniega MD [facility] [address] [address] 05/20/2025 09:30:11 05/20/2025 10:06:27 High risk 74721147 O09.213 O09.293 Z3A.31 [id number] [facility] [address] [address] 05/20/2025 09:30:26 05/20/2025 10:37:06 Gestation period, 31 weeks 46433638 Z3A.31 [id number] [facility] [address] [address] 05/20/2025 09:30:37 05/20/2025 14:43:18 History of [id number] Z87.59 Health Concerns Section Related Observation LastModified by Organization Detai ls LastModified Time None Recorded Concern Status LastModified by Organization Details LastModified Time None Recorded Payers Encounter Date Sequence Insurance Name Policy Number Policy Calabrese Covered Member ID Calabrese Member ID Guarantor Name 05/20/2025 1 [employer] [id number] Leanne Harris [id number] Leanne Harris OBGyn Episode Ob Episode Information Episode Created Date Number of Fetuses Patient Bloodtype Patient rh Status Prepregnancy Weight lbs Domestic Partner Domestic Partner Phone Father Name [employer]al Sergeant Status 01/09/20 25 1 B Negative 158 Alfonso Steven OPEN Fetus Data First Name Last Name Admitted to NICU Weight (g) Sex Living Outcome Pediatric Complications Fetus ID Race Codes Race Delivery Type [id number] Problems Problem Notes RPT PLT 05/13/25 Problem Name Start Date End Date Resolution Snomed Code Not e History of infertility - female 043364591 prior to first delivery TTC x 5 years History of thrombocytopenia [id number] [facility] consult-referral faxed to [facility] 01/12/2025Level II US scheduled [facility] 03/02anesthesia consult serial CBCs recommended by [facility] 28, 32 and 34wksantenatal testing weekly to start at 32wks Past history of premature delivery 623384607 2nd pr egnancy, 35 weeks, with NICU [...] Weight in lbs Pre/Post Dialysis Refused Weight 161.488181584160 BP Diastolic BP Location Tested BP Systolic [...] Type Weight in lbs Pre/Post Dialysis Refused 161.212364909126 BP Diastolic BP Location Tested BP Systolic BP Type 76 121 Fetus Heart Rate Present Fetus Movement A Yes Comments Patient is having cramping, discharge, and swelling. has appt at [facility] for anatomy, doing well, +FM, precautions and education f/u 4 weeks Flowsheet Date 03/06/2025 Olivo Score Blood Edema Fundus Height Fundus Units Glucose Ketones Leukocytes Nitrite Labor Signs Protein Cervic Dilation Cervic Effacement Cervic Station neg trace Type Weight in lbs Pre/Post Dialysis Refused Weight 165.817608442802 BP Diastolic BP Location Tested BP Systolic BP Type 77 122 Fetus Heart Rate Present A 127 Present Fetus Movement A Yes Comments Patient is having some swell ing . [facility] rec TV us for CL, pt unsure [...] Type Weight in lbs Pre/Post Dialysis Refused 167.071549899647 BP Diastolic BP Location Tested BP Systolic BP Type 75 117 Fetus Heart Rate Present A 139 Present Fetus Movement A Yes Comments Patient is having some swell ing. check PLT today. f/u 3 weeks will give order for rhogam and GCT to do at [facility] precautions and education reviewed Flowsheet Date 04/24/2025 Olivo Score Blood Edema Fundus Height Fundus Units Glucose Ketones Leukocytes Nitrite Labor Signs Protein Cervic Dilation Cervic Effacement Cervic Station neg trace Type Weight in lbs Pre/Post Dialysis Refused Weight 170.429551339184 BP Diastolic BP Location Tested BP Systolic [...] Weight in lbs Pre/Post Dialysis Refused Weight 173.888274436561 BP Diastolic BP Location Tested BP Systolic BP Type 81 L arm 126 sitting Fetus Heart Rate Present A 141 Present Fetus Movement A Yes Comments +FM some increased pressure, PTL precautions, NST at 32 weeks for hx ptl, check PLT education and precautions Flowsheet Date 05/20/2025 Olivo Score Blood Edema Fundus Height Fundus Units Glucose Ketones Leukocytes Nitrite Labor Signs Protein Cervic Dilation Cervic Effacement Cervic Station Type Weight in lbs Pre/Post Dialysis Refused BP Diastolic BP Location Tested BP Systolic BP Type Fetus Heart Rate Present Fetus Movement Comments Flowsheet Date 05/20/2025 Olivo Score Blood Edema Fundus Height Fundus Units Glucose Ketones Leukocytes Nitrite Labor Signs Protein Cervic Dilation Cervic Effacement Cervic Station Type Weight in lbs Pre/Post Dialysis Refused Weight 173.328839167706 BP Diastolic BP Location Tested BP Systolic BP Type 68 L arm 106 sitting Fetus Heart Rate Present Fetus Movement A Yes Comments reviewed care with dr. krysta rodriguez rpt plt next week, has decreased activity which has helped decrease contractions. EFW 47%, education and precautions bpp to follow Flowsheet Date 05/20/2025 Olivo Score Blood Edema Fundus Height Fundus [...]
--- OUTSIDE RECORDS SUMMARY | 2025-05-20 13:44 | XMS_ITS | Continuity of Care Document ---
Author Organization [facility] Address [address] [place] [address] Assessment No assessment recorded. Plan of Treatment Reminders Order Date Submit [...] US, obstetr ic, follow- up 2024 025 [email or web address] [place], [facility] [address], [place], [address], 05/20/2025 13:21:54 Medication Orders None recorde d. Patient TargetsNo targets recorded. Patient InstructionsNo instructions recorded. Reason for Referral None Reported. Results Created Date Observation Date Name Description Value Unit Range Abnormal Flag Note LastModifiedBy Organization Detail LastModifiedTime 03/02/20 25 03/02/2025 US, obste tric, follo w-up No observ ation record ed. [email or web address] [facility] [place] [address] , [place], [address], 04/07/2025 22:29:38 03/02/20 25 03/02/2025 US, obste tric, follo w-up No observ ation record ed. [facility] [place] [address], [place], [address], 03/04/2025 22:52:53 03/19/20 25 03/19/2025 US, obste tric, limit ed No observ ation record ed. [address], [place], [address], 03/25/2025 06:22:37 03/19/20 25 03/19/2025 US, obste tric, limit ed No observ ation record ed. [email or web address] [place] [address], [place], [address], 03/19/2025 18:12:38 03/30/20 25 03/30/2025 US, obste tric, follo w-up No observ ation record ed. [email or web address] [place] [address], [place], [address], 03/30/2025 18:15:00 03/30/20 25 03/30/2025 US, obste tric, follo w-up No observ ation record ed. [email or web address] [address], [place], [address], 04/30/2025 15:13:51 05/20/20 25 05/20/2025 US, obste tric, follo w-up No observ ation record ed. [email or web address] [place] [address], [place], [address], 05/20/2025 13:20:23 05/20/20 25 05/20/2025 US, obste tric, follo w-up No observ ation record ed. [email or web address], [place], [address], 05/20/2025 10:05:47 05/20/20 25 05/20/2025 non-s tress test No observ ation record ed. [email or web address] [place] [address], [place], [address], 05/20/2025 14:42:31 Result Notes None recorded. Problems Name Problem SNOMED Code Status Onset Date Resolution Date Notes Provider Name and Address Organization Details Recorded Time Educatio n Completed 201805/10/2021 Encounte r for family planning advice;R ecorded Elsewher e: No Locat ion: [facility] S ource: EHR Stained Glass Window Designer estella: N Practi ce ID: [id number] Kvng lable Time: 01:30:00 PM Mago Phillips [facility], [facility] 1 11:28:[address] Concept Completed 201805/10/2021 Encntr for general adult medical exam w/o abnormal findings ;Recorde d Elsewher e: No Locat ion: [facility] S ource: EHR Stained Glass Window Designer estella: N Practi ce ID: [id number] Kvng lable Time: 09:45:00 AM Mago Phillips null, [facility] 1 11:29:[address] Concept Completed 201805/10/2021 Encntr for precision agronomist exam (general ) (routine ) w/o abn findings ;Recorde d Elsewher e: No Locat ion: [facility] S ource: EHR Stained Glass Window Designer estella: N Practi ce ID: [id number] Kvng lable Time: 09:45:00 AM Mago tirado, [facility] 1 11:29:04 Finding of fertilit y Completed 201805/10/2021 Female infertil ity, unspecif ied;Prac amari ID: 0001 Mago tirado, [facility] 1 11:29:00 Pregnanc y [id number] Completed 202012/23/2021 Mago tirado, [facility] 5 16:40:45 ultrasou nd scan abnormal [id number] 9109 Completed Enlarged lateral ventricl e - 08/23 Level II U/S - No VSD. RESOLVED !! Final US @ 36 wks w/ MFM 11/24 315PM Pending CMV/parv o b/w Rossy tirado, [facility] 2 15:15:00 Antenata l care: history of infertil ity 177460862 Completed spon preg, TTC 5 years Rossy tirado [facility] 2 15:15:00 Prophyla ctic immunoth erapy Completed received 03/29/24 Mago tirado [facility] 4 11:57:56 Thromboc ytopenic disorder 278788911 Completed low plt - 99 - [facility] 05/14/24 U/S & Consult - Rpt CBC and MFM visit in 1 wk. Delivery recommen dations at that time. Anesth esia consult Mago tirado [facility] 4 11:57:56 Pregnanc y 76072279 Active 2024 Mago tirado [facility] 5 16:40:45 History of thromboc ytopenia 1344841318 9108 Active MF consult- [facility] 01/12/2025 Level II US schedule d [facility] 03/02 anesthes ia consult serial CBCs recommen ded by [facility] 28, 32 and 34wks antenata l testing weekly to start at 32wks Bre tirado [facility] 5 15:47:05 History of infertil ity - female 792938245 Active prior to first delivery TTC x 5 years Tammie Craven, CNM [address], [place], [address], [facility] 5 16:46:21 Past pregnanc y history of prematur e delivery 849572854 Active 2nd pregnanc y, 35 weeks, with NICU stay cervical us until 24wks Bre tirado [facility] 5 15:43:30 Problem Notes None recorded. Procedures Surgical History Date Name Laterality Status Provider Name and Address Organization Details Recorded Time 06/13/20 23 Date of Last Pap Smear completed Mago Phillips [facility] 11/09/2023 16:36:37 01/15/20 21 Laparoscopy completed Mago Phillips [facility] 05/10/2021 12:32:04 11/12/18 94 operation on hip joint completed Mago Phillips [facility] 05/10/2021 12:34:56 11/12/18 94 procedure on ear completed Mago Phillips [facility] 11/09/2023 16:38:25 11/12/18 93 tonsilectomy/ad enoids completed Magoyahaira Phillips [facility] 11/09/2023 16:37:40 11/12/18 93 operation on ossicular chain of middle ear completed Magoyahaira Phillips [facility] 05/10/2021 12:34:18 11/12/18 92 procedure on ear completed Magoyahaira Phillips [facility] 11/09/2023 16:38:20 11/12/18 90 procedure on ear completed Magoyahaira Phillips [facility] 11/09/2023 16:38:15 11/12/18 89 operation on hip joint completed Magoyahaira Phillips [facility] 05/10/2021 12:33:26 Imaging Results None recorded. Procedure Notes None recorded. Medical Equipment None Reported. Allergies Allergen ID Allergen Name Allergen Category Reaction Reaction Severity Criticality Documentation Date Start Date Code Code System Note Provider Name and Address Organization Details Recorded Time 393 lactose food,medi cation Not available Not available Not available 03/09/2020 6211 RxNorm Mago Phillips [facility], [facility] 0 17:28:25 Medications Name Sig Start [...] Prescrib ed Elsewher e: No Locat ion: [facility] odify By: alea wagoner DateTime : [...] Prescrib ed Elsewher e: Yes Loca tion: [facility] odify By: yayo z Vladislav lewis DateTime : 01/22/20 09:45:00 AM Not [...] Prescrib ed Elsewher e: Yes Loca tion: [facility] odify By: yayo salazar Encoun ter DateTime : 01/22/20 09:45:00 AM Not Available Not Available Not Available Caltrate 600 plus D active Not Available Not Available Not Available Women's One Daily 18 mg iron-400 mcg-500 mg Ca tablet 11/09 completed Prescrib ed Elsewher e: Yes Loca tion: [facility] odify By: yayo salazar Encoun ter [...] Updated DateTime 05/20/2025 152.4 cm 33.8 kg/m2 13986.48 g 106/68 mm[Hg] Akosua Carr [facility] 05/20/2025 10:17:36 Social History Question Answer Notes LastModified by Organizat ion Details LastModified Time Tobacco Smoking Status Never Smoker Mago tirado, [facility] 11/09/2023 16:35:52 Do You Have An Advance Directive? No [email or web address] Information n ot available 05/10/2021 If You Are , What Was Your Level Of Alcohol Consumption Prior To ? None [email or web address] Information not available 11/09/2023 Are You Blind Or Do You Have Difficulty Seeing? No [email or web address] Information n ot available 05/10/2021 What Is Your Level Of Caffeine Consumption? Moderate [email or web address] Information not available 05/10/2021 How Much Tobacco Do You Chew? None [email or web address] Information not available 05/10/2021 In The 14 Days Before Symptom Onset, Have You Had Close Contact With A Laboratory-confirm ed COVID-19 While That Case Was Ill? No [email or web address] Information n ot available 05/10/2021 In The 14 Days Before Symptom Onset, Have You Had Close Contact With A Person Who Is Under Investigation For COVID-19 While That Person Was Ill? No [email or web address] Information not available 05/10/2021 Have You Been To An Area Known To Be High Risk For COVID-19? No [email or web address] Information not available 05/10/2021 Are You Deaf Or Do You Have Serious Difficulty Hearing? No [email or web address] Information not available 05/10/2021 What Type Of Diet Are You Following? REGULAR [email or web address] Information n ot available 05/10/2021 What Is The Highest Grade Or Level Of School You Have Completed Or The Highest Degree You Have Received? [id number] Information not available 05/10/2021 Are There Any Guns Present In Your Home? No [email or web address] Information not available 05/10/2021 What Was The Date Of Your Most Recent Tobacco Screening? 02/06/2025 [email or web address] Information not available 02/06/2025 Do You Use Protection During Sex? No [email or web address] Information not available 05/10/2021 Do You Use Your Seat Belt Or Car Seat Routinely? Yes [email or web address] Information not available 05/10/2021 Do You Have Smoke And Carbon Monoxide Detectors In Your Home? Yes [email or web address] Information not available 05/10/2021 How Much Tobacco Do You Smoke? No [email or web address] Information not available 05/10/2021 Do You Use Sunscreen Routinely? No [email or web address] Information not available 05/10/2021 Has Tobacco Cessation Counseling Been Provided? No [email or web address] Information not available 11/09/2023 Have You Used IV Drugs? No [email or web address] Information not available 05/10/2021 Do You Have Difficulty Walking Or Climbing Stairs? No [email or web address] Information not available 11/09/2023 Sex: Unknown Functional Status Question Answer Note LastModified by Organizat ion Details LastModified Time Do you use any illicit or recreational drugs? No [email or web address] Information not available 05/10/2021 Do you or have you ever used any other forms of tobacco or nicotine? No [email or web address] Information not available 11/09/2023 What is your level of alcohol consumption? None [email or web address] Information not available 03/09/2020 Are you able to walk? YESWOREST [email or web address] Information not available 05/10/2021 Are you able to care for yourself? 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 No [email or web address] Information not available 11/09/2023 What is your exercise level? Occasional [email or web address] Information not available 03/09/2020 Mental Status Question Answer Note LastModified by Organization D etails LastModified Time Do you feel stressed (tense, restless, nervous, or anxious, or unable to sleep at night)? [id number] [email or web address] Information not available 11/09/2023 Family History Relationship Description Onset Age of this Age Resolved Age Notes LastModified by Organization Details LastModified Time Mother Hypertensive disorder Not available 03/09 17:30:21 Father Hypertensive disorder [email or web address] Not available 03/09 17:30:29 Father Malignant neoplasm of prostate Not available 2021 15:59:30 Maternal Grandfather Heart disease [email or web address] Not available 03/09 17:30:54 Paternal Grandfather Heart disease [email or web address] Not available 03/09 17:30:54 Medical History Condition Response Allergies (Food, seasonal, environmental ) Y Other N Breast Cancer N Drug/Latex Allergies/Reactions N Blood Transfusion N Lung Disease N Dermatologic Disorders N [...] SNOMED-CT Code Diagnosis ICD10 Code Diagnosis Note [id number] Tammie Craven CNM [place] [address] [address] 04/24/2025 10:23:17 04/24/2025 10:59:43 Gestation period, 27 weeks 55615569 Z3A.27 [id number] Tammie Craven CNM [place] [address] [address] 05/08/2025 10:16:47 05/08/2025 11:18:17 Gestation period, 29 weeks 21757816 Z3A.29 [id number] Juliocesar Arciniega MD [place] [address] [address] 05/20/2025 09:30:11 05/20/2025 10:06:27 High risk 44699397 O09.213 O09.293 Z3A.31 [id number] [facility] [address] [address] 05/20/2025 09:30:26 05/20/2025 10:37:06 Gestation period, 31 weeks 04446596 Z3A.31 332362 [facility] [address] [address] 05/20/2025 09:30:37 05/20/2025 14:43:20 History of 042457673 Z87.59 Health Concerns Section Related Observation LastModified by Organization Detai ls LastModified Time None Recorded Concern Status LastModified by Organization Details LastModified Time None Recorded Payers Encounter Date Sequence Insurance Name Policy Number Policy Calabrese Covered Member ID Calabrese Member ID Guarantor Name 05/20/2025 1 [place] [id number] Leanne Harris [id number] Leanne Harris OBGyn Episode Ob Episode Information Episode Created Date Number of Fetuses Patient Bloodtype Patient rh Status Prepregnancy Weight lbs Domestic Partner Domestic Partner Phone Father Name Babcock Tester Status 01/09/20 25 1 B Negative 158 Alfonso Steven OPEN Fetus Data First Name Last Name Admitted to NICU Weight (g) Sex Living Outcome Pediatric Complications Fetus ID Race Codes Race Delivery Type [id number] Problems Problem Notes RPT PLT 05/13/25 Problem Name Start Date End Date Resolution Snomed Code Not e History of infertility - female 781975266 prior to first delivery TTC x 5 years History of thrombocytopenia [id number] [facility] consult-referral [facility] 01/12/2025Level II US scheduled [facility] 03/02anesthesia consult serial CBCs recommended by [facility] 28, 32 and 34wksantenatal testing weekly to start at 32wks Past history of premature delivery 091612765 2nd pr egnancy, 35 weeks, with NICU [...] Weight in lbs Pre/Post Dialysis Refused Weight 161.053174932591 BP Diastolic BP Location Tested BP Systolic BP Type 76 118 Fetus Heart Rate Present Fetus Movement A Yes Comments Patient is having discharge, nausea and vomiting. reviewed history, updated, check PLT every month, [facility] consult. hx delivery ar 35 weeks last , begin routine care Flowsheet Date 02/06/2025 Olivo Score Blood Edema Fundus Height Fundus Units Glucose Ketones Leukocytes Nitrite Labor Signs Protein Cervic Dilation Cervic Effacement Cervic Station neg trace Type Weight in lbs Pre/Post Dialysis Refused 161.687934396539 BP Diastolic BP Location Tested BP Systolic BP Type 76 121 Fetus Heart Rate Present Fetus Movement A Yes Comments Patient is having cramping, discharge, and swelling. has appt at [facility] for anatomy, doing well, +FM, precautions and education f/u 4 weeks Flowsheet Date 03/06/2025 Olivo Score Blood Edema Fundus Height Fundus Units Glucose Ketones Leukocytes Nitrite Labor Signs Protein Cervic Dilation Cervic Effacement Cervic Station neg trace Type Weight in lbs Pre/Post Dialysis Refused Weight 165.355559698715 BP Diastolic BP Location Tested BP Systolic BP Type 77 122 Fetus Heart Rate Present A 127 Present Fetus Movement A Yes Comments Patient is having some swell ing . [facility] rec TV us for CL, pt unsure [...] Type Weight in lbs Pre/Post Dialysis Refused 167.830277786643 BP Diastolic BP Location Tested BP Systolic BP Type 75 117 Fetus Heart Rate Present A 139 Present Fetus Movement A Yes Comments Patient is having some swell ing. check PLT today. f/u 3 weeks will give order for rhogam and GCT to do at [facility] precautions and education reviewed Flowsheet Date 04/24/2025 Olivo Score Blood Edema Fundus Height Fundus Units Glucose Ketones Leukocytes Nitrite Labor Signs Protein Cervic Dilation Cervic Effacement Cervic Station neg trace Type Weight in lbs Pre/Post Dialysis Refused Weight 170.723316945589 BP Diastolic BP Location Tested BP Systolic [...] Weight in lbs Pre/Post Dialysis Refused Weight 173.608346427375 BP Diastolic BP Location Tested BP Systolic [...] Weight in lbs Pre/Post Dialysis Refused Weight 173.140829211657 BP Diastolic BP Location Tested BP Systolic [...]
--- OUTSIDE RECORDS SUMMARY | 2025-05-20 13:44 | XMS_ITS | Referral Summary ---
Author Organization [facility] Address [address] [place] [address] Care Team Providers Care Heel Slugger Name Role Phone Unknown, Notinfile Primary Care [...] Comments Blood Pressure 138/80 09/20/2024 2:41 PM CHIMNEY SUPERVISOR BRICK Pulse 88 09/20/2024 2:41 PM CHIMNEY SUPERVISOR BRICK Temperature 36.7 C (98 F) 09/20/2024 2:41 PM CHIMNEY SUPERVISOR BRICK Respiratory Rate 20 09/20/2024 2:41 PM CHIMNEY SUPERVISOR BRICK Oxygen Saturation 97% 09/20/2024 2:41 PM CHIMNEY SUPERVISOR BRICK Inhaled Oxygen Concentration - - Weight 70.3 kg (155 lb) 09/20/2024 2:41 PM CHIMNEY SUPERVISOR BRICK Height 149.9 cm (4' 11) 09/20/2024 2:41 PM CHIMNEY SUPERVISOR BRICK Body Mass Index 31.31 09/20/2024 2:41 PM CHIMNEY SUPERVISOR BRICK Plan of Treatment Not on file Insurance [facility] Future Domain [place] Future Domain [place] Care Teams Heel Slugger Relationship Specialty Start Date End Date Unknown, Notinfile PCP - General 01/15/24
--- OUTSIDE RECORDS SUMMARY | 2025-05-20 13:44 | XMS_ITS | Clinical Summary ---
Author Organization [facility] Address [address] [place] [address] Care Team Providers Care Crook Operator Name Role Phone Unknown, Notinfile Primary Care [...] Comments Blood Pressure 138/80 09/20/2024 2:41 PM SENIOR CONTROLS ANALYST Pulse 88 09/20/2024 2:41 PM SENIOR CONTROLS ANALYST Temperature 36.7 C (98 F) 09/20/2024 2:41 PM SENIOR CONTROLS ANALYST Respiratory Rate 20 09/20/2024 2:41 PM SENIOR CONTROLS ANALYST Oxygen Saturation 97% 09/20/2024 2:41 PM SENIOR CONTROLS ANALYST Inhaled Oxygen Concentration - - Weight 70.3 kg (155 lb) 09/20/2024 2:41 PM SENIOR CONTROLS ANALYST Height 149.9 cm (4' 11) 09/20/2024 2:41 PM SENIOR CONTROLS ANALYST Body Mass Index 31.31 09/20/2024 2:41 PM SENIOR CONTROLS ANALYST Plan of Treatment Health Maintenance Due Date [...] patient's age to complete this topic Insurance [facility] [place] Care Teams Crook Operator Relationship Specialty Start Date End Date Unknown, Notinfile PCP - General 01/15/24
--- OUTSIDE RECORDS SUMMARY | 2025-05-20 13:44 | XMS_ITS | Clinical Summary ---
Author Organization [facility] Address [address] [place] [address] Phone Care Team Providers Care Car Seat Upholsterer Name Role Phone Unavailable Primary Care Provider [...] - 03/02/2025 11:59 PM CDT Hospital Encounter [facility] [place] [address] [place] [address] Tammie Craven NP Discharge Disposition: [...] Comments Blood Pressure 112/71 01/14/2021 3:00 PM CLOCK REPAIRER Pulse 92 01/14/2021 3:00 PM CLOCK REPAIRER Temperature 36.2 C (97.1 F) 01/14/2021 11:30 AM CLOCK REPAIRER Respiratory Rate 15 01/14/2021 3:00 PM CLOCK REPAIRER Oxygen Saturation 95% 01/14/2021 3:00 PM CLOCK REPAIRER Inhaled Oxygen Concentration - - Weight 71.2 [...] HARRIS Study Date: 03/02/2025 1:45pm Pat. NO: [id number] Referring MD: TAMMIE CRAVEN CNM Site: [place] Catering Operations Manager: Yvette aMyes RDMS : 1990 Age: 34 ----- INDICATION ----- Anatomy Survey with History of Labor (PTL) 35 weeks Advanced Maternal Age (AMA), Multigravida CODING ----- Diagnoses Z3A.20: Weeks of gestation O09.522: Supervision of elderly multigravida O09.212: Supervision of with history of pre-term labor Z36.3: Encounter for screening for malformations Procedures 48038: Ultrasound, uterus, real time with image documentation, [...] 0 lb 13 oz EFW by Hadlock ([id number]) Head / Face / Neck Biometry: Pretzel Twisting Machine Operator 5.1 mm CM 3.6 mm 10% Nicolaides [...] view. RVOT view. LVOT view. 3-vessel view. 4-kprsxw-chzavhs view. Situs. Aortic arch view. Ductal arch [...] and date of were verified by the back facer before the exam IMPRESSION ----- 1. Single [...] Pat. Name:Adolph HARRIS Date:03/02/2025 1:45pm Pat. NO: [id number] MD:TAMMIE CRAVEN CNM [facility]:Yvette Mayes RDMS :1990Age:34 ----- INDICATION ----- Anatomy Survey with History of Labor (PTL) 35 weeks Advanced Maternal Age (AMA), Multigravida CODING ----- Diagnoses Z3A.20: Weeks of gestation O09.522: Supervision of elderly multigravida O09.212: Supervision of with history ofpre-term labor Z36.3: Encounter for screening formalformations Procedures 90630: Ultrasound, uterus, real time withimage documentation, and maternal evaluation plus detailed anatomic examination,transabdominal approach MATERNAL ASSESSMENT ----- Physical Exam Weight 71 kg. BMI 30.66 kg/m METHOD ----- Transabdominal ultrasound examination ----- Davidson . Number of fetuses: 1 DATING ----- Method of dating:based on stated TONY GA by prior [email or web address] w + 2 d TONY by prior [...] 0 lb 13 oz EFW by Hadlock ([id number]) Head / Face / Neck Biometry: Pretzel Twisting Machine Operator 5.1 mm CM 3.6 mm 10%Nicolaides Outer [...] 4-chamber view. RVOT view. LVOT view. 3-vesselview. 9-davjga-asymqcz view. Situs. Aortic arch view. Ductal arch [...] and date of were verified by the back facer beforethe exam IMPRESSION ----- 1. Single living [...] Final Result from Last 3 Months Insurance [facility] BLUE ACCESS/TRUE BLUE PPO
--- OUTSIDE RECORDS SUMMARY | 2025-05-20 13:44 | XMS_ITS | Data Portability ---
Author Organization [facility] Address [address] [place] [address] Assessment Encounter Date Assessment Date Assessment LastModified by Organization Details LastModified Time 04/24/2025 04/24/2025 Patient is __27_weeks . Discussed plan. [email or web address] Not available 04/24/2025 10:48:21 05/08/2025 05/08/2025 Patient is __29_weeks . Discussed plan. [email or web address] Not available 05/08/2025 10:37:28 05/20/2025 05/20/2025 Patient is __31_weeks . Discussed [...] recorde d. Surgeries None recorde d. Imaging non-str ess test 2024 025 [email or web address] [place], [address], [place], [address], 05/20/2025 14:43:15 , obstetr ic, follow- up 2024 025 [email or web address] [place], [address], [place], [address], 05/20/2025 13:21:54 Medication Orders None recorde d. Patient TargetsNo targets recorded. Patient InstructionsNo instructions recorded. Reason for Referral None Reported. Results Created Date Observation Date Name Description Value Unit Range Abnormal Flag Note LastModifiedBy Organization Detail LastModifiedTime 05/05/20 25 05/05/2025 GTT - GESTA MIR L, 3 HOUR, ACOG glucose, fasting acog 76 mg/dL 70-94 Not Available [facility] (Lab) [address], [place], [address], 05/06/2025 03:33:15 05/05/20 25 05/05/2025 GTT - GESTA MIR L, 3 HOUR, ACOG glucose, 1 hour acog 164 mg/dL 70-179 Not Available [facility] (Lab) [address] [place], [address], 05/06/2025 03:33:15 05/05/20 25 05/05/2025 GTT - GESTA MIR L, 3 HOUR, ACOG glucose, 2 hour acog 126 mg/dL 70-154 Not Available [facility] (Lab) [address] [place], [address], 05/06/2025 03:33:15 05/05/20 25 05/05/2025 GTT - GESTA MIR L, 3 HOUR, ACOG glucose, 3 hour acog 117 mg/dL 70-139 Not Available [facility] (Lab) [address] [place], [address], 05/06/2025 03:33:15 03/30/20 25 03/30/2025 US, obste tric, follo w-up No observ ation record ed. [email or web address] [place] [address], [place], [address], 03/30/2025 18:15:00 03/30/20 25 03/30/2025 US, obste tric, follo w-up No observ ation record ed. [address], [place], [address], 04/30/2025 15:13:51 05/20/20 25 05/20/2025 US, obste tric, follo w-up No observ ation record ed. [email or web address] [place] [address], [place], [address], 05/20/2025 13:20:23 05/20/20 25 05/20/2025 US, obste tric, follo w-up No observ ation record ed. [email or web address], [place], [address], 05/20/2025 10:05:47 05/20/20 25 05/20/2025 non-s tress test No observ ation record ed. [place] [address], [place], [address], 05/20/2025 14:42:31 Result Notes None recorded. Problems Name Problem SNOMED Code Status Onset Date Resolution Date Notes Provider Name and Address Organization Details Recorded Time Educatio n Completed 201805/10/2021 Encounte r for family planning advice;R ecorded Elsewher e: No Locat ion: [facility] S ource: EHR Handy Man estella: N Practi ce ID: [id number] Kvng lable Time: 01:30:00 PM Mago tirado [facility] 11:28:[address] Concept Completed 201805/10/2021 Encntr for general adult medical exam w/o abnormal findings ;Recorde d Elsewher e: No Locat ion: [facility] S ource: EHR Handy Man estella: N Dianati ce ID: [id number] Kvng lable Time: 09:45:00 AM Mago tirado [facility] 11:29:[address] Concept Completed 201805/10/2021 Encntr for lawyers exam (general ) (routine ) w/o abn findings ;Recorde d Elsewher e: No Locat ion: [facility] S ource: EHR Handy Man estella: N Practi ce ID: [id number] Kvng lable Time: 09:45:00 AM Mago tirado [facility] 1 11:29:04 Finding of fertilit y Completed 201805/10/2021 Female infertil ity, unspecif ied;Prac amari ID: [id number] Mago Phillips null, [facility] 1 11:29:00 Pregnanc y 79232160 Completed 202012/23/2021 Mago Alan tirado, [facility] 5 16:40:45 ultrasou nd scan abnormal 5386144018 9109 Completed Enlarged lateral ventricl e - 08/23 Level II U/S - No VSD. RESOLVED !! Final US @ 36 wks w/ MFM 11/24 315PM Pending CMV/parv o b/w Rossy aleman [facility], [facility] 2 15:15:00 Antenata l care: history of infertil ity [id number] Completed spon preg, TTC 5 years Rossy Jimena aleman [facility], [facility] 2 15:15:00 Prophyla ctic immunoth erapy Completed received 03/29/24 Mago Phillips [facility] 4 11:57:56 Thromboc ytopenic disorder 889601458 Completed low plt - 99 - [facility] 05/14/24 U/S & Consult - Rpt CBC and MFM visit in 1 wk. Delivery recommen dations at that time. Anesth esia consult Mago tirado [facility] 4 11:57:56 Pregnanc y 60264061 Active 2024 Mago Phillips [facility] 5 16:40:45 History of thromboc ytopenia 8247487933 9108 Active [facility] consult- referral faxed to [facility] 01/12/2025 Level II US schedule d [facility] 03/02 anesthes ia consult serial CBCs recommen ded by [facility] 28, 32 and 34wks antenata l testing weekly to start at 32wks Bre tirado, [facility] 5 15:47:05 History of infertil ity - female 547819928 Active prior to first delivery TTC x 5 years Tammie Craven, [place] [address], [place], [address], [place] [facility] 5 16:46:21 Past pregnanc y history of prematur e delivery 523310697 Active 2nd pregnanc y, 35 weeks, with NICU stay cervical us until 24wks Bre tirado, [facility] 5 15:43:30 Problem Notes None recorded. Procedures Surgical History Date Name Laterality Status Provider Name and Address Organization Details Recorded Time 06/13/20 23 Date of Last Pap Smear completed Mago Phillips [facility] 11/09/2023 16:36:37 01/15/20 21 Laparoscopy completed Mago Phillips [facility] 05/10/2021 12:32:04 11/12/18 94 operation on hip joint completed Magoyahaira Phillips [facility] 05/10/2021 12:34:56 11/12/18 94 procedure on ear completed Magoyahaira Phillips [facility] 11/09/2023 16:38:25 11/12/18 93 tonsilectomy/ad enoids completed Magoyahaira Phillips [facility] 11/09/2023 16:37:40 11/12/18 93 operation on ossicular chain of middle ear completed Mago Phillips [facility] 05/10/2021 12:34:18 11/12/18 92 procedure on ear completed Magoyahaira Phillips [facility] 11/09/2023 16:38:20 11/12/18 90 procedure on ear completed Magoyahaira Phillips [facility] 11/09/2023 16:38:15 11/12/18 89 operation on hip joint completed Maog Amortz [facility] 05/10/2021 12:33:26 Imaging Results None recorded. Procedure Notes None recorded. Medical Equipment None Reported. Allergies Allergen ID Allergen Name Allergen Category Reaction Reaction Severity Criticality Documentation Date Start Date Code Code System Note Provider Name and Address Organization Details Recorded Time 393 lactose food,medi cation Not available Not available Not available 03/09/2020 6211 RxNorm Mago Phillips null, [facility] 0 17:28:25 Medications Name Sig [...] Prescrib ed Elsewher e: No Locat ion: [facility] odify By: alea wagoner DateTime : [...] Prescrib ed Elsewher e: Yes Loca tion: [facility] M odify By: [email or web address] z Encoun [...] Prescrib ed Elsewher e: Yes [facility] odify By: yayo lewis DateTime : 01/22/20 19 09:45:00 AM Not Available Not Available Not Available Caltrate 600 plus D active Not Available Not Available Not Available Women's One Daily 18 mg iron-400 mcg-500 mg Ca tablet 11/09 completed Prescrib ed Elsewher e: Yes Loca tion: Jasbir padron [facility] odify By: yayo lewis DateTime : [...] Updated DateTime 04/24/2025 152.4 cm 33.2 kg/m2 61387.7 g 116/78 mm[Hg] Mago Phillips [facility] 04/24/2025 10:29:37 Date Recorded Body height Body mass index (BMI) Body weight Systolic And Diastolic Provider Name and Address Organization Details Last Updated DateTime 05/08/2025 152.4 cm 33.8 kg/m2 88574.48 g 126/81 mm[Hg] Akosua Carr [facility] 05/08/2025 10:30:09 Date Recorded Body height Body mass index (BMI) Body weight Systolic And Diastolic Provider Name and Address Organization Details Last Updated DateTime 05/20/2025 152.4 cm 33.8 kg/m2 21887.48 g 106/68 mm[Hg] Aoksua Carr [facility] 05/20/2025 10:17:36 Social History Question Answer Notes LastModified by Organizat ion Details LastModified Time Tobacco Smoking Status Never Smoker Mago Phillips [facility], [facility] 11/09/2023 16:35:52 Do You Have An Advance Directive? No [email or web address] Information n ot available 05/10/2021 If You Are , What Was Your Level Of Alcohol Consumption Prior To ? None [email or web address] Information not available 11/09/2023 Are You Blind Or Do You Have Difficulty Seeing? No [email or web address] Information n ot available 05/10/2021 What Is Your Level Of Caffeine Consumption? Moderate [email or web address] Information not available 05/10/2021 How Much Tobacco Do You Chew? None Information not available 05/10/2021 In The 14 Days Before Symptom Onset, Have You Had Close Contact With A Laboratory-confirm ed COVID-19 While That Case Was Ill? No Information n ot available 05/10/2021 In The 14 Days Before Symptom Onset, Have You Had Close Contact With A Person Who Is Under Investigation For COVID-19 While That Person Was Ill? No [email or web address] Information not available 05/10/2021 Have You Been To An Area Known To Be High Risk For COVID-19? No [email or web address] Information not available 05/10/2021 Are You Deaf Or Do You Have Serious Difficulty Hearing? No [email or web address] Information not available 05/10/2021 What Type Of Diet Are You Following? REGULAR [email or web address] Information n ot available 05/10/2021 What Is The Highest Grade Or Level Of School You Have Completed Or The Highest Degree You Have Received? IA50586-5 Information not available 05/10/2021 Are There Any Guns Present In Your Home? No Information not available 05/10/2021 What Was The Date Of Your Most Recent Tobacco Screening? 02/06/2025 [email or web address] Information not available 02/06/2025 Do You Use Protection During Sex? No [email or web address] Information not available 05/10/2021 Do You Use Your Seat Belt Or Car Seat Routinely? Yes [email or web address] Information not available 05/10/2021 Do You Have Smoke And Carbon Monoxide Detectors In Your Home? Yes [email or web address] Information not available 05/10/2021 How Much Tobacco Do You Smoke? No Information not available 05/10/2021 Do You Use Sunscreen Routinely? No [email or web address] Information not available 05/10/2021 Has Tobacco Cessation Counseling Been Provided? No [email or web address] Information not available 11/09/2023 Have You Used IV Drugs? No [email or web address] Information not available 05/10/2021 Do You Have Difficulty Walking Or Climbing Stairs? No Information not available 11/09/2023 Sex: Unknown Functional Status Question Answer Note LastModified by Organizat ion Details LastModified Time Do you use any illicit or recreational drugs? No [email or web address] Information not available 05/10/2021 Do you or have you ever used any other forms of tobacco or nicotine? No [email or web address] Information not available 11/09/2023 What is your level of alcohol consumption? None [email or web address] Information not available 03/09/2020 Are you able to walk? YESWOREST [email or web address] Information not available 05/10/2021 Are you able to care for yourself? 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 No [email or web address] Information not available 11/09/2023 What is your exercise level? Occasional [email or web address] Information not available 03/09/2020 Mental Status Question Answer Note LastModified by Organization D etails LastModified Time Do you feel stressed (tense, restless, nervous, or anxious, or unable to sleep at night)? [id number] [email or web address] Information not available 11/09/2023 Family History Relationship Description Onset Age of this Age Resolved Age Notes LastModified by Organization Details LastModified Time Mother Hypertensive disorder [email or web address] Not available 03/09 17:30:21 Father Hypertensive disorder [email or web address] Not available 03/09 17:30:29 Father Malignant neoplasm of prostate [email or web address] Not available 2021 15:59:30 Maternal Grandfather Heart disease [email or web address] Not available 03/09 17:30:54 Paternal Grandfather Heart disease [email or web address] Not available 03/09 17:30:54 Medical History Condition [...] Diagnosis Note [id number] Tammie Craven [facility] [address] [address] 03/09/2020 12:37:34 03/09/2020 12:38:16 Female infertility associated with anovulation 980370822 N97.0 History of infertility - female 499720577 Z87.42 suspect anovulatio n [id number] Juliocesar Arciniega MD [place] [address] [place] [address] 05/10/2021 11:50:59 05/10/2021 13:16:01 [id number] Tammie Craven [facility] [address] [place] [address] 05/10/2021 11:52:08 05/10/2021 22:27:09 Amenorrhea 09587865 N91.2 [id number] Juliocesar Arciniega MD [place] [address] [place] [address] 06/08/2021 14:54:20 06/08/2021 15:37:50 screening 539648630 Z36.82 [id number] Juliocesar Arciniega MD [place] [address],[place] [address] 06/08/2021 14:56:45 06/08/2021 17:39:48 Routine care 746318939 Z34.90 [id number] MD Jermain Watson [address],[place] [address] 07/05/2021 17:00:55 07/05/2021 23:34:26 Routine care 217597172 Z34.02 [id number] MD Jermain Watson [address],[place] [address] 07/05/2021 17:06:58 07/06/2021 09:01:06 [id number] MD Jermain Watson [address],[place] [address] 08/09/2021 16:32:28 08/09/2021 17:35:43 screening for malformation 240328017 Z36.3 [id number] MD Jermain Watson [address],[place] [address] 08/09/2021 16:33:19 08/10/2021 15:52:45 ultrasound scan abnormal 5413052060 9109 R93.89 Routine an tenatal care 330553384 Z34.02 [id number] MD Jermain Watson [address],[place] [address] 08/30/2021 15:49:12 08/30/2021 16:32:53 ultrasound scan abnormal 2699362580 9109 R93.89 Routine an tenatal care 522994009 Z34.02 [id number] MD Jermain Watson [address],[place] [address] 09/28/2021 10:46:06 09/28/2021 11:48:55 ultrasound scan abnormal 0164233468 9109 R93.89 Routine an tenatal care 096445457 Z34.02 [id number] MD Jermain Watson [address],[place] [address] 10/03/2021 16:59:59 10/03/2021 17:46:40 Vaginitis 49635181 N76.0 Candidal vulvovaginitis 91473947 B37.3 Increased frequency of urination 698545680 R35.0 [id number] MD Jermain Watson [address],[place] [address] 10/14/2021 16:28:02 10/15/2021 09:51:30 Routine care 002622443 Z34.02 Irregular uterine contractions 79177522 O62.2 [id number] MD Jermain Watson [address],[place] [address] 10/26/2021 16:48:46 10/28/2021 16:45:33 Routine care 332304868 Z34.02 [id number] Haylie Quintero MD [place] [address],[place] [address] 11/09/2021 16:43:06 11/09/2021 17:30:27 Routine care 584091608 Z34.02 [id number] Haylie Quintero MD [place] [address],[place] [address] 11/23/2021 16:23:13 11/24/2021 17:09:40 Routine care 546436116 Z34.02 [id number] Juliocesar Arciniega MD [place] [address],[place] [address] 11/25/2021 16:37:05 12/22/2021 14:09:22 [id number] Haylie Quintero MD [place] [address],[place] [address] 11/30/2021 16:35:51 12/02/2021 16:00:50 Routine care 991341987 Z34.02 [id number] MD Jermain Watson [address],[place] [address] 12/07/2021 15:58:38 12/07/2021 16:30:18 Central nervous system malformation in fetus affecting obstetrical care 7674240 O35.0XX0 Z3A.38 [id number] MD Jermain Watson [address],[place] [address] 12/07/2021 15:59:22 12/09/2021 09:45:23 Routine care 201023153 Z34.02 [id number] Haylie Quintero MD [place] [address],[place] [address] 12/19/2021 12:35:26 12/19/2021 13:32:49 care 105277263 Z39.0 [id number] Haylie Quintero MD [place] [address],[place] [address] 01/09/2022 14:43:23 01/09/2022 19:56:46 care 135887079 Z39.0 [id number] Joyce Iraheta [facility] [address],[place] [address] 06/13/2023 18:03:46 06/14/2023 16:21:39 Gynecologic examination 91078217 Z01.419 Take Calcium with Vitamin D 1200mg [...] Screen naDexa Screen naRoutine Labs PCP Dyspareunia 25774189 N94 .10 Chronic PFDRef PTInformat ion given for additional home review.Vag valium if not trying to for - -can consider https://ww w.pelvicpa in.org/mairbell ges/pdf/Pa tient%20In fo%20Hando uts%20191215 /PELVIC%20 FLOOR%20DY SFUNCTION% 20PFD%2019.pdf [id number] Juliocesar Arciniega MD [place] [address],[place] [address] 10/26/2023 13:30:57 10/26/2023 14:10:57 Threatened miscarriage 68586344 O20.0 Z3A.01 [id number] Juliocesar Arciniega MD [place] [address],[place] [address] 11/09/2023 15:19:34 11/09/2023 16:17:12 Uterine size for dates discrepancy 475464981 O26.841 Z3A.01 [id number] Tammie Craven [facility] [address],[place] [address] 11/09/2023 15:20:54 11/09/2023 16:50:48 Amenorrhea 79711006 N91.2 reviewed office, precaution svaccine recf/u 12 week new ob and first lookreglan unisom/b6 for nausea Routine an tenatal care 968864137 Z34.91 Nausea and vomiting 1693 1999 R11.2 [id number] Juliocesar Arciniega MD [place] [address],[place] [address] 11/29/2023 17:27:10 12/11/2023 17:15:39 [id number] Juliocesar Arciniega MD [place] [address],[place] [address] 12/14/2023 11:01:23 12/14/2023 11:40:32 screening 384515527 Z36.82 Z3A.11 [id number] Tammie Craven [facility] [address],[place] [address] 12/14/2023 11:01:43 12/14/2023 12:13:09 Gestation period, 12 weeks 45421370 Z3A.12 [id number] Tammie Craven [facility] [address],[place] [address] 01/11/2024 11:39:59 01/11/2024 12:08:41 Routine care 971743887 Z34.91 [id number] Juliocesar Arciniega MD [place] [address],[place] [address] 01/18/2024 12:03:06 01/18/2024 12:39:12 [id number] Juliocesar Arciniega MD [place] [address],[place] [address] 02/08/2024 11:26:39 02/08/2024 14:06:08 screening for malformation 605265419 Z36.3 [id number] Tammie Craven [facility] [address] [place] [address] 02/08/2024 11:28:26 02/08/2024 14:07:04 Routine care 376304105 Z34.91 [id number] Tammie Craven [facility] [address],[place] [address] 03/07/2024 11:16:27 03/07/2024 11:57:19 Routine care 165396947 Z34.91 [id number] Tammie Craven [facility] [address] [place] [address] 04/04/2024 09:03:38 04/04/2024 10:36:01 Routine care 763791617 Z34.91 [id number] Tammie Craven [facility] [address] [place] [address] 04/23/2024 10:02:14 04/23/2024 10:52:56 Routine care 439124812 Z34.91 [id number] Juliocesar Arciniega MD [place] [address],[place] [address] 05/09/2024 15:23:03 05/09/2024 16:07:50 Uterine size for dates discrepancy 526608645 O26.843 Z3A.33 1989 Tammie Craven [facility] [address],[place] [address] 05/09/2024 15:23:28 05/09/2024 16:43:03 Routine care 418896226 Z34.91 [id number] Tammie Craven [facility] [address],[place] [address] 05/30/2024 11:43:51 05/30/2024 12:34:22 care 756084385 Z39.2 Benign ges tational thrombocytopenia 883908810 D69.59 rpt cbc and cmp todaysleep when ablemonito r for headaches, visual changes, epigastric painf/u pending labscall if desires control method [id number] Tammie Craven [facility] [address],[place] [address] 08/29/2024 09:34:47 08/29/2024 10:45:03 care 385242886 Z39.2 normal pp exam f/u wwe [id number] MUSA GARCIA MD [place] [address],[place] [address] 12/22/2024 10:58:26 12/22/2024 11:40:13 [id number] MUSA GARCIA MD [place] [address],[place] [address] 12/22/2024 10:59:24 12/22/2024 17:16:53 test positive 626539721 Z32.01 1. Exam today within normal limits.2. Ultrasound today confirms GA and viability. EDC 9/6/253. GC/Clamydi a testing done: will f/u as indicated. 4. ACOG guidelines and plan of care for reviewed with patient. All questions answered.5 . Return to office at 12 weeks for new OB visit6. OB labs ordered today.7. Genetic screening: desires, drawn today. Benign ges tational thrombocytopenia 579843621 O99.119 - hx of gestationa l thrombocyt openia x2- Plt 70 on admission at 35 weeks for PPROM- discussed close monitoring of plt count this - due to slightly increased risk of PTL/PPROM in this , consider MFM consult if thrombocyt openia occurs for discussion of steroid burst around 35 weeks in case of PPROM again [id number] Juliocesar Arciniega MD [place] [address],[place] [address] 01/05/2025 15:57:59 01/05/2025 16:42:25 screening 712484862 Z36.82 Z3A.12 [id number] Tammie Craven [facility] [address],[place] [address] 01/09/2025 10:48:09 01/12/2025 02:33:48 Gestation period, 12 weeks 27471303 Z3A.12 Routine an tenatal care 691526017 Z34.91 [id number] Tammie Craven [place] [address] [address] 02/06/2025 09:48:00 02/06/2025 10:09:24 Gestation period, 16 weeks 38451467 Z3A.16 [id number] Tammie Craven [facility] [address],[place] [address] 03/06/2025 12:33:58 03/08/2025 23:10:20 Platelet count below reference range 431477391 D69.6 Gestation period, 21 weeks 02031809 Z3A.21 [id number] Juliocesar Arciniega MD [place] [address],[place] [address] 03/19/2025 17:29:55 03/19/2025 18:00:28 Suspected clinical finding 878058076 Z03.75 Z87.51 Z3A.22 [id number] Juliocesar Arciniega MD [place] [address],[place] [address] 03/30/2025 09:35:22 03/30/2025 10:42:02 care: obstetric risk 475250547 O09.292 Z3A.24 [id number] [facility] [address] [address] 04/03/2025 12:20:07 04/03/2025 14:20:37 Gestation period, 24 weeks 356718623 Z3A.24 [id number] [facility] [address],[place] [address] 04/24/2025 10:23:17 04/24/2025 10:59:43 Gestation period, 27 weeks 39114475 Z3A.27 [id number] [facility] [address],[place] [address] 05/08/2025 10:16:47 05/08/2025 11:18:17 Gestation period, 29 weeks 58231049 Z3A.29 [id number] Juliocesar Arciniega MD [place] [address],[place] [address] 05/20/2025 09:30:11 05/20/2025 10:06:27 High risk 40148214 O09.213 O09.293 Z3A.31 [id number] [facility] [address],[place] [address] 05/20/2025 09:30:26 05/20/2025 10:37:06 Gestation period, 31 weeks [id number] Z3A.31 [id number] [facility] [address],[place] [address] 05/20/2025 09:30:37 05/20/2025 14:43:20 History of [id number] Z87.59 Health Concerns Section Related Observation LastModified by Organization Detai ls LastModified Time None Recorded Concern Status LastModified by Organization Details LastModified Time None Recorded Advance Directives Directive N: Payers Insurance Date Sequence Insurance Name Policy Number Policy Calabrese Covered Member ID Calabrese Member ID Guarantor Name 05/19/2025 1 [place] [id number] Leanne Harris [id number] Leanne Harris OBGyn Episode Ob Episode Information Episode Created Date Number of Fetuses Patient Bloodtype Patient rh Status Prepregnancy Weight lbs Domestic Partner Domestic Partner Phone Father Name 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 Problem Name Start Date End Date Resolution Snomed Code Not e ultrasound scan abnormal SELFRESOLVED [id number] Enlarged lat eral ventricle - 08/23 Level II U/S - No VSD. RESOLVED!! Final US @ 36 wks w/ MFM 11/24 315PM Pending CMV/parvo b/w care: history of infertility [id number] spon preg, TTC 5 years Bo Calculation [...] Gestation 0 [email or web address] 06/08/2021 12/21/19 22 0 Pre- Flowsheet Flowsheet Date 06/08/2021 Olivo Score Blood Edema Fundus Height Fundus Units Glucose Ketones Leukocytes Nitrite Labor Signs Protein Cervic Dilation Cervic Effacement Cervic Station 12 Type Weight in lbs Pre/Post Dialysis Refused Weight 150.747551059315 BP Diastolic BP Location Tested BP Systolic [...] Weight in lbs Pre/Post Dialysis Refused Weight 153.037033651947 BP Diastolic BP Location Tested BP Systolic [...] Weight in lbs Pre/Post Dialysis Refused Weight 159.297178308699 BP Diastolic BP Location Tested BP Systolic [...] Weight in lbs Pre/Post Dialysis Refused Weight 161.610116667869 BP Diastolic BP Location Tested BP Systolic BP Type 86 124 Fetus Heart Rate Present A 150 Fetus Movement A Yes Comments Feeling well. Getting flu sh ot this week. Will discuss Tdap next visit. Saw MFM, no concern for VSD but slightly enlarged lateral ventricle. Did NIPT- low risk. Has appt at [facility] on Wednesday 09/05. Questions answered, support given. Orders given for Rhogam and 28w labs. Flowsheet Date 09/28/2021 Olivo Score Blood Edema Fundus Height Fundus Units Glucose Ketones Leukocytes Nitrite Labor Signs Protein Cervic Dilation Cervic Effacement Cervic Station trace 26 Type Weight in lbs Pre/Post Dialysis Refused Weight 167.080082616027 BP Diastolic BP Location Tested BP Systolic [...] Weight in lbs Pre/Post Dialysis Refused Weight 162.969596943089 BP Diastolic BP Location Tested BP Systolic [...] Weight in lbs Pre/Post Dialysis Refused Weight 172.196298363605 BP Diastolic BP Location Tested BP Systolic [...] Weight in lbs Pre/Post Dialysis Refused Weight 172.370566916969 BP Diastolic BP Location Tested BP Systolic [...] Weight in lbs Pre/Post Dialysis Refused Weight 175.130186953700 BP Diastolic BP Location Tested BP Systolic BP Type 80 131 Fetus Heart Rate Present A 120 Fetus Movement A Yes Comments Doing well. Still some const ipation, will increase colace, may add miralax. Tdap done. GBS next visit. Back to [facility] once more. Has preadmit scheduled. Discussed pediatricians, hospital bag, carseat installation. Flowsheet Date 11/23/2021 Olivo Score Blood Edema Fundus Height Fundus Units Glucose Ketones Leukocytes Nitrite Labor Signs Protein Cervic Dilation Cervic Effacement Cervic Station neg trace 34 none trace 0cm 20% -2 Type Weight in lbs Pre/Post Dialysis Refused Weight 176.104602560786 BP Diastolic BP Location Tested BP Systolic BP Type 86 136 Fetus Heart Rate Present A 140 Fetus Movement A Yes Comments Doing well. COnstipation imp roved. Diflucan yesterday but has urinary sx also. UA and culture. macrobid. Trouble sleeping. [facility] last week- normal growth but drop [...] Weight in lbs Pre/Post Dialysis Refused Weight 179.451383266088 BP Diastolic BP Location Tested BP Systolic [...] Weight in lbs Pre/Post Dialysis Refused Weight 178.225282247613 BP Diastolic BP Location Tested BP Systolic [...] Weight in lbs Pre/Post Dialysis Refused Weight 166.632119096459 BP Diastolic BP Location Tested BP Systolic [...] Estim ated Date of Delivery false Thalassemia (Lithuanian, Uzbek, Mediterranean, Or Background): MCV < 80 false Neural Tube Defect (Meningomyelocele, Spina Bifi da, Or Anencephaly) false Congenital Heart Defect false Down Syndrome false Scott-Sachs (eg, Pentecostal, Cajun, Welsh-Guatemalan) f alse Megan Disease false Sickle Cell Disease Or Trait () false Hemophilia Or Other Blood Disorders false Muscular Dystrophy false Cystic Fibrosis false [place]'s Chorea false Intellectual Disability/Autism false If Yes, [...] Complications Tubal Sterilization Discharge Date Comments 2 [facility] idural 38.3 false Tammie Craven CN Febrile Discharge Information Feeding Method Contraceptive Method Maternal HG B and HCT Levels Ob Episode Information Episode Created Date Number of Fetuses Patient Bloodtype Patient rh Status Prepregnancy Weight lbs Domestic Partner Domestic Partner Phone Father Name Logistics System Engineer Status 01/09/20 25 1 B Negative 158 Alfonso Steven OPEN Fetus Data First Name Last Name Admitted to NICU Weight (g) Sex Living Outcome Pediatric Complications Fetus ID Race Codes Race Delivery Type [id number] Problems Problem Notes RPT PLT 05/13/25 Problem Name Start Date End Date Resolution Snomed Code Not e History of infertility - female [id number] prior to first delivery TTC x 5 years History of thrombocytopenia [id number] [facility] consult-referral faxed to luis enrique goetz 01/12/2025Level II US scheduled [facility] 03/02anesthesia consult serial CBCs recommended by [facility] 28, 32 and 34wksantenatal testing weekly to start at 32wks Past history of premature delivery [id number] 2nd pr egnancy, 35 weeks, with NICU [...] Weight in lbs Pre/Post Dialysis Refused Weight 161.656968973317 BP Diastolic BP Location Tested BP Systolic [...] Type Weight in lbs Pre/Post Dialysis Refused 161.634473299732 BP Diastolic BP Location Tested BP Systolic BP Type 76 121 Fetus Heart Rate Present Fetus Movement A Yes Comments Patient is having cramping, discharge, and swelling. has appt at [facility] for anatomy, doing well, +FM, precautions and education f/u 4 weeks Flowsheet Date 03/06/2025 Olivo Score Blood Edema Fundus Height Fundus Units Glucose Ketones Leukocytes Nitrite Labor Signs Protein Cervic Dilation Cervic Effacement Cervic Station neg trace Type Weight in lbs Pre/Post Dialysis Refused Weight 165.817941112248 BP Diastolic BP Location Tested BP Systolic BP Type 77 122 Fetus Heart Rate Present A 127 Present Fetus Movement A Yes Comments Patient is having some swell ing . [facility] rec TV us for CL, pt unsure [...] Type Weight in lbs Pre/Post Dialysis Refused 167.832239064687 BP Diastolic BP Location Tested BP Systolic BP Type 75 117 Fetus Heart Rate Present A 139 Present Fetus Movement A Yes Comments Patient is having some swell ing. check PLT today. f/u 3 weeks will give order for rhogam and GCT to do at [facility] precautions and education reviewed Flowsheet Date 04/24/2025 Olivo Score Blood Edema Fundus Height Fundus Units Glucose Ketones Leukocytes Nitrite Labor Signs Protein Cervic Dilation Cervic Effacement Cervic Station neg trace Type Weight in lbs Pre/Post Dialysis Refused Weight 170.099078832647 BP Diastolic BP Location Tested BP Systolic [...] Weight in lbs Pre/Post Dialysis Refused Weight 173.024371146597 BP Diastolic BP Location Tested BP Systolic [...] Weight in lbs Pre/Post Dialysis Refused Weight 173.526258129169 BP Diastolic BP Location Tested BP Systolic [...] Domestic Partner Domestic Partner Phone Father Name Logistics System Engineer Status 12/14/19 24 1 B Negative 157 Alfonso Steven CLOSED Fetus Data First Name Last Name Admitted to NICU Weight (g) Sex Living Outcome Pediatric Complications Fetus ID Race Codes Race Delivery Type 2381.35 8 M [id number] Vaginal Delivery Problems Problem Notes hx previous infertility x 5 years prior to first pregnancyduplicated left renal arteryNext MFM Appt: 06/04/24 1pm u/s and ovRecs: 1wk rpt visit for rpt CBC and delivery recommendations. Anesthesia consult. Problem Name Start Date End Date Resolution Snomed Code Not e Prophylactic immunotherapy [id number] received Thrombocytopenic disorder [id number] low plt - 99 - [facility] 05/14/24 U/S & Consult - Rpt [...] Weight in lbs Pre/Post Dialysis Refused Weight 156.829065147538 BP Diastolic BP Location Tested BP Systolic [...] Weight in lbs Pre/Post Dialysis Refused Weight 157.209659188401 BP Diastolic BP Location Tested BP Systolic [...] Weight in lbs Pre/Post Dialysis Refused Weight 158.291174409199 BP Diastolic BP Location Tested BP Systolic [...] Weight in lbs Pre/Post Dialysis Refused Weight 162.755465282451 BP Diastolic BP Location Tested BP Systolic [...] Weight in lbs Pre/Post Dialysis Refused Weight 164.74210272739 BP Diastolic BP Location Tested BP Systolic [...] Weight in lbs Pre/Post Dialysis Refused Weight 168.087674585955 BP Diastolic BP Location Tested BP Systolic [...] Weight in lbs Pre/Post Dialysis Refused Weight 172.680698087081 BP Diastolic BP Location Tested BP Systolic [...] Weight in lbs Pre/Post Dialysis Refused Weight 162.872248614158 BP Diastolic BP Location Tested BP Systolic [...] At Estimated Date of Delivery false Thalassemia (Lithuanian, Uzbek, Mediterranean, Or Background): MCV < 80 false Neural Tube Defect (Meningom yelocele, Spina Bifida, Or Anencephaly) false Congenital Heart Defect false Down Syndrome false Scott-Sachs (eg, Pentecostal, Cajun, Welsh-Guatemalan) f alse Megan Disease false Sickle Cell Disease Or Trait () false Hemophilia Or Other Blood Disorders false Muscular Dystrophy false Cystic Fibrosis false [place]'s Chorea false Intellectual Disability/Autism false If Yes, [...] By Post Complications Tubal Sterilization Discharge Date 4 35.1 true Tammie Craven CNM Discharge Information Feeding Method Contraceptive Method Maternal HG B and HCT Levels
--- OUTSIDE RECORDS SUMMARY | 2025-05-20 13:44 | XMS_ITS | Clinical Summary ---
Author Organization [facility] Address [address] [place] [address] Care Team Providers Care Equal Opportunity Representative Name Role Phone Mumtaz Choi MD Primary Care Provider [phone] Source Comments [facility],non-owned Affiliates and Associated Physician Practices is amultiple site organization consisting of ambulatory clinics and hospital sitesin [place], [place], [place] and [place]. This disclosure is being madepursuant to the Care Everywhere program and may not contain all information available regarding this patient. Last updated 18.[facility] Allergies Active Allergy Reactions Criticality Noted Date [...] Harris was screened for depression using the [place] Depression Scale (EPDS) at her [facility] initial evaluation on 09/05/2021. Her [...] from the original note were not included. SKILLED NURSING PATIENT--PLEASE CALL [phone] (ex 2) IF TRIAGED OR ADMITTED Care Provider: Dr. Quintero [facility] consultants involved: RN- Lucas; MFM- Dr. Thakkar Diagnosis: Mild right ventriculomegaly (slightly increased in diameter at 10.5mm at 09/05/21 SKILLED NURSING US). Planned surveillance: Initial SKILLED NURSING 09/05/21. Growth in 2 weeks at [place], and follow up ultrasound for growth and assessment of ventricles between 32-36 weeks. Continue routine care with primary OB. Delivery location: with primary OB at hospital of choice ([facility]) Delivery mode: per usual OB indications Desired Delivery GA: No indication for delivery before 39 weeks at this time follow up: head imaging with pediatrican Jig Fitter: Undecided Autopsy indicated: Genetics note: LR NIPT-Male Composition Mixer Concerns: 09/05/2021- There are no social service [...] and heating? Not hard at all 05/14/2024 [facility] [place] [facility] Occupat ional [facility] - Occupational Stress [...] place to sleep or slept in a fdc (including now)? No 05/14/2024 Germf[place] Depression Scale Answer Date Recorded [place] Depression Scale Total 7 05/14/2024 The thought [...] to complete this topic Insurance [facility] Address: [facility] [address] [place] [address] Care Teams Equal Opportunity Representative Relationship Specialty Start Date End Date Mumtaz Choi MD [address] [place] [address] PCP - General Family Medicine 04/15/19
--- OUTSIDE RECORDS SUMMARY | 2025-05-21 07:38 | XMS_ITS | Clinical Summary ---
Author Organization [facility] Address [address] [place] [address] Phone Care Team Providers Care Endoscopy Registered Nurse Name Role Phone Unavailable Primary Care Provider [...] - 03/02/2025 11:59 PM CDT Hospital Encounter [facility] [address] [place] [address] Tammie Craven NP Discharge Disposition: [...] Comments Blood Pressure 112/71 01/14/2021 3:00 PM CLEANER FURNITURE Pulse 92 01/14/2021 3:00 PM CLEANER FURNITURE Temperature 36.2 C (97.1 F) 01/14/2021 11:30 AM CLEANER FURNITURE Respiratory Rate 15 01/14/2021 3:00 PM CLEANER FURNITURE Oxygen Saturation 95% 01/14/2021 3:00 PM CLEANER FURNITURE Inhaled Oxygen Concentration - - Weight 71.2 [...] HARRIS Study Date: 03/02/2025 1:45pm Pat. NO: [id number] Referring MD: TAMMIE CRAVEN CNM Site: [facility] Representative: Yvette Mayes RDMS : 1990 Age: 34 ----- INDICATION ----- Anatomy Survey with History of Labor (PTL) 35 weeks Advanced Maternal Age (AMA), Multigravida CODING ----- Diagnoses Z3A.20: Weeks of gestation O09.522: Supervision of elderly multigravida O09.212: Supervision of with history of pre-term labor Z36.3: Encounter for screening for malformations Procedures 13025: Ultrasound, uterus, real time with image documentation, [...] 0 lb 13 oz EFW by Hadlock ([id number]) Head / Face / Neck Biometry: Bus Washer 5.1 mm CM 3.6 mm 10% Nicolaides [...] view. RVOT view. LVOT view. 3-vessel view. 8-dvbqbt-mxjaire view. Situs. Aortic arch view. Ductal arch [...] and date of were verified by the facility manager before the exam IMPRESSION ----- 1. Single [...] Pat. Name:Adolph HARRIS Date:03/02/2025 1:45pm Pat. NO: [id number] MD:TAMMIE CRAVEN CNM [facility]Yvette Mayes RDMS :1990Age:34 ----- INDICATION ----- Anatomy Survey with History of Labor (PTL) 35 weeks Advanced Maternal Age (AMA), Multigravida CODING ----- Diagnoses Z3A.20: Weeks of gestation O09.522: Supervision of elderly multigravida O09.212: Supervision of with history ofpre-term labor Z36.3: Encounter for screening formalformations Procedures 03285: Ultrasound, uterus, real time withimage documentation, and maternal evaluation plus detailed anatomic examination,transabdominal approach MATERNAL ASSESSMENT ----- Physical Exam Weight 71 kg. BMI 30.66 kg/m METHOD ----- Transabdominal ultrasound examination ----- Davidson . Number of fetuses: 1 DATING ----- Method of dating:based on stated TONY GA by prior w + 2 d TONY by prior [...] 0 lb 13 oz EFW by Hadlock ([id number]) Head / Face / Neck Biometry: Bus Washer 5.1 mm CM 3.6 mm 10%Nicolaides Outer [...] 4-chamber view. RVOT view. LVOT view. 3-vesselview. 2-hvnrzl-hqvmopw view. Situs. Aortic arch view. Ductal arch [...] and date of were verified by the facility manager beforethe exam IMPRESSION ----- 1. Single living [...] Final Result from Last 3 Months Insurance [facility] BLUE ACCESS/TRUE BLUE PPO
--- OUTSIDE RECORDS SUMMARY | 2025-05-21 07:38 | XMS_ITS | Clinical Summary ---
Author Organization [facility] Address [address] [place] [address] Care Team Providers Care Logistics Clerk Name Role Phone Unknown, Notinfile Primary [...] Comments Blood Pressure 138/80 09/20/2024 2:41 PM DIGITAL IMAGER Pulse 88 09/20/2024 2:41 PM DIGITAL IMAGER Temperature 36.7 C (98 F) 09/20/2024 2:41 PM DIGITAL IMAGER Respiratory Rate 20 09/20/2024 2:41 PM DIGITAL IMAGER Oxygen Saturation 97% 09/20/2024 2:41 PM DIGITAL IMAGER Inhaled Oxygen Concentration - - Weight 70.3 kg (155 lb) 09/20/2024 2:41 PM DIGITAL IMAGER Height 149.9 cm (4' 11) 09/20/2024 2:41 PM DIGITAL IMAGER Body Mass Index 31.31 09/20/2024 2:41 PM DIGITAL IMAGER Plan of Treatment Health Maintenance Due Date [...] age to complete this topic Insurance [facility] [employer] [place] [employer] [place] Care Teams Logistics Clerk Relationship Specialty Start Date End Date Unknown, Notinfile PCP - General 01/15/24
--- OUTSIDE RECORDS SUMMARY | 2025-05-21 07:38 | XMS_ITS | Referral Summary ---
Author Organization [facility] Address [address] [place] [address] Care Team Providers Care Circus Hand Name Role Phone Unknown, Notinfile Primary Care [...] Comments Blood Pressure 138/80 09/20/2024 2:41 PM PRODUCTION SUPERINTENDENT HYDRO Pulse 88 09/20/2024 2:41 PM PRODUCTION SUPERINTENDENT HYDRO Temperature 36.7 C (98 F) 09/20/2024 2:41 PM PRODUCTION SUPERINTENDENT HYDRO Respiratory Rate 20 09/20/2024 2:41 PM PRODUCTION SUPERINTENDENT HYDRO Oxygen Saturation 97% 09/20/2024 2:41 PM PRODUCTION SUPERINTENDENT HYDRO Inhaled Oxygen Concentration - - Weight 70.3 kg (155 lb) 09/20/2024 2:41 PM PRODUCTION SUPERINTENDENT HYDRO Height 149.9 cm (4' 11) 09/20/2024 2:41 PM PRODUCTION SUPERINTENDENT HYDRO Body Mass Index 31.31 09/20/2024 2:41 PM PRODUCTION SUPERINTENDENT HYDRO Plan of Treatment Not on file Insurance [facility] [place] Care Teams Circus Hand Relationship Specialty Start Date End Date Unknown, Notinfile PCP - General 01/15/24
--- OUTSIDE RECORDS SUMMARY | 2025-05-21 07:38 | XMS_ITS | Continuity of Care Document ---
Author Organization [facility] Address [address] [place] [address] Assessment No assessment recorded. Plan of Treatment Reminders Order Date Submit Date Provider Last Modified By Organization Details Last Modified Time Details Appointments NST 2024 09:00A M NST SCHEDULE Not available Not available Not available NST 2024 09:00A M NST SCHEDULE Not available Not available Not available OB ROUTINE 2024 09:30A M Tammie Craven, CNM Not available Not available Not available NST 2024 08:30A M NST SCHEDULE Not available Not available Not available OB ROUTINE 2024 09:15A M Tammie Craven, CNM Not available Not available Not available NST 2024 08:30A M NST SCHEDULE Not available Not available Not available OB ROUTINE 2024 09:00A M Tammie Craven, CNM Not available Not available Not available NST 2024 08:30A M NST SCHEDULE Not available Not available Not available xANY 2024 09:00A M Tammie Younge, CNM Not available Not available Not available [...] available OB ROUTINE 2024 09:00A M Tammie Merissa, ANSON Not available Not available Not available Lab None recorded . Referral None recorded . Procedures None recorded . Surgeries None recorded . Imaging non-stre ss test 2024 0709 025 [email or web address] [address], [address], [place], [address], 05/20/2025 15:08:27 Medication Orders None recorded . Patient TargetsNo targets recorded. Patient InstructionsNo instructions recorded. Reason for Referral None Reported. Results Created Date Observation Date Name Description Value Unit Range Abnormal Flag Note LastModifiedBy Organization Detail LastModifiedTime 03/02/20 25 03/02/2025 US, obste tric, follo w-up No observ ation record ed. [facility] [address] , [place], [address], 04/07/2025 22:29:38 03/02/20 25 03/02/2025 US, obste tric, follo w-up No observ ation record ed. [email or web address] [facility] [address], [place], [address], 03/04/2025 22:52:53 03/19/20 25 03/19/2025 US, obste tric, limit ed No observ ation record ed. [email or web address] [address] [facility], [place], [address], 03/25/2025 06:22:37 03/19/20 25 03/19/2025 US, obste tric, limit ed No observ ation record ed. [email or web address] [address], [place], [address], 03/19/2025 18:12:38 03/30/20 25 03/30/2025 US, obste tric, follo w-up No observ ation record ed. [email or web address] [place] [address], [place], [address], 03/30/2025 18:15:00 03/30/20 25 03/30/2025 US, obste tric, follo w-up No observ ation record ed. [email or web address] [address], [place], [address], 04/30/2025 15:13:51 05/20/20 25 05/20/2025 US, obste tric, follo w-up No observ ation record ed. [email or web address] [place] [address], [place], [address], 05/20/2025 13:20:23 05/20/20 25 05/20/2025 US, obste tric, follo w-up No observ ation record ed. [email or web address], [place], [address], 05/20/2025 10:05:47 05/20/20 25 05/20/2025 non-s tress test No observ ation record ed. [email or web address] [place] [address], [place], [address], 05/20/2025 14:42:31 05/20/20 25 05/20/2025 imagi ng/di agnos tic resul t No observ ation record ed. [facility] [address], [place], [address], 05/20/2025 19:29:21 Result Notes None recorded. 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 1 11:29:04 Finding of fertilit y Completed 201805/10/2021 Female infertil ity, unspecif ied;Prac amari ID: [id number] Mago Alan tirado, [facility] 1 11:29:00 Pregnanc y 50934541 Completed 202012/23/2021 Mago Phillips [facility], [facility] 5 16:40:45 ultrasou nd scan abnormal [id number] 9109 Completed Enlarged lateral ventricl e - 08/23 Level II U/S - No VSD. RESOLVED !! Final US @ 36 wks w/ MFM 11/24 315PM Pending CMV/parv o b/w Rossy aleman [facility], [facility] 2 15:15:00 Antenata l care: history of infertil ity [id number] Completed spon preg, TTC 5 years Rossy aleman [facility], [facility] 2 15:15:00 Prophyla ctic immunoth erapy Completed received 03/29/24 Mago tirado [facility] 4 11:57:56 Thromboc ytopenic disorder 868617201 Completed low plt - 99 - [facility] 05/14/24 U/S & Consult - Rpt CBC and MFM visit in 1 wk. Delivery recommen dations at that time. Anesth esia consult Mago tirado [facility] 4 11:57:56 Pregnanc y 68148720 Active 2024 Mago tirado [facility] 5 16:40:45 History of thromboc ytopenia 9566218553 9108 Active MFM consult- referral faxed to [facility] 01/12/2025 Level II US schedule d [facility] 03/02 anesthes ia consult serial CBCs recommen ded by [facility] 28, 32 and 34wks antenata l testing weekly to start at 32wks Bre tirado [facility] 5 15:47:05 History of infertil ity - female 629124057 Active prior to first delivery TTC x 5 years Tammie Craven, CNM [address], [place], [address], [place] [facility] 5 16:46:21 Past pregnanc y history of prematur e delivery 270412966 Active 2nd pregnanc y, 35 weeks, with NICU stay cervical us until 24wks Bre tirado [facility] 5 15:43:30 Problem Notes None recorded. Procedures Surgical History Date Name Laterality Status Provider Name and Address Organization Details Recorded Time 06/13/20 23 Date of Last Pap Smear completed Mago Phillips [facility] 11/09/2023 16:36:37 01/15/20 21 Laparoscopy completed Mago Phillips [facility] 05/10/2021 12:32:04 11/12/18 94 operation on hip joint completed Mago Phillips [facility] 05/10/2021 12:34:56 11/12/18 94 [facility] 11/09/2023 16:38:25 11/12/18 93 [facility] 11/09/2023 16:37:40 11/12/18 93 operation on ossicular chain of middle ear [facility] 05/10/2021 12:34:18 11/12/18 92 [facility] 11/09/2023 16:38:20 11/12/18 90 [facility] 11/09/2023 16:38:15 11/12/18 89 [facility] 05/10/2021 12:33:26 Imaging Results None recorded. Procedure Notes None recorded. Medical Equipment None Reported. Allergies Allergen ID Allergen Name Allergen Category Reaction Reaction Severity Criticality Documentation Date Start Date Code Code System Note Provider Name and Address Organization Details Recorded Time 393 lactose food,medi cation Not available Not available Not available 03/09/2020 6211 RxNorm Magoyahaira Phillips [facility] 0 17:28:25 Medications Name Sig Start [...] Prescrib ed Elsewher e: No Locat ion: [facility] odify By: alea wagoner DateTime : [...] Prescrib ed Elsewher e: Yes Loca tion: [facility] odify By: [email or web address] z Encoun ter DateTime : 01/22/20 09:45:00 [...] Prescrib ed Elsewher e: Yes Loca tion: [facility] odify By: yayo z Encoun ter DateTime : 01/22/20 09:45:00 AM Not Available Not Available Not Available Caltrate 600 plus D active Not Available Not Available Not Available Women's One Daily 18 mg iron-400 mcg-500 mg Ca tablet 11/09 completed Prescrib ed Elsewher e: Yes Loca tion: [facility] odify By: yayo salazar Encoun ter [...] Updated DateTime 05/20/2025 152.4 cm 33.8 kg/m2 60643.48 g 106/68 mm[Hg] Akosua Carr [facility] 05/20/2025 10:17:36 Social History Question Answer Notes LastModified by Organizat ion Details LastModified Time Tobacco Smoking Status Never Smoker Mago tirado, [facility] 11/09/2023 16:35:52 Do You Have An Advance Directive? No [email or web address] Information n ot available 05/10/2021 If You Are , What Was Your Level Of Alcohol Consumption Prior To ? None [email or web address] Information not available 11/09/2023 Are You Blind Or Do You Have Difficulty Seeing? No [email or web address] Information n ot available 05/10/2021 What Is Your Level Of Caffeine Consumption? Moderate [email or web address] Information not available 05/10/2021 How Much Tobacco Do You Chew? None [email or web address] Information not available 05/10/2021 In The 14 Days Before Symptom Onset, Have You Had Close Contact With A Laboratory-confirm ed COVID-19 While That Case Was Ill? No [email or web address] Information n ot available 05/10/2021 In The 14 Days Before Symptom Onset, Have You Had Close Contact With A Person Who Is Under Investigation For COVID-19 While That Person Was Ill? No [email or web address] Information not available 05/10/2021 Have You Been To An Area Known To Be High Risk For COVID-19? No [email or web address] Information not available 05/10/2021 Are You Deaf Or Do You Have Serious Difficulty Hearing? No [email or web address] Information not available 05/10/2021 What Type Of Diet Are You Following? REGULAR [email or web address] Information n ot available 05/10/2021 What Is The Highest Grade Or Level Of School You Have Completed Or The Highest Degree You Have Received? [id number] [email or web address] Information not available 05/10/2021 Are There Any Guns Present In Your Home? No [email or web address] Information not available 05/10/2021 What Was The Date Of Your Most Recent Tobacco Screening? 02/06/2025 [email or web address] Information not available 02/06/2025 Do You Use Protection During Sex? No [email or web address] Information not available 05/10/2021 Do You Use Your Seat Belt Or Car Seat Routinely? Yes [email or web address] Information not available 05/10/2021 Do You Have Smoke And Carbon Monoxide Detectors In Your Home? Yes Information not available 05/10/2021 How Much Tobacco Do You Smoke? No [email or web address] Information not available 05/10/2021 Do You Use Sunscreen Routinely? No [email or web address] Information not available 05/10/2021 Has Tobacco Cessation Counseling Been Provided? No [email or web address] Information not available 11/09/2023 Have You Used IV Drugs? No [email or web address] Information not available 05/10/2021 Do You Have Difficulty Walking Or Climbing Stairs? No [email or web address] Information not available 11/09/2023 Sex: Unknown Functional Status Question Answer Note LastModified by Organizat ion Details LastModified Time Do you use any illicit or recreational drugs? No [email or web address] Information not available 05/10/2021 Do you or have you ever used any other forms of tobacco or nicotine? No Information not available 11/09/2023 What is your level of alcohol consumption? None Information not available 03/09/2020 Are you able to walk? YESWOREST [email or web address] Information not available 05/10/2021 Are you able to care for yourself? 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 No [email or web address] Information not available 11/09/2023 What is your exercise level? Occasional [email or web address] Information not available 03/09/2020 Mental Status Question Answer Note LastModified by Organization D etails LastModified Time Do you feel stressed (tense, restless, nervous, or anxious, or unable to sleep at night)? [id number] [email or web address] Information not available 11/09/2023 Family History Relationship Description Onset Age of this Age Resolved Age Notes LastModified by Organization Details LastModified Time Mother Hypertensive disorder Not available 03/09 17:30:21 Father Hypertensive disorder [email or web address] Not available 03/09 17:30:29 Father Malignant neoplasm of prostate [email or web address] Not available 2021 15:59:30 Maternal Grandfather Heart disease Not available 03/09 17:30:54 Paternal Grandfather Heart disease [email or web address] Not available 03/09 17:30:54 Medical History Condition [...] SNOMED-CT Code Diagnosis ICD10 Code Diagnosis Note [id number] Tammie Craven CNM [place] [address] [place] [address] 04/24/2025 10:23:17 04/24/2025 10:59:43 Gestation period, 27 weeks [id number] Z3A.27 [id number] Tammie Craven CNM [place] [address],[facility] [place] [address] 05/08/2025 10:16:47 05/08/2025 11:18:17 Gestation period, 29 weeks 43225094 Z3A.29 125136 Juliocesar Arciniega MD [place] [address] [address] 05/20/2025 09:30:11 05/20/2025 10:06:27 High risk 26022023 O09.213 O09.293 Z3A.31 595563 Tammie Craven [facility] [address] [address] 05/20/2025 09:30:26 05/20/2025 10:37:06 Gestation period, 31 weeks 77720099 Z3A.31 [id number] [facility] [address],[facility] [place] [address] 05/20/2025 09:30:37 05/20/2025 15:08:27 History of [id number] Z87.59 Health Concerns Section Related Observation LastModified by Organization Detai ls LastModified Time None Recorded Concern Status LastModified by Organization Details LastModified Time None Recorded Payers Encounter Date Sequence Insurance Name Policy Number Policy Calabrese Covered Member ID Calabrese Member ID Guarantor Name 05/20/2025 1 [place] [id number] Leanne Harris [id number] 28 Leanne Harris OBGyn Episode Ob Episode Information Episode Created Date Number of Fetuses Patient Bloodtype Patient rh Status Prepregnancy Weight lbs Domestic Partner Domestic Partner Phone Father Name Medical Typist Status 01/09/20 25 1 B Negative 158 Alfonso Harris OPEN Fetus Data First Name Last Name Admitted to NICU Weight (g) Sex Living Outcome Pediatric Complications Fetus ID Race Codes Race Delivery Type [id number] Problems Problem Notes RPT PLT 05/13/25 Problem Name Start Date End Date Resolution Snomed Code Not e History of infertility - female 689580351 prior to first delivery TTC x 5 years History of thrombocytopenia [id number] [facility] consult-referral faxed to [facility] 01/12/2025Level II US scheduled [facility] 03/02anesthesia consult serial CBCs recommended by [facility] 28, 32 and 34wksantenatal testing weekly to start at 32wks Past history of premature delivery [id number] 2nd pr egnancy, 35 weeks, with NICU [...] Weight in lbs Pre/Post Dialysis Refused Weight 161.490051474334 BP Diastolic BP Location Tested BP Systolic [...] Type Weight in lbs Pre/Post Dialysis Refused 161.413085409935 BP Diastolic BP Location Tested BP Systolic BP Type 76 121 Fetus Heart Rate Present Fetus Movement A Yes Comments Patient is having cramping, discharge, and swelling. has appt at [facility] for anatomy, doing well, +FM, precautions and education f/u 4 weeks Flowsheet Date 03/06/2025 Olivo Score Blood Edema Fundus Height Fundus Units Glucose Ketones Leukocytes Nitrite Labor Signs Protein Cervic Dilation Cervic Effacement Cervic Station neg trace Type Weight in lbs Pre/Post Dialysis Refused Weight 165.088236176662 BP Diastolic BP Location Tested BP Systolic BP Type 77 122 Fetus Heart Rate Present A 127 Present Fetus Movement A Yes Comments Patient is having some swell ing . [facility] rec TV us for CL, pt [...] Type Weight in lbs Pre/Post Dialysis Refused 167.537703059415 BP Diastolic BP Location Tested BP Systolic BP Type 75 117 Fetus Heart Rate Present A 139 Present Fetus Movement A Yes Comments Patient is having some swell ing. check PLT today. f/u 3 weeks will give order for rhogam and GCT to do at [facility] precautions and education reviewed Flowsheet Date 04/24/2025 Olivo Score Blood Edema Fundus Height Fundus Units Glucose Ketones Leukocytes Nitrite Labor Signs Protein Cervic Dilation Cervic Effacement Cervic Station neg trace Type Weight in lbs Pre/Post Dialysis Refused Weight 170.231768888525 BP Diastolic BP Location Tested BP Systolic [...] Weight in lbs Pre/Post Dialysis Refused Weight 173.536851462861 BP Diastolic BP Location Tested BP Systolic [...] Weight in lbs Pre/Post Dialysis Refused Weight 173.535433156439 BP Diastolic BP Location Tested BP Systolic [...]
--- OUTSIDE RECORDS SUMMARY | 2025-05-21 07:38 | XMS_ITS | Clinical Summary ---
Author Organization [facility] Address [address] [place] [address] Care Team Providers Care Team Coordinator Name Role Phone Mumtaz Choi MD Primary Care Provider [phone] Source Comments [facility],non-owned Affiliates and Associated Physician Practices is amultiple site organization consisting of ambulatory clinics and hospital sitesin [place], [place] and [place]. This disclosure is being madepursuant to the Care Everywhere program and may not contain all information available regarding this patient. Last updated 18.[facility] Allergies Active Allergy Reactions Criticality Noted Date [...] Harris was screened for depression using the [place] Depression Scale (EPDS) at her [facility] initial evaluation on 09/05/2021. Her initial [...] note were not included. PRISON PATIENT--PLEASE CALL [phone] (ex 2) IF TRIAGED OR ADMITTED Care Provider: Dr. Quintero [facility] consultants involved: RN- Lucas; MFM- Dr. Thakkar Diagnosis: Mild right ventriculomegaly (slightly increased in diameter at 10.5mm at 09/05/21 PRISON US). Planned surveillance: Initial PRISON 09/05/21. Growth in 2 weeks at [place], and follow up ultrasound for growth and assessment of ventricles between 32-36 weeks. Continue routine care with primary OB. 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 Not hard at all 05/14/2024 [facility] [place] [facility] Occupat [facility] - Occupational Stress [...] place to sleep or slept in a nursing home (including now)? No 05/14/2024 [place] Depression Scale Answer Date Recorded [place] Depression Scale Total 7 05/14/2024 The thought [...] complete this topic Insurance ANTHEM Care Teams Team Coordinator Relationship Specialty Start Date End Date Mumtaz Choi MD [address] [place] [address] PCP - General Family Medicine 04/15/19
--- NOTE | 2025-05-24 10:35 | PM.OBTRLD ---
OB - Triage/Final Diagnosis Visit Information Date of evaluation: 05/20/25 Reason for evaluation: threatened labor Comments/Additional reasons for admission: I have assessed the risk for this patient, Leanne Mitra Harris, and determined that she would benefit from observation care.
== END 2025-05-20 15:08 | disposition home or self-care (01) ==
PROVIDERS: Admitting Provider Obstetrics & Gynecology; Visit Provider Obstetrics & Gynecology
DX: O47.9 False labor, unspecified (principal)
CPT/HCPCS: G0378; G0379

== ENCOUNTER 2025-05-24 01:12 | Observation (INO) | payer BC, SELFPAY ==
[2025-05-24] VITALS (43 sets, daily range): BP systolic 98–124; BP diastolic 51–84; PULSE 92–120; O2SAT 94–99; BMI 34.2
--- OUTSIDE RECORDS SUMMARY | 2025-05-24 01:23 | XMS_ITS | Data Portability ---
Author Organization [facility] Address [address] [place] [address] Assessment Encounter Date Assessment Date Assessment LastModified by Organization Details LastModified Time 04/24/2025 04/24/2025 Patient is __27_weeks . Discussed plan. [email or web address] Not available 04/24/2025 10:48:21 05/08/2025 05/08/2025 Patient is __29_weeks . Discussed plan. [email or web address] Not available 05/08/2025 10:37:28 05/20/2025 05/20/2025 Patient is __31_weeks . Discussed plan. [email or web address] Not available 05/20/2025 10:33:50 Plan of Treatment Reminders Order Date Submit Date Provider Last Modified By Organization Details Last Modified Time Details Appointments NST 2024 09:00A M NST SCHEDULE Not available Not available Not available NST 2024 09:00A M NST SCHEDULE Not available Not available Not available OB ROUTINE 2024 09:30A M LICO ArellanoM Not available Not available Not available NST 2024 08:30A M NST SCHEDULE Not available Not available Not available OB ROUTINE 2024 09:15A M LICO ArellanoM Not available Not available Not available NST [...] recorded . Imaging non-stre ss test 2024 025 [email or web address] [address], [place], [address], 05/20/2025 15:08:27 US, obstetri c, follow-u p 2024 [email or web address] [place] [facility] [address], [place], [address], 05/21/2025 20:41:29 Medication Orders None recorded . Patient TargetsNo targets recorded. Patient InstructionsNo instructions recorded. Reason for Referral None Reported. Results Created Date Observation Date Name Description Value Unit Range Abnormal Flag Note LastModifiedBy Organization Detail LastModifiedTime 05/05/2005/05/2025 GTT - GESTA MRI L, 3 HOUR, ACOG glucose, fasting acog 76 mg/dL 70-94 Not Available [facility] (Lab) [address], [place], [address], 05/06/2025 03:33:15 05/05/20 25 05/05/2025 GTT - GESTA MIR L, 3 HOUR, ACOG glucose, 1 hour acog 164 mg/dL 70-179 Not Available [facility] (Lab) [address] [facility], [place], [address], 05/06/2025 03:33:15 05/05/20 25 05/05/2025 GTT - GESTA MIR L, 3 HOUR, ACOG glucose, 2 hour acog 126 mg/dL 70-154 Not Available [facility] (Lab) [address] [facility], [place], [address], 05/06/2025 03:33:15 05/05/20 25 05/05/2025 GTT - GESTA MIR L, 3 HOUR, ACOG glucose, 3 hour acog 117 mg/dL 70-139 Not Available [facility] (Lab) [address] [facility], [place], [address], 05/06/2025 03:33:15 03/30/20 25 03/30/2025 US, obste tric, follo w-up No observ ation record ed. [email or web address] [place] [address], [place], [address], 03/30/2025 18:15:00 03/30/2003/30/2025 US, obste tric, follo w-up No observ ation record ed. [email or web address] [address], [place], [address], 04/30/2025 15:13:51 05/20/20 25 05/20/2025 US, obste tric, follo w-up No observ ation record ed. [email or web address] [place] [address], [place], [address], 05/20/2025 13:20:23 05/20/20 25 05/20/2025 US, obste tric, follo w-up No observ ation record ed. [email or web address] [address], [place], [address], 05/22/2025 11:51:14 05/20/20 25 05/20/2025 non-s tress test No observ ation record ed. [email or web address] [place] [address], [place], [address], 05/20/2025 14:42:31 05/20/20 25 05/20/2025 imagi ng/di agnos tic resul t No observ ation record ed. [address], [place], [address], 05/22/2025 09:27:19 05/22/2005/18/2025 non-s tress test No observ ation record ed. [address], [place], [address], 05/22/2025 14:38:03 Result Notes None recorded. Problems Name Problem SNOMED Code Status Onset Date Resolution Date Notes Provider Name and Address Organization Details Recorded Time Educatio n Completed 201805/10/2021 Encounte r for family planning advice;R ecorded Elsewher e: No Locat ion: [facility] S ource: EHR Tissue Rewinder estella: N John ce ID: 0001 Kvng lable Time: 01:30:00 PM Mago tirado [facility] 11:28:[address] Concept Completed 201805/10/2021 Encntr for general adult medical exam w/o abnormal findings ;Recorde d Elsewher e: No Locat ion: [facility] S ource: EHR Tissue Rewinder estella: N Dianati ce ID: [id number] Kvng lable Time: 09:45:00 AM Mago tirado [facility] 11:29:[address] Concept Completed 201805/10/2021 Encntr for disintegrator operator exam (general ) (routine ) w/o abn findings ;Recorde d Elsewher e: No Locat ion: [facility] S ource: EHR Tissue Rewinder estella: N Practi ce ID: 0001 Kvng lable Time: 09:45:00 AM Mago tirado, [facility] 1 11:29:04 Finding of fertilit y Completed 201805/10/2021 Female infertil ity, unspecif ied;Prac amari ID: 0001 Mago tirado, [facility] 1 11:29:00 Pregnanc y 84168501 Completed 202012/23/2021 Mago Phillips [facility], [facility] 5 16:40:45 ultrasou nd scan abnormal 5684852332 9109 Completed Enlarged lateral ventricl e - 08/23 Level II U/S - No VSD. RESOLVED !! Final US @ 36 wks w/ MFM 11/24 315PM Pending CMV/parv o b/w Rossy aleman [facility], [facility] 2 15:15:00 Antenata l care: history of infertil ity [id number] Completed spon preg, TTC 5 years Rossy aleman [facility], [facility] 2 15:15:00 Prophyla ctic immunoth erapy Completed received 03/29/24 Mago tirado [facility] 4 11:57:56 Thromboc ytopenic disorder 263878224 [facility]S & Consult - Rpt CBC and MFM visit in 1 wk. Delivery recommen dations at that time. Anesth esia consult Mago tirado [facility] 4 11:57:56 Pregnanc y 51458389 Active 2024 Mago tirado [facility] 5 16:40:45 History of thromboc ytopenia 4963296686 9108 Active [facility] consult- referral faxed to [facility] 01/12/2025 Level II US schedule d [facility] 03/02 anesthes ia consult serial CBCs recommen ded by [facility] 28, 32 and 34wks antenata l testing weekly to start at 32wks Bre tirado [facility] 5 15:47:05 History of infertil ity - female 321918008 Active prior to first delivery TTC x 5 years Tammie Craven, CNM [address], [place], [address], [place] [facility] 5 16:46:21 Past pregnanc y history of prematur e delivery 793335803 Active 2nd pregnanc y, 35 weeks, with NICU stay cervical us until 24wks Bre Alvaro tirado [facility] 5 15:43:30 Problem Notes None recorded. Procedures Surgical History Date Name Laterality Status Provider Name and Address Organization Details Recorded Time 06/13/20 23 Date of Last Pap Smear completed Mago Phillips [facility] 11/09/2023 16:36:37 01/15/20 21 Laparoscopy completed Magoyahaira Phillips [facility] 05/10/2021 12:32:04 11/12/18 94 operation on hip joint completed Mago Phillips [facility] 05/10/2021 12:34:56 11/12/18 94 procedure on ear completed Mago Phillips [facility] 11/09/2023 16:38:25 11/12/18 93 tonsilectomy/ad enoids completed Mago Phillips [facility] 11/09/2023 16:37:40 11/12/18 93 operation on ossicular chain of middle ear completed Mago Phillips [facility] 05/10/2021 12:34:18 11/12/18 92 procedure on ear completed Mago Phillips [facility] 11/09/2023 16:38:20 11/12/18 90 procedure on ear completed Mago Amortz [facility] 11/09/2023 16:38:15 11/12/18 89 operation on hip joint completed Mago Amortz [facility] 05/10/2021 12:33:26 Imaging Results None recorded. Procedure Notes None recorded. Medical Equipment None Reported. Allergies Allergen ID Allergen Name Allergen Category Reaction Reaction Severity Criticality Documentation Date Start Date Code Code System Note Provider Name and Address Organization Details Recorded Time 393 lactose food,medi cation Not available Not available Not available 03/09/2020 6211 RxNorm Mago Phillips [facility] 0 17:28:25 Medications Name Sig Start [...] Prescrib ed Elsewher e: No Locat ion: [facility] M odify By: alea wagoner DateTime : [...] Elsewher e: Yes Loca tion: Jasbir padron [facility] odify By: Sentence Labginger z Encoun ter DateTime : 01/22/20 09:45:00 [...] Elsewher e: Yes Loca tion: Jasbir padron [facility] odify By: Moontoastmarques z Encoun ter DateTime : 01/22/20 09:45:00 AM Not Available Not Available Not Available Caltrate 600 plus D active Not Available Not Available Not Available Women's One Daily 18 mg iron-400 mcg-500 mg Ca tablet 11/09 completed Prescrib dary padron: Yes Loca tion: Jasbir [facility] M odify By: [email or web address] z Encoun [...] Updated DateTime 04/24/2025 152.4 cm 33.2 kg/m2 42266.7 g 116/78 mm[Hg] Mago Phillips [facility] 04/24/2025 10:29:37 Date Recorded Body height Body mass index (BMI) Body weight Systolic And Diastolic Provider Name and Address Organization Details Last Updated DateTime 05/08/2025 152.4 cm 33.8 kg/m2 76780.48 g 126/81 mm[Hg] [facility] 05/08/2025 10:30:09 Date Recorded Body height Body mass index (BMI) Body weight Systolic And Diastolic Provider Name and Address Organization Details Last Updated DateTime 05/20/2025 152.4 cm 33.8 kg/m2 28665.48 g 106/68 mm[Hg] [facility] 05/20/2025 10:17:36 Social History Question Answer Notes LastModified by Organizat ion Details LastModified Time Tobacco Smoking Status Never Smoker Mago Phillips [facility] 11/09/2023 16:35:52 Do You Have An Advance Directive? No [email or web address] Information n ot available 05/10/2021 If You Are , What Was Your Level Of Alcohol Consumption Prior To ? None [email or web address] Information not available 11/09/2023 Are You Blind Or Do You Have Difficulty Seeing? No [email or web address] Information n ot available 05/10/2021 What Is Your Level Of Caffeine Consumption? Moderate [email or web address] Information not available 05/10/2021 How Much Tobacco Do You Chew? None [email or web address] Information not available 05/10/2021 In The 14 Days Before Symptom Onset, Have You Had Close Contact With A Laboratory-confirm ed COVID-19 While That Case Was Ill? No [email or web address] Information n ot available 05/10/2021 In The 14 Days Before Symptom Onset, Have You Had Close Contact With A Person Who Is Under Investigation For COVID-19 While That Person Was Ill? No [email or web address] Information not available 05/10/2021 Have You Been To An Area Known To Be High Risk For COVID-19? No [email or web address] Information not available 05/10/2021 Are You Deaf Or Do You Have Serious Difficulty Hearing? No [email or web address] Information not available 05/10/2021 What Type Of Diet Are You Following? REGULAR [email or web address] Information n ot available 05/10/2021 What Is The Highest Grade Or Level Of School You Have Completed Or The Highest Degree You Have Received? [id number] [email or web address] Information not available 05/10/2021 Are There Any Guns Present In Your Home? No [email or web address] Information not available 05/10/2021 What Was The Date Of Your Most Recent Tobacco Screening? 02/06/2025 [email or web address] Information not available 02/06/2025 Do You Use Protection During Sex? No [email or web address] Information not available 05/10/2021 Do You Use Your Seat Belt Or Car Seat Routinely? Yes [email or web address] Information not available 05/10/2021 Do You Have Smoke And Carbon Monoxide Detectors In Your Home? Yes [email or web address] Information not available 05/10/2021 How Much Tobacco Do You Smoke? No Information not available 05/10/2021 Do You Use Sunscreen Routinely? No [email or web address] Information not available 05/10/2021 Has Tobacco Cessation Counseling Been Provided? No [email or web address] Information not available 11/09/2023 Have You Used IV Drugs? No [email or web address] Information not available 05/10/2021 Do You Have Difficulty Walking Or Climbing Stairs? No Information not available 11/09/2023 Sex: Unknown Functional Status Question Answer Note LastModified by Organizat ion Details LastModified Time Do you use any illicit or recreational drugs? No [email or web address] Information not available 05/10/2021 Do you or have you ever used any other forms of tobacco or nicotine? No [email or web address] Information not available 11/09/2023 What is your level of alcohol consumption? None Information not available 03/09/2020 Are you able to walk? YESWOREST [email or web address] Information not available 05/10/2021 Are you able to care for yourself? 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 No [email or web address] Information not available 11/09/2023 What is your exercise level? Occasional [email or web address] Information not available 03/09/2020 Mental Status Question Answer Note LastModified by Organization D etails LastModified Time Do you feel stressed (tense, restless, nervous, or anxious, or unable to sleep at night)? [id number] [email or web address] Information not available 11/09/2023 Family History Relationship Description Onset Age of this Age Resolved Age Notes LastModified by Organization Details LastModified Time Mother Hypertensive disorder [email or web address] Not available 03/09 17:30:21 Father Hypertensive disorder [email or web address] Not available 03/09 17:30:29 Father Malignant neoplasm of prostate [email or web address] Not available 2021 15:59:30 Maternal Grandfather Heart disease Not available 03/09 17:30:54 Paternal Grandfather Heart disease [email or web address] Not available 03/09 17:30:54 Medical History Condition [...] ICD10 Code Diagnosis Note [id number] Tammie Craven [facility] [address],[place] [address] 03/09/2020 12:37:34 03/09/2020 12:38:16 Female infertility associated with anovulation 931989380 N97.0 History of infertility - female 168192370 Z87.42 suspect anovulatio n [id number] Juliocesar Arciniega MD [place] [address],[facility] [place] [address] 05/10/2021 11:50:59 05/10/2021 13:16:01 [id number] Tammie Craven CNM [place] [address],[place] [address] 05/10/2021 11:52:08 05/10/2021 22:27:09 Amenorrhea 17448723 N91.2 [id number] MD Jermain Montague [address],[place] [address] 06/08/2021 14:54:20 06/08/2021 15:37:50 screening 916859769 Z36.82 [id number] MD Jermain Montague [address],[place] [address] 06/08/2021 14:56:45 06/08/2021 17:39:48 Routine care 406322977 Z34.90 [id number] MD Jermain Watson [address],[place] [address] 07/05/2021 17:00:55 07/05/2021 23:34:26 Routine care 681689901 Z34.02 [id number] MD Jermain Watson [address],[place] [address] 07/05/2021 17:06:58 07/06/2021 09:01:06 [id number] Haylie Quintero MD [place] [address],[place] [address] 08/09/2021 16:32:28 08/09/2021 17:35:43 screening for malformation 481408921 Z36.3 [id number] MD Jermain Watson [address],[place] [address] 08/09/2021 16:33:19 08/10/2021 15:52:45 ultrasound scan abnormal 9933722609 9109 R93.89 Routine an tenatal care 589029765 Z34.02 [id number] MD Jermain Watson [address],[place] [address] 08/30/2021 15:49:12 08/30/2021 16:32:53 ultrasound scan abnormal 1715613768 9109 R93.89 Routine an tenatal care 846471986 Z34.02 [id number] Haylie Quintero MD [place] [address],[place] [address] 09/28/2021 10:46:06 09/28/2021 11:48:55 ultrasound scan abnormal 4139134987 9109 R93.89 Routine an tenatal care 731557283 Z34.02 [id number] Haylie Quintero MD [place] [address],[place] [address] 10/03/2021 16:59:59 10/03/2021 17:46:40 Vaginitis 07342463 N76.0 Candidal vulvovaginitis 68256004 B37.3 Increased frequency of urination 763415845 R35.0 [id number] MD Jermain Watson [address],[place] [address] 10/14/2021 16:28:02 10/15/2021 09:51:30 Routine care 131229590 Z34.02 Irregular uterine contractions 49066286 O62.2 [id number] Haylie Quintero MD [place] [address],[place] [address] 10/26/2021 16:48:46 10/28/2021 16:45:33 Routine care 819372824 Z34.02 [id number] Haylie Quintero MD [place] [address],[place] [address] 11/09/2021 16:43:06 11/09/2021 17:30:27 Routine care 310384424 Z34.02 [id number] Haylie Quintero MD [place] [address],[place] [address] 11/23/2021 16:23:13 11/24/2021 17:09:40 Routine care 578065044 Z34.02 [id number] Juliocesar Arciniega MD [place] [address],[place] [address] 11/25/2021 16:37:05 12/22/2021 14:09:22 [id number] Haylie Quintero MD [place] [address],[place] [address] 11/30/2021 16:35:51 12/02/2021 16:00:50 Routine care 717959121 Z34.02 [id number] Haylie Quintero MD [place] [address],[place] [address] 12/07/2021 15:58:38 12/07/2021 16:30:18 Central nervous system malformation in fetus affecting obstetrical care 7297308 O35.0XX0 Z3A.38 [id number] Haylie Quintero MD [place] [address],[place] [address] 12/07/2021 15:59:22 12/09/2021 09:45:23 Routine care 558173568 Z34.02 [id number] Haylie Quintero MD [place] [address],[place] [address] 12/19/2021 12:35:26 12/19/2021 13:32:49 care 579121525 Z39.0 [id number] Haylie Quintero MD [place] [address],[place] [address] 01/09/2022 14:43:23 01/09/2022 19:56:46 care 762162039 Z39.0 [id number] Joyce Iraheta [facility] [address],[place] [address] 06/13/2023 18:03:46 06/14/2023 16:21:39 Gynecologic examination 05725045 Z01.419 Take Calcium with Vitamin D 1200mg [...] Screen naDexa Screen naRoutine Labs PCP Dyspareunia 48339567 N94 .10 Chronic PFDRef PTInformat ion given for additional home review.Vag valium if not trying to for - -can consider https://ww w.pelvicpa in.org/maribell ges/pdf/Pa tient%20In fo%20Hando uts%032825 /PELVIC%20 FLOOR%20DY SFUNCTION% 20PFD%2019.pdf [id number] Juliocesar Arciniega MD [place] [address],[place] [address] 10/26/2023 13:30:57 10/26/2023 14:10:57 Threatened miscarriage 86378918 O20.0 Z3A.01 [id number] Juliocesar Arciniega MD [place] [address],[place] [address] 11/09/2023 15:19:34 11/09/2023 16:17:12 Uterine size for dates discrepancy 322992948 O26.841 Z3A.01 [id number] Tammie Craven [facility] [address],[place] [address] 11/09/2023 15:20:54 11/09/2023 16:50:48 Amenorrhea 09608840 N91.2 reviewed office, precaution svaccine recf/u 12 week new ob and first lookreglan unisom/b6 for nausea Routine an tenatal care 753041670 Z34.91 Nausea and vomiting 1693 2000 R11.2 [id number] Juliocesar Arciniega MD [place] [address],[place] [address] 11/29/2023 17:27:10 12/11/2023 17:15:39 [id number] Juliocesar Arciniega MD [place] [address],[place] [address] 12/14/2023 11:01:23 12/14/2023 11:40:32 screening 333888895 Z36.82 Z3A.11 [id number] Tmamie Craven [facility] [address],[place] [address] 12/14/2023 11:01:43 12/14/2023 12:13:09 Gestation period, 12 weeks 23986295 Z3A.12 [id number] [facility] [address],[place] [address] 01/11/2024 11:39:59 01/11/2024 12:08:41 Routine care 417171668 Z34.91 [id number] Juliocesar Arciniega MD [place] [address],[place] [address] 01/18/2024 12:03:06 01/18/2024 12:39:12 [id number] Juliocesar Arciniega MD [place] [address],[place] [address] 02/08/2024 11:26:39 02/08/2024 14:06:08 screening for malformation 875367448 Z36.3 [id number] [facility] [address],[place] [address] 02/08/2024 11:28:26 02/08/2024 14:07:04 Routine care 567008734 Z34.91 [id number] [facility] [address],[place] [address] 03/07/2024 11:16:27 03/07/2024 11:57:19 Routine care 146775414 Z34.91 [id number] [facility] [address],[place] [address] 04/04/2024 09:03:38 04/04/2024 10:36:01 Routine care 861672771 Z34.91 [id number] Tammie Craven [facility] [address],[place] [address] 04/23/2024 10:02:14 04/23/2024 10:52:56 Routine care 985000768 Z34.91 1989 Juliocesar Arciniega MD [place] [address],[place] [address] 05/09/2024 15:23:03 05/09/2024 16:07:50 Uterine size for dates discrepancy 832730618 O26.843 Z3A.33 1989 Tammie Craven [facility] [address],[place] [address] 05/09/2024 15:23:28 05/09/2024 16:43:03 Routine care 644360990 Z34.91 [id number] Tammie Craven [facility] [address],[place] [address] 05/30/2024 11:43:51 05/30/2024 12:34:22 care 084555325 Z39.2 Benign ges tational thrombocytopenia 577758388 D69.59 rpt cbc and cmp todaysleep when ablemonito r for headaches, visual changes, epigastric painf/u pending labscall if desires control method [id number] Tammie Craven [facility] [address],[place] [address] 08/29/2024 09:34:47 08/29/2024 10:45:03 care 845781557 Z39.2 normal pp exam f/u wwe [id number] MUSA GARCIA MD [place] [address],[place] [address] 12/22/2024 10:58:26 12/22/2024 11:40:13 [id number] MUSA GARCIA MD [place] [address],[place] [address] 12/22/2024 10:59:24 12/22/2024 17:16:53 test positive 802188351 Z32.01 1. Exam today within normal limits.2. Ultrasound today confirms GA and viability. EDC . GC/Clamydi a testing done: will f/u as indicated. 4. ACOG guidelines and plan of care for reviewed with patient. All questions answered.5 . Return to office at 12 weeks for new OB visit6. OB labs ordered today.7. Genetic screening: desires, drawn today. Benign ges tational thrombocytopenia 497123068 O99.119 - hx of gestationa l thrombocyt openia x2- Plt 70 on admission at 35 weeks for PPROM- discussed close monitoring of plt count this - due to slightly increased risk of PTL/PPROM in this , consider MFM consult if thrombocyt openia occurs for discussion of steroid burst around 35 weeks in case of PPROM again [id number] Juliocesar Arciniega MD [place] [address],[place] [address] 01/05/2025 15:57:59 01/05/2025 16:42:25 screening 617208485 Z36.82 Z3A.12 [id number] Tammie Craven [facility] [address],[place] [address] 01/09/2025 10:48:09 01/12/2025 02:33:48 Gestation period, 12 weeks 46499159 Z3A.12 Routine an tenatal care 167343752 Z34.91 [id number] Tammie Craven CNM [facility] [address],[place] [address] 02/06/2025 09:48:00 02/06/2025 10:09:24 Gestation period, 16 weeks 36355536 Z3A.16 [id number] [facility] [address],[place] [address] 03/06/2025 12:33:58 03/08/2025 23:10:20 Platelet count below reference range 162482827 D69.6 Gestation period, 21 weeks 78241229 Z3A.21 [id number] Juliocesar Arciniega MD [place] [address],[place] [address] 03/19/2025 17:29:55 03/19/2025 18:00:28 Suspected clinical finding [id number] Z03.75 Z87.51 Z3A.22 [id number] Juliocesar Arciniega MD [facility] [address],[place] [address] 03/30/2025 09:35:22 03/30/2025 10:42:02 care: obstetric risk [id number] O09.292 Z3A.24 [id number] Tammie Craven [facility] [address],[place] [address] 04/03/2025 12:20:07 04/03/2025 14:20:37 Gestation period, 24 weeks [id number] Z3A.24 [id number] [facility] [address],[place] [address] 04/24/2025 10:23:17 04/24/2025 10:59:43 Gestation period, 27 weeks [id number] Z3A.27 [id number] Tammie Craven [facility] [address],[place] [address] 05/08/2025 10:16:47 05/08/2025 11:18:17 Gestation period, 29 weeks [id number] Z3A.29 [id number] Juliocesar Arciniega MD [facility] [address],[place] [address] 05/20/2025 09:30:11 05/20/2025 10:06:27 High risk [id number] O09.213 O09.293 Z3A.31 [id number] [facility] [address],[place] [address] 05/20/2025 09:30:26 05/20/2025 10:37:06 Gestation period, 31 weeks [id number] Z3A.31 [id number] Tammie Craven, ANSON [facility] [address] [address] 05/20/2025 09:30:37 05/20/2025 15:08:27 History of [id number] Z87.59 Health Concerns Section Related Observation LastModified by Organization Detai ls LastModified Time None Recorded Concern Status LastModified by Organization Details LastModified Time None Recorded Advance Directives Directive N: Payers Insurance Date Sequence Insurance Name Policy Number Policy Calabrese Covered Member ID Calabrese Member ID Guarantor Name 05/22/2025 1 [place] [id number] Leanne Harris [id number] Leanne Harris OBGyn Episode Ob Episode Information Episode Created Date Number of Fetuses Patient Bloodtype Patient rh Status Prepregnancy Weight lbs Domestic Partner Domestic Partner Phone Father Name Revenue Integrity Analyst Status 06/08/20 21 1 B Negative 152 CLOSED Fetus Data First Name Last Name Admitted to NICU Weight (g) Sex Living Outcome Pediatric Complications Fetus ID Race Codes Race Delivery Type Bon 3090.09 55 M true Full Term [id number] Vaginal Delivery Problems Problem Notes declines cf/sma and NIPT - N IPT drawn 08/23/21 due to abnormal Level II U/SDunbar pt!! Problem Name Start Date End Date Resolution Snomed Code Not e ultrasound scan abnormal SELFRESOLVED [id number] Enlarged lat eral ventricle - 08/23 Level II U/S - No VSD. RESOLVED!! Final US @ 36 wks w/ MFM 11/24 315PM Pending CMV/parvo b/w care: history of infertility [id number] spon preg, TTC 5 years Bo Calculation [...] Weight in lbs Pre/Post Dialysis Refused Weight 150.072827322135 BP Diastolic BP Location Tested BP Systolic [...] Weight in lbs Pre/Post Dialysis Refused Weight 153.518293738819 BP Diastolic BP Location Tested BP Systolic [...] Weight in lbs Pre/Post Dialysis Refused Weight 159.724643651287 BP Diastolic BP Location Tested BP Systolic [...] Weight in lbs Pre/Post Dialysis Refused Weight 161.306876635707 BP Diastolic BP Location Tested BP Systolic BP Type 86 124 Fetus Heart Rate Present A 150 Fetus Movement A Yes Comments Feeling well. Getting flu sh ot this week. Will discuss Tdap next visit. Saw MFM, no concern for VSD but slightly enlarged lateral ventricle. Did NIPT- low risk. Has appt at [facility] on Wednesday 09/05. Questions answered, support given. Orders given for Rhogam and 28w labs. Flowsheet Date 09/28/2021 Olivo Score Blood Edema Fundus Height Fundus Units Glucose Ketones Leukocytes Nitrite Labor Signs Protein Cervic Dilation Cervic Effacement Cervic Station trace 26 Type Weight in lbs Pre/Post Dialysis Refused Weight 167.835304921134 BP Diastolic BP Location Tested BP Systolic [...] Weight in lbs Pre/Post Dialysis Refused Weight 162.865842984593 BP Diastolic BP Location Tested BP Systolic [...] Weight in lbs Pre/Post Dialysis Refused Weight 172.000135788246 BP Diastolic BP Location Tested BP Systolic [...] Weight in lbs Pre/Post Dialysis Refused Weight 172.561762144965 BP Diastolic BP Location Tested BP Systolic [...] Weight in lbs Pre/Post Dialysis Refused Weight 175.102942160951 BP Diastolic BP Location Tested BP Systolic BP Type 80 131 Fetus Heart Rate Present A 120 Fetus Movement A Yes Comments Doing well. Still some const ipation, will increase colace, may add miralax. Tdap done. GBS next visit. Back to [facility] once more. Has preadmit scheduled. Discussed pediatricians, hospital bag, carseat installation. Flowsheet Date 11/23/2021 Olivo Score Blood Edema Fundus Height Fundus Units Glucose Ketones Leukocytes Nitrite Labor Signs Protein Cervic Dilation Cervic Effacement Cervic Station neg trace 34 none trace 0cm 20% -2 Type Weight in lbs Pre/Post Dialysis Refused Weight 176.795914321699 BP Diastolic BP Location Tested BP Systolic BP Type 86 136 Fetus Heart Rate Present A 140 Fetus Movement A Yes Comments Doing well. COnstipation imp roved. Diflucan yesterday but has urinary sx also. UA and culture. macrobid. Trouble sleeping. [employer] [facility] [facility] last week- normal growth but drop in [...] Present Fetus Movement Comments Flowsheet Date 11/30/2021 Loivo Score Blood Edema Fundus Height Fundus Units Glucose Ketones Leukocytes Nitrite Labor Signs Protein Cervic Dilation Cervic Effacement Cervic Station neg trace 36 none trace Type Weight in lbs Pre/Post Dialysis Refused Weight 179.729311139583 BP Diastolic BP Location Tested BP Systolic [...] Weight in lbs Pre/Post Dialysis Refused Weight 178.885772789579 BP Diastolic BP Location Tested BP Systolic [...] Weight in lbs Pre/Post Dialysis Refused Weight 166.646162542567 BP Diastolic BP Location Tested BP Systolic [...] Estim ated Date of Delivery false Thalassemia (Estonian, Zimbabwean, Mediterranean, Or Background): MCV < 80 false Neural Tube Defect (Meningomyelocele, Spina Bifi da, Or Anencephaly) false Congenital Heart Defect false Down Syndrome false Scott-Sachs (eg, Faith, Cajun, Kazakh-Douglas) f alse Megan Disease false Sickle Cell Disease Or Trait () false Hemophilia Or Other Blood Disorders false Muscular Dystrophy false Cystic Fibrosis false Keven's Chorea false Intellectual Disability/Autism false If Yes, [...] Complications Tubal Sterilization Discharge Date Comments 2 [facility] idural 38.3 false Merissa Tammie [facility] Febrile Discharge Information Feeding Method Contraceptive Method Maternal HG B and HCT Levels Ob Episode Information Episode Created Date Number of Fetuses Patient Bloodtype Patient rh Status Prepregnancy Weight lbs Domestic Partner Domestic Partner Phone Father Name Revenue Integrity Analyst Status 01/09/20 25 1 B Negative 158 Alfonso Steven OPEN Fetus Data First Name Last Name Admitted to NICU Weight (g) Sex Living Outcome Pediatric Complications Fetus ID Race Codes Race Delivery Type [id number] Problems Problem Notes RPT PLT 05/13/25 Problem Name Start Date End Date Resolution Snomed Code Not e History of infertility - female 159610214 prior to first delivery TTC x 5 years History of thrombocytopenia [id number] [employer] consult-referral faxed to [facility] 01/12/2025Level II US scheduled [facility] 03/02anesthesia consult serial CBCs recommended by [employer] 28, 32 and 34wksantenatal testing weekly to start at 32wks Past history of premature delivery [id number] 2nd pr egnancy, 35 weeks, with NICU [...] Weight in lbs Pre/Post Dialysis Refused Weight 161.109855937905 BP Diastolic BP Location Tested BP Systolic BP Type 76 118 Fetus Heart Rate Present Fetus Movement A Yes Comments Patient is having discharge, nausea and vomiting. reviewed history, updated, check PLT every month, [facility] consult. hx delivery ar 35 weeks last , begin routine care Flowsheet Date 02/06/2025 Olivo Score Blood Edema Fundus Height Fundus Units Glucose Ketones Leukocytes Nitrite Labor Signs Protein Cervic Dilation Cervic Effacement Cervic Station neg trace Type Weight in lbs Pre/Post Dialysis Refused 161.360552061988 BP Diastolic BP Location Tested BP Systolic BP Type 76 121 Fetus Heart Rate Present Fetus Movement A Yes Comments Patient is having cramping, discharge, and swelling. has appt at [facility] for anatomy, doing well, +FM, precautions and education f/u 4 weeks Flowsheet Date 03/06/2025 Olivo Score Blood Edema Fundus Height Fundus Units Glucose Ketones Leukocytes Nitrite Labor Signs Protein Cervic Dilation Cervic Effacement Cervic Station neg trace Type Weight in lbs Pre/Post Dialysis Refused Weight 165.494887386684 BP Diastolic BP Location Tested BP Systolic BP Type 77 122 Fetus Heart Rate Present A 127 Present Fetus Movement A Yes Comments Patient is having some swell ing . ediny rec TV us for CL, pt unsure [...] Type Weight in lbs Pre/Post Dialysis Refused 167.226779938733 BP Diastolic BP Location Tested BP Systolic BP Type 75 117 Fetus Heart Rate Present A 139 Present Fetus Movement A Yes Comments Patient is having some swell ing. check PLT today. f/u 3 weeks will give order for rhogam and GCT to do at [facility] precautions and education reviewed Flowsheet Date 04/24/2025 Olivo Score Blood Edema Fundus Height Fundus Units Glucose Ketones Leukocytes Nitrite Labor Signs Protein Cervic Dilation Cervic Effacement Cervic Station neg trace Type Weight in lbs Pre/Post Dialysis Refused Weight 170.945007880060 BP Diastolic BP Location Tested BP Systolic [...] Weight in lbs Pre/Post Dialysis Refused Weight 173.916475523813 BP Diastolic BP Location Tested BP Systolic [...] Weight in lbs Pre/Post Dialysis Refused Weight 173.247329539832 BP Diastolic BP Location Tested BP Systolic BP Type 68 L arm 106 sitting Fetus Heart Rate Present Fetus Movement A Yes Comments reviewed care with dr. krysta rodriguez rpt plt next week, has decreased activity which has helped decrease contractions. EFW 47%, education and precautions bpp 06/19nNST to follow Flowsheet Date 05/20/2025 Olivo Score [...] Domestic Partner Domestic Partner Phone Father Name Revenue Integrity Analyst Status 12/14/19 24 1 B Negative 157 Alfonso Steven CLOSED Fetus Data First Name Last Name Admitted to NICU Weight (g) Sex Living Outcome Pediatric Complications Fetus ID Race Codes Race Delivery Type 2381.35 8 M [id number] Vaginal Delivery Problems Problem Notes hx previous infertility x 5 years prior to first pregnancyduplicated left renal arteryNext MFM Appt: 06/04/24 1pm u/s and ovRecs: 1wk rpt visit for rpt CBC and delivery recommendations. Anesthesia consult. Problem Name Start Date End Date Resolution Snomed Code Not e Prophylactic immunotherapy [id number] received Thrombocytopenic disorder 831595836 low plt - 99 - [place] 05/14/24 U/S & Consult - Rpt [...] Weight in lbs Pre/Post Dialysis Refused Weight 156.391873236031 BP Diastolic BP Location Tested BP Systolic [...] Weight in lbs Pre/Post Dialysis Refused Weight 157.339943486990 BP Diastolic BP Location Tested BP Systolic [...] Weight in lbs Pre/Post Dialysis Refused Weight 158.802393468613 BP Diastolic BP Location Tested BP Systolic [...] Weight in lbs Pre/Post Dialysis Refused Weight 162.388866542613 BP Diastolic BP Location Tested BP Systolic [...] Weight in lbs Pre/Post Dialysis Refused Weight 164.90335912588 BP Diastolic BP Location Tested BP Systolic [...] Weight in lbs Pre/Post Dialysis Refused Weight 168.520778554719 BP Diastolic BP Location Tested BP Systolic [...] Weight in lbs Pre/Post Dialysis Refused Weight 172.019293678192 BP Diastolic BP Location Tested BP Systolic [...] Weight in lbs Pre/Post Dialysis Refused Weight 162.714335700524 BP Diastolic BP Location Tested BP Systolic [...] At Estimated Date of Delivery false Thalassemia (Estonian, Zimbabwean, Mediterranean, Or Background): MCV < 80 false Neural Tube Defect (Meningom yelocele, Spina Bifida, Or Anencephaly) false Congenital Heart Defect false Down Syndrome false Scott-Sachs (eg, Faith, Cajun, Kazakh-Douglas) f alse Megan Disease false Sickle Cell Disease Or Trait () false Hemophilia Or Other Blood Disorders false Muscular Dystrophy false Cystic Fibrosis false Natrona's Chorea false Intellectual Disability/Autism false If Yes, [...] Date Comments 4 35.1 true Tammie Craven CNM Discharge Information Feeding Method Contraceptive Method Maternal HG B and HCT Levels
--- OUTSIDE RECORDS SUMMARY | 2025-05-24 01:24 | XMS_ITS | Clinical Summary ---
Author Organization [facility] Address [address] [place] [address] Care Team Providers Care Healthcare Consulting Manager Name Role Phone Mumtaz Choi MD Primary Care Provider [phone] Source Comments [facility],non-owned Affiliates and Associated Physician Practices is amultiple site organization consisting of ambulatory clinics and hospital sitesin [place], [place], [place]. This disclosure is being madepursuant to the Care Everywhere program and may not contain all information available regarding this patient. Last updated 18.[facility] Allergies Active Allergy Reactions Criticality Noted Date [...] Harris was screened for depression using the [place] Depression Scale (EPDS) at her [facility] initial evaluation on 09/05/2021. Her initial [...] the original note were not included. SENIOR CARE PATIENT--PLEASE CALL [phone] (ex 2) IF TRIAGED OR ADMITTED Care Provider: Dr. Quintero [facility] consultants involved: RN- Lucas; MFM- Dr. Thakkar Diagnosis: Mild right ventriculomegaly (slightly increased in diameter at 10.5mm at 09/05/21 SENIOR CARE US). Planned surveillance: Initial SENIOR CARE 09/05/21. Growth in 2 weeks at [place], and follow up ultrasound for growth and assessment of ventricles between 32-36 weeks. Continue routine care with primary OB. Delivery location: with primary OB at hospital of choice ([facility]) Delivery mode: per usual OB indications Desired Delivery GA: No indication for delivery before 39 weeks at this time follow up: head imaging with pediatrican Dampener Operator: Undecided Autopsy indicated: Genetics note: LR NIPT-Male Rn Charge Concerns: 09/05/2021- There are no social service [...] and heating? Not hard at all 05/14/2024 [facility] [place] of Occupat ional Health - Occupational Stress [...] place to sleep or slept in a long term (including now)? No 05/14/2024 [place] Depression Scale Answer Date Recorded [place] Depression Scale Total 7 05/14/2024 The thought [...] 19+ 3-dose series) 2008 PAP SMEAR 2010 HPV VACCINE (1 - 3-dose SCDM series) 2016 COVID-19 VACCINE (3 - 2023-2 5 season) 2024 08/06/2021, 07/16/2021 DEPRESSION SCREENING 11/12/2024 INFLUENZA VACCINE (#1) 2025 ZOSTER VACCINE (1 [...] patient's age to complete this topic Insurance ANTH Care Teams Healthcare Consulting Manager Relationship Specialty Start Date End Date Mumtza Choi MD [address] [place] [address] PCP - General Family Medicine 04/15/19
--- OUTSIDE RECORDS SUMMARY | 2025-05-24 01:24 | XMS_ITS | Referral Summary ---
Author Organization [facility] Address [address] [place] [address] Care Team Providers Care Office Receptionist Name Role Phone Unknown, Notinfile Primary Care [...] Comments Blood Pressure 138/80 09/20/2024 2:41 PM SIEBEL DEVELOPER Pulse 88 09/20/2024 2:41 PM SIEBEL DEVELOPER Temperature 36.7 C (98 F) 09/20/2024 2:41 PM SIEBEL DEVELOPER Respiratory Rate 20 09/20/2024 2:41 PM SIEBEL DEVELOPER Oxygen Saturation 97% 09/20/2024 2:41 PM SIEBEL DEVELOPER Inhaled Oxygen Concentration - - Weight 70.3 kg (155 lb) 09/20/2024 2:41 PM SIEBEL DEVELOPER Height 149.9 cm (4' 11) 09/20/2024 2:41 PM SIEBEL DEVELOPER Body Mass Index 31.31 09/20/2024 2:41 PM SIEBEL DEVELOPER Plan of Treatment Not on file Insurance [facility] [place] Care Teams Office Receptionist Relationship Specialty Start Date End Date Unknown, Notinfile PCP - General 01/15/24
--- OUTSIDE RECORDS SUMMARY | 2025-05-24 01:24 | XMS_ITS | Clinical Summary ---
Author Organization [facility] Address [address] [place] [address] Care Team Providers Care Seeing Eye Dog Trainer Name Role Phone Unknown, Notinfile Primary Care [...] Comments Blood Pressure 138/80 09/20/2024 2:41 PM CHEMICAL LAB TECHNICIAN Pulse 88 09/20/2024 2:41 PM CHEMICAL LAB TECHNICIAN Temperature 36.7 C (98 F) 09/20/2024 2:41 PM CHEMICAL LAB TECHNICIAN Respiratory Rate 20 09/20/2024 2:41 PM CHEMICAL LAB TECHNICIAN Oxygen Saturation 97% 09/20/2024 2:41 PM CHEMICAL LAB TECHNICIAN Inhaled Oxygen Concentration - - Weight 70.3 kg (155 lb) 09/20/2024 2:41 PM CHEMICAL LAB TECHNICIAN Height 149.9 cm (4' 11) 09/20/2024 2:41 PM CHEMICAL LAB TECHNICIAN Body Mass Index 31.31 09/20/2024 2:41 PM CHEMICAL LAB TECHNICIAN Plan of Treatment Health Maintenance Due Date [...] patient's age to complete this topic Insurance [facility] [place]infolio [place] Vinfolio [place] Care Teams Seeing Eye Dog Trainer Relationship Specialty Start Date End Date Unknown, Notinfile PCP - General 01/15/24
--- OUTSIDE RECORDS SUMMARY | 2025-05-24 01:24 | XMS_ITS | Clinical Summary ---
Author Organization [facility] Address [address] [place] [address] Phone Care Team Providers Care Title I Teacher Name Role Phone Unavailable Primary Care [...] - 03/02/2025 11:59 PM CDT Hospital Encounter [facility] [place] [address] [place] [address] Tammie Craven NP Discharge [...] Comments Blood Pressure 112/71 01/14/2021 3:00 PM PIPE TESTER Pulse 92 01/14/2021 3:00 PM PIPE TESTER Temperature 36.2 C (97.1 F) 01/14/2021 11:30 AM PIPE TESTER Respiratory Rate 15 01/14/2021 3:00 PM PIPE TESTER Oxygen Saturation 95% 01/14/2021 3:00 PM PIPE TESTER Inhaled Oxygen Concentration - - Weight 71.2 [...] HARRIS Study Date: 03/02/2025 1:45pm Pat. NO: [id number] Referring MD: TAMMIE CRAVEN CNM Site: [place] Typesetting Supervisor: Yvette Mayes RDMS : 1990 Age: 34 ----- INDICATION ----- Anatomy Survey with History of Labor (PTL) 35 weeks Advanced Maternal Age (AMA), Multigravida CODING ----- Diagnoses Z3A.20: Weeks of gestation O09.522: Supervision of elderly multigravida O09.212: Supervision of with history of pre-term labor Z36.3: Encounter for screening for malformations Procedures 94305: Ultrasound, uterus, real time with image documentation, [...] Cerebellum tr 21.4 mm 21w 0d 70% Afllon Nuchal fold 4.5 mm AC 163.6 mm 21w 3d 80% Hadlock Femur 31.9 mm 19w 6d 29% Hadlock Humerus 30.4 mm 20w 0d 43% Noy HC / AC 1.09 10% Nicolaides Weight Calculation: EFW 370 g 20w 4d 66% Hadlock EFW (lb,oz) 0 lb 13 oz EFW by Hadlock ([id number]) Head / Face / Neck Biometry: Digital Strategist 5.1 mm CM 3.6 mm 10% Nicolaides [...] view. RVOT view. LVOT view. 3-vessel view. 5-qxkobj-dqvrtcx view. Situs. Aortic arch view. Ductal arch [...] and date of were verified by the parimutuel cashier before the exam IMPRESSION ----- 1. Single [...] Pat. Name:Adolph HARRIS Date:03/02/2025 1:45pm Pat. NO: [id number] MD:TAMMIE CRAVEN CNM [facility]:Yvette Mayes RDMS :1990Age:34 ----- INDICATION ----- Anatomy Survey with History of Labor (PTL) 35 weeks Advanced Maternal Age (AMA), Multigravida CODING ----- Diagnoses Z3A.20: Weeks of gestation O09.522: Supervision of elderly multigravida O09.212: Supervision of with history ofpre-term labor Z36.3: Encounter for screening formalformations Procedures 51391: Ultrasound, uterus, real time withimage documentation, and maternal evaluation plus detailed anatomic examination,transabdominal approach MATERNAL ASSESSMENT ----- Physical Exam Weight 71 kg. BMI 30.66 kg/m METHOD ----- Transabdominal ultrasound examination ----- Davidson . Number of fetuses: 1 DATING ----- Method of dating:based on stated TONY GA by prior [id number] w + 2 d TONY by prior [...] 0 lb 13 oz EFW by Hadlock ([id number]) Head / Face / Neck Biometry: Digital Strategist 5.1 mm CM 3.6 mm 10%Nicolaides Outer [...] 4-chamber view. RVOT view. LVOT view. 3-vesselview. 5-siezsa-uujljru view. Situs. Aortic arch view. Ductal arch [...] and date of were verified by the parimutuel cashier beforethe exam IMPRESSION ----- 1. Single living [...] Final Result from Last 3 Months Insurance [facility] BLUE ACCESS/TRUE BLUE PPO
[2025-05-24 01:44] LABS: Add Urine Microscopic? YES; Appearance Urine Clear (Clear); Glucose Urine UA Negative (Negative); Leukocyte Esterase Ur Trace LEU/UL (Negative); Nitrate Urine Negative (Negative); Non Pathogenic Casts 0-2; Specific Grav Ur 1.005 (1.001-1.035)
[2025-05-24] MEDS: TERBUTALINE SULFATE 1 MG/ML VIAL 0.25 MG SUB-Q (02:20)
--- NOTE | 2025-06-21 21:27 | P.PNOB_ITS ---
OB - Triage/Final Diagnosis Visit Information Comments/Additional reasons for admission: I have assessed the risk for this patient, Leanne Harris, and determined that she would benefit from observation care. Evaluation Laboratory results: Laboratory Tests 05/24/25 01:32 Urine Color Yellow Urine Appearance Clear Urine pH 7.5 Ur Specific [place] 1.005 Urine Protein Negative Urine Glucose (UA) Negative Urine Ketones Negative Ur Blood (Man) Negative Urine Nitrate Negative Urine Bilirubin Negative Urine Urobilinogen 0.2 Leukocyte Esterase Rfl Trace H Urine RBC 0-2 Urine WBC 0-5 Ur Squamous Epith Cells Occasional Urine Bacteria None seen Urine Casts 0-2 Final Diagnosis (1) False labor: Code(s): O47.9 - False labor, unspecified Status: Acute
== END 2025-05-24 05:20 | disposition home or self-care (01) ==
PROVIDERS: Admitting Provider Obstetrics & Gynecology; Visit Provider Obstetrics & Gynecology
DX: O47.03 False labor before 37 completed weeks of gestation, third trimester (principal); Z3A.32 32 weeks gestation of pregnancy
CPT/HCPCS: 81001; 96372; A9270; G0378; G0379; J3105

== ENCOUNTER 2025-05-27 13:52 | Outpatient (CLI) | payer BC, SELFPAY ==
--- OUTSIDE RECORDS SUMMARY | 2025-05-27 13:59 | XMS_ITS | Referral Summary ---
Author Organization [facility] Address [address] [place] [address] Care Team Providers Care Software Sales Manager Name Role Phone Unknown, Notinfile Primary [...] Comments Blood Pressure 138/80 09/20/2024 2:41 PM FITNESS COACH Pulse 88 09/20/2024 2:41 PM FITNESS COACH Temperature 36.7 C (98 F) 09/20/2024 2:41 PM FITNESS COACH Respiratory Rate 20 09/20/2024 2:41 PM FITNESS COACH Oxygen Saturation 97% 09/20/2024 2:41 PM FITNESS COACH Inhaled Oxygen Concentration - - Weight 70.3 kg (155 lb) 09/20/2024 2:41 PM FITNESS COACH Height 149.9 cm (4' 11) 09/20/2024 2:41 PM FITNESS COACH Body Mass Index 31.31 09/20/2024 2:41 PM FITNESS COACH Plan of Treatment Not on file Insurance [facility] [place] Care Teams Software Sales Manager Relationship Specialty Start Date End Date Unknown, Notinfile PCP - General 01/15/24
--- OUTSIDE RECORDS SUMMARY | 2025-05-27 13:59 | XMS_ITS | Clinical Summary ---
Author Organization [facility] Address [address] [place] [address] Care Team Providers Care Caustic Cresylate Shift Superintendent Name Role Phone Unknown, Notinfile Primary Care [...] Comments Blood Pressure 138/80 09/20/2024 2:41 PM COMMUNITY LIVING COACH Pulse 88 09/20/2024 2:41 PM COMMUNITY LIVING COACH Temperature 36.7 C (98 F) 09/20/2024 2:41 PM COMMUNITY LIVING COACH Respiratory Rate 20 09/20/2024 2:41 PM COMMUNITY LIVING COACH Oxygen Saturation 97% 09/20/2024 2:41 PM COMMUNITY LIVING COACH Inhaled Oxygen Concentration - - Weight 70.3 kg (155 lb) 09/20/2024 2:41 PM COMMUNITY LIVING COACH Height 149.9 cm (4' 11) 09/20/2024 2:41 PM COMMUNITY LIVING COACH Body Mass Index 31.31 09/20/2024 2:41 PM COMMUNITY LIVING COACH Plan of Treatment Health Maintenance Due Date [...] patient's age to complete this topic Insurance [facility] [place] Care Teams Caustic Cresylate Shift Superintendent Relationship Specialty Start Date End Date Unknown, Notinfile PCP - General 01/15/24
--- OUTSIDE RECORDS SUMMARY | 2025-05-27 13:59 | XMS_ITS | Clinical Summary ---
Author Organization [facility] Address [address] [place] [address] Care Team Providers Care Pipe Cleaner Name Role Phone Mumtaz Choi MD Primary Care Provider [phone]- [phone] [facility],non-owned Affiliates and Associated Physician Practices is amultiple site organization consisting of ambulatory clinics and hospital sitesin [place], [place], [place] and [place]. This disclosure is being madepursuant to the Care Everywhere program and may not contain all information available regarding this patient. Last updated 18.[facility] Allergies Active Allergy Reactions Criticality Noted Date [...] Harris was screened for depression using the [place] Depression Scale (EPDS) [facility] [...] from the original note were not included. PENITENTIARY PATIENT--PLEASE CALL [phone] (ex 2) IF TRIAGED OR ADMITTED Care Provider: Dr. Quintero [facility] consultants involved: RN- Lucas; MFM- Dr. Thakkar Diagnosis: Mild right ventriculomegaly (slightly increased in diameter at 10.5mm at 09/05/21 PENITENTIARY US). Planned surveillance: Initial PENITENTIARY 09/05/21. Growth in 2 weeks at [place], and follow up ultrasound for growth and assessment of ventricles between 32-36 weeks. Continue routine care with primary OB. Delivery location: with primary OB at hospital of choice ([facility]) Delivery mode: per usual OB indications Desired Delivery GA: No indication for delivery before 39 weeks at this time follow up: head imaging with pediatrican Flavor Extractor: Undecided Autopsy indicated: Genetics note: LR NIPT-Male Certified Nurses Aide Concerns: 09/05/2021- There are no social service [...] and heating? Not hard at all 05/14/2024 [facility] [place] of Occupat ional Health - Occupational Stress [...] to sleep or slept in a senior care (including now)? No 05/14/2024 [place] Depression Scale Answer Date Recorded [place] Depression Scale Total 7 05/14/2024 The thought [...] complete this topic Insurance ANTH Care Teams Pipe Cleaner Relationship Specialty Start Date End Date Mumtaz Choi MD [address] [place] [address] PCP - General Family Medicine 04/15/19
[2025-05-27 14:54] LABS: Hematocrit 33.5 % (37.0-47.0); Hemoglobin 10.5 g/dL (12.0-15.0); Mean Corpuscular HGB Conc 31.3 g/dl (32-36); Mean Corpuscular Hemoglobin 29.5 pg (26-34); Mean Corpuscular Volume 94.1 fl (80-100); Platelet Count Result 150 k/mm3 (150-375); Red Blood Count 3.56 M/mm3 (4.2-5.4); White Blood Count 9.0 K/mm3 (4.5-10.0)
== END 2025-05-27 13:53 | disposition home or self-care (01) ==
LOC: ANHLAB 13:56
PROVIDERS: Visit Provider Advanced Practice Midwife
DX: D69.6 Thrombocytopenia, unspecified (principal)
CPT/HCPCS: 36415; 85027

== ENCOUNTER 2025-06-03 14:55 | Outpatient (CLI) | payer BC, SELFPAY ==
--- OUTSIDE RECORDS SUMMARY | 2025-06-03 15:01 | XMS_ITS | Clinical Summary ---
Author Organization [facility] Address [address] [place] [address] Care Team Providers Care Talent Manager Name Role Phone Mumtaz Choi MD Primary Care Provider [phone]- [phone] Source Comments [facility],non-owned Affiliates and Associated Physician Practices is amultiple site organization consisting of ambulatory clinics and hospital sitesin [place], [place]. This disclosure is being madepursuant to the Care Everywhere program and may not contain all information available regarding this patient. Last updated 18.[facility] Allergies Active Allergy Reactions Criticality Noted Date [...] Harris was screened for depression using the [place] Depression Scale (EPDS) at her [facility] initial evaluation on 09/05/2021. Her initial score [...] from the original note were not included. GROUP HOME PATIENT--PLEASE CALL [phone] (ex 2) IF TRIAGED OR ADMITTED Care Provider: Dr. Quintero [facility] consultants involved: RN- Lucas; MFM- Dr. Thakkar Diagnosis: Mild right ventriculomegaly (slightly increased in diameter at 10.5mm at 09/05/21 GROUP HOME US). Planned surveillance: Initial GROUP HOME 09/05/21. Growth in 2 weeks at [place], and follow up ultrasound for growth and assessment of ventricles between 32-36 weeks. Continue routine care with primary OB. Delivery location: with primary OB at hospital of choice ([facility]) Delivery mode: per usual OB indications Desired Delivery GA: No indication for delivery before 39 weeks at this time follow up: head imaging with pediatrican Arcade Game Technician: Undecided Autopsy indicated: Genetics note: LR NIPT-Male Lock Technician Concerns: 09/05/2021- There are no social service [...] and heating? Not hard at all 05/14/2024 [facility] [place] of Occupat ional Health - Occupational Stress [...] a group home (including now)? No 05/14/2024 [place] Depression Scale Answer Date Recorded [place] Depression Scale Total 7 05/14/2024 The thought [...] complete this topic Insurance ANTH Care Teams Talent Manager Relationship Specialty Start Date End Date Mumtaz Choi MD [address] [place] [address] PCP - General Family Medicine 04/15/19
--- OUTSIDE RECORDS SUMMARY | 2025-06-03 15:01 | XMS_ITS | Referral Summary ---
Author Organization [facility] Address [address] [place] [address] Care Team Providers Care Snowboard Instructor Name Role Phone Unknown, Notinfile Primary Care [...] Comments Blood Pressure 138/80 09/20/2024 2:41 PM CLASSIFIED COPY CONTROL CLERK Pulse 88 09/20/2024 2:41 PM CLASSIFIED COPY CONTROL CLERK Temperature 36.7 C (98 F) 09/20/2024 2:41 PM CLASSIFIED COPY CONTROL CLERK Respiratory Rate 20 09/20/2024 2:41 PM CLASSIFIED COPY CONTROL CLERK Oxygen Saturation 97% 09/20/2024 2:41 PM CLASSIFIED COPY CONTROL CLERK Inhaled Oxygen Concentration - - Weight 70.3 kg (155 lb) 09/20/2024 2:41 PM CLASSIFIED COPY CONTROL CLERK Height 149.9 cm (4' 11) 09/20/2024 2:41 PM CLASSIFIED COPY CONTROL CLERK Body Mass Index 31.31 09/20/2024 2:41 PM CLASSIFIED COPY CONTROL CLERK Plan of Treatment Not on file Insurance [facility] [place] Care Teams Snowboard Instructor Relationship Specialty Start Date End Date Unknown, Notinfile PCP - General 01/15/24
--- OUTSIDE RECORDS SUMMARY | 2025-06-03 15:01 | XMS_ITS | Clinical Summary ---
Author Organization [facility] Address [address] [place] [address] Phone Care Team Providers Care Pododermatologist Name Role Phone Unavailable Primary Care Provider [...] Encounters Date Type Department Care Team Description 05/27/2025 External Device Data [facility] ABSTRACTION Provider, Abstract 05/27/2025 External Device Data [facility] ABSTRACTION Provider, Abstract 05/05/2025 External Device Data [facility] ABSTRACTION Provider, [...] Comments Blood Pressure 112/71 01/14/2021 3:00 PM YARN DYER Pulse 92 01/14/2021 3:00 PM YARN DYER Temperature 36.2 C (97.1 F) 01/14/2021 11:30 AM YARN DYER Respiratory Rate 15 01/14/2021 3:00 PM YARN DYER Oxygen Saturation 95% 01/14/2021 3:00 PM YARN DYER Inhaled Oxygen Concentration - - Weight 71.2 kg (157 lb) 02/16/2025 2:24 PM CDT Height 149.9 cm (4' 11) 02/16/2025 2:24 PM CDT Body Mass Index 31.71 02/16/2025 2:24 PM CDT Plan of Treatment Health Maintenance Due Date Last Done Comments HPV VACCINES (1 - 3-dose series) 2004 DTAP/TDAP/TD VACCINES (1 - Tdap) 2008 HEPATITIS B VACCINES (1 of 3 - 19+ 3-dose series) 08/13 HPV/Cotest (21-29) 2010 CERVICAL CANCER SCREENING 2019 HPV/Cotest (30-65) 2019 PAP SMEAR 2019 INFLUENZA VACCINE (#1) 2025 RSV VACCINE (60+ or ) (No Doses Required) Comp leted Insurance [facility] BLUE ACCESS/TRUE BLUE PPO
--- OUTSIDE RECORDS SUMMARY | 2025-06-03 15:01 | XMS_ITS | Clinical Summary ---
Author Organization [facility] Address [address] [place] [address] Care Team Providers Care Tree Wrapper Name Role Phone Unknown, Notinfile Primary Care [...] Comments Blood Pressure 138/80 09/20/2024 2:41 PM INDUSTRIAL PHARMACIST Pulse 88 09/20/2024 2:41 PM INDUSTRIAL PHARMACIST Temperature 36.7 C (98 F) 09/20/2024 2:41 PM INDUSTRIAL PHARMACIST Respiratory Rate 20 09/20/2024 2:41 PM INDUSTRIAL PHARMACIST Oxygen Saturation 97% 09/20/2024 2:41 PM INDUSTRIAL PHARMACIST Inhaled Oxygen Concentration - - Weight 70.3 kg (155 lb) 09/20/2024 2:41 PM INDUSTRIAL PHARMACIST Height 149.9 cm (4' 11) 09/20/2024 2:41 PM INDUSTRIAL PHARMACIST Body Mass Index 31.31 09/20/2024 2:41 PM INDUSTRIAL PHARMACIST Plan of Treatment Health Maintenance Due Date [...] patient's age to complete this topic Insurance [facility] tritrue ID tritrue ID Care Teams Tree Wrapper Relationship Specialty Start Date End Date Unknown, Notinfile PCP - General 01/15/24
--- OUTSIDE RECORDS SUMMARY | 2025-06-03 15:01 | XMS_ITS | Data Portability ---
Author Organization [facility] Address [address] [place] [address] Assessment Encounter Date Assessment Date Assessment LastModified by Organization Details LastModified Time 05/20/2025 05/20/2025 Patient is __31_weeks . Discussed plan. Not available 05/20/2025 10:33:50 05/29/2025 05/29/2025 Patient is _32__weeks . Discussed plan. [email or web address] Not available 05/29/2025 12:04:56 Plan of Treatment Reminders Order Date Submit Date Provider Last Modified By Organization Details Last Modified Time Details Appointments NST 2024 08:30A M NST SCHEDULE Not [...] available Not available xANY 2024 09:00A M LICO ArellanoM Not available Not available [...] available Not available OB ROUTINE 2024 09:00A Martha Craven, CNM Not available Not available Not available Lab None recorded . Referral None recorded . Procedures None recorded . Surgeries None recorded . Imaging non-stre ss test 2024 025 [email or web address] [place], [place], [address], 05/29/2025 13:41:33 non-stre ss test 2024 025 [email or web address] [facility], [address], [place], [address], 05/25/2025 14:20:01 US, obstetri c, follow-u p 2024 025 [email or web address] [address], [address], [place], [address], 05/21/2025 20:41:29 Medication Orders None recorded . Patient TargetsNo targets recorded. Patient InstructionsNo instructions recorded. Reason for Referral None Reported. Results Created Date Observation Date Name Description Value Unit Range Abnormal Flag Note LastModifiedBy Organization Detail LastModifiedTime 05/05/2005/05/2025 GTT - GESTA MIR L, 3 HOUR, ACOG glucose, fasting acog 76 mg/dL 70-[address] [facility] (Lab) [address] [place], [address], 05/06/2025 03:33:15 05/05/2005/05/2025 GTT - GESTA MIR L, 3 HOUR, ACOG glucose, 1 hour acog 164 mg/dL 70-179 Not Available [facility] (Lab) [address] [place], [address], 05/06/2025 03:33:15 05/05/2005/0505/05/2025 GTT - GESTA MIR L, 3 HOUR, ACOG glucose, 2 hour acog 126 mg/dL 70-154 Not Available [facility] (Lab) [address] [facility], [place], [address], 05/06/2025 03:33:15 05/05/20 25 05/05/2025 GTT - GESTA MIR L, 3 HOUR, ACOG glucose, 3 hour acog 117 mg/dL 70-139 Not Available [facility] (Lab) [address] [place], [address], 05/06/2025 03:33:15 05/20/20 25 05/20/2025 US, obste tric, follo w-up No observ ation record ed. [email or web address] [facility] [address], [place], [address], 05/20/2025 13:20:23 05/20/20 25 05/20/2025 US, obste tric, follo w-up No observ ation record ed. [email or web address] [facility] [address] [facility], [place], [address], 05/22/2025 11:51:14 05/20/20 25 05/20/2025 non-s tress test No observ ation record ed. [email or web address] [facility] [address], [place], [address], 05/20/2025 14:42:31 05/20/2005/20/2025 imagi ng/di agnos tic resul t No observ ation record ed. [address] [facility] [address], [place], [address], 05/22/2025 09:27:19 05/22/20 25 05/18/2025 non-s tress test No observ ation record ed. [address] [facility] [address], [place], [address], 06/02/2025 13:09:02 05/25/20 25 05/25/2025 non-s tress test No observ ation record ed. [email or web address] [place] [address], [place], [address], 05/25/2025 14:41:39 05/25/20 non-s tress test No observ ation record ed. [email or web address] [facility] [address], [place], [address], 05/25/2025 14:18:40 05/29/20 25 05/29/2025 non-s tress test No observ ation record ed. [facility] [address], [place], [address], 05/29/2025 12:26:28 05/29/20 25 05/29/2025 US, obste tric, bioph ysica l profi le No observ ation record ed. [address], [place], [address], 05/30/2025 14:24:21 05/29/20 25 05/29/2025 non-s tress test No observ ation record ed. [address] [facility], [place], [address], 05/30/2025 14:20:16 Result Notes None recorded. Problems Name Problem SNOMED Code Status Onset Date Resolution Date Notes Provider Name and Address Organization Details Recorded Time ultrasou nd scan abnormal [id number] 9109 Completed Enlarged lateral ventricl e - 08/23 Level II U/S - No VSD. RESOLVED !! Final US @ 36 wks w/ MFM 11/24 315PM Pending CMV/parv o b/w Rossy aleman [facility], [place] - [facility] 2 15:15:00 Antenata l care: history of infertil ity [id number] Completed spon preg, TTC 5 years Rossy tirado, [facility] 2 15:15:00 Prophyla ctic immunoth erapy Completed received 03/29/24 Mago Phillips [facility] 4 11:57:56 Thromboc ytopenic disorder 773686436 Completed low plt - 99 - [facility] 05/14/24 U/S & Consult - Rpt CBC and MFM visit in 1 wk. Delivery recommen dations at that time. Anesth esia consult Mago Phillips [facility] 4 11:57:56 History of thromboc ytopenia 7090216863 9108 Active [facility] consult- referral faxed to [facility] 01/12/2025 Level II US schedule d [facility] 03/02 anesthes ia consult serial CBCs recommen ded by [facility] 28, 32 and 34wks antenata l testing weekly to start at 32wks Bre John [facility], [facility] 5 15:47:05 History of infertil ity - female 220769538 Active prior to first delivery TTC x 5 years Tammie Craven, [facility] [address], [place], [address], [facility] 5 16:46:21 Past pregnanc y history of prematur e delivery 148853046 Active 2nd pregnanc y, 35 weeks, with NICU stay cervical us until 24wks Bre John [facility] [address] 15:43:[address] Concept Completed 201805/10/2021 Encntr for general adult medical exam w/o abnormal findings ;Recorde d Elsewher e: No Locat ion: Jasbir padron [facility] S ource: EHR Data Warehousing Manager estella: N Practi ce ID: [id number] Kvng lable Time: 09:45:00 AM Mago tirado [facility] [address] 11:29:[address] Concept Completed 201805/10/2021 Encntr for actuarial intern exam (general ) (routine ) w/o abn findings ;Recorde d Elsewher e: No Locat ion: [facility] S ource: EHR Data Warehousing Manager estella: N Practi ce ID: [id number] Kvng lable Time: 09:45:00 AM Mago tirado [facility] 1 11:29:04 Educatio n Completed 201805/10/2021 Encounte r for family planning advice;R ecorded Elsewher e: No Locat ion: [facility] S ource: EHR Data Warehousing Manager estella: N Practi ce ID: [id number] Kvng lable Time: 01:30:00 PM Mago tirado [facility] 11:28:58 Finding of fertilit y Completed 201805/10/2021 Female infertil ity, unspecif ied;Prac amari ID: 0001 Mago tirado [facility] 11:29:00 Pregnanc y 21841087 Completed 202012/23/2021 Mago tirado [facility] 5 16:40:45 Pregnanc y 03207135 Active 2024 Mago Phillips [facility] 5 16:40:45 Problem Notes None recorded. Procedures Surgical History Date Name Laterality Status Provider Name and Address Organization Details Recorded Time 06/13/20 23 Date of Last Pap Smear completed Mago Phillips [facility] 11/09/2023 16:36:37 01/15/20 21 Laparoscopy completed Mago Phillips [facility] 05/10/2021 12:32:04 11/12/18 94 operation on hip joint completed Mago Phillips [facility] 05/10/2021 12:34:56 11/12/18 94 procedure on ear completed [facility] 11/09/2023 16:38:25 11/12/18 93 tonsilectomy/ad enoids completed [facility] 11/09/2023 16:37:40 11/12/18 93 operation on ossicular chain of middle ear completed [facility] 05/10/2021 12:34:18 11/12/18 92 procedure on ear completed [facility] 11/09/2023 16:38:20 11/12/18 90 procedure on ear completed [facility] 11/09/2023 16:38:15 11/12/18 89 operation on hip joint completed [facility] 05/10/2021 12:33:26 Imaging Results None recorded. Procedure Notes None recorded. Medical Equipment None Reported. Allergies Allergen ID Allergen Name Allergen Category Reaction Reaction Severity Criticality Documentation Date Start Date Code Code System Note Provider Name and Address Organization Details Recorded Time 393 lactose food,medi cation Not available Not available Not available 03/09/2020 6211 RxNorm Mago Phillips [facility] 0 17:28:25 Medications Name Sig Start Date Stop Date Status Note LastModified by Organization Details LastModified Time binaxnow cov kit home leni 06/13 completed Not Available Not Available Not Available antacid/l dania/wal-d ryl susp 111 SWISH AND SWALLOW 15ML BY MOUTH EVERY 4 HOURS NEEDED 11/09 completed Not Available Not Available Not Available nifedipin e ER 30 mg tablet,ex tended release 24 hr TAKE 1 TABLET BY MOUTH EVERY DAY AT BEDTIME active Not Available Not Available No t Available fluconazo le 150 mg tablet Take [...] Prescrib ed Elsewher e: No Locat ion: [facility] odify By: alea wagoner DateTime : [...] Prescrib ed Elsewher e: Yes Loca tion: [facility] odify By: jacklynchmarques z Vladislav lewis DateTime : 01/22/20 09:45:00 [...] Prescrib ed Elsewher e: Yes Loca tion: [facility] odify By: yayo salazar Encoun ter DateTime : 01/22/20 09:45:00 AM Not Available Not Available Not Available Caltrate 600 plus D active Not Available Not Available Not Available Women's One Daily 18 mg iron-400 mcg-500 mg Ca tablet 11/09 completed Prescrib ed Elsewher e: Yes Loca tion: [facility] odify By: yayo salazar Encoun ter [...] Updated DateTime 05/20/2025 152.4 cm 33.8 kg/m2 67399.48 g 106/68 mm[Hg] [facility] 05/20/2025 10:17:36 Date Recorded Body weight Systolic And Diastolic Provider Name and Address Organization Details Last Updated DateTime 05/25/2025 95906.06792 g 129/84 mm[Hg] Akosua Carr [facility] 05/25/2025 14:11:47 Date Recorded Body height Body mass index (BMI) Body weight Systolic And Diastolic Provider Name and Address Organization Details Last Updated DateTime 05/29/2025 152.4 cm 34.2 kg/m2 75207.66 g 126/76 mm[Hg] Haylie Paul [facility] 05/29/2025 10:14:42 Social History Question Answer Notes LastModified by Organizat ion Details LastModified Time Tobacco Smoking Status Never Smoker Mago tirado, [facility] 11/09/2023 16:35:52 Do You Have An Advance Directive? No Information n ot available 05/10/2021 If You Are , What Was Your Level Of Alcohol Consumption Prior To ? None Information not available 11/09/2023 Are You Blind Or Do You Have Difficulty Seeing? No [email or web address] Information n ot available 05/10/2021 What Is Your Level Of Caffeine Consumption? Moderate [email or web address] Information not available 05/10/2021 How Much Tobacco Do You Chew? None [email or web address] Information not available 05/10/2021 In The 14 Days Before Symptom Onset, Have You Had Close Contact With A Laboratory-confirm ed COVID-19 While That Case Was Ill? No [email or web address] Information n ot available 05/10/2021 In The 14 Days Before Symptom Onset, Have You Had Close Contact With A Person Who Is Under Investigation For COVID-19 While That Person Was Ill? No [email or web address] Information not available 05/10/2021 Have You Been To An Area Known To Be High Risk For COVID-19? No [email or web address] Information not available 05/10/2021 Are You Deaf Or Do You Have Serious Difficulty Hearing? No [email or web address] Information not available 05/10/2021 What Type Of Diet Are You Following? REGULAR [email or web address] Information n ot available 05/10/2021 What Is The Highest Grade Or Level Of School You Have Completed Or The Highest Degree You Have Received? IM26711-3 [email or web address] Information not available 05/10/2021 Are There Any Guns Present In Your Home? No [email or web address] Information not available 05/10/2021 What Was The Date Of Your Most Recent Tobacco Screening? 02/06/2025 [email or web address] Information not available 02/06/2025 Do You Use Protection During Sex? No Information not available 05/10/2021 Do You Use Your Seat Belt Or Car Seat Routinely? Yes [email or web address] Information not available 05/10/2021 Do You Have Smoke And Carbon Monoxide Detectors In Your Home? Yes [email or web address] Information not available 05/10/2021 How Much Tobacco Do You Smoke? No [email or web address] Information not available 05/10/2021 Do You Use Sunscreen Routinely? No [email or web address] Information not available 05/10/2021 Has Tobacco Cessation Counseling Been Provided? No [email or web address] Information not available 11/09/2023 Have You Used IV Drugs? No Information not available 05/10/2021 Do You Have Difficulty Walking Or Climbing Stairs? No [email or web address] Information not available 11/09/2023 Sex: Unknown Functional Status Question Answer Note LastModified by Organizat ion Details LastModified Time Do you use any illicit or recreational drugs? No [email or web address] Information not available 05/10/2021 Do you or have you ever used any other forms of tobacco or nicotine? No [email or web address] Information not available 11/09/2023 What is your level of alcohol consumption? None [email or web address] Information not available 03/09/2020 Are you able to walk? YESWOREST [email or web address] Information not available 05/10/2021 Are you able to care for yourself? 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 No [email or web address] Information not available 11/09/2023 What is your exercise level? Occasional [email or web address] Information not available 03/09/2020 Mental Status Question Answer Note LastModified by Organization D etails LastModified Time Do you feel stressed (tense, restless, nervous, or anxious, or unable to sleep at night)? [id number] [email or web address] Information not available 11/09/2023 Family History Relationship Description Onset Age of this Age Resolved Age Notes LastModified by Organization Details LastModified Time Mother Hypertensive disorder [email or web address] Not available 03/09 17:30:21 Father Hypertensive disorder [email or web address] Not available 03/09 17:30:29 Father Malignant neoplasm of prostate [email or web address] Not available 2021 15:59:30 Maternal Grandfather Heart disease [email or web address] Not available 03/09 17:30:54 Paternal Grandfather Heart disease [email or web address] Not available 03/09 17:30:54 Medical History Condition [...] Code Diagnosis Note 2331 Tammie Craven CNM [facility] [address] [address] 03/09/2020 12:37:34 03/09/2020 12:38:16 Female infertility associated with anovulation 732869491 N97.0 History of infertility - female 747223886 Z87.42 suspect anovulatio n [id number] Juliocesar Arciniega MD [place] [address] [address] 05/10/2021 11:50:59 05/10/2021 13:16:01 [id number] Tammie Craven, [facility] [address],[place] [address] 05/10/2021 11:52:08 05/10/2021 22:27:09 Amenorrhea 41268911 N91.2 [id number] Juliocesar Arciniega MD [place] [address],[place] [address] 06/08/2021 14:54:20 06/08/2021 15:37:50 screening 620505434 Z36.82 [id number] Juliocesar Arciniega MD [place] [address],[place] [address] 06/08/2021 14:56:45 06/08/2021 17:39:48 Routine care 734884496 Z34.90 [id number] MD Jermain Watson [address] [address] 07/05/2021 17:00:55 07/05/2021 23:34:26 Routine care 730184426 Z34.02 [id number] MD Jermain Watson [address],[place] [address] 07/05/2021 17:06:58 07/06/2021 09:01:06 [id number] MD Mayelin [place] [address],[place] [address] 08/09/2021 16:32:28 08/09/2021 17:35:43 screening for malformation 715981363 Z36.3 [id number] MD Jermain Watson [address] [address] 08/09/2021 16:33:19 08/10/2021 15:52:45 ultrasound scan abnormal 0422603592 9109 R93.89 Routine an tenatal care 152022788 Z34.02 [id number] MD Jermain Watson [address],[place] [address] 08/30/2021 15:49:12 08/30/2021 16:32:53 ultrasound scan abnormal 4777453394 9109 R93.89 Routine an tenatal care 579399425 Z34.02 [id number] MD Jermain Watson [address],[place] [address] 09/28/2021 10:46:06 09/28/2021 11:48:55 ultrasound scan abnormal 2274452099 9109 R93.89 Routine an tenatal care 461454223 Z34.02 [id number] Haylie Quintero MD [place] [address],[place] [address] 10/03/2021 16:59:59 10/03/2021 17:46:40 Vaginitis 59965227 N76.0 Candidal vulvovaginitis 88403811 B37.3 Increased frequency of urination 547102861 R35.0 [id number] MD Mayelin [place] [address],[place] [address] 10/14/2021 16:28:02 10/15/2021 09:51:30 Routine care 547134516 Z34.02 Irregular uterine contractions 93361206 O62.2 [id number] MD Mayelin [place] [address],[place] [address] 10/26/2021 16:48:46 10/28/2021 16:45:33 Routine care 681749854 Z34.02 [id number] MD Jermain [place] [address] [address] 11/09/2021 16:43:06 11/09/2021 17:30:27 Routine care 147084184 Z34.02 [id number] MD Mayelin [place] [address],[place] [address] 11/23/2021 16:23:13 11/24/2021 17:09:40 Routine care 367469438 Z34.02 [id number] Juliocesar Arciniega MD [place] [address],[place] [address] 11/25/2021 16:37:05 12/22/2021 14:09:22 [id number] Haylie Quintero MD [place] [address],[place] [address] 11/30/2021 16:35:51 12/02/2021 16:00:50 Routine care 713928308 Z34.02 [id number] Haylie Quintero MD [facility] [address] [address] 12/07/2021 15:58:38 12/07/2021 16:30:18 Central nervous system malformation in fetus affecting obstetrical care 7845896 O35.0XX0 Z3A.38 [id number] Haylie Quintero MD [facility] [address],[place] [address] 12/07/2021 15:59:22 12/09/2021 09:45:23 Routine care 455199520 Z34.02 [id number] Haylie Quintero MD [facility] [address],[place] [address] 12/19/2021 12:35:26 12/19/2021 13:32:49 care 605367507 Z39.0 [id number] Haylie Quintero MD [place] [address],[place] [address] 01/09/2022 14:43:23 01/09/2022 19:56:46 care 065392948 Z39.0 [id number] [facility] [address] [address] 06/13/2023 18:03:46 06/14/2023 16:21:39 Gynecologic examination 56151298 Z01.419 Take Calcium with Vitamin D 1200mg [...] Screen naDexa Screen naRoutine Labs PCP Dyspareunia 35376075 N94 .10 Chronic PFDRef PTInformat ion given for additional home review.Vag valium if not trying to for - -can consider https://ww w.pelvicpa in.org/maribell ges/pdf/Stephan tient%20In fo%20Hando uts%20191215 /PELVIC%20 FLOOR%20DY SFUNCTION% 20PFD%2019.pdf [id number] Juliocesar Arciniega MD [facility] [address] [address] 10/26/2023 13:30:57 10/26/2023 14:10:57 Threatened miscarriage 40100289 O20.0 Z3A.01 [id number] Juliocesar Arciniega MD [place] [address] [address] 11/09/2023 15:19:34 11/09/2023 16:17:12 Uterine size for dates discrepancy 100229135 O26.841 Z3A.01 [id number] Tammie Craven [facility] [address],[place] [address] 11/09/2023 15:20:54 11/09/2023 16:50:48 Amenorrhea 64141120 N91.2 reviewed office, precaution svaccine recf/u 12 week new ob and first lookreglan unisom/b6 for nausea Routine an tenatal care 086408849 Z34.91 Nausea and vomiting 1693 1999 R11.2 [id number] Juliocesar Arciniega MD [place] [address],[place] [address] 11/29/2023 17:27:10 12/11/2023 17:15:39 [id number] Juliocesar Arciniega MD [place] [address],[place] [address] 12/14/2023 11:01:23 12/14/2023 11:40:32 screening 527687686 Z36.82 Z3A.11 [id number] [facility] [address] [address] 12/14/2023 11:01:43 12/14/2023 12:13:09 Gestation period, 12 weeks 94282851 Z3A.12 [id number] [facility] [address],[place] [address] 01/11/2024 11:39:59 01/11/2024 12:08:41 Routine care 934205294 Z34.91 [id number] Juliocesar Arciniega MD [facility] [address],[place] [address] 01/18/2024 12:03:06 01/18/2024 12:39:12 [id number] MD Jermain Montague [address],[place] [address] 02/08/2024 11:26:39 02/08/2024 14:06:08 screening for malformation 177419292 Z36.3 [id number] Tammie Craven [facility] [address],[place] [address] 02/08/2024 11:28:26 02/08/2024 14:07:04 Routine care 073894390 Z34.91 [id number] Tammie Craven [facility] [address],[place] [address] 03/07/2024 11:16:27 03/07/2024 11:57:19 Routine care 910772445 Z34.91 [id number] Tammie Craven [facility] [address],[place] [address] 04/04/2024 09:03:38 04/04/2024 10:36:01 Routine care 217064136 Z34.91 [id number] Tammie Craven [facility] [address],[place] [address] 04/23/2024 10:02:14 04/23/2024 10:52:56 Routine care 986215119 Z34.91 [id number] Juliocesar Arciniega MD [facility] [address],[place] [address] 05/09/2024 15:23:03 05/09/2024 16:07:50 Uterine size for dates discrepancy 750548427 O26.843 Z3A.33 1989 Tammie Craven [facility] [address],[place] [address] 05/09/2024 15:23:28 05/09/2024 16:43:03 Routine care 874312881 Z34.91 [id number] Tammie Craven [facility] [address],[place] [address] 05/30/2024 11:43:51 05/30/2024 12:34:22 care 619067503 Z39.2 Benign ges tational thrombocytopenia 169354971 D69.59 rpt cbc and cmp todaysleep when ablemonito r for headaches, visual changes, epigastric painf/u pending labscall if desires control method [id number] [facility] [address],[place] [address] 08/29/2024 09:34:47 08/29/2024 10:45:03 care 154341542 Z39.2 normal pp exam f/u wwe [id number] MUSA GARCIA MD [facility] [address],[place] [address] 12/22/2024 10:58:26 12/22/2024 11:40:13 [id number] MUSA GARCIA MD [facility] [address],[place] [address] 12/22/2024 10:59:24 12/22/2024 17:16:53 test positive 497593892 Z32.01 1. Exam today within normal limits.2. Ultrasound today confirms GA and viability. EDC . GC/Clamydi a testing done: will f/u as indicated. 4. ACOG guidelines and plan of care for reviewed with patient. All questions answered.5 . Return to office at 12 weeks for new OB visit6. OB labs ordered today.7. Genetic screening: desires, drawn today. Benign ges tational thrombocytopenia 189213897 O99.119 - hx of gestationa l thrombocyt openia x2- Plt 70 on admission at 35 weeks for PPROM- discussed close monitoring of plt count this - due to slightly increased risk of PTL/PPROM in this , consider MFM consult if thrombocyt openia occurs for discussion of steroid burst around 35 weeks in case of PPROM again [id number] Juliocesar Arciniega MD [facility] [address] [address] 01/05/2025 15:57:59 01/05/2025 16:42:25 screening 721723952 Z36.82 Z3A.12 [id number] Tammie Craven CNM [facility] [address] [address] 01/09/2025 10:48:09 01/12/2025 02:33:48 Gestation period, 12 weeks 86181096 Z3A.12 Routine an tenatal care 708309409 Z34.91 [id number] [facility] [address] [address] 02/06/2025 09:48:00 02/06/2025 10:09:24 Gestation period, 16 weeks 09437327 Z3A.16 [id number] [facility] [address],[place] [address] 03/06/2025 12:33:58 03/08/2025 23:10:20 Platelet count below reference range [id number] D69.6 Gestation period, 21 weeks 14919893 Z3A.21 [id number] Juliocesar Arciniega MD [facility] [address],[place] [address] 03/19/2025 17:29:55 03/19/2025 18:00:28 Suspected clinical finding [id number] Z03.75 Z87.51 Z3A.22 [id number] Juliocesar Arciniega MD [facility] [address],[place] [address] 03/30/2025 09:35:22 03/30/2025 10:42:02 care: obstetric risk [id number] O09.292 Z3A.24 [id number] [facility] [address],[place] [address] 04/03/2025 12:20:07 04/03/2025 14:20:37 Gestation period, 24 weeks [id number] Z3A.24 [id number] [facility] [address] [place] [address] 04/24/2025 10:23:17 04/24/2025 10:59:43 Gestation period, 27 weeks 58152459 Z3A.27 [id number] [facility] [address] [place] [address] 05/08/2025 10:16:47 05/08/2025 11:18:17 Gestation period, 29 weeks 37362806 Z3A.29 [id number] Juliocesar Arciniega MD [facility] [address],[place] [address] 05/20/2025 09:30:11 05/20/2025 10:06:27 High risk 51234703 O09.213 O09.293 Z3A.31 [id number] Tammie Craven [facility] [address],[place] [address] 05/20/2025 09:30:26 05/20/2025 10:37:06 Gestation period, 31 weeks 52313918 Z3A.31 [id number] Tammie Craven [facility] [address],[place] [address] 05/20/2025 09:30:37 05/20/2025 15:08:27 History of [id number] Z87.59 [id number] Juliocesar Arciniega MD [facility] [address],[place] [address] 05/25/2025 10:09:13 05/25/2025 14:20:01 Past history of premature delivery 309419501 Z87.51 [id number] Tammie Craven [facility] [address],[place] [address] 05/29/2025 10:06:36 05/29/2025 13:41:33 Premature delivery 420964161 O60.10X0 [id number] Tammie Craven [facility] [address],[place] [address] 05/29/2025 10:07:38 05/29/2025 12:10:35 Gestation period, 32 weeks 9920846 Z3A.32 Health Concerns Section Related Observation LastModified by Organization Detai ls LastModified Time None Recorded Concern Status LastModified by Organization Details LastModified Time None Recorded Advance Directives Directive N: Payers Insurance Date Sequence Insurance Name Policy Number Policy Calabrese Covered Member ID Calabrese Member ID Guarantor Name 05/31/2025 1 [place] [id number] Leanne Harris [id number] Leanne Harris OBGyn Episode Ob Episode Information Episode Created Date Number of Fetuses Patient Bloodtype Patient rh Status Prepregnancy Weight lbs Domestic Partner Domestic Partner Phone Father Name Site Surveyor Status 06/08/20 21 1 B Negative 152 CLOSED Fetus Data First Name Last Name Admitted to NICU Weight (g) Sex Living Outcome Pediatric Complications Fetus ID Race Codes Race Delivery Type Bon 3090.09 55 M true Full Term [id number] Vaginal Delivery Problems Problem Notes declines cf/sma and NIPT - N IPT drawn 08/23/21 due to abnormal Level II U/SDunbar pt!! Problem Name Start Date End Date Resolution Snomed Code Not e ultrasound scan abnormal SELFRESOLVED [id number] Enlarged lat eral ventricle - 08/23 Level II U/S - No VSD. RESOLVED!! Final US @ 36 wks w/ MFM 11/24 315PM Pending CMV/parvo b/w care: history of infertility [id number] spon preg, TTC 5 years Bo Calculation [...] Weight in lbs Pre/Post Dialysis Refused Weight 150.542552421382 BP Diastolic BP Location Tested BP Systolic [...] Weight in lbs Pre/Post Dialysis Refused Weight 153.093716918635 BP Diastolic BP Location Tested BP Systolic [...] Weight in lbs Pre/Post Dialysis Refused Weight 159.915267086966 BP Diastolic BP Location Tested BP Systolic [...] Weight in lbs Pre/Post Dialysis Refused Weight 161.378149962738 BP Diastolic BP Location Tested BP Systolic BP Type 86 124 Fetus Heart Rate Present A 150 Fetus Movement A Yes Comments Feeling well. Getting flu sh ot this week. Will discuss Tdap next visit. Saw MFM, no concern for VSD but slightly enlarged lateral ventricle. Did NIPT- low risk. Has appt at [facility] on Wednesday 09/05. Questions answered, support given. Orders given for Rhogam and 28w labs. Flowsheet Date 09/28/2021 Olivo Score Blood Edema Fundus Height Fundus Units Glucose Ketones Leukocytes Nitrite Labor Signs Protein Cervic Dilation Cervic Effacement Cervic Station trace 26 Type Weight in lbs Pre/Post Dialysis Refused Weight 167.602670950192 BP Diastolic BP Location Tested BP Systolic [...] Weight in lbs Pre/Post Dialysis Refused Weight 162.762727702504 BP Diastolic BP Location Tested BP Systolic [...] Weight in lbs Pre/Post Dialysis Refused Weight 172.579239648200 BP Diastolic BP Location Tested BP Systolic [...] Weight in lbs Pre/Post Dialysis Refused Weight 172.131889662793 BP Diastolic BP Location Tested BP Systolic [...] Weight in lbs Pre/Post Dialysis Refused Weight 175.013509417476 BP Diastolic BP Location Tested BP Systolic BP Type 80 131 Fetus Heart Rate Present A 120 Fetus Movement A Yes Comments Doing well. Still some const ipation, will increase colace, may add miralax. Tdap done. GBS next visit. Back to [facility] once more. Has preadmit scheduled. Discussed pediatricians, hospital bag, carseat installation. Flowsheet Date 11/23/2021 Olivo Score Blood Edema Fundus Height Fundus Units Glucose Ketones Leukocytes Nitrite Labor Signs Protein Cervic Dilation Cervic Effacement Cervic Station neg trace 34 none trace 0cm 20% -2 Type Weight in lbs Pre/Post Dialysis Refused Weight 176.070094535874 BP Diastolic BP Location Tested BP Systolic BP Type 86 136 Fetus Heart Rate Present A 140 Fetus Movement A Yes Comments Doing well. COnstipation imp roved. Diflucan yesterday but has urinary sx also. UA and culture. macrobid. Trouble sleeping. [facility] last week- normal growth but drop [...] Weight in lbs Pre/Post Dialysis Refused Weight 179.039818359296 BP Diastolic BP Location Tested BP Systolic [...] Weight in lbs Pre/Post Dialysis Refused Weight 178.877840792779 BP Diastolic BP Location Tested BP Systolic [...] Weight in lbs Pre/Post Dialysis Refused Weight 166.399264114966 BP Diastolic BP Location Tested BP Systolic [...] Estim ated Date of Delivery false Thalassemia (Australian, Polish, Mediterranean, Or Background): MCV < 80 false Neural Tube Defect (Meningomyelocele, Spina Bifi da, Or Anencephaly) false Congenital Heart Defect false Down Syndrome false Scott-Sachs (eg, Anabaptist, Cajun, Swazi-Swedish) f alse Megan Disease false Sickle Cell [...] Post Complications Tubal Sterilization Discharge Date Comments [facility] idural 38.3 Tammie Connell [facility] Febrile Discharge Information Feeding Method Contraceptive Method Maternal HG B and HCT Levels Ob Episode Information Episode Created Date Number of Fetuses Patient Bloodtype Patient rh Status Prepregnancy Weight lbs Domestic Partner Domestic Partner Phone Father Name Site Surveyor Status 01/09/20 25 1 B Negative 158 Alfonsobonita Arenason OPEN Fetus Data First Name Last Name Admitted to NICU Weight (g) Sex Living Outcome Pediatric Complications Fetus ID Race Codes Race Delivery Type [id number] Problems Problem Notes RPT PLT 05/13/25 Problem Name Start Date End Date Resolution Snomed Code Not e History of infertility - female [id number] prior to first delivery TTC x 5 years History of thrombocytopenia [id number] [facility] consult-referral faxed to [facility] 01/12/2025Level II US scheduled [facility] 03/02anesthesia consult serial CBCs recommended by [facility] 28, 32 and 34wksantenatal testing weekly to start at 32wks Past history of premature delivery [id number] 2nd pr egnancy, 35 weeks, with NICU [...] Weight in lbs Pre/Post Dialysis Refused Weight 161.938367988444 BP Diastolic BP Location Tested BP Systolic [...] Type Weight in lbs Pre/Post Dialysis Refused 161.012894200568 BP Diastolic BP Location Tested BP Systolic BP Type 76 121 Fetus Heart Rate Present Fetus Movement A Yes Comments Patient is having cramping, discharge, and swelling. has appt at [facility] for anatomy, doing well, +FM, precautions and education f/u 4 weeks Flowsheet Date 03/06/2025 Olivo Score Blood Edema Fundus Height Fundus Units Glucose Ketones Leukocytes Nitrite Labor Signs Protein Cervic Dilation Cervic Effacement Cervic Station neg trace Type Weight in lbs Pre/Post Dialysis Refused Weight 165.065478184204 BP Diastolic BP Location Tested BP Systolic BP Type 77 122 Fetus Heart Rate Present A 127 Present Fetus Movement A Yes Comments Patient is having some swell ing . [facility] rec TV us for CL, pt [...] Type Weight in lbs Pre/Post Dialysis Refused 167.581640722524 BP Diastolic BP Location Tested BP Systolic BP Type 75 117 Fetus Heart Rate Present A 139 Present Fetus Movement A Yes Comments Patient is having some swell ing. check PLT today. f/u 3 weeks will give order for rhogam and GCT to do at [facility] precautions and education reviewed Flowsheet Date 04/24/2025 Olivo Score Blood Edema Fundus Height Fundus Units Glucose Ketones Leukocytes Nitrite Labor Signs Protein Cervic Dilation Cervic Effacement Cervic Station neg trace Type Weight in lbs Pre/Post Dialysis Refused Weight 170.885004356170 BP Diastolic BP Location Tested BP Systolic [...] Weight in lbs Pre/Post Dialysis Refused Weight 173.757546397131 BP Diastolic BP Location Tested BP Systolic [...] Weight in lbs Pre/Post Dialysis Refused Weight 173.438806989131 BP Diastolic BP Location Tested BP Systolic [...] Rate Present Fetus Movement Comments Flowsheet Date 05/25/2025 Olivo Score Blood Edema Fundus Height Fundus Units Glucose Ketones Leukocytes Nitrite Labor Signs Protein Cervic Dilation Cervic Effacement Cervic Station Type Weight in lbs Pre/Post Dialysis Refused 173.966487290217 BP Diastolic BP Location Tested BP Systolic BP Type 84 L arm 129 sitting Fetus Heart Rate Present Fetus Movement Comments Flowsheet Date 05/29/2025 Olivo Score Blood Edema Fundus Height Fundus Units Glucose Ketones Leukocytes Nitrite Labor Signs Protein Cervic Dilation Cervic Effacement Cervic Station Type Weight in lbs Pre/Post Dialysis Refused BP Diastolic BP Location Tested BP Systolic BP Type Fetus Heart Rate Present Fetus Movement Comments Flowsheet Date 05/29/2025 Olivo Score Blood Edema Fundus Height Fundus Units Glucose Ketones Leukocytes Nitrite Labor Signs Protein Cervic Dilation Cervic Effacement Cervic Station Type Weight in lbs Pre/Post Dialysis Refused Weight 175.704062633628 BP Diastolic BP Location Tested BP Systolic BP Type 76 L arm 126 sitting Fetus Heart Rate Present Fetus Movement A Yes Comments PLT-150, doing well, +FM, pr ocardia 30 mg xl daily, education and precautions Menstrual History Last Menstrual [...] Domestic Partner Domestic Partner Phone Father Name Site Surveyor Status 12/14/19 24 1 B Negative 157 Alfonso Steven CLOSED Fetus Data First Name Last Name Admitted to NICU Weight (g) Sex Living Outcome Pediatric Complications Fetus ID Race Codes Race Delivery Type 2381.35 8 M [id number] Vaginal Delivery Problems Problem Notes hx previous infertility x 5 years prior to first pregnancyduplicated left renal arteryNext MFM Appt: 06/04/24 1pm u/s and ovRecs: 1wk rpt visit for rpt CBC and delivery recommendations. Anesthesia consult. Problem Name Start Date End Date Resolution Snomed Code Not e Prophylactic immunotherapy [id number] received Thrombocytopenic disorder [id number] low plt - 99 - [facility] 05/14/24 U/S & Consult - Rpt [...] Latest Days Gestation 0 06/23/20 24 0 Pre-ashley Flowsheet Flowsheet Date 12/14/2023 Olivo Score Blood Edema Fundus Height Fundus Units Glucose Ketones Leukocytes Nitrite Labor Signs Protein Cervic Dilation Cervic Effacement Cervic Station neg none none trace Type Weight in lbs Pre/Post Dialysis Refused Weight 156.000668849070 BP Diastolic BP Location Tested BP Systolic [...] Weight in lbs Pre/Post Dialysis Refused Weight 157.647320469202 BP Diastolic BP Location Tested BP Systolic [...] Weight in lbs Pre/Post Dialysis Refused Weight 158.159505466327 BP Diastolic BP Location Tested BP Systolic [...] Weight in lbs Pre/Post Dialysis Refused Weight 162.325315561639 BP Diastolic BP Location Tested BP Systolic [...] Weight in lbs Pre/Post Dialysis Refused Weight 164.33072846049 BP Diastolic BP Location Tested BP Systolic [...] Weight in lbs Pre/Post Dialysis Refused Weight 168.731279645792 BP Diastolic BP Location Tested BP Systolic [...] Weight in lbs Pre/Post Dialysis Refused Weight 172.614403542498 BP Diastolic BP Location Tested BP Systolic [...] Weight in lbs Pre/Post Dialysis Refused Weight 162.155513352321 BP Diastolic BP Location Tested BP Systolic [...] At Estimated Date of Delivery false Thalassemia (Australian, Polish, Mediterranean, Or Background): MCV < 80 false Neural Tube Defect (Meningom yelocele, Spina Bifida, Or Anencephaly) false Congenital Heart Defect false Down Syndrome false Scott-Sachs (eg, Anabaptist, Cajun, Swazi-Swedish) f alse Megan Disease false Sickle Cell Disease Or Trait () false Hemophilia Or Other Blood Disorders false Muscular Dystrophy false Cystic Fibrosis false Shawnee's Chorea false Intellectual Disability/Autism false If Yes, [...] Date Comments 4 35.1 true Tammie Craven [facility] Discharge Information Feeding Method Contraceptive Method Maternal HG B and HCT Levels
[2025-06-03 15:23] LABS: Hematocrit 33.3 % (37.0-47.0); Hemoglobin 10.4 g/dL (12.0-15.0); Immature Granulocyte Percent A 1.2 % (0-0.5); Immature Platelet Fraction Pct 11.5 % (0.9-11.2); Lymphocytes Absolute Auto 1.49 K/mm3 (0.9-3.2); Mean Corpuscular HGB Conc 31.2 g/dl (32-36); Mean Corpuscular Hemoglobin 29.5 pg (26-34); Mean Corpuscular Volume 94.6 fl (80-100); Nucleated Red Blood Cells Absolute Auto 0.000 K/mm3 (0.0-0.012); Nucleated Red Blood Cells Perc 0.0 % (0.0-0.2); Platelet Count Result 126 k/mm3 (150-375); Red Blood Count 3.52 M/mm3 (4.2-5.4); White Blood Count 7.7 K/mm3 (4.5-10.0)
== END 2025-06-03 14:56 | disposition home or self-care (01) ==
PROVIDERS: Visit Provider Advanced Practice Midwife
DX: D69.6 Thrombocytopenia, unspecified (principal)
CPT/HCPCS: 36415; 85025; 85055

== ENCOUNTER 2025-06-08 16:30 | Observation (INO) | payer BC, SELFPAY ==
[2025-06-08] VITALS (7 sets, daily range): BP systolic 103–116; BP diastolic 65–78; PULSE 89–102; TEMP 35.8; BMI 33.1
--- NOTE | ~2025-06-08 | US_ITS ---
EXAMINATION: US OB BPP wo non-stress DATE: 06/08/2025 19:01 CDT INDICATION: Decelerations TECHNIQUE: Real-time transabdominal obstetric ultrasound. FINDINGS: 3 para 2. Estimated date of delivery by last menstrual period is 07/18/2025. There is a single intrauterine gestation in vertex presentation. The placenta is fundal without placenta previa. cardiac activity and movement is noted with a heart rate of 150 beats per minute. Amniotic fluid index measures 11.5 cm, within normal limits. Biophysical profile: breathin of 2 movement: 2 of 2 tone: 2 of 2 Amniotic fluid pocket: 2 of 2 Total score: 8 of 8 IMPRESSION: Single intrauterine gestation in vertex presentation. Total biophysical profile score of 8/8. Amniotic fluid index within normal limits Reviewed, dictated and finalized at location A.
--- NOTE | 2025-06-08 16:30 | OBADM ---
This patient, Leanne Harris, admitted to the OB room OB Post 113 for observation. Patient/family oriented to hospital policies and general routines including ID bracelet, bed and alarms, visiting hours, pain management, procedures, bathroom and other care routines, personal items, smoking policy, room service/diet, and visiting hours. Patient/Family are encouraged to report perceived risks to care and to ask questions if they do not understand what they are told or what they should do.
--- OUTSIDE RECORDS SUMMARY | 2025-06-08 16:37 | XMS_ITS | Clinical Summary ---
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
--- OUTSIDE RECORDS SUMMARY | 2025-06-08 16:37 | XMS_ITS | Data Portability ---
Author Organization [facility] Address [address] [place] [address] Assessment Encounter Date Assessment Date Assessment LastModified by Organization Details LastModified Time 05/29/2025 05/29/2025 Patient is _32__weeks . Discussed plan. [email or web address] Not available 05/29/2025 12:04:56 06/05/2025 06/05/2025 Patient is __33_weeks . Discussed plan. [email or web address] Not available 06/05/2025 15:49:18 Plan of Treatment Reminders Order Date Submit [...] available Not available Not available Lab None recorded. Referral None recorded. Procedures None recorded. Surgeries None recorded. Imaging US, obstetric , biophysic al profile + non-stres s test 2024 025 [email or web address] [address], [place], [address], 06/05/2025 17:54:05 non-stres s test 2024 025 nura ar3 [address], [address], [place], [address], 06/07/2025 23:40:06 non-stres s test 2024 025 [email or web address] [address], [address], [place], [address], 05/29/2025 13:41:33 Medication Orders None recorded. Patient TargetsNo targets recorded. Patient InstructionsNo instructions recorded. Reason for Referral None Reported. Results Created Date Observation Date Name Description Value Unit Range Abnormal Flag Note LastModifiedBy Organization Detail LastModifiedTime 05/05/2005/05/2025 GTT - GESTA MIR L, 3 HOUR, ACOG glucose, fasting acog 76 mg/dL 70-94 Not Available [facility] (Lab) [address] [place], [address], 05/06/2025 03:33:15 05/05/2005/05/2025 GTT - GESTA MIR L, 3 HOUR, ACOG glucose, 1 hour acog 164 mg/dL 70-179 Not Available [facility] (Lab) [address] [place], [address], 05/06/2025 03:33:15 05/05/20 25 05/05/2025 GTT - GESTA MIR L, 3 HOUR, ACOG glucose, 2 hour acog 126 mg/dL 70-154 Not Available [facility] (Lab) [address] [facility], [place], [address], 05/06/2025 03:33:15 05/05/20 25 05/05/2025 GTT - GESTA MIR L, 3 HOUR, ACOG glucose, 3 hour acog 117 mg/dL 70-139 Not Available [facility] (Lab) [address] [facility], [place], [address], 05/06/2025 03:33:15 05/20/20 25 05/20/2025 US, obste tric, follo w-up No observ ation record ed. [email or web address] [place] [address], [place], [address], 05/20/2025 13:20:23 05/20/20 25 05/20/2025 US, obste tric, follo w-up No observ ation record ed. [email or web address] [address] [facility], [place], [address], 05/22/2025 11:51:14 05/20/20 25 05/20/2025 non-s tress test No observ ation record ed. [email or web address] [place] [address], [place], [address], 05/20/2025 14:42:31 05/20/20 25 05/20/2025 non-s tress test No observ ation record ed. [email or web address] [address] [facility], [place], [address], 06/06/2025 11:07:46 05/22/20 25 05/18/2025 non-s tress test No observ ation record ed. [email or web address] [address] [facility] [address], [place], [address], 06/02/2025 13:09:02 05/25/20 25 05/25/2025 non-s tress test No observ ation record ed. [email or web address] [place] [address], [place], [address], 05/25/2025 14:41:39 05/25/20 non-s tress test No observ ation record ed. [email or web address] [place] [address], [place], [address], 05/25/2025 14:18:40 05/29/20 25 05/29/2025 non-s tress test No observ ation record ed. [email or web address] [place] [address], [place], [address], 05/29/2025 12:26:28 05/29/20 25 05/29/2025 US, obste tric, bioph ysica l profi le No observ ation record ed. [address], [place], [address], 05/30/2025 14:24:21 05/29/20 25 05/29/2025 non-s tress test No observ ation record ed. [address], [place], [address], 05/30/2025 14:20:16 06/05/20 25 06/05/2025 US, obste tric, bioph ysica l profi le + non-s tress test No observ ation record ed. [email or web address] [place] [address], [place], [address], 06/05/2025 13:35:21 06/05/20 25 06/05/2025 US, obste tric, bioph ysica l profi le + non-s tress test No observ ation record ed. [email or web address] [address], [place], [address], 06/06/2025 23:50:17 06/05/20 25 06/05/2025 non-s tress test No observ ation record ed. [email or web address] [place] [address], [place], [address], 06/05/2025 12:31:32 Result Notes None recorded. Problems Name Problem SNOMED Code Status Onset Date Resolution Date Notes Provider Name and Address Organization Details Recorded Time ultrasou nd scan abnormal 2024171818 9109 Completed Enlarged lateral ventricl e - 08/23 Level II U/S - No VSD. RESOLVED !! Final US @ 36 wks w/ MFM 11/24 315PM Pending CMV/parv o b/w Rossy aleman [facility] 2 15:15:00 Antenata l care: history of infertil ity 302407862 Completed spon preg, TTC 5 years Rossy aleman [facility] 2 15:15:00 Prophyla ctic immunoth erapy Completed received 03/29/24 Mago Phillips [facility] 4 11:57:56 Thromboc ytopenic disorder 818661747 Completed low plt - 99 - [facility] 05/14/24 U/S & Consult - Rpt CBC and M visit in 1 wk. Delivery recommen dations at that time. Anesth esia consult Mago Phillips [facility] 4 11:57:56 History of thromboc ytopenia 1606100063 9108 Active [facility] consult- referral faxed to [facility] 01/12/2025 Level II US schedule d [facility] [place] [facility] 03/02 anesthes ia consult serial CBCs recommen ded by [facility] 28, 32 and 34wks antenata l testing weekly to start at 32wks Bre John [facility] 5 15:47:05 History of infertil ity - female 430780759 Active prior to first delivery TTC x 5 years Tammie Craven, [place] [address], [place], [address], [place] [facility] 5 16:46:21 Past pregnanc y history of prematur e delivery 896222954 Active 2nd pregnanc y, 35 weeks, with NICU stay cervical us until 24wks Bre John celestino, [facility] [address] 15:43:[address] Concept Completed 201805/10/2021 Encntr for general adult medical exam w/o abnormal findings ;Recorde d Elsewher e: No Locat ion: [facility] S ource: EHR Roller Print Tender estella: N Practi ce ID: [id number] [email or web address] lable Time: 09:45:00 AM Mago tirado, [facility] 11:29:[address] Concept Completed 201805/10/2021 Encntr for obstetrics gynecology md exam (general ) (routine ) w/o abn findings ;Recorde d Elsewher e: No Locat ion: [facility] S ource: EHR Roller Print Tender estella: N Practi ce ID: [email or web address] lable Time: 09:45:00 AM Mago tirado, [facility] 11:29:04 Educatio n Completed 201805/10/2021 Encounte r for family planning advice;R ecorded Elsewher e: No Locat ion: [facility] S ource: EHR Roller Print Tender estella: N Practi ce ID: [id number] Kvng lable Time: 01:30:00 PM Mago tirado, [facility] 1 11:28:58 Finding of fertilit y Completed 201805/10/2021 Female infertil ity, unspecif ied;Prac amari ID: 0001 Mago tirado, [facility] 1 11:29:00 Pregnanc y 78909224 Completed 202012/23/20[facility] 16:40:45 Pregnanc y 25453307 Active 2024 Mago Phillips [facility] 5 16:40:45 Problem Notes None recorded. Procedures Surgical History Date Name Laterality Status Provider Name and Address Organization Details Recorded Time 06/13/20 23 Date of Last Pap Smear completed [facility] 11/09/2023 16:36:37 01/15/20 21 Laparoscopy completed [facility] 05/10/2021 12:32:04 11/12/18 94 operation on hip joint completed [facility] 05/10/2021 12:34:56 11/12/18 94 procedure on ear completed [facility] 11/09/2023 16:38:25 11/12/18 93 tonsilectomy/ad enoids completed [facility] 11/09/2023 16:37:40 11/12/18 93 operation on ossicular chain of middle ear completed [facility] 05/10/2021 12:34:18 11/12/18 92 procedure on ear completed [facility] 11/09/2023 16:38:20 11/12/18 90 procedure on ear completed [facility] 11/09/2023 16:38:15 11/12/18 89 operation on hip joint completed [facility] 05/10/2021 12:33:26 Imaging Results None recorded. Procedure Notes None recorded. Medical Equipment None Reported. Allergies Allergen ID Allergen Name Allergen Category Reaction Reaction Severity Criticality Documentation Date Start Date Code Code System Note Provider Name and Address Organization Details Recorded Time 393 lactose food,medi cation Not available Not available Not available 03/09/2020 6211 RxNorm Mago Phillips null, [place] - [facility] 0 17:28:25 Medications Name Sig Start [...] Prescrib ed Elsewher e: No Locat ion: [facility] odify By: alea wagoner DateTime : [...] Prescrib ed Elsewher e: Yes Loca tion: [facility] M odify By: yayo lewis DateTime : 01/22/20 [...] Prescrib ed Elsewher e: Yes Loca tion: [facility] odify By: yayo salazar Encoun ter DateTime : 01/22/20 09:45:00 AM Not Available Not Available Not Available Caltrate 600 plus D active Not Available Not Available Not Available Women's One Daily 18 mg iron-400 mcg-500 mg Ca tablet 11/09 completed Prescrib ed Elsewher e: Yes Loca tion: [facility] odify By: yayo salazar Encoun [...] Updated DateTime 05/29/2025 152.4 cm 34.2 kg/m2 71190.66 g 126/76 mm[Hg] Haylie Paul [facility] 05/29/2025 10:14:42 Date Recorded Body height Provider Name an d Address Organization Details Last Updated DateTime 06/05/2025 152.4 cm LIVAN Camejo [facility] 06/05/2025 12:30:40 Date Recorded Body height Body mass index (BMI) Body weight Systolic And Diastolic Provider Name and Address Organization Details Last Updated DateTime 06/05/2025 152.4 cm 34.8 kg/m2 24020.44 g 155/78 mm[Hg] Haylie Paul [facility] 06/05/2025 10:50:10 Social History Question Answer Notes LastModified by Organizat ion Details LastModified Time Tobacco Smoking Status Never Smoker Mago tirado, [facility] 11/09/2023 16:35:52 Do You Have An Advance Directive? No [email or web address] Information n ot available 05/10/2021 If You Are , What Was Your Level Of Alcohol Consumption Prior To ? None [email or web address] Information not available 11/09/2023 Are You Blind Or Do You Have Difficulty Seeing? No [email or web address] Information n ot available 05/10/2021 What Is Your Level Of Caffeine Consumption? Moderate [email or web address] Information not available 05/10/2021 How Much Tobacco Do You Chew? None [email or web address] Information not available 05/10/2021 In The 14 Days Before Symptom Onset, Have You Had Close Contact With A Laboratory-confirm ed COVID-19 While That Case Was Ill? No Information n ot available 05/10/2021 In The 14 Days Before Symptom Onset, Have You Had Close Contact With A Person Who Is Under Investigation For COVID-19 While That Person Was Ill? No [email or web address] Information not available 05/10/2021 Have You Been To An Area Known To Be High Risk For COVID-19? No [email or web address] Information not available 05/10/2021 Are You Deaf Or Do You Have Serious Difficulty Hearing? No [email or web address] Information not available 05/10/2021 What Type Of Diet Are You Following? REGULAR [email or web address] Information n ot available 05/10/2021 What Is The Highest Grade Or Level Of School You Have Completed Or The Highest Degree You Have Received? HR14656-9 [email or web address] Information not available 05/10/2021 Are There Any Guns Present In Your Home? No [email or web address] Information not available 05/10/2021 What Was The Date Of Your Most Recent Tobacco Screening? 02/06/2025 Information not available 02/06/2025 Do You Use Protection During Sex? No [email or web address] Information not available 05/10/2021 Do You Use Your Seat Belt Or Car Seat Routinely? Yes [email or web address] Information not available 05/10/2021 Do You Have Smoke And Carbon Monoxide Detectors In Your Home? Yes [email or web address] Information not available 05/10/2021 How Much Tobacco Do You Smoke? No [email or web address] Information not available 05/10/2021 Do You Use Sunscreen Routinely? No [email or web address] Information not available 05/10/2021 Has Tobacco Cessation Counseling Been Provided? No [email or web address] Information not available 11/09/2023 Have You Used IV Drugs? No [email or web address] Information not available 05/10/2021 Do You Have Difficulty Walking Or Climbing Stairs? No [email or web address] Information not available 11/09/2023 Sex: Unknown Functional Status Question Answer Note LastModified by Organizat ion Details LastModified Time Do you use any illicit or recreational drugs? No [email or web address] Information not available 05/10/2021 Do you or have you ever used any other forms of tobacco or nicotine? No [email or web address] Information not available 11/09/2023 What is your level of alcohol consumption? None Information not available 03/09/2020 Are you able to walk? YESWOREST [email or web address] Information not available 05/10/2021 Are you able to care for yourself independently? 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 No [email or web address] Information not available 11/09/2023 What is your exercise level? Occasional [email or web address] Information not available 03/09/2020 Mental Status Question Answer Note LastModified by Organization D etails LastModified Time Do you feel stressed (tense, restless, nervous, or anxious, or unable to sleep at night)? [id number] [email or web address] Information not available 11/09/2023 Family History Relationship Description Onset Age of this Age Resolved Age Notes LastModified by Organization Details LastModified Time Mother Hypertensive disorder [email or web address] Not available 03/09 17:30:21 Father Hypertensive disorder Not available 03/09 17:30:29 Father Malignant neoplasm of prostate [email or web address] Not available 2021 15:59:30 Maternal Grandfather Heart disease [email or web address] Not available 03/09 17:30:54 Paternal Grandfather Heart disease [email or web address] Not available 03/09 17:30:54 Medical History Condition [...] Code Diagnosis Note [id number] Tammie Craven CNM [place] [address] [address] 03/09/2020 12:37:34 03/09/2020 12:38:16 Female infertility associated with anovulation 399985391 N97.0 History of infertility - female 064482818 Z87.42 suspect anovulatio n [id number] Juliocesar Arciniega MD [place] [address],[place] [address] 05/10/2021 11:50:59 05/10/2021 13:16:[id number] [facility] [address],[place] [address] 05/10/2021 11:52:08 05/10/2021 22:27:09 Amenorrhea 21811930 N91.2 [id number] Juliocesar Arciniega MD [place] [address],[place] [address] 06/08/2021 14:54:20 06/08/2021 15:37:50 screening 501452116 Z36.82 [id number] Juliocesar Arciniega MD [place] [address],[place] [address] 06/08/2021 14:56:45 06/08/2021 17:39:48 Routine care 323161614 Z34.90 [id number] Haylie Quintero MD [place] [address],[place] [address] 07/05/2021 17:00:55 07/05/2021 23:34:26 Routine care 401475623 Z34.02 [id number] MD Jermain Watson [address],[place] [address] 07/05/2021 17:06:58 07/06/2021 09:01:06 [id number] Haylie Quintero MD [place] [address],[place] [address] 08/09/2021 16:32:28 08/09/2021 17:35:43 screening for malformation 573409366 Z36.3 [id number] Haylie Quintero MD [place] [address],[place] [address] 08/09/2021 16:33:19 08/10/2021 15:52:45 ultrasound scan abnormal 1293697293 9109 R93.89 Routine an tenatal care 080191362 Z34.02 [id number] Haylie Quintero MD [place] [address],[place] [address] 08/30/2021 15:49:12 08/30/2021 16:32:53 ultrasound scan abnormal 1371905590 9109 R93.89 Routine an tenatal care 131105572 Z34.02 [id number] MD Jermain Watson [address],[place] [address] 09/28/2021 10:46:06 09/28/2021 11:48:55 ultrasound scan abnormal 6967423330 9109 R93.89 Routine an tenatal care 514448261 Z34.02 [id number] Haylie Quintero MD [place] [address],[place] [address] 10/03/2021 16:59:59 10/03/2021 17:46:40 Vaginitis 48984344 N76.0 Candidal vulvovaginitis 59529859 B37.3 Increased frequency of urination 507280314 R35.0 73003 Haylie Quintero MD [place] [address],[place] [address] 10/14/2021 16:28:02 10/15/2021 09:51:30 Routine care 188580797 Z34.02 Irregular uterine contractions 64214819 O62.2 [id number] MD Jermain Watson [address],[place] [address] 10/26/2021 16:48:46 10/28/2021 16:45:33 Routine care 397602676 Z34.02 [id number] MD Jermain Watson [address],[place] [address] 11/09/2021 16:43:06 11/09/2021 17:30:27 Routine care 465330895 Z34.02 [id number] MD Jermain Watson [address] [address] 11/23/2021 16:23:13 11/24/2021 17:09:40 Routine care 650697994 Z34.02 [id number] Juliocesar Arciniega MD [place] [address],[place] [address] 11/25/2021 16:37:05 12/22/2021 14:09:22 [id number] Haylie Quintero MD [place] [address],[place] [address] 11/30/2021 16:35:51 12/02/2021 16:00:50 Routine care 046518333 Z34.02 [id number] MD Jermain Watson [address],[place] [address] 12/07/2021 15:58:38 12/07/2021 16:30:18 Central nervous system malformation in fetus affecting obstetrical care 5923111 O35.0XX0 Z3A.38 [id number] MD Jermain Watson [address],[place] [address] 12/07/2021 15:59:22 12/09/2021 09:45:23 Routine care 983530207 Z34.02 [id number] MD Jermain Watson [address] [address] 12/19/2021 12:35:26 12/19/2021 13:32:49 care 467515587 Z39.0 34541 Haylie Quintero MD [place] [address] [address] 01/09/2022 14:43:23 01/09/2022 19:56:46 care 210283170 Z39.0 [id number] Joyce Iraheta [facility] [address] [address] 06/13/2023 18:03:46 06/14/2023 16:21:39 Gynecologic examination 08097264 Z01.419 Take Calcium with Vitamin D 1200mg [...] Screen naDexa Screen naRoutine Labs PCP Dyspareunia 24808350 N94 .10 Chronic PFDRef PTInformat ion given for additional home review.Vag valium if not trying to for - -can consider https://ww w.pelvicpa in.org/maribell ges/pdf/Pa tient%20In fo%20Hando uts%20191215 /PELVIC%20 FLOOR%20DY SFUNCTION% 20PFD%2019.pdf [id number] Juliocesar Arciniega MD [place] [address],[place] [address] 10/26/2023 13:30:57 10/26/2023 14:10:57 Threatened miscarriage 68745611 O20.0 Z3A.01 [id number] Juliocesar Arciniega MD [place] [address],[place] [address] 11/09/2023 15:19:34 11/09/2023 16:17:12 Uterine size for dates discrepancy 877154355 O26.841 Z3A.[id number] [facility] [facility] [address],[place] [address] 11/09/2023 15:20:54 11/09/2023 16:50:48 Amenorrhea 42987102 N91.2 reviewed office, precaution svaccine recf/u 12 week new ob and first lookreglan unisom/b6 for nausea Routine an tenatal care 419733810 Z34.91 Nausea and vomiting 1693 2000 R11.2 [id number] Juliocesar Arciniega MD [place] [address],[place] [address] 11/29/2023 17:27:10 12/11/2023 17:15:39 [id number] Juliocesar Arciniega MD [place] [address],[place] [address] 12/14/2023 11:01:23 12/14/2023 11:40:32 screening 372576777 Z36.82 Z3A.11 [id number] Tammie Craven CNM [place] [address],[place] [address] 12/14/2023 11:01:43 12/14/2023 12:13:09 Gestation period, 12 weeks 47110669 Z3A.[id number] [facility] [address],[place] [address] 01/11/2024 11:39:59 01/11/2024 12:08:41 Routine care 356799165 Z34.91 [id number] Juliocesar Arciniega MD [place] [address],[place] [address] 01/18/2024 12:03:06 01/18/2024 12:39:12 [id number] Juliocesar Arciniega MD [place] [address],[place] [address] 02/08/2024 11:26:39 02/08/2024 14:06:08 screening for malformation 356861105 Z36.[id number] [facility] [address],[place] [address] 02/08/2024 11:28:26 02/08/2024 14:07:04 Routine care 554806993 Z34.[id number] [facility] [address],[place] [address] 03/07/2024 11:16:27 03/07/2024 11:57:19 Routine care 205123616 Z34.[id number] [facility] [address],[place] [address] 04/04/2024 09:03:38 04/04/2024 10:36:01 Routine care 821802713 Z34.[id number] [facility] [facility] [address],[place] [address] 04/23/2024 10:02:14 04/23/2024 10:52:56 Routine care 199987192 Z34.91 [id number] Juliocesar Arciniega MD [place] [address],[place] [address] 05/09/2024 15:23:03 05/09/2024 16:07:50 Uterine size for dates discrepancy 490035582 O26.843 Z3A.33 [id number] Tammie Craven [facility] [address],[place] [address] 05/09/2024 15:23:28 05/09/2024 16:43:03 Routine care 772877967 Z34.91 [id number] Tammie Craven [facility] [address],[place] [address] 05/30/2024 11:43:51 05/30/2024 12:34:22 care 104000188 Z39.2 Benign ges tational thrombocytopenia 231911795 D69.59 rpt cbc and cmp todaysleep when ablemonito r for headaches, visual changes, epigastric painf/u pending labscall if desires control method [id number] Tammie Craven [facility] [address],[place] [address] 08/29/2024 09:34:47 08/29/2024 10:45:03 care 889958995 Z39.2 normal pp exam f/u wwe [id number] MUSA GARCIA MD [place] [address],[place] [address] 12/22/2024 10:58:26 12/22/2024 11:40:13 [id number] MUSA GARCIA MD [place] [address],[place] [address] 12/22/2024 10:59:24 12/22/2024 17:16:53 test positive 832770322 Z32.01 1. Exam today within normal limits.2. Ultrasound today confirms GA and viability. EDC . GC/Clamydi a testing done: will f/u as indicated. 4. ACOG guidelines and plan of care for reviewed with patient. All questions answered.5 . Return to office at 12 weeks for new OB visit6. OB labs ordered today.7. Genetic screening: desires, drawn today. Benign ges tational thrombocytopenia 616076004 O99.119 - hx of gestationa l thrombocyt openia x2- Plt 70 on admission at 35 weeks for PPROM- discussed close monitoring of plt count this - due to slightly increased risk of PTL/PPROM in this , consider MFM consult if thrombocyt openia occurs for discussion of steroid burst around 35 weeks in case of PPROM again [id number] Juliocesar Arciniega MD [place] [address],[place] [address] 01/05/2025 15:57:59 01/05/2025 16:42:25 screening 289916709 Z36.82 Z3A.12 [id number] Tammie Craven [facility] [address],[place] [address] 01/09/2025 10:48:09 01/12/2025 02:33:48 Gestation period, 12 weeks 72837530 Z3A.12 Routine an tenatal care 046099513 Z34.91 [id number] Tammie Craven [facility] [address],[place] [address] 02/06/2025 09:48:00 02/06/2025 10:09:24 Gestation period, 16 weeks 72966010 Z3A.16 [id number] Tammie Craven [facility] [address],[place] [address] 03/06/2025 12:33:58 03/08/2025 23:10:20 Platelet count below reference range 088110106 D69.6 Gestation period, 21 weeks 60139122 Z3A.21 [id number] Juliocesar Arciniega MD [place] [address],[place] [address] 03/19/2025 17:29:55 03/19/2025 18:00:28 Suspected clinical finding 211779814 Z03.75 Z87.51 Z3A.22 [id number] MD Jermain Montague [address],[place] [address] 03/30/2025 09:35:22 03/30/2025 10:42:02 care: obstetric risk 681264929 O09.292 Z3A.24 [id number] Tammie Craven [facility] [address],[place] [address] 04/03/2025 12:20:07 04/03/2025 14:20:37 Gestation period, 24 weeks [id number] Z3A.[id number] [facility] [facility] [address],[place] [address] 04/24/2025 10:23:17 04/24/2025 10:59:43 Gestation period, 27 weeks [id number] Z3A.[id number] [facility] [address],[place] [address] 05/08/2025 10:16:47 05/08/2025 11:18:17 Gestation period, 29 weeks [id number] Z3A.29 [id number] Juliocesar Arciniega MD [place] [address],[place] [address] 05/20/2025 09:30:11 05/20/2025 10:06:27 High risk 87318607 O09.213 O09.293 Z3A.31 [id number] Tammie Craven [facility] [address],[place] [address] 05/20/2025 09:30:26 05/20/2025 10:37:06 Gestation period, 31 weeks [id number] Z3A.[id number] [facility] [address],[place] [address] 05/20/2025 09:30:37 05/20/2025 15:08:27 History of 518780881 Z87.59 [id number] Juliocesar Arciniega MD [place] [address],[place] [address] 05/25/2025 10:09:13 05/25/2025 14:20:01 Past history of premature delivery 061668425 Z87.51 [id number] [facility] [address],[place] [address] 05/29/2025 10:06:36 05/29/2025 13:41:33 Premature delivery 290083429 O60.10X0 [id number] Tammie Craven [facility] [address],[place] [address] 05/29/2025 10:07:38 05/29/2025 12:10:35 Gestation period, 32 weeks 6026340 Z3A.32 [id number] Tammie Craven [facility] [address],[place] [address] 06/05/2025 09:36:22 06/05/2025 12:36:06 labor without delivery [id number] O60.03 [id number] Tammie Craven [facility] [address],[place] [address] 06/05/2025 09:36:59 06/05/2025 16:58:56 Gestation period, 33 weeks 24918092 Z3A.33 [id number] Juliocesar Arciniega MD [place] [address],[place] [address] 06/05/2025 11:38:25 06/05/2025 12:04:10 Abnormal finding on screening of mother 704517658 O28.8 O09.899 Z3A.33 Health Concerns Section Related Observation LastModified by Organization Detai ls LastModified Time None Recorded Concern Status LastModified by Organization Details LastModified Time None Recorded Advance Directives Directive N: Payers Insurance Date Sequence Insurance Name Policy Number Policy Calabrese Covered Member ID Calabrese Member ID Guarantor Name 06/04/2025 1 [place] [id number] Leanne Harris [id number] Leanne Harris OBGysiomara Episode Ob Episode Information Episode Created Date Number of Fetuses Patient Bloodtype Patient rh Status Prepregnancy Weight lbs Domestic Partner Domestic Partner Phone Father Name Sky Line Yarder Status 06/08/20 21 1 B Negative 152 CLOSED Fetus Data First Name Last Name Admitted to NICU Weight (g) Sex Living Outcome Pediatric Complications Fetus ID Race Codes Race Delivery Type Bon 3090.09 55 M true Full Term [id number] Vaginal Delivery Problems Problem Notes declines cf/sma and NIPT - N IPT drawn 08/23/21 due to abnormal Level II U/SDunbar pt!! Problem Name Start Date End Date Resolution Snomed Code Not e ultrasound scan abnormal SELFRESOLVED [id number] Enlarged lat eral ventricle - 08/23 Level II U/S - No VSD. RESOLVED!! Final US @ 36 wks w/ MFM 11/24 315PM Pending CMV/parvo b/w care: history of infertility [id number] spon preg, TTC 5 years Bo Calculation [...] Weight in lbs Pre/Post Dialysis Refused Weight 150.370874218288 BP Diastolic BP Location Tested BP Systolic [...] Weight in lbs Pre/Post Dialysis Refused Weight 153.721893818021 BP Diastolic BP Location Tested BP Systolic [...] Weight in lbs Pre/Post Dialysis Refused Weight 159.913955678955 BP Diastolic BP Location Tested BP Systolic [...] Weight in lbs Pre/Post Dialysis Refused Weight 161.843105185713 BP Diastolic BP Location Tested BP Systolic BP Type 86 124 Fetus Heart Rate Present A 150 Fetus Movement A Yes Comments Feeling well. Getting flu sh ot this week. Will discuss Tdap next visit. Saw MFM, no concern for VSD but slightly enlarged lateral ventricle. Did NIPT- low risk. Has appt at [facility] on Wednesday 09/05. Questions answered, support given. Orders given for Rhogam and 28w labs. Flowsheet Date 09/28/2021 Olivo Score Blood Edema Fundus Height Fundus Units Glucose Ketones Leukocytes Nitrite Labor Signs Protein Cervic Dilation Cervic Effacement Cervic Station trace 26 Type Weight in lbs Pre/Post Dialysis Refused Weight 167.939447567807 BP Diastolic BP Location Tested BP Systolic [...] Weight in lbs Pre/Post Dialysis Refused Weight 162.940076814169 BP Diastolic BP Location Tested BP Systolic [...] Weight in lbs Pre/Post Dialysis Refused Weight 172.943159408378 BP Diastolic BP Location Tested BP Systolic [...] Weight in lbs Pre/Post Dialysis Refused Weight 172.217817092688 BP Diastolic BP Location Tested BP Systolic [...] Weight in lbs Pre/Post Dialysis Refused Weight 175.814059321898 BP Diastolic BP Location Tested BP Systolic BP Type 80 131 Fetus Heart Rate Present A 120 Fetus Movement A Yes Comments Doing well. Still some const ipation, will increase colace, may add miralax. Tdap done. GBS next visit. Back to [facility] once more. Has preadmit scheduled. Discussed pediatricians, hospital bag, carseat installation. Flowsheet Date 11/23/2021 Olivo Score Blood Edema Fundus Height Fundus Units Glucose Ketones Leukocytes Nitrite Labor Signs Protein Cervic Dilation Cervic Effacement Cervic Station neg trace 34 none trace 0cm 20% -2 Type Weight in lbs Pre/Post Dialysis Refused Weight 176.293772507223 BP Diastolic BP Location Tested BP Systolic BP Type 86 136 Fetus Heart Rate Present A 140 Fetus Movement A Yes Comments Doing well. COnstipation imp roved. Diflucan yesterday but has urinary sx also. UA and culture. macrobid. Trouble sleeping. [facility] last week- normal growth but drop [...] Weight in lbs Pre/Post Dialysis Refused Weight 179.150306835743 BP Diastolic BP Location Tested BP Systolic [...] Weight in lbs Pre/Post Dialysis Refused Weight 178.243764618633 BP Diastolic BP Location Tested BP Systolic [...] Weight in lbs Pre/Post Dialysis Refused Weight 166.425697304130 BP Diastolic BP Location Tested BP Systolic [...] Estim ated Date of Delivery false Thalassemia (Czech, Bhutanese, Mediterranean, Or Background): MCV < 80 false Neural Tube Defect (Meningomyelocele, Spina Bifi da, Or Anencephaly) false Congenital Heart Defect false Down Syndrome false Scott-Sachs (eg, Yazidi, Cajun, Kyrgyz-Cooks) f alse Megan Disease false Sickle Cell Disease Or Trait () false Hemophilia Or Other Blood Disorders false Muscular Dystrophy false Cystic Fibrosis false Assumption's Chorea false Intellectual Disability/Autism false If Yes, [...] Post Complications Tubal Sterilization Discharge Date Comments [facility]- idural 38.3 false Tammie Craven CN Febrile Discharge Information Feeding Method Contraceptive Method Maternal HG B and HCT Levels Ob Episode Information Episode Created Date Number of Fetuses Patient Bloodtype Patient rh Status Prepregnancy Weight lbs Domestic Partner Domestic Partner Phone Father Name Sky Line Yarder Status 01/09/20 25 1 B Negative 158 Alfonso Harris OPEN Fetus Data First Name Last Name Admitted to NICU Weight (g) Sex Living Outcome Pediatric Complications Fetus ID Race Codes Race Delivery Type [id number] Problems Problem Notes RPT PLT 05/13/25 Problem Name Start Date End Date Resolution Snomed Code Not e History of infertility - female [id number] prior to first delivery TTC x 5 years History of thrombocytopenia [id number] [facility] consult-referral faxed to [facility] 01/12/2025Level II US scheduled [facility] 03/02anesthesia consult serial CBCs recommended by [facility] 28, 32 and 34wksantenatal testing weekly to start at 32wks Past history of premature delivery [id number] 2nd pr egnancy, 35 weeks, with NICU [...] Weight in lbs Pre/Post Dialysis Refused Weight 161.128861650837 BP Diastolic BP Location Tested BP Systolic BP Type 76 118 Fetus Heart Rate Present Fetus Movement A Yes Comments Patient is having discharge, nausea and vomiting. reviewed history, updated, check PLT every month, [facility] consult. hx delivery ar 35 weeks last , begin routine care Flowsheet Date 02/06/2025 Olivo Score Blood Edema Fundus Height Fundus Units Glucose Ketones Leukocytes Nitrite Labor Signs Protein Cervic Dilation Cervic Effacement Cervic Station neg trace Type Weight in lbs Pre/Post Dialysis Refused 161.979512771058 BP Diastolic BP Location Tested BP Systolic BP Type 76 121 Fetus Heart Rate Present Fetus Movement A Yes Comments Patient is having cramping, discharge, and swelling. has appt at [facility] for anatomy, doing well, +FM, precautions and education f/u 4 weeks Flowsheet Date 03/06/2025 Olivo Score Blood Edema Fundus Height Fundus Units Glucose Ketones Leukocytes Nitrite Labor Signs Protein Cervic Dilation Cervic Effacement Cervic Station neg trace Type Weight in lbs Pre/Post Dialysis Refused Weight 165.184754494668 BP Diastolic BP Location Tested BP Systolic BP Type 77 122 Fetus Heart Rate Present A 127 Present Fetus Movement A Yes Comments Patient is having some swell ing . [facility] rec TV us for CL, pt [...] Type Weight in lbs Pre/Post Dialysis Refused 167.466274968165 BP Diastolic BP Location Tested BP Systolic BP Type 75 117 Fetus Heart Rate Present A 139 Present Fetus Movement A Yes Comments Patient is having some swell ing. check PLT today. f/u 3 weeks will give order for rhogam and GCT to do at [facility] precautions and education reviewed Flowsheet Date 04/24/2025 Olivo Score Blood Edema Fundus Height Fundus Units Glucose Ketones Leukocytes Nitrite Labor Signs Protein Cervic Dilation Cervic Effacement Cervic Station neg trace Type Weight in lbs Pre/Post Dialysis Refused Weight 170.740576532468 BP Diastolic BP Location Tested BP Systolic [...] Weight in lbs Pre/Post Dialysis Refused Weight 173.516247938751 BP Diastolic BP Location Tested BP Systolic [...] Weight in lbs Pre/Post Dialysis Refused Weight 173.801087739015 BP Diastolic BP Location Tested BP Systolic BP Type 68 L arm 106 sitting Fetus Heart Rate Present Fetus Movement A Yes Comments reviewed care with dr. krysta rodriguez rpt plt next week, has decreased activity which has helped decrease contractions. EFW 47%, education and precautions bpp 8nNST to follow Flowsheet Date 05/20/2025 Olivo Score [...] Type Weight in lbs Pre/Post Dialysis Refused 173.313201256374 BP Diastolic BP Location Tested BP Systolic [...] Weight in lbs Pre/Post Dialysis Refused Weight 175.931872376481 BP Diastolic BP Location Tested BP Systolic BP Type 76 L arm 126 sitting Fetus Heart Rate Present Fetus Movement A Yes Comments PLT-150, doing well, +FM, pr ocardia 30 mg xl daily, education and precautions Flowsheet Date 06/05/2025 Olivo Score Blood Edema Fundus Height Fundus Units Glucose Ketones Leukocytes Nitrite Labor Signs Protein Cervic Dilation Cervic Effacement Cervic Station Type Weight in lbs Pre/Post Dialysis Refused BP Diastolic BP Location Tested BP Systolic BP Type Fetus Heart Rate Present Fetus Movement Comments Flowsheet Date 06/05/2025 Olivo Score Blood Edema Fundus Height Fundus Units Glucose Ketones Leukocytes Nitrite Labor Signs Protein Cervic Dilation Cervic Effacement Cervic Station Type Weight in lbs Pre/Post Dialysis Refused Weight 178.117052847907 BP Diastolic BP Location Tested BP Systolic BP Type 78 L arm 155 sitting Fetus Heart Rate Present Fetus Movement A Yes Comments reviewed PLT, rpt weekly. pr ecautions and education. reviewed nst with dr. garcia, bpp 06/19 preadmit scheduled f/u one week Flowsheet Date 06/05/2025 Olivo Score Blood Edema Fundus Height Fundus [...] Domestic Partner Domestic Partner Phone Father Name Sky Line Yarder Status 12/14/19 24 1 B Negative 157 Alfonso Harris CLOSED Fetus Data First Name Last Name Admitted to NICU Weight (g) Sex Living Outcome Pediatric Complications Fetus ID Race Codes Race Delivery Type 2381.35 8 M [id number] Vaginal Delivery Problems Problem Notes hx previous infertility x 5 years prior to first pregnancyduplicated left renal arteryNext MFM Appt: 06/04/24 1pm u/s and ovRecs: 1wk rpt visit for rpt CBC and delivery recommendations. Anesthesia consult. Problem Name Start Date End Date Resolution Snomed Code Not e Prophylactic immunotherapy [id number] received Thrombocytopenic disorder [id number] low plt - 99 - [facility] mfm 05/14/24 U/S & Consult - Rpt CBC and MFM visit in 1 wk. Delivery recommendations at that time. Anesthesia consult Bo Calculation Initial Bo Date Initial Exam Date Initial Exam Provider Initial Ultrasound Date Last Menstrual Period Date Ultra Sound Weeks Gestation 06/23/2024 11/09/2023 11/09/2023 09/17/2023 6 Eighteen To Twenty Week Ob Update Ultra [...] Weight in lbs Pre/Post Dialysis Refused Weight 156.100889050332 BP Diastolic BP Location Tested BP Systolic [...] Weight in lbs Pre/Post Dialysis Refused Weight 157.944414218666 BP Diastolic BP Location Tested BP Systolic [...] Weight in lbs Pre/Post Dialysis Refused Weight 158.696745876575 BP Diastolic BP Location Tested BP Systolic [...] Weight in lbs Pre/Post Dialysis Refused Weight 162.857052808249 BP Diastolic BP Location Tested BP Systolic [...] Weight in lbs Pre/Post Dialysis Refused Weight 164.99854591753 BP Diastolic BP Location Tested BP Systolic [...] Weight in lbs Pre/Post Dialysis Refused Weight 168.287838142171 BP Diastolic BP Location Tested BP Systolic [...] Weight in lbs Pre/Post Dialysis Refused Weight 172.841339241169 BP Diastolic BP Location Tested BP Systolic [...] Weight in lbs Pre/Post Dialysis Refused Weight 162.408027492415 BP Diastolic BP Location Tested BP Systolic [...] At Estimated Date of Delivery false Thalassemia (Czech, Bhutanese, Mediterranean, Or Background): MCV < 80 false Neural Tube Defect (Meningom yelocele, Spina Bifida, Or Anencephaly) false Congenital Heart Defect false Down Syndrome false Scott-Sachs (eg, Yazidi, Cajun, Kyrgyz-Cooks) f alse Megan Disease false Sickle Cell Disease Or Trait () false Hemophilia Or Other Blood Disorders false Muscular Dystrophy false Cystic Fibrosis false Assumption's Chorea false Intellectual Disability/Autism false If Yes, [...]
--- OUTSIDE RECORDS SUMMARY | 2025-06-08 16:37 | XMS_ITS | Clinical Summary ---
Author Organization [facility] Address [address] [place] [id number] Care Team Providers Care Monogram Technician Name Role Phone Unknown, Notinfile Primary Care [...] Comments Blood Pressure 138/80 09/20/2024 2:41 PM RIVETER Pulse 88 09/20/2024 2:41 PM RIVETER Temperature 36.7 C (98 F) 09/20/2024 2:41 PM RIVETER Respiratory Rate 20 09/20/2024 2:41 PM RIVETER Oxygen Saturation 97% 09/20/2024 2:41 PM RIVETER Inhaled Oxygen Concentration - - Weight 70.3 kg (155 lb) 09/20/2024 2:41 PM RIVETER Height 149.9 cm (4' 11) 09/20/2024 2:41 PM RIVETER Body Mass Index 31.31 09/20/2024 2:41 PM RIVETER Plan of Treatment Health Maintenance Due Date Last Done Comments Cervical Cancer Screening 1989 Depression Screening 1989 Hepatitis C Screening 1989 Varicella Vaccines (1 of 2 - 13+ 2-dose series) 2002 Hepatitis B Screening 2007 Regular Well Visit/Exam 18-64 2007 HPV Vaccines (1 - 3-dose SCD M series) 2016 Covid-19 Vaccine (2023-2 5 season) 2024 03/11/2022, 08/06/2021, 07/16/2021 Influenza Vaccine (#1) 2025 09/08/2021 DTaP/Tdap/Td Vaccine (2 - Td or Tdap) 11/02/2031 11/02/2021 Pneumococcal vaccine <65 Aged Out No longer eligible based on patient's age to complete this topic Insurance [facility] [place] Care Teams Monogram Technician Relationship Specialty Start Date End Date Unknown, Notinfile PCP - General 01/15/24
--- OUTSIDE RECORDS SUMMARY | 2025-06-08 16:37 | XMS_ITS | Clinical Summary ---
Author Organization [facility] Address [address] [address] Care Team Providers Care Retail Field Representative Name Role Phone Mumtaz Choi MD Primary Care Provider [phone] Source Comments [facility],non-owned Affiliates and Associated Physician Practices is amultiple site organization consisting of ambulatory clinics and hospital sitesin [place], [place], [place] and [place]. This disclosure is being madepursuant to the Care Everywhere program and may not contain all information available regarding this patient. Last updated 18.[facility] Allergies Active Allergy Reactions Criticality Noted Date [...] Harris was screened for depression using the [place] Depression Scale (EPDS) at her [facility] initial evaluation on 09/05/2021. Her initial [...] were not included. SENIOR LIVING PATIENT--PLEASE CALL [phone] (ex 2) IF TRIAGED OR ADMITTED Care Provider: Dr. Quintero [facility] consultants involved: RN- Lucas; MFM- Dr. Thakkar Diagnosis: Mild right ventriculomegaly (slightly increased in diameter at 10.5mm at 09/05/21 SENIOR LIVING US). Planned surveillance: Initial SENIOR LIVING 09/05/21. Growth in 2 weeks at [place], and follow up ultrasound for growth and assessment of ventricles between 32-36 weeks. Continue routine care with primary OB. Delivery location: with primary OB at hospital of choice ([facility]) Delivery mode: per usual OB indications Desired Delivery GA: No indication for delivery before 39 weeks at this time follow up: head imaging with pediatrican Certified Medical Coder: Undecided Autopsy indicated: Genetics note: LR NIPT-Male [place] Rafting Guide Concerns: 09/05/2021- There are no social service [...] and heating? Not hard at all 05/14/2024 [facility] Occupat ional Health - Occupational Stress [...] in a snf (including now)? No 05/14/2024 [place] Depression Scale Answer Date Recorded [place] Depression Scale Total 7 05/14/2024 The thought [...] complete this topic Insurance ANTH Care Teams Retail Field Representative Relationship Specialty Start Date End Date Mumtaz Choi MD [address] [place] [address] PCP - General Family Medicine 04/15/19
--- OUTSIDE RECORDS SUMMARY | 2025-06-08 16:37 | XMS_ITS | Referral Summary ---
Author Organization [facility] Address [address] [place] [address] Care Team Providers Care Bond Runner Name Role Phone Unknown, Notinfile Primary Care [...] Comments Blood Pressure 138/80 09/20/2024 2:41 PM DATA MANAGEMENT ENGINEER Pulse 88 09/20/2024 2:41 PM DATA MANAGEMENT ENGINEER Temperature 36.7 C (98 F) 09/20/2024 2:41 PM DATA MANAGEMENT ENGINEER Respiratory Rate 20 09/20/2024 2:41 PM DATA MANAGEMENT ENGINEER Oxygen Saturation 97% 09/20/2024 2:41 PM DATA MANAGEMENT ENGINEER Inhaled Oxygen Concentration - - Weight 70.3 kg (155 lb) 09/20/2024 2:41 PM DATA MANAGEMENT ENGINEER Height 149.9 cm (4' 11) 09/20/2024 2:41 PM DATA MANAGEMENT ENGINEER Body Mass Index 31.31 09/20/2024 2:41 PM DATA MANAGEMENT ENGINEER Plan of Treatment Not on file Insurance [facility] [place] Care Teams Bond Runner Relationship Specialty Start Date End Date Unknown, Notinfile PCP - General 01/15/24
[2025-06-08 17:29] LABS: Add Urine Microscopic? NO; Appearance Urine Clear (Clear); Glucose Urine UA Negative (Negative); Leukocyte Esterase Ur Negative LEU/UL (Negative); Nitrate Urine Negative (Negative); Specific Grav Ur 1.003 (1.001-1.035)
--- NOTE | 2025-06-09 08:44 | PM.OBTRLD ---
OB - Triage/Final Diagnosis Visit Information Date of evaluation: 06/08/25 Reason for evaluation: threatened labor Comments/Additional reasons for admission: I have assessed the risk for this patient, Leanne Harris, and determined that she would benefit from observation care. Evaluation Laboratory results: Laboratory Tests 06/08/25 17:10 Urine Color Yellow Urine Appearance Clear Urine pH 7.5 Ur Specific [place] 1.003 Urine Protein Negative Urine Glucose (UA) Negative Urine Ketones Negative Ur Blood (Man) Negative Urine Nitrate Negative Urine Bilirubin Negative Urine Urobilinogen 0.2 Leukocyte Esterase Rfl Negative Vital signs: Vital Signs - 24 hr 06/08/25 17:00 06/08/25 17:15 06/08/25 17:30 Temperature Pulse Rate 102 H 91 92 Blood Pressure 116/76 114/71 113/66 Oxygen Delivery 06/08/25 17:45 06/08/25 17:55 06/08/25 18:00 Temperature Pulse Rate 92 91 Blood Pressure 111/78 103/65 Oxygen Delivery Room Air 06/08/25 18:41 06/08/25 18:47 Temperature 35.8 C L Pulse Rate 89 Blood Pressure 107/68 Oxygen Delivery
== END 2025-06-08 19:09 | disposition home or self-care (01) ==
PROVIDERS: Advanced Practice Midwife; Admitting Provider Obstetrics & Gynecology; Visit Provider Obstetrics & Gynecology
DX: O47.03 False labor before 37 completed weeks of gestation, third trimester (principal); Z3A.34 34 weeks gestation of pregnancy
CPT/HCPCS: 76819; 81003; A9270; G0378; G0379

== ENCOUNTER 2025-06-10 16:07 | Outpatient (CLI) | payer BC, SELFPAY ==
--- OUTSIDE RECORDS SUMMARY | 2025-06-10 16:12 | XMS_ITS | Clinical Summary ---
Author Organization [facility] Address [address] [place] [id number] Care Team Providers Care Assistant Branch Operations Manager Name Role Phone Unknown, Notinfile Primary [...] Comments Blood Pressure 138/80 09/20/2024 2:41 PM TUB RIDER Pulse 88 09/20/2024 2:41 PM TUB RIDER Temperature 36.7 C (98 F) 09/20/2024 2:41 PM TUB RIDER Respiratory Rate 20 09/20/2024 2:41 PM TUB RIDER Oxygen Saturation 97% 09/20/2024 2:41 PM TUB RIDER Inhaled Oxygen Concentration - - Weight 70.3 kg (155 lb) 09/20/2024 2:41 PM TUB RIDER Height 149.9 cm (4' 11) 09/20/2024 2:41 PM TUB RIDER Body Mass Index 31.31 09/20/2024 2:41 PM TUB RIDER Plan of Treatment Health Maintenance Due Date [...] patient's age to complete this topic Insurance [facility] [employer] [place] [employer] [place] Care Teams Assistant Branch Operations Manager Relationship Specialty Start Date End Date Unknown, Notinfile PCP - General 01/15/24
--- OUTSIDE RECORDS SUMMARY | 2025-06-10 16:13 | XMS_ITS | Referral Summary ---
Author Organization [facility] Address [address] [place] [address] Care Team Providers Care Med Specialist Name Role Phone Unknown, Notinfile Primary Care [...] Comments Blood Pressure 138/80 09/20/2024 2:41 PM DEAN OF ADMISSIONS Pulse 88 09/20/2024 2:41 PM DEAN OF ADMISSIONS Temperature 36.7 C (98 F) 09/20/2024 2:41 PM DEAN OF ADMISSIONS Respiratory Rate 20 09/20/2024 2:41 PM DEAN OF ADMISSIONS Oxygen Saturation 97% 09/20/2024 2:41 PM DEAN OF ADMISSIONS Inhaled Oxygen Concentration - - Weight 70.3 kg (155 lb) 09/20/2024 2:41 PM DEAN OF ADMISSIONS Height 149.9 cm (4' 11) 09/20/2024 2:41 PM DEAN OF ADMISSIONS Body Mass Index 31.31 09/20/2024 2:41 PM DEAN OF ADMISSIONS Plan of Treatment Not on file Insurance [facility] [place] Care Teams Med Specialist Relationship Specialty Start Date End Date Unknown, Notinfile PCP - General 01/15/24
--- OUTSIDE RECORDS SUMMARY | 2025-06-10 16:13 | XMS_ITS | Clinical Summary ---
Author Organization [facility] [employer] Address [address] [place] [address] Care Team Providers Care Cigarette Package Examiner Name Role Phone Mumtaz Choi MD Primary Care Provider [phone]- [phone] Source Comments [facility],non-owned Affiliates and Associated Physician Practices is amultiple site organization consisting of ambulatory clinics and hospital sitesin [place], [place], [place] and [place]. This disclosure is being madepursuant to the Care Everywhere program and may not contain all information available regarding this patient. Last updated 18.[facility] [employer] Allergies Active Allergy Reactions Criticality Noted Date [...] Harris was screened for depression using the [place] Depression Scale (EPDS) at her [facility] initial evaluation on 09/05/2021. [...] from the original note were not included. SNF PATIENT--PLEASE CALL [phone] (ex 2) IF TRIAGED OR ADMITTED Care Provider: Dr. Quintero [facility] consultants involved: RN- Lucas; MFM- Dr. Thakkar Diagnosis: Mild right ventriculomegaly (slightly increased in diameter at 10.5mm at 09/05/21 SNF US). Planned surveillance: Initial SNF 09/05/21. Growth in 2 weeks at [place], and follow up ultrasound for growth and assessment of ventricles between 32-36 weeks. Continue routine care with primary OB. Delivery location: with primary OB at hospital of choice ([facility]) Delivery mode: per usual OB indications Desired Delivery GA: No indication for delivery before 39 weeks at this time follow up: head imaging with pediatrican Electric Stove Installer: Undecided Autopsy indicated: Genetics note: LR NIPT-Male Quill Picking Machine Operator Concerns: 09/05/2021- There are no [...] and heating? Not hard at all 05/14/2024 [facility] [place] of Occupat ional Health - Occupational Stress [...] place to sleep or slept in a retirement (including now)? No 05/14/2024 [place] Depression Scale Answer Date Recorded [place] Depression Scale Total 7 05/14/2024 The thought [...] age to complete this topic Insurance [facility] Address: [facility] [id number] [place] [id number] Care Teams Cigarette Package Examiner Relationship Specialty Start Date End Date Mumtaz Choi MD [address] [place] [address] PCP - General Family Medicine 04/15/19
--- OUTSIDE RECORDS SUMMARY | 2025-06-10 16:13 | XMS_ITS | Clinical Summary ---
Author Organization [facility] Address [address] [place] [address] Phone Care Team Providers Care Can Reforming Machine Operator Name Role Phone Unavailable Primary Care [...] Comments Blood Pressure 112/71 01/14/2021 3:00 PM SENIOR ELECTRICAL DESIGNER Pulse 92 01/14/2021 3:00 PM SENIOR ELECTRICAL DESIGNER Temperature 36.2 C (97.1 F) 01/14/2021 11:30 AM SENIOR ELECTRICAL DESIGNER Respiratory Rate 15 01/14/2021 3:00 PM SENIOR ELECTRICAL DESIGNER Oxygen Saturation 95% 01/14/2021 3:00 PM SENIOR ELECTRICAL DESIGNER Inhaled Oxygen Concentration - - Weight 71.2 [...] ) (No Doses Required) Comp leted Insurance [facility] BLUE ACCESS/TRUE BLUE PPO
[2025-06-10 17:27] LABS: Hematocrit 34.8 % (37.0-47.0); Hemoglobin 11.0 g/dL (12.0-15.0); Mean Corpuscular HGB Conc 31.6 g/dl (32-36); Mean Corpuscular Hemoglobin 29.6 pg (26-34); Mean Corpuscular Volume 93.5 fl (80-100); Platelet Count Result 130 k/mm3 (150-375); Red Blood Count 3.72 M/mm3 (4.2-5.4); White Blood Count 8.0 K/mm3 (4.5-10.0)
== END 2025-06-10 16:08 | disposition home or self-care (01) ==
LOC: ANHLAB 16:10
PROVIDERS: Visit Provider Advanced Practice Midwife
DX: D69.6 Thrombocytopenia, unspecified (principal); I10 Essential (primary) hypertension
CPT/HCPCS: 36415; 85027

== ENCOUNTER 2025-06-17 14:46 | Outpatient (CLI) | payer BC, SELFPAY ==
--- OUTSIDE RECORDS SUMMARY | 2025-06-17 14:55 | XMS_ITS | Clinical Summary ---
Author Organization [facility] [employer] Address [address] [place] [address] Care Team Providers Care Buffer Automatic Name Role Phone Mumtaz Choi MD Primary Care Provider [phone]- [phone] Source Comments [facility],non-owned Affiliates and Associated Physician Practices is amultiple site organization consisting of ambulatory clinics and hospital sitesin [place], [place], [place] and [place]. This disclosure is being madepursuant to the Care Everywhere program and may not contain all information available regarding this patient. Last updated 18.[facility] [employer] Allergies Active Allergy Reactions Criticality Noted Date [...] Harris was screened for depression using the [place] Depression Scale (EPDS) at her [facility] initial evaluation on 09/05/2021. Her [...] note were not included. [facility] PATIENT--PLEASE CALL [phone] (ex 2) IF TRIAGED OR ADMITTED Care Provider: Dr. Quintero [facility] consultants involved: RN- Lucas; MFM- Dr. Thakkar Diagnosis: Mild right ventriculomegaly (slightly increased in diameter at 10.5mm at 09/05/21 [facility] US). Planned surveillance: Initial [facility] 09/05/21. Growth in 2 weeks at [place], and follow up ultrasound for growth and assessment of ventricles between 32-36 weeks. Continue routine care with primary OB. Delivery location: with primary OB at hospital of choice ([facility]) Delivery mode: per usual OB indications Desired Delivery GA: No indication for delivery before 39 weeks at this time follow up: head imaging with pediatrican Reed Polisher: Undecided Autopsy indicated: Genetics note: LR NIPT-Male Financial Coordinator Concerns: 09/05/2021- There are no social service [...] and heating? Not hard at all 05/14/2024 [facility] [place] of Occupat ional Health - Occupational Stress [...] place to sleep or slept in a [place] health care facility (including now)? No 05/14/2024 Lincoln Depression Scale Answer Date Recorded [place] Depression Scale Total 7 05/14/2024 The thought [...] complete this topic Insurance ANTH Care Teams Buffer Automatic Relationship Specialty Start Date End Date Mumtaz Cohi MD [address] [place] [address] PCP - General Family Medicine 04/15/19
--- OUTSIDE RECORDS SUMMARY | 2025-06-17 14:55 | XMS_ITS | Clinical Summary ---
Author Organization [facility] Address [address] [place] [address] Phone Care Team Providers Care Tank Tester Name Role Phone Unavailable Primary Care Provider [...] Encounters Date Type Department Care Team Description 06/16/2025 External Device Data [facility] ABSTRACTION Provider, Abstract [...] Comments Blood Pressure 112/71 01/14/2021 3:00 PM GRADUATE INTERNSHIP Pulse 92 01/14/2021 3:00 PM GRADUATE INTERNSHIP Temperature 36.2 C (97.1 F) 01/14/2021 11:30 AM GRADUATE INTERNSHIP Respiratory Rate 15 01/14/2021 3:00 PM GRADUATE INTERNSHIP Oxygen Saturation 95% 01/14/2021 3:00 PM GRADUATE INTERNSHIP Inhaled Oxygen Concentration - - Weight 71.2 [...] ) (No Doses Required) Comp leted Insurance [facility] BLUE ACCESS/TRUE BLUE PPO
--- OUTSIDE RECORDS SUMMARY | 2025-06-17 14:55 | XMS_ITS | Clinical Summary ---
Author Organization [facility] Address [address] [place] [id number] Care Team Providers Care Diamond Die Driller Name Role Phone Unknown, Notinfile Primary Care [...] Comments Blood Pressure 138/80 09/20/2024 2:41 PM DENTAL CHAIR ASSEMBLER Pulse 88 09/20/2024 2:41 PM DENTAL CHAIR ASSEMBLER Temperature 36.7 C (98 F) 09/20/2024 2:41 PM DENTAL CHAIR ASSEMBLER Respiratory Rate 20 09/20/2024 2:41 PM DENTAL CHAIR ASSEMBLER Oxygen Saturation 97% 09/20/2024 2:41 PM DENTAL CHAIR ASSEMBLER Inhaled Oxygen Concentration - - Weight 70.3 kg (155 lb) 09/20/2024 2:41 PM DENTAL CHAIR ASSEMBLER Height 149.9 cm (4' 11) 09/20/2024 2:41 PM DENTAL CHAIR ASSEMBLER Body Mass Index 31.31 09/20/2024 2:41 PM DENTAL CHAIR ASSEMBLER Plan of Treatment Health Maintenance Due Date [...] patient's age to complete this topic Insurance [facility] [place] Care Teams Diamond Die Driller Relationship Specialty Start Date End Date Unknown, Notinfile PCP - General 01/15/24
--- OUTSIDE RECORDS SUMMARY | 2025-06-17 14:55 | XMS_ITS | Encounter Summary ---
Author Organization [facility] Address [address] [place] [address] Care Team Providers Care Tuck Pointer Name Role Phone Unavailable Primary Care Provider Unavailabl e Encounter Details Date Type Department Care Team (Late st Contact Info) Description 06/16/2025 External Device Data [facility] ABSTRACTION [...]
[2025-06-17 15:06] LABS: Hematocrit 34.1 % (37.0-47.0); Hemoglobin 10.8 g/dL (12.0-15.0); Immature Platelet Fraction Pct 13.0 % (0.9-11.2); Mean Corpuscular HGB Conc 31.7 g/dl (32-36); Mean Corpuscular Hemoglobin 29.6 pg (26-34); Mean Corpuscular Volume 93.4 fl (80-100); Platelet Count Result 136 k/mm3 (150-375); Red Blood Count 3.65 M/mm3 (4.2-5.4); White Blood Count 7.6 K/mm3 (4.5-10.0)
== END 2025-06-17 14:47 | disposition home or self-care (01) ==
LOC: ANHLAB 14:49
PROVIDERS: Visit Provider Advanced Practice Midwife
DX: D69.6 Thrombocytopenia, unspecified (principal); I10 Essential (primary) hypertension
CPT/HCPCS: 36415; 85027; 85055

== ENCOUNTER 2025-06-23 16:35 | Outpatient (CLI) | payer BC, SELFPAY ==
--- OUTSIDE RECORDS SUMMARY | 2025-06-23 16:40 | XMS_ITS | Clinical Summary ---
Author Organization [facility] [employer] Address [address] [place] [address] Care Team Providers Care Community Advocate Name Role Phone Mumtaz Choi MD Primary Care Provider [phone]- [phone] Source Comments [facility],non-owned Affiliates and Associated Physician Practices is amultiple site organization consisting of ambulatory clinics and hospital sitesin [place], [place], [place] and [place]. This disclosure is being madepursuant to the Care Everywhere program and may not contain all information available regarding this patient. Last updated 18.[facility] [employer] Allergies Active Allergy Reactions Criticality Noted [...] Harris was screened for depression using the [place] Depression Scale (EPDS) at her [facility] [...] note were not included. SNF PATIENT--PLEASE CALL [phone] (ex 2) IF TRIAGED OR ADMITTED Care Provider: Dr. Quintero [facility] consultants involved: RN- Lucas; MFM- Dr. Thakkar Diagnosis: Mild right ventriculomegaly (slightly increased in diameter at 10.5mm at 09/05/21 SNF US). Planned surveillance: Initial SNF 09/05/21. Growth in 2 weeks at [place], and follow up ultrasound for growth and assessment of ventricles between 32-36 weeks. Continue routine care with primary OB. Delivery location: with primary OB at hospital of choice ([facility]) Delivery mode: per usual OB indications Desired Delivery GA: No indication for delivery before 39 weeks at this time follow up: head imaging with pediatrican Charhouse Worker: Undecided Autopsy indicated: Genetics note: LR NIPT-Male Neck Fitter Concerns: 09/05/2021- There are no social service [...] and heating? Not hard at all 05/14/2024 [facility] [place] of Occupat ional Health - Occupational Stress [...] place to sleep or slept in a care home (including now)? No 05/14/2024 [place] Depression Scale Answer Date Recorded [place] Depression Scale Total 7 05/14/2024 The thought [...] complete this topic Insurance ANTH Care Teams Community Advocate Relationship Specialty Start Date End Date Mumtaz Choi MD [address] [place] [address] PCP - General Family Medicine 04/15/19
--- OUTSIDE RECORDS SUMMARY | 2025-06-23 16:40 | XMS_ITS | Clinical Summary ---
Author Organization [facility] Address [address] [place] [address] Phone Care Team Providers Care Teletype Technician Name Role Phone Unavailable Primary Care [...] Blood Pressure 112/71 01/14/2021 3:00 PM SENIOR QUALITATIVE RESEARCHER Pulse 92 01/14/2021 3:00 PM SENIOR QUALITATIVE RESEARCHER Temperature 36.2 C (97.1 F) 01/14/2021 11:30 AM SENIOR QUALITATIVE RESEARCHER Respiratory Rate 15 01/14/2021 3:00 PM SENIOR QUALITATIVE RESEARCHER Oxygen Saturation 95% 01/14/2021 3:00 PM SENIOR QUALITATIVE RESEARCHER Inhaled Oxygen Concentration - - Weight 71.2 [...] ) (No Doses Required) Comp leted Insurance [facility] BLUE ACCESS/TRUE BLUE PPO
--- OUTSIDE RECORDS SUMMARY | 2025-06-23 16:40 | XMS_ITS | Clinical Summary ---
Author Organization [facility] Address [address] [place] [id number] Care Team Providers Care Medical Service Representative Name Role Phone Unknown, Notinfile Primary Care [...] Comments Blood Pressure 138/80 09/20/2024 2:41 PM MATTRESS SPRING ENCASER Pulse 88 09/20/2024 2:41 PM MATTRESS SPRING ENCASER Temperature 36.7 C (98 F) 09/20/2024 2:41 PM MATTRESS SPRING ENCASER Respiratory Rate 20 09/20/2024 2:41 PM MATTRESS SPRING ENCASER Oxygen Saturation 97% 09/20/2024 2:41 PM MATTRESS SPRING ENCASER Inhaled Oxygen Concentration - - Weight 70.3 kg (155 lb) 09/20/2024 2:41 PM MATTRESS SPRING ENCASER Height 149.9 cm (4' 11) 09/20/2024 2:41 PM MATTRESS SPRING ENCASER Body Mass Index 31.31 09/20/2024 2:41 PM MATTRESS SPRING ENCASER Plan of Treatment Health Maintenance Due Date [...] patient's age to complete this topic Insurance [facility] [place] Care Teams Medical Service Representative Relationship Specialty Start Date End Date Unknown, Notinfile PCP - General 01/15/24
[2025-06-23 17:16] LABS: Hematocrit 33.0 % (37.0-47.0); Hemoglobin 10.6 g/dL (12.0-15.0); Mean Corpuscular HGB Conc 32.1 g/dl (32-36); Mean Corpuscular Hemoglobin 29.8 pg (26-34); Mean Corpuscular Volume 92.7 fl (80-100); Platelet Count Result 118 k/mm3 (150-375); Red Blood Count 3.56 M/mm3 (4.2-5.4); White Blood Count 8.0 K/mm3 (4.5-10.0)
== END 2025-06-23 16:36 | disposition home or self-care (01) ==
LOC: ANHLAB 16:38
PROVIDERS: Visit Provider Advanced Practice Midwife
DX: D69.6 Thrombocytopenia, unspecified (principal)
CPT/HCPCS: 36415; 85027

== ENCOUNTER 2025-06-24 09:18 | Outpatient (RCR) | payer BC, SELFPAY ==
[2025-05-29 12:53] VITALS: BP 116/64; PULSE 97
--- NOTE | ~2025-06-24 | US_ITS ---
EXAMINATION: US OB BPP wo non-stress DATE: 06/24/2025 10:48 INDICATION: cardiac decelerations. Assess amniotic fluid index. TECHNIQUE: Real-time pelvic ultrasound was performed. The interpreting radiologist was not present fo r the study. COMPARISON: None. FINDINGS: There is a single living fetus in vertex presentation. The placenta is fundal. heart rate is 1 57 beats per minute (bpm). Normal amniotic fluid index of 13.3 cm (5th%-95%: 7.7-24.9 cm at 36 weeks estimated gestational age) Biophysical profile performed by the technologist: breathing (30 sec sustained breathing in 30 minutes): 2 out of 2 movement (3 gross body movements in 30 minutes): 2 out of 2 tone (one episode of xfxjycl-fpupqlhzb-ozetfac limb movement): 2 out of 2 Amniotic fluid pocket (2 cm): 2 out of 2 Total score: 8 out of 8 IMPRESSION: 1. Single living fetus in vertex presentation with heart rate of 157 bpm. 2. Biophysical profile 8 out of 8. 3. Normal amniotic fluid index of 13.3 cm. Reviewed, dictated and finalized at location A.
--- NOTE | ~2025-06-24 | US_ITS ---
EXAMINATION: US OB BPP wo non-stress DATE: 05/29/2025 12:47 CDT INDICATION: Decelerations. TECHNIQUE: Real-time transabdominal obstetric ultrasound. FINDINGS: No prior studies for comparison. There is a single living fetus in vertex presentation. The placenta is posterior without placenta pr evia. NOEMY is normal measuring 10.4 cm. cardiac activity and movement is noted with a heart rate of 129 beats per minute. Biophysical profile: breathin of 2 movement: 2 of 2 tone: 2 of 2 Amniotic flud pocket: 2 of 2 Total score: 8 of 8 IMPRESSION: 1. Single living intrauterine in vertex presentation. 2: Total biophysical profile score of 8/8. Reviewed, dictated and finalized at location B.
[2025-06-24 11:06] VITALS: BP 110/65; PULSE 103
== END 2025-07-09 13:34 | disposition other institution (70) ==
LOC: ANHOBOP 09:18
PROVIDERS: Visit Provider Advanced Practice Midwife
DX: O36.8330 Maternal care for abnormalities of the fetal heart rate or rhythm, third trimester, not applicable or unspecified (principal); Z3A.32 32 weeks gestation of pregnancy; Z3A.36 36 weeks gestation of pregnancy
CPT/HCPCS: 59025; 76819

== ENCOUNTER 2025-06-30 04:17 | Inpatient (IN) | payer BC, SELFPAY ==
[2025-06-30] VITALS (58 sets, daily range): BP systolic 88–120; BP diastolic 53–77; PULSE 73–134; RESP 12–18; TEMP 36.6–36.9; O2SAT 96–100; BMI 34.7
[2025-06-30 08:04] LABS: Hematocrit 33.1 % (37.0-47.0); Hemoglobin 10.7 g/dL (12.0-15.0); Immature Granulocyte Percent A 0.8 % (0-0.5); Lymphocytes Absolute Auto 1.62 K/mm3 (0.9-3.2); Mean Corpuscular HGB Conc 32.3 g/dl (32-36); Mean Corpuscular Hemoglobin 29.8 pg (26-34); Mean Corpuscular Volume 92.2 fl (80-100); Nucleated Red Blood Cells Absolute Auto 0.000 K/mm3 (0.0-0.012); Nucleated Red Blood Cells Perc 0.0 % (0.0-0.2); Platelet Count Result 106 k/mm3 (150-375); Red Blood Count 3.59 M/mm3 (4.2-5.4); White Blood Count 7.4 K/mm3 (4.5-10.0)
[2025-06-30] MEDS: LACTATED RINGERS 1,000 ML 125 ML IV CONT ×2 (08:14→08:54)
--- NOTE | 2025-06-30 08:19 | LDADM ---
This patient, Leanne Harris, was admitted to Labor/Delivery/Recovery 108 on 06/30/25 at 04:17. Plans for labor, pain management and were discussed with patient. Patient/family oriented to hospital policies and general routines including ID bracelet, bed and alarms, visiting hours, pain management, procedures, bathroom and other care routines, personal items, smoking policy, room service/diet and guest tray routines, infant security routines, and visiting hours. Patient/Family are encouraged to report perceived risks to care and to ask questions if they do not understand what they are told or what they should do. See OBIX for further documentation.
[2025-06-30 08:38] LABS: Syphilis IgG/IgM Antibody Non-Reactive (Nonreactive)
--- NOTE | 2025-06-30 09:34 | WPDOBADMIT ---
Obstetrics - Admit Note Admission Note: record reviewed. No pertinent additions to the history and/or any subsequent changes in the physical findings that are not consistent with the expected course of the were found. Additions to the history and/or subsequent changes in the physical findings follow. Admit in labor SVE /-2 AROM moderate amount of clear odorless fluid, anticipate vaginal delivery
--- NOTE | 2025-06-30 13:09 | P.PCNOB_ITS ---
OB - Vaginal Delivery Note Procedure Delivery date: 06/30/25 Events: Other (thrombocytopenia) Induction method: None Delivery augmentation: Rupture of Membranes Delivery monitor: External FHT Route of delivery: Episiotomy description: None Laceration Description: Perineal - 1st Degree Delivery repair: vicryl Specimen: No Quantitative Blood Loss (ml): 275 Anesthesia type: Epidural Disposition: Floor Complications: No immediate complications [place] Baby Date of : 06/30/25 Time of : 12:52 Gestational Age by Date: 37 Infant gender: Female Weight (pounds): 6 Weight (ounces): 9 presentation: vertex position: Right Occiput Anterior Placenta delivery description: Expressed Cord Vessel Description: 3 Vessels, Clamped/Cut and Delayed Cord Clamping score one minute: 8 score five minutes: 9
[2025-06-30] MEDS: OXYTOCIN 30 UNITS/NS 500 ML 30 UNITS/500 ML BAG 125 UNITS IV CONT (13:28)
--- NOTE | 2025-06-30 14:05 | WPDANESEPPF ---
Anes - Initial Pre Proc Eval Procedure: labor epidural Date/Time: 06/30/25 14:05 Surgeon: Juliocesar Arciniega MD Pre Op Diagnosis: labor pain Pre Op Diagnosis: cx Patient Data Age: 34 Gender: F Height: 1.5 m Weight: 78 kg Last Vital Signs Temp 36.8 C 06/30/25 09:00 Pulse 89 06/30/25 14:01 BP 107/64 06/30/25 14:01 Pulse Ox 100 06/30/25 10:34 O2 Del Method Room Air 06/30/25 08:18 Allergies Allergy/AdvReac Type Severity Reaction Status Date / Time No Known Allergies Allergy Verified 06/24/25 09:34 Home Medications ?Medication ?Instructions ?Recorded ?Confirmed ?Type vit no.95-ferrous 1 tablet PO HS 11/23/21 06/24/25 History fumarate 28 mg-folic acid 800 mcg tablet () calcium carb-ergocalciferol (vit 1 tablet PO HS 05/16/25 06/24/25 History D2) 600 mg calcium-200 unit tablet ferrous sulfate 137 mg (45 mg 137 mg PO DAILY 05/16/25 06/24/25 History iron) tablet,extended release (Slow Fe) cetirizine 10 mg capsule (All Day 10 mg PO DAILY PRN allergy symptoms 05/20/25 06/24/25 History Allergy (cetirizine)) nifedipine 30 mg tablet,extended 30 mg PO QHS #30 tabs 05/24/25 06/24/25 Rx release 24 hr (Procardia XL) docusate sodium 100 mg capsule 100 mg PO HS 05/29/25 06/24/25 History (Colace) nifedipine 10 mg capsule 10 mg PO Q6H PRN Contractions 06/24/25 06/24/25 History Laboratory Tests 06/30/25 07:46 WBC 7.4 K/mm3 (4.5-10.0) RBC 3.59 L M/mm3 (4.2-5.4) Hgb 10.7 L g/dL (12.0-15.0) Hct 33.1 L % (37.0-47.0) MCV 92.2 fl (80-100) MCH 29.8 pg (26-34) MCHC 32.3 g/dl (32-36) RDW 15.1 H % (11.5-14.5) Plt Count 106 L k/mm3 (150-375) MPV 12.7 H fl (7.4-10.4) Immature Gran % (Auto) 0.8 H % (0-0.5) Neut % (Auto) 70.3 % (45.5-73.1) Lymph % (Auto) 21.8 % (18.3-44.2) [place] % (Auto) 6.2 % (2.6-8.5) Eos % (Auto) 0.5 % (0-4.4) Baso % (Auto) 0.4 % (0.2-1.2) Lymph # (Auto) 1.62 K/mm3 (0.9-3.2) [place] # (Auto) 0.5 K/mm3 (0.1-0.6) Eos # (Auto) 0.0 K/mm3 (0-0.3) Baso # (Auto) 0.0 K/mm3 (0.0-0.1) Abs Immat Gran (auto) 0.06 H K/mm3 (0.00-0.031) Absolute Neuts (auto) 5.2 K/mm3 (1.3-6.7) Absolute Nucleated RBC 0.000 K/mm3 (0.0-0.012) Nucleated RBC % 0.0 % (0.0-0.2) Syphilis IgG/IgM Ab Non-reactive (Nonreactive) Blood Type B Negative Antibody Screen Positive Antibody Identification Passive Due to RH Imm Glob Antigen Identification Not Reportable LULY, IgG Interpret Not Performed LULY, Poly Interpret Negative LULY, Complement Interp Not Performed Patient hx anesthesia problems: none Family hx anesthesia problems: none Results Review: All pre-operative results and documents have been reviewed as part of the pre-operative evaluation. [facility] Past Medical History Medical History (Updated 05/18/25 @ 17:37 by Raheem Sheldon MD) No active medical problems Family History Family History Mother Hypertension Father Cerebrovascular accident, Onset Age: 50 Malignant neoplasm of prostate Social History Social History Smoking status: Never smoker Second hand tobacco smoke exposure: No Substance use: never Do You Feel Safe in your Home?: Yes Lack of Transportation: No Lack of Food: Never True Current Housing: I Have Housing Concerned About Future Housing: No Difficulty Paying Gas/Electric Bills: No Difficulty Paying for Meds: No Currently Unemployed: No Education: Master's Degree or Higher Difficulty w/ Childcare or Family Care: No Spiritual care concerns: No Anes - Eval Final PreProcedure Day of Procedure 06/30/25 14:05 Patient weight: obese ASA classification: II Anesthetic plan: proceed Anesthesia type and monitoring: regional epidural and standard monitoring Results Review: All pre-operative results and documents have been reviewed as part of the pre-operative evaluation. Informed Consent: The patient's anesthetic plan and its attendant risks and benefits were discussed with the patient/family/POA. Questions were solicited and answers provided to the satisfaction of the patient/family/POA.
[2025-06-30] MEDS: IBUPROFEN 600 MG TABLET PO ×2 (14:53→23:45)
[2025-06-30] MEDS: BENZOCAINE 20% AER SPR (*SP) 56 GM CAN 1 SPRAY TOPICAL (14:53)
[2025-06-30] MEDS: WITCH HAZEL 40 PADS 1 PAD TOPICAL (14:53)
[2025-06-30 14:57] LABS: Hematocrit 30.4 % (37.0-47.0); Hemoglobin 9.8 g/dL (12.0-15.0); Immature Platelet Fraction Pct 13.6 % (0.9-11.2); Mean Corpuscular HGB Conc 32.2 g/dl (32-36); Mean Corpuscular Hemoglobin 29.9 pg (26-34); Mean Corpuscular Volume 92.7 fl (80-100); Platelet Count Result 119 k/mm3 (150-375); Red Blood Count 3.28 M/mm3 (4.2-5.4); White Blood Count 11.6 K/mm3 (4.5-10.0)
--- NOTE | 2025-06-30 16:57 | OBPPTRN ---
Patient transferred to post room #290 via wheelchair. Support person present. Oriented to unit, room, information board, rooming in, admission packet and security measures. Patient verbalizes understanding.
[2025-06-30] MEDS: ACETAMINOPHEN 325 MG TABLET 650 MG PO (17:12)
[2025-07-01] MEDS: ACETAMINOPHEN 325 MG TABLET 650 MG PO ×3 (04:19→20:45)
[2025-07-01 04:40] LABS: Hematocrit 26.8 % (37.0-47.0); Hemoglobin 8.6 g/dL (12.0-15.0); Immature Granulocyte Percent A 0.8 % (0-0.5); Lymphocytes Absolute Auto 2.07 K/mm3 (0.9-3.2); Mean Corpuscular HGB Conc 32.1 g/dl (32-36); Mean Corpuscular Hemoglobin 29.9 pg (26-34); Mean Corpuscular Volume 93.1 fl (80-100); Nucleated Red Blood Cells Absolute Auto 0.000 K/mm3 (0.0-0.012); Nucleated Red Blood Cells Perc 0.0 % (0.0-0.2); Platelet Count Result 102 k/mm3 (150-375); Red Blood Count 2.88 M/mm3 (4.2-5.4); White Blood Count 8.4 K/mm3 (4.5-10.0)
[2025-07-01 07:40] VITALS: BP 106/70; PULSE 80; RESP 97; TEMP 36.8; O2SAT 97
--- NOTE | 2025-07-01 07:46 | P.PNOB_ITS ---
OB - PN: Subj Subjective Date/time seen: 07/01/25 07:46 Interval history: pp day 1 doing well mild cramping desires d/c home plan venofer prior to IV discharge OB - PN: Obj Data Labs 07/01/25 04:01 Labs: Laboratory Results - last 24 hr 06/30/25 06/30/25 07/01/25 07:46 14:42 04:01 WBC 7.4 11.6 H 8.4 RBC 3.59 L 3.28 L 2.88 L Hgb 10.7 L 9.8 L 8.6 L Hct 33.1 L 30.4 L 26.8 L MCV 92.2 92.7 93.1 MCH 29.8 29.9 29.9 MCHC 32.3 32.2 32.1 RDW 15.1 H 15.0 H 15.1 H Plt Count 106 L 119 L 102 L MPV 12.7 H 12.2 H 12.5 H Immature Gran % (Auto) 0.8 H 0.8 H Neut % (Auto) 70.3 66.3 Lymph % (Auto) 21.8 24.6 [place] % (Auto) 6.2 7.1 Eos % (Auto) 0.5 0.7 Baso % (Auto) 0.4 0.5 Lymph # (Auto) 1.62 2.07 [place] # (Auto) 0.5 0.6 Eos # (Auto) 0.0 0.1 Baso # (Auto) 0.0 0.0 Abs Immat Gran (auto) 0.06 H 0.07 H Absolute Neuts (auto) 5.2 5.6 Absolute Nucleated RBC 0.000 0.000 Nucleated RBC % 0.0 0.0 % Immature Plt Fraction 13.6 H Syphilis IgG/IgM Ab Non-reactive Blood Type B Negative B Negative Antibody Screen Positive TNP Antibody Identification Passive Due to RH Imm Glob Antigen Identification Not Reportable LULY, IgG Interpret Not Performed LULY, Poly Interpret Negative LULY, Complement Interp Not Performed Screen Negative Baby's Blood Type O pos Baby's LULY Positive Doses of RhIg Required 1 OB - PN A/P Plan day: 1 Plan: routine care and discharge home Time Spent With Patient Time: Total time spent is greater than 50% in coordination of care (as documented) at patient's floor/unit and/or counseling patient: Review of Systems 2 Review of Systems: All systems reviewed & are unremarkable except as noted in HPI and below Exam 2 Const: General: cooperative, healthy appearing and comfortable Chest: Chest palpation & inspection: normal inspection of the chest Resp: Effort & Inspection: normal respiratory effort Cardio: Rate: regular rate GI: Inspection: normal to inspection Skin: General skin exam: normal color
--- NOTE | 2025-07-01 07:49 | P.DS_ITS ---
DS: Admitting Diagnosis Discharge Date 07/01/25 Admitting Diagnosis labor DS: Discharge Diagnosis Discharge Diagnosis (1) (normal spontaneous vaginal delivery): Code(s): O80 - Encounter for full-term uncomplicated delivery Status: Acute (2) Thrombocytopenia: Code(s): D69.6 - Thrombocytopenia, unspecified Status: Acute OB - DS: Summary OB Procedures : None OB Procedures Intrapartum: Spontaneous Vag Delivery OB Procedures: : None Peripartum Data Laceration Description: Perineal - 1st Degree Episiotomy description: None Time Spent with Patient Time attestation: Total time spent providing and/or coordinating discharge services: DS: Data Data Completed and Pending Labs on day of discharge: Labs from last 24 hours 07/01/25 06/30/25 06/30/25 04:01 14:42 07:46 WBC 8.4 11.6 H 7.4 RBC 2.88 L 3.28 L 3.59 L Hgb 8.6 L 9.8 L 10.7 L Hct 26.8 L 30.4 L 33.1 L MCV 93.1 92.7 92.2 MCH 29.9 29.9 29.8 MCHC 32.1 32.2 32.3 RDW 15.1 H 15.0 H 15.1 H Plt Count 102 L 119 L 106 L MPV 12.5 H 12.2 H 12.7 H Immature Gran % (Auto) 0.8 H 0.8 H Neut % (Auto) 66.3 70.3 Lymph % (Auto) 24.6 21.8 [place] % (Auto) 7.1 6.2 Eos % (Auto) 0.7 0.5 Baso % (Auto) 0.5 0.4 Lymph # (Auto) 2.07 1.62 [place] # (Auto) 0.6 0.5 Eos # (Auto) 0.1 0.0 Baso # (Auto) 0.0 0.0 Abs Immat Gran (auto) 0.07 H 0.06 H Absolute Neuts (auto) 5.6 5.2 Absolute Nucleated RBC 0.000 0.000 Nucleated RBC % 0.0 0.0 % Immature Plt Fraction 13.6 H Syphilis IgG/IgM Ab Non-reactive Blood Type B Negative B Negative Antibody Screen TNP Positive Antibody Identification Passive Due to RH Imm Glob Antigen Identification Not Reportable LULY, IgG Interpret Not Performed LULY, Poly Interpret Negative LULY, Complement Interp Not Performed Screen Negative Baby's Blood Type O pos Baby's LULY Positive Doses of RhIg Required 1 Discharge Plan Discharge Attending physician on discharge: Juliocesar Arciniega Consulting providers: Tammie Craven Discharging Clinician: Tammie Craven Patient Disposition: Home Activity: pelvic rest Diet: regular Patient Instructions: Antibiotic Form Patient Language: Urdu Stand Alone Forms: General Discharge Information Follow-up/Referrals: Tammie Craven CNM [Certified Nurse Equalizing Saw Operator, HYDRAULIC TECHNICIAN] - 4 Weeks Discharge Medications: New ibuprofen 600 mg Tablet 600 mg PO Q6H PRN (Reason: Cramping) Qty: 30 0RF Continued PNV no.95-ferrous fumarate-FA [] 28 mg iron- 800 mcg Tablet 1 tablet PO HS docusate sodium [Colace] 100 mg capsule 100 mg PO HS Slow Fe 137 mg (45 mg iron) tablet extended release 137 mg PO DAILY calcium carbonate-vitamin D2 600 mg calcium- 200 unit tablet 1 tablet PO HS All Day Allergy (cetirizine) 10 mg capsule 10 mg PO DAILY PRN (Reason: allergy symptoms) Discontinued nifedipine [Procardia XL] 30 mg Tablet Extended Release 24hr 30 mg PO QHS Qty: 30 0RF nifedipine 10 mg capsule 10 mg PO Q6H PRN (Reason: Contractions) Date of admission: 06/30/25 04:17 Primary Care Provider: PHYSICIAN,MANAGER HI Admitting Provider: Juliocesar Arciniega Attending physician on admission: Juliocesar Arciniega Condition: Stable
[2025-07-01] MEDS: MULTIVIT/MIN/PREN/FOL AC/IRON TABLET 1 TAB PO (08:26)
[2025-07-01] MEDS: DOCUSATE SODIUM 100 MG CAPSULE PO ×2 (08:26→16:30)
[2025-07-01] MEDS: IBUPROFEN 600 MG TABLET PO ×2 (08:26→16:29)
[2025-07-01] MEDS: IRON SUCROSE COMPLEX 400 MG in SODIUM CHLORIDE 0.9% IV 250 ML 108 MG IVPB (08:30)
[2025-07-01 11:55] VITALS: BP 113/66; PULSE 86; RESP 16; TEMP 36.7; O2SAT 97
[2025-07-01] MEDS: RHO(D) IMMUNE GLOBULIN 300 MCG/2 ML SYRINGE IM (13:55)
[2025-07-01 20:00] VITALS: BP 105/60; PULSE 85; RESP 20; TEMP 36.9; O2SAT 98
[2025-07-02] MEDS: IBUPROFEN 600 MG TABLET PO ×2 (00:20→08:37)
[2025-07-02 07:20] VITALS: BP 110/67; PULSE 88; RESP 18; TEMP 37.1; O2SAT 99
[2025-07-02] MEDS: DOCUSATE SODIUM 100 MG CAPSULE PO (08:37)
[2025-07-02] MEDS: MULTIVIT/MIN/PREN/FOL AC/IRON TABLET 1 TAB PO (11:56)
[2025-07-04 10:20] VITALS: BP 117/70; PULSE 97; RESP 16; TEMP 36.6; O2SAT 100
== END 2025-07-02 12:31 | disposition home or self-care (01) | DRG 813 ==
LOC: ANHLDR 06:34 → ANHOB2 17:01
PROVIDERS: Advanced Practice Midwife; Admitting Provider Obstetrics & Gynecology; Visit Provider Obstetrics & Gynecology
DX: D69.6 Thrombocytopenia, unspecified (principal); O99.12 Other diseases of the blood and blood-forming organs and certain disorders involving the immune mechanism complicating childbirth; Z37.0 Single live birth; Z3A.37 37 weeks gestation of pregnancy; O70.0 First degree perineal laceration during delivery
CPT/HCPCS: 36415; 85025; 85027; 85055; 85461; 86593; 86850; 86880; 86900; 86901; 86902; 90384; A9270; J1756; J2590; J2790; J2795; J7050; J7120